=== PATIENT | male | born 1945 | race Caucasian/White ===

== ENCOUNTER → 2020-07-02 09:00 | Outpatient (BNVA) | payer MEDICARE, SELFPAY | PROVIDERS: PCP Internal Medicine; Referring Provider Internal Medicine; Visit Provider Internal Medicine Gastroenterology | DX: Z13.89 Encounter for screening for other disorder (principal) | CPT/HCPCS: Q3014 ==

== ENCOUNTER 2020-07-19 08:45 | Outpatient (REF) | payer MEDICARE, SELFPAY ==
--- NOTE | 2020-07-19 08:53 | US_ITS ---
EXAMINATION: US ABDOMEN COMPLETE CLINICAL INFORMATION: Unspecified cirrhosis of liver. COMPARISON: Ultrasound abdomen complete 12/12/2019 and 04/12/2019. CT abdomen 04/05/2008. TECHNIQUE: Real-time imaging of the abdominal viscera. FINDINGS: PANCREAS: Pancreas is obscured by gas. ABDOMINAL AORTA: The proximal and the distal abdominal aorta are of normal caliber. INFERIOR VENA CAVA: Visualized portions are normal. LIVER: The liver is normal in size. The liver contour is normal. There is diffuse increased liver echogenicity. No focal hepatic lesion. There is no intrahepatic biliary duct dilatation seen. GALLBLADDER: Normal. The gallbladder is physiologically distended without evidence of stones, sludge, polyps, wall thickening or pericholecystic fluid. COMMON BILE DUCT: Normal in caliber measuring 0.6 cm in diameter. RIGHT KIDNEY: Normal. No hydronephrosis. No renal calculi or focal parenchymal lesions. The kidney measures 10.5 cm in maximum dimension. LEFT KIDNEY: Normal. No hydronephrosis. No renal calculi or focal parenchymal lesions. The kidney measures 10.6 cm in maximum dimension. SPLEEN: Normal. The spleen measures 8.4 cm in maximum dimension. FREE FLUID: None. US/US abdomen complete IMPRESSION: Limited views mid abdominal aorta. Mild hepatic steatosis without any focal lesion seen.
[2020-07-19 10:11] LABS: MANUAL DIFF FLAG NO
[2020-07-19 10:21] LABS: Basophils Percent Auto 0.5 % (0-2); Eosinophils Absolute Auto 0.6 X10*3/uL (0.0-0.4); Eosinophils Percent Auto 7.6 % (0-4); Hematocrit 38.5 % (42-52); Hemoglobin 12.9 g/dl (14.0-18.0); Imm Gran Abs Auto 0.03 X10*3/uL (0.00-0.03); Imm Gran Pct Auto 0.4 % (0.0-0.4); Lymphocytes Absolute Auto 1.6 X10*3/uL (1.2-4.9); Lymphocytes Percent Auto 18.8 % (20-40); Mean Corpuscular HGB Conc 33.5 g/dl (31.0-36.0); Mean Corpuscular Hemoglobin 30.8 pg (27.0-33.0); Mean Corpuscular Volume 91.9 fL (80-98); Mean Platelet Volume 12.6 fL (9.4-12.4); Monocytes Absolute Auto 0.6 X10*3/uL (0.1-1.2); Monocytes Percent Auto 7.2 % (2-11); Neutrophils Absolute Auto 5.6 X10*3/uL (2.0-8.3); Neutrophils Percent Auto 65.5 % (45-73); Platelet Count 162 X10*3/uL (160-400); Red Blood Count 4.19 X10*6/uL (4.60-5.80); White Blood Count 8.5 X10*3/uL (4.8-10.8)
[2020-07-19 10:24] LABS: Prothrombin Time 12.2 SEC (10.8-13.0)
[2020-07-19 10:57] LABS: Alanine Aminotransferase 12 U/L (0-40); Albumin Level 3.6 g/dL (3.5-5.0); Alkaline Phosphatase 91 U/L (39-117); Anion Gap 15 (12-20); Aspartate Amino Transferase 18 U/L (5-37); Bilirubin Total 0.6 mg/dL (0.0-1.0); Blood Urea Nitrogen 7 mg/dL (9-16); Calcium 8.9 mg/dL (8.4-10.2); Carbon Dioxide 20 mmol/L (22-29); Chloride 104 mmol/L (96-108); Estimated Glomerular Filt Rate > 60; Glucose Random 94 mg/dL (60-115); Sodium 134 mmol/L (135-145); Total Protein 6.2 g/dL (6.5-8.0)
== END 2020-07-19 08:46 | disposition home or self-care (01) ==
LOC: HO.US 08:45
PROVIDERS: PCP Internal Medicine; Visit Provider Internal Medicine Gastroenterology
DX: K74.60 Unspecified cirrhosis of liver (principal)
CPT/HCPCS: 36415; 76700; 80053; 85025; 85610

== ENCOUNTER 2020-08-24 | Outpatient (REF) | payer MEDICARE, SELFPAY ==
[2020-08-24 11:24] LABS: MANUAL DIFF FLAG NO
[2020-08-24 11:33] LABS: Basophils Percent Auto 0.5 % (0-2); Eosinophils Absolute Auto 0.3 X10*3/uL (0.0-0.4); Eosinophils Percent Auto 3.8 % (0-4); Hematocrit 39.3 % (42-52); Hemoglobin 13.2 g/dl (14.0-18.0); Imm Gran Abs Auto 0.03 X10*3/uL (0.00-0.03); Imm Gran Pct Auto 0.4 % (0.0-0.4); Lymphocytes Absolute Auto 1.6 X10*3/uL (1.2-4.9); Lymphocytes Percent Auto 19.2 % (20-40); Mean Corpuscular HGB Conc 33.6 g/dl (31.0-36.0); Mean Corpuscular Hemoglobin 30.8 pg (27.0-33.0); Mean Corpuscular Volume 91.6 fL (80-98); Mean Platelet Volume 12.8 fL (9.4-12.4); Monocytes Absolute Auto 0.6 X10*3/uL (0.1-1.2); Monocytes Percent Auto 7.3 % (2-11); Neutrophils Absolute Auto 5.6 X10*3/uL (2.0-8.3); Neutrophils Percent Auto 68.8 % (45-73); Platelet Count 222 X10*3/uL (160-400); Red Blood Count 4.29 X10*6/uL (4.60-5.80); Red Cell Distribution Width 14.4 % (11.0-16.0); White Blood Count 8.1 X10*3/uL (4.8-10.8)
[2020-08-24 11:48] LABS: Estimated Average Glucose 114 mg/dL; Hemoglobin A1c % 5.6 %
[2020-08-24 12:03] LABS: Alanine Aminotransferase 13 U/L (0-40); Albumin Level 3.6 g/dL (3.5-5.0); Alkaline Phosphatase 83 U/L (39-117); Anion Gap 12 (12-20); Aspartate Amino Transferase 15 U/L (5-37); Bilirubin Total 0.4 mg/dL (0.0-1.0); Blood Urea Nitrogen 8 mg/dL (9-16); Calcium 8.7 mg/dL (8.4-10.2); Carbon Dioxide 26 mmol/L (22-29); Chloride 102 mmol/L (96-108); Cholesterol 116 mg/dL; Estimated Glomerular Filt Rate > 60; Glucose Random 119 mg/dL (60-115); HDL Cholesterol 50 mg/dL; LDL Cholesterol Calculated 49 mg/dl; Magnesium 1.8 mg/dL (1.6-2.6); Potassium 4.5 mmol/L (3.3-5.1); Sodium 135 mmol/L (135-145); Total Protein 6.1 g/dL (6.5-8.0); Triglycerides 86 mg/dL
[2020-08-24 12:06] LABS: B Type Natriuretic Peptide 121 pg/mL (<100)
[2020-08-24 12:26] LABS: Thyroid Stimulating Hormone 0.84 uIU/mL (0.32-4.0); Vitamin D 25-OH Total 35.6 ng/mL (>30)
[2020-08-24 12:43] LABS: Vitamin B12 > 2000 pg/mL (200-900)
== END 2020-08-24 00:01 | disposition home or self-care (01) ==
LOC: HO.LHD
PROVIDERS: Visit Provider Internal Medicine
DX: I11.0 Hypertensive heart disease with heart failure (principal); I50.22 Chronic systolic (congestive) heart failure; E78.2 Mixed hyperlipidemia; D64.9 Anemia, unspecified; R73.01 Impaired fasting glucose; I25.9 Chronic ischemic heart disease, unspecified; E55.9 Vitamin D deficiency, unspecified
CPT/HCPCS: 36415; 80053; 80061; 82306; 82607; 83036; 83735; 83880; 84443; 85025

== ENCOUNTER 2020-09-21 14:53 | Outpatient (REF) | payer MEDICARE, SELFPAY ==
[2020-09-21 17:11] LABS: MANUAL DIFF FLAG NO
[2020-09-21 17:19] LABS: Basophils Absolute Auto 0.1 X10*3/uL (0.0-0.2); Basophils Percent Auto 0.6 % (0-2); Eosinophils Absolute Auto 0.3 X10*3/uL (0.0-0.4); Eosinophils Percent Auto 3.2 % (0-4); Hemoglobin 13.1 g/dl (14.0-18.0); Imm Gran Abs Auto 0.04 X10*3/uL (0.00-0.03); Imm Gran Pct Auto 0.4 % (0.0-0.4); Lymphocytes Absolute Auto 1.5 X10*3/uL (1.2-4.9); Lymphocytes Percent Auto 14.4 % (20-40); Mean Corpuscular HGB Conc 32.8 g/dl (31.0-36.0); Mean Corpuscular Hemoglobin 30.2 pg (27.0-33.0); Mean Corpuscular Volume 92.2 fL (80-98); Mean Platelet Volume 12.4 fL (9.4-12.4); Monocytes Percent Auto 9.4 % (2-11); Neutrophils Absolute Auto 7.7 X10*3/uL (2.0-8.3); Platelet Count 242 X10*3/uL (160-400); Red Blood Count 4.34 X10*6/uL (4.60-5.80); Red Cell Distribution Width 13.9 % (11.0-16.0); White Blood Count 10.7 X10*3/uL (4.8-10.8)
[2020-09-21 17:40] LABS: Alanine Aminotransferase 8 U/L (0-40); Albumin Level 3.7 g/dL (3.5-5.0); Alkaline Phosphatase 100 U/L (39-117); Anion Gap 13 (12-20); Aspartate Amino Transferase 16 U/L (5-37); Bilirubin Total 0.6 mg/dL (0.0-1.0); Blood Urea Nitrogen 12 mg/dL (9-16); Calcium 8.7 mg/dL (8.4-10.2); Carbon Dioxide 26 mmol/L (22-29); Chloride 102 mmol/L (96-108); Estimated Glomerular Filt Rate > 60; Glucose Random 92 mg/dL (60-115); Lipase 12 U/L (8-78); Sodium 136 mmol/L (135-145); Total Protein 6.4 g/dL (6.5-8.0)
[2020-09-21 18:04] LABS: Ferritin 149 ng/mL (20-250)
== END 2020-09-21 14:54 | disposition home or self-care (01) ==
LOC: HO.LAB 14:53
PROVIDERS: PCP Internal Medicine; Visit Provider Internal Medicine Gastroenterology
DX: R13.10 Dysphagia, unspecified (principal); K74.60 Unspecified cirrhosis of liver; K44.9 Diaphragmatic hernia without obstruction or gangrene; K21.9 Gastro-esophageal reflux disease without esophagitis; R11.2 Nausea with vomiting, unspecified; R19.7 Diarrhea, unspecified; I10 Essential (primary) hypertension; E78.00 Pure hypercholesterolemia, unspecified; E55.9 Vitamin D deficiency, unspecified; Z98.890 Other specified postprocedural states; Z90.3 Acquired absence of stomach [part of]; Z86.010 Personal history of colon polyps; Z87.891 Personal history of nicotine dependence; Z79.82 Long term (current) use of aspirin; Z79.899 Other long term (current) drug therapy
CPT/HCPCS: 36415; 80053; 82728; 83690; 85025; 99212

== ENCOUNTER 2020-09-28 11:01 | Day surgery (SDC) | payer MEDICARE, SELFPAY ==
--- NOTE | 2020-09-26 10:50 | P.CONAN_ITS ---
Documented by User: Cleopatra Deluca 09/26/20 12:06 HPI - Anesthesia Eval Consult details Narrative: 74yo M for Upper Endoscopy PMF Active Problems Active Problems: All Active Problems (Updated 09/21/20 @ 15:50 by Francisco Jasmine MD) Nausea and vomiting (Acute) Dysphagia (Acute) Cirrhosis of liver without ascites (Acute) History of colon polyps (Acute) Hiatal hernia (Acute) History of cardiac catheterization (Acute ~02/2018) Elevated cholesterol (Acute) Hypertension (Acute) GERD (gastroesophageal reflux disease) (Acute) Past Medical History Medical History (Updated 09/26/20 @ 10:51 by Cleopatra Deluca) Cirrhosis of liver without ascites Dysphagia Elevated cholesterol GERD (gastroesophageal reflux disease) History of non anemic vitamin B12 deficiency History of vitamin D deficiency Hypertension Family History Family History (Updated 07/02/20 @ 09:02 by Chery Covington CMA) Father No problems noted. Mother No problems noted. Surgical History Surgical History (Updated 09/21/20 @ 15:17 by LISBETH Perez) H/O colonoscopy History of cardiac catheterization (~02/2018) History of esophagogastroduodenoscopy (EGD) (~01/2013) Status post partial gastrectomy Social History Social History (Updated 09/21/20 @ 15:17 by LISBETH Perez) Household Members: None Alcohol intake: never Smoking Status: Never smoker Substance Use Type: Marijuana Advance Directives: No Advance Directives Information Provided: Yes Meds Allergies Allergy/AdvReac Type Severity Reaction Status Date / Time No Known Allergies Allergy Verified 09/21/20 15:15 [No Known Allergies*] Home Medications Medication Instructions Recorded Confirmed Last Taken Type aspirin 81 mg tablet,delayed 81 mg PO DAILY 07/02/20 09/21/20 Unknown History release atorvastatin 10 mg tablet 10 mg PO QPM 07/02/20 09/21/20 Unknown History carvedilol 12.5 mg tablet 12.5 mg PO BID 07/02/20 09/21/20 Unknown History cyanocobalamin (vitamin B-12) 3,000 mcg PO DAILY 07/02/20 09/21/20 Unknown History 3,000 mcg capsule folic acid 1 mg tablet 1 mg PO DAILY 07/02/20 09/21/20 Unknown History gabapentin 600 mg tablet 600 mg PO DAILY 07/02/20 09/21/20 Unknown History iron heme polypeptide 12 mg tablet 12 mg PO DAILY 07/02/20 09/21/20 Unknown History lisinopril 2.5 mg tablet 2.5 mg PO DAILY 07/02/20 09/21/20 Unknown History tramadol 50 mg tablet 50 mg PO BID PRN 07/02/20 09/21/20 Unknown History Exam Exam Date and Time: September 26, 2020 1050 Pertinent Lab Results Pertinent Lab Results: Laboratory Tests 09/21/20 09/21/20 16:08 16:08 WBC 10.7 Hgb 13.1 L Hct 40.0 L Plt Count 242 Sodium 136 Potassium 5.0 Chloride 102 Carbon Dioxide 26 BUN 12 Creatinine 0.96 Laboratory Tests 07/19/20 09:38 PT 12.2 INR 1.0 Laboratory Tests 09/21/20 16:08 Total Bilirubin 0.6 AST 16 ALT 8 Alkaline Phosphatase 100 D Total Protein 6.4 L Albumin 3.7 Lipase 12 Assessment and Plan Assessment Anesthesia Assessment: Chart Reviewed Documented by User: Beny Blake MD 09/28/20 11:37 [facility] Past Medical History Medical History (Updated 09/26/20 @ 10:51 by Cleopatra Deluca) Cirrhosis of liver without ascites Dysphagia Elevated cholesterol GERD (gastroesophageal reflux disease) History of non anemic vitamin B12 deficiency History of vitamin D deficiency Hypertension Family History Family History (Updated 07/02/20 @ 09:02 by Chery Covington CMA) Father No problems noted. Mother No problems noted. Surgical History Surgical History (Updated 09/21/20 @ 15:17 by LISBETH Perez) H/O colonoscopy History of cardiac catheterization (~02/2018) History of esophagogastroduodenoscopy (EGD) (~01/2013) Status post partial gastrectomy Social History Social History (Updated 09/21/20 @ 15:17 by LISBETH Perez) Household Members: None Alcohol intake: never Smoking Status: Never smoker Substance Use Type: Marijuana Advance Directives: No Advance Directives Information Provided: Yes Meds Allergies Allergy/AdvReac Type Severity Reaction Status Date / Time No Known Allergies Allergy Verified 09/21/20 15:15 [No Known Allergies*] Home Medications Medication Instructions Recorded Confirmed Last Taken Type aspirin 81 mg tablet,delayed 81 mg PO DAILY 07/02/20 09/21/20 Unknown History release atorvastatin 10 mg tablet 10 mg PO QPM 07/02/20 09/21/20 Unknown History carvedilol 12.5 mg tablet 12.5 mg PO BID 07/02/20 09/21/20 Unknown History cyanocobalamin (vitamin B-12) 3,000 mcg PO DAILY 07/02/20 09/21/20 Unknown History 3,000 mcg capsule folic acid 1 mg tablet 1 mg PO DAILY 07/02/20 09/21/20 Unknown History gabapentin 600 mg tablet 600 mg PO DAILY 07/02/20 09/21/20 Unknown History iron heme polypeptide 12 mg tablet 12 mg PO DAILY 07/02/20 09/21/20 Unknown History lisinopril 2.5 mg tablet 2.5 mg PO DAILY 07/02/20 09/21/20 Unknown History tramadol 50 mg tablet 50 mg PO BID PRN 07/02/20 09/21/20 Unknown History Exam Airway Mallampati Class: II TM Dist: >3cm Neck ROM: Full Loose/Missing/Broken Teeth: Yes Heart: PVCs Lungs: NL Assessment and Plan Assessment Anesthesia Assessment: Anesthesia Plan Discussed and Chart Reviewed Final Anesthetic Review NPO: Yes ASA Class: III Final Preanesthetic Review: No Changes in Pt Med Stat, Meds/Allgs Chart Reviewed, Consent Obtained/Reviewed and Anes Risks/Benef Reviewed Patient Risk: Intermediate Procedure Risk: Low Anesthetic Plan Anesthetic Plan: MAC: Disposition: Standard PACU
[2020-09-26 12:57] VITALS: BMI 23.1
[2020-09-28 11:39] VITALS: BP 138/70; PULSE 61; RESP 18; TEMP 36.3; O2SAT 98
--- NOTE | 2020-09-28 11:43 | W.PM.OPN ---
Operative Note Operative Note Date of Service: 09/28/20 Narrative: Pre-op diagnosis: GERD, dysphagia Post-op diagnosis: other (Schatzki's ring/esophageal stricture, Billroth-I gastric anatomy, gastritis) Procedure: FLEXIBLE TRANSORAL UPPER GASTROINTESTINAL ENDOSCOPY WITH BIOPSIES AND ESOPHAGEAL BALLOON DILATION Consent: Indications for the procedure and potential complications of bleeding, perforation, reaction to medications and missed diagnosis were discussed with the patient and informed consent was obtained. Instrument: Olympus GIF H 190 mid size upper endoscope Monitoring: Vital signs and clinical assessment, continuous EKG monitoring, Pulse oximetry, Carbon Dioxide monitoring and blood pressure monitoring were done throughout the procedure. Procedure: The patient was placed in the left lateral decubitis position and pre-procedure medications were administered and a bite block was placed. The endoscope was inserted into the mouth and advanced under direct vision to the third part of duodenum. A careful inspection was made as the upper endoscope was withdrawn including a retroflexed examination of the proximal stomach; Findings and interventions are described below. Findings: Larynx: Normal Esophagus: Hiatal hernia from 30 to 35 cms. Tortuous esophagus with increased tertiary contractions. Partially obstructing Schatzki's ring/focal stricture at GE junction - dilated with 15, 16.5 mm CRE balloon x 60 seconds at each level. Biopsies were obtained. Stomach: Status post Bilroth 1 gastrectomy. Scar of past ulcer at anastomotic site with mild antral erythema - antral biopsies were obtained Duodenum: Normal bulb and descending duodenum Intervention: Biopsies and balloon dilation as noted above Impression and Post Procedure Diagnosis: Endoscopy Findings: ESOPHAGUS: Tortuous esophagus with increased tertiary contractions. Hiatal hernia from 30 to 35 cms. Partially obstructing Schatzki's ring/focal stricture at GE junction - dilated to 16.5 mm CRE balloon. Biopsies were obtained from the stricture Dysphagia is likely a combination of Schatzki's ring and esophageal motility disorder. STOMACH: Status post Bilroth 1 gastrectomy. Scar of past ulcer at anastomotic site with mild antral erythema - antral biopsies were obtained Plan: Await pathology results Patient has an appointment on 10/15/20 in the GI Clinic with Francisco Jasmine M.D.-. Above findings were reviewed with the patient and GERD handout was given in the discharge area Surgeon: Francisco Jasmine MD Anesthesia: MAC (Dr Blake) Correctional Corporal: David Alexis Estimated blood loss (mL): 0 Pathology: other (A: ESOPHAGEAL STRICTURE BX B: GASTRIC BX R/O H PYLORI) Condition: stable Disposition: PACU
--- NOTE | 2020-09-28 11:44 | MHC.SHP ---
Pre-Procedural Eval Section A The patient is an INPATIENT: No Changes since office visit: Yes Patient answered all questions; No Cold of Flu in the past 2 weeks, No New Medical Problems and No Changes in Medication The History & Physical has been completed within 30 days and I have reviewed it.: Yes Section B Chief Complaint: dysphagia Allergies: Allergies Allergy/AdvReac Type Severity Reaction Status Date / Time No Known Allergies Allergy Verified 09/21/20 15:15 [No Known Allergies*] Plan I have reviewed the history and physical and performed a pertinent physical examination on my patient. No changes have occurred unless specified.
--- NOTE | 2020-09-28 11:53 | PC.NURSE ---
PATIENT HAD A BABY ASA 81 MG PO THIS AM AT 0700. DR. COVARRUBIAS AWARE AND IS OKAY WITH IT.
[2020-09-28] MEDS: Lactated Ringers 1,000 ML 50 ML IV (11:55)
[2020-09-28 12:20] VITALS: BP 120/70; PULSE 82; RESP 16; TEMP 36.3; O2SAT 98
[2020-09-28 12:43] VITALS: BP 116/69; PULSE 70; RESP 18; TEMP 36.2; O2SAT 97
== END 2020-09-28 13:40 | disposition home or self-care (01) ==
PROVIDERS: PCP Internal Medicine; Visit Provider Internal Medicine Gastroenterology
PROC: 0DJ08ZZ Inspection of Upper Intestinal Tract, Via Natural or Artificial Opening Endoscopic (ICD-10-PCS; CPT 43235; principal; 2020-09-28 11:20)
DX: K22.2 Esophageal obstruction (principal); K21.00 Gastro-esophageal reflux disease with esophagitis, without bleeding; K29.50 Unspecified chronic gastritis without bleeding; K44.9 Diaphragmatic hernia without obstruction or gangrene; I10 Essential (primary) hypertension; Z90.3 Acquired absence of stomach [part of]; Z79.82 Long term (current) use of aspirin; Z79.899 Other long term (current) drug therapy
CPT/HCPCS: 43249; 43239; 88305; 88342; C1726

== ENCOUNTER → 2020-10-15 12:13 | Outpatient (BNVA) | payer MEDICARE, SELFPAY | PROVIDERS: PCP Internal Medicine; Visit Provider Internal Medicine Gastroenterology | CPT/HCPCS: Q3014 ==

== ENCOUNTER 2020-11-18 08:06 | Outpatient (REF) | payer MEDICARE, SELFPAY ==
[2020-11-18 10:01] LABS: OBS Int Ctl Valid YES; OBS1 NEGATIVE (NEGATIVE); OBS2 NEGATIVE (NEGATIVE); OBS3 NEGATIVE (NEGATIVE)
== END 2020-11-18 08:07 | disposition home or self-care (01) ==
LOC: HO.LNP 08:06
PROVIDERS: Visit Provider Internal Medicine Gastroenterology
DX: R19.7 Diarrhea, unspecified (principal); R11.2 Nausea with vomiting, unspecified
CPT/HCPCS: 82270

== ENCOUNTER → 2021-01-03 09:30 | Outpatient (BNVA) | payer MEDICARE, SELFPAY | PROVIDERS: PCP Internal Medicine; Visit Provider Urology | DX: N41.1 Chronic prostatitis (principal) | CPT/HCPCS: 99202; 99212 ==

== ENCOUNTER → 2021-01-31 11:09 | Outpatient (BNVA) | payer MEDICARE, SELFPAY | PROVIDERS: PCP Internal Medicine; Referring Provider Internal Medicine; Visit Provider Internal Medicine Gastroenterology | DX: K44.9 Diaphragmatic hernia without obstruction or gangrene (principal); K74.60 Unspecified cirrhosis of liver; K21.9 Gastro-esophageal reflux disease without esophagitis; R13.10 Dysphagia, unspecified; I10 Essential (primary) hypertension; E78.00 Pure hypercholesterolemia, unspecified; E53.8 Deficiency of other specified B group vitamins; R30.0 Dysuria; R11.2 Nausea with vomiting, unspecified; R19.7 Diarrhea, unspecified; Z86.010 Personal history of colon polyps; Z79.52 Long term (current) use of systemic steroids; Z79.899 Other long term (current) drug therapy | CPT/HCPCS: 99212 ==

== ENCOUNTER → 2021-02-15 13:10 | Outpatient (BNVA) | payer MEDICARE, SELFPAY | PROVIDERS: PCP Internal Medicine; Visit Provider Urology | DX: N41.1 Chronic prostatitis (principal) | CPT/HCPCS: 99212 ==

== ENCOUNTER 2021-04-02 08:03 | Day surgery (SDC) | payer MEDICARE, SELFPAY ==
--- NOTE | 2021-04-02 08:21 | MHC.SHP ---
Pre-Procedural Eval Section A Date of Service: 04/02/21 The patient is an INPATIENT: No The History & Physical has been completed within 30 days and I have reviewed it.: No Section B Chief Complaint: Colon cancer screening Details of Present Illness: Colon cancer screening Relevant Family History (Specify if Yes): No Relevant Social History: Tobacco Use (Former smoker) Present Medications: see Short Stay Collaborative assessment Medical History: Significant History (Cardiac defibrillator in place Cirrhosis of liver without ascites COVID-19 vaccine series completed Dysphagia Elevated cholesterol GERD (gastroesophageal reflux disease) History of non anemic vitamin B12 deficiency History of vitamin D deficiency Hx of myocardial infarction Hypertension) History of Previous Operations: Relevant previous surgery/procedure and date(s) (H/O colonoscopy History of cardiac catheterization (~02/2018) History of esophagogastroduodenoscopy (EGD) (~01/2013) History of esophagogastroduodenoscopy (EGD) Status post partial gastrectomy) Allergies: Allergies Allergy/AdvReac Type Severity Reaction Status Date / Time No Known Allergies Allergy Verified 04/02/21 08:13 [No Known Allergies*] Review of Systems Sugical H&P ROS: Negative: Constitution, Cardiovascular, Respiratory and Gastrointestinal Exam Surgical H&P Exam: Normal: Heart, Normal: Lungs, Normal: Extremities and Normal: Abdomen Plan Diagnosis/Plan: Unchanged I have reviewed the history and physical and performed a pertinent physical examination on my patient. No changes have occurred unless specified.
--- NOTE | 2021-04-02 08:23 | W.PM.OPN ---
Operative Note Operative Note Date of Service: 04/02/21 Narrative: Pre-op diagnosis:?Colon cancer screening, history of colon polyps Post-op diagnosis:?other (Diverticulosis) Procedure:? COLONOSCOPY TILL CECUM Consent: Indications for the procedure and potential complications of bleeding, perforation, reaction to medications and missed diagnosis were discussed with the patient and informed consent was obtained. Instrument: Olympus PCF H 190 L variable stiffness pediatric colonoscope Monitoring: Vital signs and clinical assessment, intermittent blood pressure monitoring, continuous EKG monitoring, Pulse oximetry and Carbon Dioxide monitoring were done throughout the procedure. Colon withdrawl time was 26 minutes. Procedure: The patient was placed in the left lateral decubitis position and pre-procedure medications were administered. After a digital rectal examination of the ano-rectum, the video colonoscope was inserted into the rectum and advanced through the colon to the cecum. The colonoscope was slowly withdrawn in a retrograde panoramic fashion and the colon mucosa was carefully examined including a retroflexed view of the rectum. Findings and interventions are described below. Procedure Difficulty: There was luminal narrowing at 30 cms which was navigated with some difficulty - no manuvers were required Findings: Terminal Ileum: Not evaluated Cecum:? Normal Ascending Colon:? Normal Transverse Colon:? Normal Descending Colon:? Moderate diverticulosis Sigmoid Colon:? Severe diverticulosis with luminal narrowing Rectum:? Normal Ano-rectum:? Normal Colon preparation:? Good after some irrigation Impression and Post Procedure Diagnosis: Colonoscopy Findings: No polyps were detected Moderate to severe diverticulosis seen in the left colon Moderate hemorrhoids on retroflexed exam. Plan: Await pathology results Patient has an appointment on 04/18/21 in the GI Clinic with Francisco Jasmine M.D.. Repeat Colonoscopy in 5 years if pt remains in stable health or pt may elect to stop colon cancer screening. Above findings were reviewed with the patient and? diverticulosis handout was given in the discharge area Surgeon:?Francisco Jasmine MD Anesthesia:?MAC (Melany Saunders CRNA) Was an Team Cdl Driver used for this Procedure?:?Yes Team Cdl Driver:?Olya Davies Estimated blood loss (mL):?0 Pathology:?none sent Condition:?stable Disposition:?PACU
[2021-04-02 08:30] VITALS: BP 152/85; PULSE 61; RESP 18; TEMP 36.4; O2SAT 99; BMI 22.7
--- NOTE | 2021-04-02 09:09 | HO.ANESPROP2 ---
HPI - Anesthesia Eval Consult details Narrative: 75yo male patient for colonoscopy PMF Active Problems Active Problems: All Active Problems (Updated 02/15/21 @ 13:42 by Zachary Murray MD) Hiatal hernia (Acute) History of colon polyps (Acute) Nausea and vomiting (Acute) Diarrhea (Acute) Chronic prostatitis (Acute) Elevated cholesterol (Acute) Cirrhosis of liver without ascites (Acute) Dysphagia (Acute) History of cardiac catheterization (Acute ~02/2018) GERD (gastroesophageal reflux disease) (Acute) CAD. [place] 2012. Denies recent chest pain AICD Med[employer] 2013. Interrogated 12/2020. Denies dizziness, faintness, SOB Past Medical History Medical History Cardiac defibrillator in place Cirrhosis of liver without ascites COVID-19 vaccine series completed Dysphagia Elevated cholesterol GERD (gastroesophageal reflux disease) History of non anemic vitamin B12 deficiency History of vitamin D deficiency Hx of myocardial infarction Hypertension Family History Family History Father No problems noted. Mother No problems noted. Family history of problems with anesthesia: No Surgical History Surgical History H/O colonoscopy History of cardiac catheterization (~02/2018) History of esophagogastroduodenoscopy (EGD) (~01/2013) History of esophagogastroduodenoscopy (EGD) Status post partial gastrectomy History of Problems with Anesthesia: No Social History Social History Household Members: None Alcohol intake: never Patient Tobacco Use Status: Former Tobacco user Quit Date: 2012 Tobacco use type: Cigarette Use of substances other than those prescribed or required for medical reasons: No Substance Use Type: Marijuana Are you DNR?: No Advance Directives: No Advance Directives Information Provided: Yes Meds Allergies Allergy/AdvReac Type Severity Reaction Status Date / Time No Known Allergies Allergy Verified 04/02/21 08:13 [No Known Allergies*] Home Medications Medication Instructions Recorded Confirmed Last Taken Type aspirin 81 mg tablet,delayed 81 mg PO DAILY 07/02/20 03/27/21 04/02/21 07:00 History release carvedilol 12.5 mg tablet 12.5 mg PO BID 07/02/20 03/27/21 Unknown History folic acid 1 mg tablet 1 mg PO DAILY 07/02/20 03/27/21 Unknown History gabapentin 600 mg tablet 600 mg PO BEDTIME 07/02/20 03/27/21 Unknown History lisinopril 2.5 mg tablet 2.5 mg PO DAILY 07/02/20 03/27/21 Unknown History tramadol 50 mg tablet 50 mg PO BID PRN 07/02/20 03/27/21 04/02/21 07:00 History atorvastatin 20 mg tablet 20 mg PO DAILY 10/15/20 03/27/21 Unknown History nitroglycerin 0.4 mg sublingual 0.4 mg SUBLINGUAL .Q5MINS PRN 10/15/20 03/27/21 Unknown History tablet isosorbide mononitrate 60 mg 60 mg PO QAM 01/03/21 03/27/21 Unknown History tablet,extended release 24 hr mecobalamin (vitamin B12) 1,000 1,000 mcg SUBLINGUAL DAILY 01/03/21 03/27/21 Unknown History mcg disintegrating tablet,sublingual Exam Exam Date and Time: April 02, 2021 0909 Height,Weight and Vital Signs: Height 5 ft 7 in Weight 65.771 kg Last Vital Signs Temp 97.5 F 04/02/21 08:30 Pulse 61 04/02/21 08:30 Resp 18 04/02/21 08:30 BP 152/85 H 04/02/21 08:30 Pulse Ox 99 04/02/21 08:30 Pertinent Lab Results Pertinent Lab Results: Narrative: ECHO 2020 Normal LV size and wall thickness. Discrete upper septal thickening. Moderate global hypokinesis. Hypokinesis in the basal and mid inferior wall, mid and distal anteroseptal wall and mid to distal inferolateral wall. The apex is hypokinetic to akinetic. LVEF 35-40%. Abnormal LV diastolic function. Moderately dilated LA Mild to mod MR Mild to moderate TR. PASP is not elevated Ascending (3.9cm) and transverse (3.1cm) aorta dilation. Normal aortic root for BSA Compared with 2019 Echo, degree of MR and TR has increased slightly. AICD Inter 12/2020 VVI 40; ORDERLIES TEACHER<0.1% No new alerts or episodes noted Normal device function Est. battery life: 3.2years Airway Mallampati Class: II TM Dist: >3cm Neck ROM: Full Loose/Missing/Broken Teeth: Yes (Many missing) Heart: RRR Lungs: CTAB Assessment and Plan Assessment Anesthesia Assessment: Anesthesia Plan Discussed and Chart Reviewed Final Anesthetic Review Family History of Problems with Anesthesia: No History of Problems with Anesthesia: No NPO: Yes ASA Class: III Final Preanesthetic Review: No Changes in Pt Med Stat, Meds/Allgs Chart Reviewed, Consent Obtained/Reviewed and Anes Risks/Benef Reviewed Patient Risk: Intermediate Procedure Risk: Low Assessment/Block/Sedation in SS: Assess/Block/Sedation-SS Anesthetic Plan Anesthetic Plan: MAC: Disposition: Standard PACU
[2021-04-02] MEDS: Lactated Ringers 1,000 ML 100 ML IVCONT (09:22)
[2021-04-02 10:09] VITALS: BP 130/68; PULSE 70; RESP 18; TEMP 36.6; O2SAT 99
[2021-04-02 10:24] VITALS: BP 143/78; PULSE 72; RESP 18; TEMP 36.6; O2SAT 98
== END 2021-04-02 11:30 | disposition home or self-care (01) ==
PROVIDERS: PCP Internal Medicine; Visit Provider Internal Medicine Gastroenterology
PROC: 0DJD8ZZ Inspection of Lower Intestinal Tract, Via Natural or Artificial Opening Endoscopic (ICD-10-PCS; CPT 45378; principal; 2021-04-02 09:10)
DX: Z12.11 Encounter for screening for malignant neoplasm of colon (principal); K57.30 Diverticulosis of large intestine without perforation or abscess without bleeding; K64.9 Unspecified hemorrhoids; Z86.010 Personal history of colon polyps; I10 Essential (primary) hypertension; K21.9 Gastro-esophageal reflux disease without esophagitis; K74.60 Unspecified cirrhosis of liver; Z79.82 Long term (current) use of aspirin; Z79.899 Other long term (current) drug therapy; Z95.810 Presence of automatic (implantable) cardiac defibrillator
CPT/HCPCS: G0105

== ENCOUNTER 2021-04-04 07:49 | Outpatient (REF) | payer MEDICARE, SELFPAY ==
[2021-04-04 08:42] LABS: MANUAL DIFF FLAG NO
[2021-04-04 08:46] LABS: Basophils Percent Auto 0.5 % (0-2); Eosinophils Absolute Auto 0.3 X10*3/uL (0.0-0.4); Eosinophils Percent Auto 3.4 % (0-4); Hematocrit 37.7 % (42-52); Hemoglobin 12.6 g/dl (14.0-18.0); Imm Gran Abs Auto 0.03 X10*3/uL (0.00-0.03); Imm Gran Pct Auto 0.4 % (0.0-0.4); Lymphocytes Absolute Auto 1.8 X10*3/uL (1.2-4.9); Lymphocytes Percent Auto 21.1 % (20-40); Mean Corpuscular HGB Conc 33.4 g/dl (31.0-36.0); Mean Corpuscular Hemoglobin 30.6 pg (27.0-33.0); Mean Corpuscular Volume 91.5 fL (80-98); Mean Platelet Volume 12.4 fL (9.4-12.4); Monocytes Absolute Auto 0.7 X10*3/uL (0.1-1.2); Monocytes Percent Auto 8.4 % (2-11); Neutrophils Absolute Auto 5.7 X10*3/uL (2.0-8.3); Neutrophils Percent Auto 66.2 % (45-73); Platelet Count 188 X10*3/uL (160-400); Red Blood Count 4.12 X10*6/uL (4.60-5.80); Red Cell Distribution Width 13.8 % (11.0-16.0); White Blood Count 8.5 X10*3/uL (4.8-10.8)
[2021-04-04 09:19] LABS: Alanine Aminotransferase 12 U/L (0-40); Albumin Level 3.7 g/dL (3.5-5.0); Alkaline Phosphatase 81 U/L (39-117); Anion Gap 13 (12-20); Aspartate Amino Transferase 19 U/L (5-37); Bilirubin Total 0.4 mg/dL (0.0-1.0); Blood Urea Nitrogen 8 mg/dL (9-16); Calcium 9.1 mg/dL (8.4-10.2); Carbon Dioxide 21 mmol/L (22-29); Chloride 103 mmol/L (96-108); Cholesterol 109 mg/dL; Estimated Glomerular Filt Rate > 60; Glucose Random 94 mg/dL (60-115); HDL Cholesterol 50 mg/dL; LDL Cholesterol Calculated 47 mg/dl; Potassium 4.5 mmol/L (3.3-5.1); Sodium 132 mmol/L (135-145); Total Protein 6.1 g/dL (6.5-8.0); Triglycerides 63 mg/dL
[2021-04-04 09:29] LABS: Thyroid Stimulating Hormone 0.73 uIU/mL (0.32-4.0)
[2021-04-04 14:03] LABS: Appearance Urine CLEAR; Color Urine YELLOW; Glucose Urine UA NEG (NEG); Leukocyte Esterase Urine NEG (NEG); Nitrite Urine NEG (NEG); PH 6.5 (5.0-8.0); Urine Blood NEG (NEG); Urine Ketones NEG (NEG); Urine Protein NEG (NEG-TRACE)
== END 2021-04-04 07:50 | disposition home or self-care (01) ==
LOC: HO.LAB 07:49
PROVIDERS: PCP Internal Medicine; Visit Provider Internal Medicine
DX: I11.0 Hypertensive heart disease with heart failure (principal); I50.22 Chronic systolic (congestive) heart failure; K21.9 Gastro-esophageal reflux disease without esophagitis
CPT/HCPCS: 36415; 80053; 80061; 81003; 84443; 85025

== ENCOUNTER → 2021-04-18 10:26 | Outpatient (BNVA) | payer MEDICARE, SELFPAY | PROVIDERS: PCP Internal Medicine; Referring Provider Internal Medicine; Visit Provider Internal Medicine Gastroenterology | DX: K44.9 Diaphragmatic hernia without obstruction or gangrene (principal); K74.60 Unspecified cirrhosis of liver; K21.9 Gastro-esophageal reflux disease without esophagitis; R13.10 Dysphagia, unspecified; Z86.010 Personal history of colon polyps | CPT/HCPCS: 99212 ==

== ENCOUNTER 2021-04-26 09:44 | Emergency (ER) | payer MEDICARE, SELFPAY ==
--- NOTE | ~2021-04-26 | XR_ITS ---
EXAMINATION: XR WRIST, RIGHT CLINICAL INFORMATION: Right wrist pain COMPARISON: None TECHNIQUE: PA, lateral, and oblique views of the right wrist. FINDINGS: There is loss of first carpal-metacarpal joint space and radial scaphoid joint space with periarticular spurring. No visible acute fracture, dislocation. There is mild dorsal wrist soft tissue swelling. No visible acute fracture or dislocation seen. XR/XR wrist RT min 3V IMPRESSION: No acute fracture or dislocation. Mild degenerative changes of wrist.
[2021-04-26 10:46] VITALS: BP 145/77; PULSE 61; RESP 16; TEMP 36.7; O2SAT 95; BMI 23.5
--- NOTE | 2021-04-26 11:32 | ED.EXTPRO ---
HPI - Extremity Problem General Chief complaint: Extremity Injury, Upper Stated complaint: rt arm pain & swelling Time Seen by Provider: 04/26/21 11:31 History of Present Illness HPI Narrative: Patient is 75-year-old male presents today with having pain to the right hand. Patient claims there is swelling to the dorsum of the hand that started last night. He has no difficulty moving the hand. There is no redness is no fever. Pain shoots to the shoulder. There is no chest pain or shortness of breath no diaphoresis. He does have a history of hypertension. History of coronary artery disease. History of reflux. No history of blood clots. No leg swelling. No instrumentation to the arm. No trauma. Patient from home. No dizziness no nausea no vomiting no cough no congestion or upper respiratory symptoms Related Data Home Medications Medication Instructions Recorded Confirmed aspirin 81 mg tablet,delayed 81 mg PO DAILY 07/02/20 04/18/21 release carvedilol 12.5 mg tablet 12.5 mg PO BID 07/02/20 04/18/21 folic acid 1 mg tablet 1 mg PO DAILY 07/02/20 04/18/21 gabapentin 600 mg tablet 600 mg PO BEDTIME 07/02/20 04/18/21 lisinopril 2.5 mg tablet 2.5 mg PO DAILY 07/02/20 04/18/21 tramadol 50 mg tablet 50 mg PO BID PRN 07/02/20 04/18/21 atorvastatin 20 mg tablet 20 mg PO DAILY 10/15/20 04/18/21 nitroglycerin 0.4 mg sublingual 0.4 mg SUBLINGUAL .Q5MINS PRN 10/15/20 04/18/21 tablet isosorbide mononitrate 60 mg 60 mg PO QAM 01/03/21 04/18/21 tablet,extended release 24 hr mecobalamin (vitamin B12) 1,000 1,000 mcg SUBLINGUAL DAILY 01/03/21 04/18/21 mcg disintegrating tablet,sublingual Previous Rx's Medication Instructions Recorded meloxicam 15 mg tablet (Mobic) 15 mg PO DAILY 30 Days #30 tab 01/03/21 omeprazole 20 mg capsule,delayed 20 mg PO BID 60 Days #120 cap 01/07/21 release cholecalciferol (vitamin D3) 50 50 mcg PO DAILY 90 Days #90 cap 04/18/21 mcg (2,000 unit) capsule ferrous sulfate 325 mg (65 mg 325 mg PO Q OTHER DAY 90 Days #45 04/18/21 iron) tablet tab Allergies Allergy/AdvReac Type Severity Reaction Status Date / Time No Known Allergies Allergy Verified 04/26/21 10:46 [No Known Allergies*] Review of Systems Review of Systems: No fever no chills no chest pain no shortness of breath no diaphoresis No redness to the hand No decreased range of motion to the hand All systems reviewed otherwise negative Yes all other systems are reviewed and are negative [facility] Past Medical History Attestation statement: The following information was validated with the patient. Medical History Cardiac defibrillator in place Cirrhosis of liver without ascites COVID-19 vaccine series completed Dysphagia Elevated cholesterol GERD (gastroesophageal reflux disease) History of non anemic vitamin B12 deficiency History of vitamin D deficiency Hx of myocardial infarction Hypertension Surgical History H/O colonoscopy History of cardiac catheterization (~02/2018) History of esophagogastroduodenoscopy (EGD) (~01/2013) History of esophagogastroduodenoscopy (EGD) Status post partial gastrectomy Family History Family History Father No problems noted. Mother No problems noted. Social History Social History Household Members: None Alcohol intake: never Patient Tobacco Use Status: Former Tobacco user Quit Date: 2012 Tobacco use type: Cigarette Substance Use Type: Marijuana Advance Directives: No Physical Exam Vital Signs: Vital Signs: Last Vital Signs Temp 98.1 F 04/26/21 10:46 Pulse 61 04/26/21 10:46 Resp 16 04/26/21 10:46 BP 145/77 H 04/26/21 10:46 Pulse Ox 95 04/26/21 10:46 Body Mass Index 23.5 Appearance: Alert. Oriented X3. No acute distress. Eyes: Pupils equal, round and reactive to light. ENT: Pharynx normal. Neck: Normal inspection. Neck supple. No lymph nodes noted. No crepitus CVS: Normal heart rate and rhythm. Pulses normal. Normal S1 and S2 Respiratory: No respiratory distress. Breath sounds normal. No Wheezing. No rales. There is no chest wall tenderness elicited on palpation. No rash noted. Abdomen: Soft and nontender. No rigidity. No distention. good BS x4 Skin: Skin warm and dry. Normal skin color. Normal skin turgor. Extremities: No lower extremity edema. Neurovascular intact to all extremities. No Lacerations. No Rash. Mi swelling to the dorsum of the right hand. More prominent over the thenar aspect. There is no redness noted. Distally sensation intact. Capillary refill less than 2 seconds. Opposition of the thumb intact. Movement of the fingers 2 through 5 intact at MCP, PIP, DIP. Capillary refill less than 2 seconds. Range of motion at the elbow and shoulder grossly intact. Neuro: Oriented X 3. No motor deficit. No sensory deficit. Moving all extermities. No slurred speech MDM - Extremity (Nontraumatic) MDM Narrative Medical decision making narrative: Well-appearing neurologically intact. Positive swelling to the dorsum of the hand. X-ray showed no acute fracture there is no anatomical snuffbox tenderness there is good opposition of thumb there is no signs of infection no redness no fever. White count was normal. Question arthritis. Will discharge patient home with NSAIDs. Patient's creatinine was normal. In stable condition. Lab Data Result diagrams: 04/26/21 12:05 04/26/21 12:06 Labs: Lab Results 04/26/21 04/26/21 Range/Units 12:05 12:06 WBC 9.2 (4.8-10.8) X10*3/uL RBC 4.10 L (4.60-5.80) X10*6/uL Hgb 12.7 L (14.0-18.0) g/dl Hct 36.9 L (42-52) % MCV 90.0 (80-98) fL MCH 31.0 (27.0-33.0) pg MCHC 34.4 (31.0-36.0) g/dl RDW 13.6 (11.0-16.0) % Plt Count 216 (160-400) X10*3/uL MPV 12.0 (9.4-12.4) fL Immature Gran % (Auto) 0.3 (0.0-0.4) % Neut % (Auto) 68.9 (45-73) % Lymph % (Auto) 19.3 L (20-40) % [place] % (Auto) 8.4 (2-11) % Eos % (Auto) 2.7 (0-4) % Baso % (Auto) 0.4 (0-2) % Lymph # (Auto) 1.8 (1.2-4.9) X10*3/uL [place] # (Auto) 0.8 (0.1-1.2) X10*3/uL Eos # (Auto) 0.3 (0.0-0.4) X10*3/uL Baso # (Auto) 0.0 (0.0-0.2) X10*3/uL Abs Immat Gran (auto) 0.03 (0.00-0.03) X10*3/uL Absolute Neuts (auto) 6.3 (2.0-8.3) X10*3/uL Absolute Nucleated RBC 0.000 (0.0-0.012) X10*3/uL Nucleated RBC % (auto) 0.0 (0.0-0.2) /100WBC Sodium 134 L (135-145) mmol/L Potassium 4.7 (3.3-5.1) mmol/L Chloride 102 (96-108) mmol/L Carbon Dioxide 24 (22-29) mmol/L Anion Gap 13 (12-20) BUN 9 (9-16) mg/dL Creatinine 0.75 (0.5-1.4) mg/dL Estim Creat Clear Calc 78.3 Estimated GFR > 60 Random Glucose 105 (60-115) mg/dL Calcium 9.3 (8.4-10.2) mg/dL Discharge Plan Discharge Clinical Impression: Arthritis Patient Disposition: Home, Self-Care Instructions: Osteoarthritis (ED) Prescriptions: No Action omeprazole 20 mg capsule,delayed release(DR/EC) 20 mg PO BID 60 Days Qty: 120 RF: 3 lisinopril 2.5 mg tablet 2.5 mg PO DAILY RF: 0 folic acid 1 mg tablet 1 mg PO DAILY RF: 0 gabapentin 600 mg tablet 600 mg PO BEDTIME RF: 0 carvedilol 12.5 mg tablet 12.5 mg PO BID RF: 0 tramadol 50 mg tablet 50 mg PO BID PRN (Reason: Pain) RF: 0 aspirin 81 mg tablet,delayed release (DR/EC) 81 mg PO DAILY RF: 0 cholecalciferol (vitamin D3) 50 mcg (2,000 unit) capsule 50 mcg PO DAILY 90 Days Qty: 90 RF: 1 ferrous sulfate 325 mg (65 mg iron) tablet 325 mg PO Q OTHER DAY 90 Days Qty: 45 RF: 1 nitroglycerin 0.4 mg tablet, sublingual 0.4 mg sublingual .Q5MINS PRN (Reason: Chest Pain) RF: 0 atorvastatin 20 mg tablet 20 mg PO DAILY RF: 0 isosorbide mononitrate 60 mg tablet extended release 24 hr 60 mg PO QAM RF: 0 mecobalamin (vitamin B12) 1,000 mcg tablet,disintegrating 1,000 mcg sublingual DAILY RF: 0 meloxicam [Mobic] 15 mg tablet 15 mg PO DAILY 30 Days Qty: 30 RF: 0 Referrals: Pablo Strauss MD [Primary Care Provider] - 2 days
[2021-04-26 12:09] LABS: MANUAL DIFF FLAG NO
[2021-04-26 12:11] LABS: Basophils Percent Auto 0.4 % (0-2); Eosinophils Absolute Auto 0.3 X10*3/uL (0.0-0.4); Eosinophils Percent Auto 2.7 % (0-4); Hematocrit 36.9 % (42-52); Hemoglobin 12.7 g/dl (14.0-18.0); Imm Gran Abs Auto 0.03 X10*3/uL (0.00-0.03); Imm Gran Pct Auto 0.3 % (0.0-0.4); Lymphocytes Absolute Auto 1.8 X10*3/uL (1.2-4.9); Lymphocytes Percent Auto 19.3 % (20-40); Mean Corpuscular HGB Conc 34.4 g/dl (31.0-36.0); Monocytes Absolute Auto 0.8 X10*3/uL (0.1-1.2); Monocytes Percent Auto 8.4 % (2-11); Neutrophils Absolute Auto 6.3 X10*3/uL (2.0-8.3); Neutrophils Percent Auto 68.9 % (45-73); Platelet Count 216 X10*3/uL (160-400); Red Cell Distribution Width 13.6 % (11.0-16.0); White Blood Count 9.2 X10*3/uL (4.8-10.8)
[2021-04-26 12:29] LABS: Anion Gap 13 (12-20); Blood Urea Nitrogen 9 mg/dL (9-16); Calcium 9.3 mg/dL (8.4-10.2); Carbon Dioxide 24 mmol/L (22-29); Chloride 102 mmol/L (96-108); Creatinine Clr Calc Pharmacy 78.3; Estimated Glomerular Filt Rate > 60; Glucose Random 105 mg/dL (60-115); Potassium 4.7 mmol/L (3.3-5.1); Sodium 134 mmol/L (135-145)
== END 2021-04-26 13:05 | disposition home or self-care (01) ==
PROVIDERS: Emergency Provider Emergency Medicine Emergency Medical Services; PCP Internal Medicine
DX: M19.041 Primary osteoarthritis, right hand (principal); Z79.899 Other long term (current) drug therapy; Z87.891 Personal history of nicotine dependence
CPT/HCPCS: 36415; 73110; 80048; 85025; 99283

== ENCOUNTER 2021-05-15 08:42 | Outpatient (REF) | payer MEDICARE, SELFPAY ==
--- NOTE | ~2021-05-15 | US_ITS ---
EXAMINATION: US ABDOMEN LIMITED CLINICAL INFORMATION: Unspecified cirrhosis of liver. COMPARISON: Ultrasound abdomen complete 07/19/2020 and 12/12/2019. TECHNIQUE: Real-time imaging of the right upper quadrant abdominal viscera. FINDINGS: PANCREAS: Not well seen due to bowel gas. LIVER: The liver is normal in size, although visualization of the left lobe is limited. The liver contour is normal. There is diffuse increased liver parenchymal echogenicity, consistent with hepatic steatosis. No focal hepatic lesion. There is no intrahepatic biliary duct dilatation seen. GALLBLADDER: Normal. The gallbladder is physiologically distended without evidence of stones, sludge, polyps, wall thickening or pericholecystic fluid. COMMON BILE DUCT: Normal in caliber measuring 0.5 cm in diameter. RIGHT KIDNEY: Normal. No hydronephrosis. No renal calculi or focal parenchymal lesions. The kidney measures 9.6 cm in maximum dimension. FREE FLUID: None. US/US abdomen limited IMPRESSION: Hepatic steatosis. Normal contour of the liver. No focal liver lesion, although there is limited visualization of the left lobe.
== END 2021-05-15 08:43 | disposition home or self-care (01) ==
LOC: HO.US 08:42
PROVIDERS: PCP Internal Medicine; Visit Provider Internal Medicine Gastroenterology
DX: K74.60 Unspecified cirrhosis of liver (principal)
CPT/HCPCS: 76705

== ENCOUNTER 2021-08-21 08:44 | Outpatient (REF) | payer MEDICARE, SELFPAY ==
[2021-08-21 09:06] LABS: MANUAL DIFF FLAG NO
[2021-08-21 10:16] LABS: Basophils Absolute Auto 0.1 X10*3/uL (0.0-0.2); Basophils Percent Auto 0.7 % (0-2); Eosinophils Absolute Auto 0.3 X10*3/uL (0.0-0.4); Eosinophils Percent Auto 4.4 % (0-4); Hematocrit 41.3 % (42.0-52.0); Hemoglobin 13.6 g/dl (14.0-18.0); Imm Gran Abs Auto 0.02 X10*3/uL (0.00-0.03); Imm Gran Pct Auto 0.3 % (0.0-0.4); Lymphocytes Absolute Auto 1.5 X10*3/uL (1.2-4.9); Lymphocytes Percent Auto 19.1 % (20-40); Mean Corpuscular HGB Conc 32.9 g/dl (31.0-36.0); Mean Corpuscular Hemoglobin 30.3 pg (27.0-33.0); Mean Platelet Volume 12.9 fL (9.4-12.4); Monocytes Absolute Auto 0.6 X10*3/uL (0.1-1.2); Monocytes Percent Auto 7.9 % (2-11); Neutrophils Absolute Auto 5.2 x10*3/uL (2.0-8.3); Neutrophils Percent Auto 67.6 % (45-73); Platelet Count 234 X10*3/uL (160-400); Red Blood Count 4.49 X10*6/uL (4.60-5.80); Red Cell Distribution Width 14.1 % (11.0-16.0); White Blood Count 7.7 X10*3/uL (4.8-10.8)
[2021-08-21 12:52] LABS: Ferritin 76 ng/mL (20-250)
[2021-08-21 13:01] LABS: Alanine Aminotransferase 17 U/L (0-40); Albumin Level 4.1 g/dL (3.5-5.0); Alkaline Phosphatase 94 U/L (39-117); Anion Gap 12 (12-20); Aspartate Amino Transferase 19 U/L (5-37); Bilirubin Total 0.6 mg/dL (0.0-1.0); Carbon Dioxide 27 mmol/L (22-29); Chloride 102 mmol/L (96-108); Estimated Glomerular Filt Rate > 60; Glucose Random 87 mg/dL (60-115); Iron 99 mcg/dL (45-160); Percent Iron Saturation 36 % (15-50); Potassium 4.8 mmol/L (3.3-5.1); Sodium 136 mmol/L (135-145); Total Iron Binding Capacity 278 mcg/dL (228-428); Total Protein 6.6 g/dL (6.5-8.0); Unsaturated Iron Binding 179 ug/dL
[2021-08-21 15:35] LABS: Blood Urea Nitrogen 8 mg/dL (9-16); Calcium 10.1 mg/dL (8.4-10.2)
[2021-08-21 18:57] LABS: Folate 16.3 ng/mL (> or = 4.0); Vitamin B12 823 pg/mL (200-900)
== END 2021-08-21 08:45 | disposition home or self-care (01) ==
LOC: HO.LAB 08:44
PROVIDERS: PCP Internal Medicine; Visit Provider Internal Medicine
DX: D64.9 Anemia, unspecified (principal); I10 Essential (primary) hypertension; M79.10 Myalgia, unspecified site
CPT/HCPCS: 36415; 80053; 82550; 82607; 82728; 82746; 83540; 85025

== ENCOUNTER → 2021-08-22 13:41 | Outpatient (BNVA) | payer MEDICARE, SELFPAY | PROVIDERS: PCP Internal Medicine; Visit Provider Urology | DX: N41.1 Chronic prostatitis (principal) | CPT/HCPCS: Q3014 ==

== ENCOUNTER → 2021-10-10 11:00 | Outpatient (BNVA) | payer MEDICARE, SELFPAY | PROVIDERS: PCP Internal Medicine; Referring Provider Internal Medicine; Visit Provider Internal Medicine Gastroenterology | DX: K44.9 Diaphragmatic hernia without obstruction or gangrene (principal); R11.2 Nausea with vomiting, unspecified; R19.7 Diarrhea, unspecified; K74.60 Unspecified cirrhosis of liver; K21.9 Gastro-esophageal reflux disease without esophagitis; Z86.010 Personal history of colon polyps | CPT/HCPCS: 99212 ==

== ENCOUNTER 2021-11-05 09:17 | Outpatient (REF) | payer MEDICARE, SELFPAY ==
--- NOTE | ~2021-11-05 | US_ITS ---
EXAMINATION: US ABDOMEN COMPLETE CLINICAL INFORMATION: Unspecified cirrhosis of liver. COMPARISON: Ultrasound abdomen limited 05/15/2021. Ultrasound abdomen complete 07/19/2020. TECHNIQUE: Real-time imaging of the abdominal viscera. Technically somewhat limited study secondary to bowel gas; patient is nonfasting. FINDINGS: PANCREAS: Normal. ABDOMINAL AORTA: Poorly visualized INFERIOR VENA CAVA: Visualized portions are normal. LIVER: Limited visualization of the left lobe secondary to bowel gas. The liver is normal in size. Arguably there may be mildly increased echogenicity of the liver parenchyma which could be suggestive of steatosis or hepatocellular disease. Liver contour is unremarkable. No focal hepatic lesion. There is no intrahepatic biliary duct dilatation seen. GALLBLADDER: Normal. The gallbladder is physiologically distended without evidence of stones, sludge, polyps, wall thickening or pericholecystic fluid. COMMON BILE DUCT: Normal in caliber measuring 0.2 cm in diameter. RIGHT KIDNEY: Normal. No hydronephrosis. No renal calculi or focal parenchymal lesions. The kidney measures 9.6 cm in maximum dimension. LEFT KIDNEY: Normal. No hydronephrosis. No renal calculi or focal parenchymal lesions. The kidney measures 10.5 cm in maximum dimension. SPLEEN: Normal. The spleen measures 9.2 cm in maximum dimension. FREE FLUID: None. US/US abdomen complete IMPRESSION: Mildly echogenic liver parenchyma suggesting steatosis or other hepatocellular disease. Otherwise unremarkable abdominal ultrasound.
== END 2021-11-05 09:18 | disposition home or self-care (01) ==
LOC: HO.US 09:17
PROVIDERS: Visit Provider Internal Medicine Gastroenterology
DX: K74.60 Unspecified cirrhosis of liver (principal)
CPT/HCPCS: 76700

== ENCOUNTER 2021-11-11 10:22 | Outpatient (REF) | payer MEDICARE, SELFPAY ==
[2021-11-11 10:37] VITALS: BMI 23.5
[2021-11-11 10:40] VITALS: BP 140/74; PULSE 66; RESP 16; TEMP 36.5; O2SAT 98
== END 2021-11-11 10:23 | disposition home or self-care (01) ==
LOC: HO.MS 10:22
PROVIDERS: PCP Internal Medicine; Visit Provider Ophthalmology
PROC: (CPT 66821; principal; 2021-11-11 12:10)
DX: H26.491 Other secondary cataract, right eye (principal); Z96.1 Presence of intraocular lens; I10 Essential (primary) hypertension; Z79.899 Other long term (current) drug therapy; Z87.891 Personal history of nicotine dependence
CPT/HCPCS: 66821

== ENCOUNTER 2022-05-01 12:40 | Outpatient (REF) | payer MEDICARE, SELFPAY ==
[2022-05-01 12:52] LABS: MANUAL DIFF FLAG NO
[2022-05-01 13:07] LABS: Basophils Absolute Auto 0.1 X10*3/uL (0.0-0.2); Basophils Percent Auto 0.9 % (0-2); Eosinophils Absolute Auto 0.3 X10*3/uL (0.0-0.4); Eosinophils Percent Auto 3.1 % (0-4); Hematocrit 43.7 % (42.0-52.0); Hemoglobin 14.5 g/dl (14.0-18.0); Imm Gran Abs Auto 0.03 X10*3/uL (0.00-0.03); Imm Gran Pct Auto 0.4 % (0.0-0.4); Lymphocytes Absolute Auto 2.1 X10*3/uL (1.2-4.9); Lymphocytes Percent Auto 25.6 % (20-40); Mean Corpuscular HGB Conc 33.2 g/dl (31.0-36.0); Mean Corpuscular Volume 90.3 fL (80.0-98.0); Mean Platelet Volume 12.3 fL (9.4-12.4); Monocytes Absolute Auto 0.7 X10*3/uL (0.1-1.2); Monocytes Percent Auto 8.7 % (2-11); Neutrophils Percent Auto 61.3 % (45-73); Platelet Count 196 X10*3/uL (160-400); Red Blood Count 4.84 X10*6/uL (4.60-5.80); Red Cell Distribution Width 14.3 % (11.0-16.0); White Blood Count 8.2 X10*3/uL (4.8-10.8)
[2022-05-01 13:17] LABS: Prothrombin Time 11.8 SEC (10.0-13.1)
[2022-05-01 13:43] LABS: Ferritin 80 ng/mL (20-250); Vitamin D 25-OH Total 60.8 ng/mL (>30)
== END 2022-05-01 12:41 | disposition home or self-care (01) ==
LOC: HO.LAB 12:40
PROVIDERS: PCP Internal Medicine; Visit Provider Internal Medicine Gastroenterology
DX: D64.9 Anemia, unspecified (principal); K74.60 Unspecified cirrhosis of liver; K44.9 Diaphragmatic hernia without obstruction or gangrene; R11.2 Nausea with vomiting, unspecified; R19.7 Diarrhea, unspecified; R13.10 Dysphagia, unspecified; K21.9 Gastro-esophageal reflux disease without esophagitis; Z86.39 Personal history of other endocrine, nutritional and metabolic disease; Z86.010 Personal history of colon polyps
CPT/HCPCS: 36415; 82306; 82728; 85025; 85610; 99212

== ENCOUNTER → 2022-08-26 13:26 | Outpatient (BNVA) | payer MEDICARE, SELFPAY | PROVIDERS: PCP Internal Medicine; Visit Provider Urology | DX: N41.1 Chronic prostatitis (principal) | CPT/HCPCS: 99212 ==

== ENCOUNTER 2022-12-04 06:03 | Outpatient (REF) | payer MEDICARE, SELFPAY ==
--- NOTE | ~2022-12-04 | XR_ITS ---
EXAMINATION: XR CERVICAL SPINE CLINICAL INFORMATION: Pain. History of fracture. COMPARISON: Reports from MRI CT and x-ray of the cervical spine. Images not available. TECHNIQUE: 5 views of the cervical spine were obtained. FINDINGS: There is posterior fusion hardware from the skull base/occiput to C4. There is a screw seen in the C2 vertebral body. Ununited dens fracture is seen. There is mild 2 mm anterior subluxation of C3 with respect to C4. No acute fracture or dislocation seen. There is multilevel degenerative spondylosis and degenerative disc disease seen at all levels. There are foramen are not well visualized due to projection and overlying orthopedic hardware. There is mild bilateral neuroforaminal narrowing at C6-C7 from bony osteophyte. Prevertebral soft tissues are normal. Posterior soft tissue calcification or ossification in the nuchal ligament suggestive of old soft tissue trauma. Visualized lung apices are clear. Left subclavian pacemaker lead noted. XR/XR cervical spine 4V IMPRESSION: No old exams available for comparison. Ununited dens fracture fixed by single screw. Posterior fusion hardware from the skull base/occiput to C4. Multilevel degenerative changes.
[2022-12-04 06:16] LABS: MANUAL DIFF FLAG NO
[2022-12-04 07:56] LABS: Basophils Absolute Auto 0.1 X10*3/uL (0.0-0.2); Basophils Percent Auto 0.8 % (0-2); Eosinophils Absolute Auto 0.4 X10*3/uL (0.0-0.4); Eosinophils Percent Auto 4.7 % (0-4); Hematocrit 40.2 % (42.0-52.0); Hemoglobin 12.9 g/dl (14.0-18.0); Imm Gran Abs Auto 0.03 X10*3/uL (0.00-0.03); Imm Gran Pct Auto 0.3 % (0.0-0.4); Lymphocytes Absolute Auto 2.1 X10*3/uL (1.2-4.9); Lymphocytes Percent Auto 23.9 % (20-40); Mean Corpuscular HGB Conc 32.1 g/dl (31.0-36.0); Mean Corpuscular Hemoglobin 29.7 pg (27.0-33.0); Mean Corpuscular Volume 92.4 fL (80.0-98.0); Mean Platelet Volume 12.8 fL (9.4-12.4); Monocytes Absolute Auto 0.7 X10*3/uL (0.1-1.2); Monocytes Percent Auto 8.1 % (2-11); Neutrophils Absolute Auto 5.4 x10*3/uL (2.0-8.3); Neutrophils Percent Auto 62.2 % (45-73); Platelet Count 227 X10*3/uL (160-400); Red Blood Count 4.35 X10*6/uL (4.60-5.80); White Blood Count 8.7 X10*3/uL (4.8-10.8)
[2022-12-04 08:10] LABS: Estimated Average Glucose 111 mg/dL; Hemoglobin A1c % 5.5 %
[2022-12-04 08:29] LABS: Alanine Aminotransferase 12 U/L (0-40); Albumin Level 3.8 g/dL (3.5-5.0); Alkaline Phosphatase 87 U/L (39-117); Anion Gap 14 (12-20); Aspartate Amino Transferase 16 U/L (5-37); Bilirubin Total 0.6 mg/dL (0.0-1.0); Blood Urea Nitrogen 11 mg/dL (9-16); Calcium 9.2 mg/dL (8.4-10.2); Carbon Dioxide 26 mmol/L (22-29); Chloride 105 mmol/L (96-108); Cholesterol 119 mg/dL; Estimated Glomerular Filt Rate > 60; Glucose Random 91 mg/dL (60-115); HDL Cholesterol 48 mg/dL; LDL Cholesterol Calculated 57 mg/dl; Potassium 4.7 mmol/L (3.3-5.1); Sodium 140 mmol/L (135-145); Total Protein 6.2 g/dL (6.5-8.0); Triglycerides 70 mg/dL
[2022-12-04 08:48] LABS: Free T4 (Free Thyroxine) 1.02 ng/dL (0.71-1.85); Thyroid Stimulating Hormone 2.19 uIU/mL (0.32-4.0)
== END 2022-12-04 06:04 | disposition home or self-care (01) ==
LOC: HO.XRAY 06:03
PROVIDERS: PCP Internal Medicine; Visit Provider Internal Medicine
DX: I11.0 Hypertensive heart disease with heart failure (principal); I50.22 Chronic systolic (congestive) heart failure; R73.01 Impaired fasting glucose; E78.00 Pure hypercholesterolemia, unspecified; M54.2 Cervicalgia; Z87.81 Personal history of (healed) traumatic fracture
CPT/HCPCS: 36415; 72050; 80053; 80061; 83036; 84439; 84443; 85025

== ENCOUNTER → 2022-12-25 09:55 | Outpatient (BNVA) | payer MEDICARE, SELFPAY | PROVIDERS: PCP Internal Medicine; Visit Provider Internal Medicine Gastroenterology | DX: K21.9 Gastro-esophageal reflux disease without esophagitis (principal); K74.60 Unspecified cirrhosis of liver; K44.9 Diaphragmatic hernia without obstruction or gangrene; R19.7 Diarrhea, unspecified; R13.10 Dysphagia, unspecified; D64.9 Anemia, unspecified; Z86.010 Personal history of colon polyps | CPT/HCPCS: 99212 ==

== ENCOUNTER 2023-06-25 09:55 | Outpatient (AMB) | payer MEDICARE, SELFPAY ==
--- NOTE | 2023-06-25 10:24 | A.OFFVIS_ITS ---
Intake Vital Signs 06/25/23 10:30 Height 5 ft 7 in Weight 142 lb BMI 22.2 BP 149/68 H Blood Pressure Location Lt brachial Position Sitting Pulse 60 Intake Visit Reasons: 6 month follow up Intake Note: Patient follow up for Anemia. Patient cc: abdominal sore, swallowing problems with big pills, and also no show to his US appt. Denies any other GI issues. Peanut Butter Maker Required: No Accompanied by: Self / Same As Patient Allergies No Known Allergies [No Known Allergies*] Allergy (Verified 06/25/23 10:24) Medication List - Last Reconciled 06/25/23 by Francisco Jasmine MD aspirin 81 mg PO DAILY atorvastatin 20 mg PO DAILY carvedilol 12.5 mg PO BID cholecalciferol (vitamin D3) 50 mcg PO DAILY 90 days ferrous sulfate 325 mg PO Q OTHER DAY 90 days folic acid 1 mg PO DAILY gabapentin 600 mg PO BEDTIME gabapentin mg PO isosorbide mononitrate ER 60 mg PO QAM lisinopril 2.5 mg PO DAILY mecobalamin (vitamin B12) 3,000 mcg (3 x 1,000 mcg) sublingual DAILY 90 days meloxicam (Mobic) 15 mg PO DAILY 30 days nitroglycerin 0.4 mg sublingual .Q5MINS PRN omeprazole 20 mg PO BID 90 days sucralfate 1 g PO BID 90 days tramadol 50 mg PO BID PRN HPI 6 month follow up HPI Details GI Clinic visit for this 77-year-old male for FU GERD, HECTOR, Fatty Liver, Vitamin B 12 deficiency and colon cancer screening. ?CHRONIC ILLNESSES:?dysuria, high bp, hx acid reflux, high cholesterol, Vitamin B 12 deficiency ? [facility] H&H of 13.9 and 39.9, platelet 244, INR 1.0, ? Sodium 135, ferritin 101 normal LFTs with alkaline phosphatase of 108 ? 07/2016 liver fibrosis score of 0.28, liver fibrosis stage F1, necroinflammatory score 0.05 ? 05/31 BAR screen was negative, antimitochondrial antibody body, ANCA and ASMA were negative ? IgG 4 level was normal ?IMAGING STUDIES: 10/2021 ABD US SHOWED: Mildly echogenic liver parenchyma suggesting steatosis or other hepatocellular disease. Otherwise unremarkable abdominal ultrasound. 12/2012 BARIUM SWALLOW SHOWED: 1.? Barium tablet demonstrated mildly de layed passage across the day gastroesophageal junction. 2. Mild to moderate esophageal dysmotili ty ENDOSCOPIC STUDIES:? 04/02/21 COLONOSCOPY SHOWED: No polyps were detected Moderate to severe diverticulosis seen in the left colon Moderate hemorrhoids on retroflexed exam. Plan:? Patient has an appointment on 04/18/21 in the GI Clinic with Francisco Jasmine M.D.. Repeat Colonoscopy in 5 years (hx of colon polyps) if pt remains in stable health or pt may elect to stop colon cancer screening. 09/28/20 EGD SHOWED: ESOPHAGUS:? Tortuous esophagus with increased tertiary contractions.? Hiatal hernia from 30 to 35 cms. Partially obstructing Schatzki's ring/focal stricture at GE junction - dilated to 16.5 mm CRE balloon. Biopsies were obtained from the stricture Dysphagia is likely a combination of Schatzki's ring and esophageal motility disorder. STOMACH: Status post Bilroth 1 gastrectomy.? Scar of past ulcer at anastomotic site with mild antral erythema - antral biopsies were obtained Plan:? Patient has an appointment on 10/15/20 in the GI Clinic with Francisco Jasmine M.D.-. Above findings were reviewed with the patient and GERD handout was given in the discharge area BIOPSIES SHOWED: A.? Esophagus, stricture, biopsy:? Reactive gastropathy with background mild chronic, focally active, inflammation; no Helicobacter organisms seen. B.? Stomach, biopsy:? Active esophagitis (mostly neutrophils); no atypia or fungi seen. TODAY'S VISIT Patient cc: abdominal sore, swallowing problems with big pills, and also no show to his US appt. Tries to cut big pills. Can swallow solid food without problems most of the time. Does not think he needs as EGD at present - pt was advised to call Had some diarrhea last week. Can go days without a BM. Has a BM daily for a few days and then no BM for a few days - advised to take Senna prn Plans to go to his daughter's house for xmas (has a son and a daughter) PAST VISITS: Swallowing is good Taking one pill at a time Had an episode of fecal incontinence of loose stools during sleep after he ate a lot of walnuts a few months ago Has not happened again Occasional dysphagia - has'nt been as it was before Can have problems with large pills - usually cuts the larger pills Can have a brief wave of nausea with exertion. Intermittent mild dysphagia - he is managing with being careful with diet No problems when he excercises. Had his 2nd shot of COVID vaccine on 09/20/20. Nausea has subsided - started diet including banana, apple sauce and rice which has helped with the nausea. Complains of upset stomach followed by nausea, vomiting and diarrhea. Able to tolerate crackers and mallory bao. Just started Probiotics again recently and advised to hold off Notes a wave of nausea when he moves from one room to the other and when he tries to lie down. He is due for colonoscopy in December 2020 for follow-up of colon polyps. Weight has been stable. Advised to take Benafibre once a day if diarrhea continues. Takes 1-2 drops of Edible Marijuna prn a few times a week not daily) for aches and pains Nausea and vomiting for the past week. Stool became softer and stopped taking the Colace Almost a fight to keep food down. Had breakfast at 11 am and did not have anything to eat since. Laid down and when he woke up at 2 pm and vomited partially digested food and liquid. Gets a wave of nausea followed by flushing. Has 2-3 BMs a day - soft in consistency without blood or mucous. Nocturnal anal discharge early this morning - has started wearing?Depends [facility] Medical History (Reviewed 08/22/21 @ 13:42 by [place] Kebede [facility]) Cardiac defibrillator in place Cirrhosis of liver without ascites COVID-19 vaccine series completed Dysphagia Elevated cholesterol GERD (gastroesophageal reflux disease) History of non anemic vitamin B12 deficiency History of vitamin D deficiency Hx of myocardial infarction Hypertension Surgical History History of esophagogastroduodenoscopy (EGD) H/O colonoscopy Status post partial gastrectomy History of esophagogastroduodenoscopy (EGD) (~01/2013) History of cardiac catheterization (~02/2018) Family History Father No problems noted. Mother No problems noted. Social History Household Members: None Alcohol intake: never Patient Tobacco Use Status: Former Tobacco user Quit Date: 2012 Tobacco use type: Cigarette Substance Use Type: Marijuana Review of Systems Const All systems reviewed & are unremarkable except as noted in HPI and below Physical Exam Vital Signs: Last Vital Signs Pulse 60 06/25/23 10:30 BP 149/68 H 06/25/23 10:30 BMI result Body Mass Index 22.2 Const General: no acute distress Nutritional Appearance: average body habitus Orientation/consciousness: patient oriented x3 Limitations: physical limitations HEENT Head: Yes normal to inspection Ears: hearing grossly normal bilaterally Eyes Sclerae: sclerae normal Pupils: Equal, round and reactive pupils present Neck Neck: Yes normal visual inspection Chest Chest palpation & inspection: normal inspection of the chest Resp Effort & Inspection: normal respiratory effort Auscultation: clear to auscultation bilaterally Cardio Palpation: normal PMI Rate: regular rate Rhythm: regular rhythm Heart sounds: S1 normal heart sound present, S2 normal heart sound present and no murmurs GI Palpation (GI): Soft to palpation, nontender and No hepatosplenomegaly present Auscultation: normal bowel sounds Rectal Exam - Male: Yes deferred Skin General skin exam: no rashes or lesions noted Neuro General: patient oriented x3, gait normal and moves all extremities Cranial nerves: Yes Equal, round and reactive pupils present Psych Appearance: grossly normal Mental Status: mental status grossly normal Assessment & Plan Assessment & Plan (1) History of vitamin D deficiency: Code(s): Z86.39 - Personal history of other endocrine, nutritional and metabolic disease (2) Hiatal hernia: Code(s): K44.9 - Diaphragmatic hernia without obstruction or gangrene (3) History of colon polyps: Comment: 12/2017 A 12-15 mm TA was removed during colonoscopy. 03/2021 colonoscopy showed: No polyps were detected Moderate to severe diverticulosis seen in the left colon Moderate hemorrhoids on retroflexed exam. Plan: Repeat Colonoscopy in 5 years if pt remains in stable health or patient may elect to stop colon cancer screening. Code(s): Z86.010 - Personal history of colonic polyps (4) Nausea and vomiting: Comment: Resolved Code(s): R11.2 - Nausea with vomiting, unspecified (5) Cirrhosis of liver without ascites: Comment: Lab tests showed liver fibrosis score of 0.28 with liver fibrosis stage of F1 and fatty infiltration of the liver on abdominal ultrasound. Abd US with elastography showed echogenic liver and METAVIR score F2 to F3 suggestive of [id number] increased risk of developing liver fibrosis. Past evaluation with antibody testing for celiac sprue, hepatitis-B and C serologies were negative. Likely cause of cirrhosis is fatty infiltration. Lab tests to rule out autoimmune hepatitis and PBC were negative. MELD score is 6 Code(s): K74.60 - Unspecified cirrhosis of liver (6) Dysphagia: Comment: 09/28/20 EGD showed: ESOPHAGUS: Tortuous esophagus with increased tertiary contractions. Hiatal hernia from 30 to 35 cms. Partially obstructing Schatzki's ring/focal stricture at GE junction - dilated to 16.5 mm CRE balloon. Biopsies were obtained from the stricture Dysphagia is likely a combination of Schatzki's ring and esophageal motility disorder. STOMACH: Status post Bilroth 1 gastrectomy. Scar of past ulcer at anastomotic site with mild antral erythema - antral biopsies were obtained Code(s): R13.10 - Dysphagia, unspecified (7) GERD (gastroesophageal reflux disease): Comment: Continue omeprazole 20 mg twice daily Code(s): K21.9 - Gastro-esophageal reflux disease without esophagitis (8) Chronic constipation: Code(s): K59.09 - Other constipation Plan 77 YM with hx dysuria, high bp, hx acid reflux, high cholesterol, Vitamin B 12 deficiency followed in GI for GERD. GERD symptoms are managed with omeprazole 20 mg twice daily - does not need refills at present. Iron deficiency anemia has improved with oral iron replacement -advised to continue every other day. 12/2017 evaluation with EGD showed a 5 cms Hiatal hernia with a non obstructing Schatzki's ring and Bilroth 1 gastric anatomy with scar of past ulcer at anastomotic site. A 12-15 mm TA was removed during same-day colonoscopy. Past lab tests showed liver fibrosis score of 0.28 with liver fibrosis stage of F1 and fatty infiltration of the liver on abdominal ultrasound. Abd US with elastography showed echogenic liver and METAVIR score F2 to F3 suggestive of [id number] increased risk of developing liver fibrosis. Past evaluation with the antibody testing for celiac sprue, hepatitis-B and C serologies were negative. Likely cause of cirrhosis is fatty infiltration. Lab tests to rule out autoimmune hepatitis and PBC were negative. Labs and abdominal ultrasound for HCC surveillance will be scheduled on FU after colonoscopy.? MELD score is 6. 3/ EGD showed: ESOPHAGUS:? Tortuous esophagus with increased tertiary contractions.? Hiatal hernia from 30 to 35 cms. ? Partially obstructing Schatzki's ring/focal stricture at GE junction - dilated to 16.5 mm CRE balloon.? Biopsies were obtained from the stricture Dysphagia is likely a combination of Schatzki's ring and esophageal motility disorder. STOMACH: Status post Bilroth 1 gastrectomy.? Scar of past ulcer at anastomotic site with mild antral erythema - antral biopsies were obtained. Pt had stopped taking Vitamin D and iron due to concern for nausea - advised to resume slowly. 06/25/23 - scheduled for an Abd US for HCC surveillance and missed his apt - will be rescheduled FU appt in 6 months. Pt was advised to contact the GI clinic if he noted recurrent episodes of fecal incontinence or worsening dysphagia Orders: Orders Complete Blood Count Auto Diff Today K74.60 - Unspecified cirrhosis of liver Comprehensive Met. Panel Today K74.60 - Unspecified cirrhosis of liver Ferritin Today K74.60 - Unspecified cirrhosis of liver Prothrombin Time INR Today K74.60 - Unspecified cirrhosis of liver Medications: New sennosides-docusate sodium 8.6-50 mg (Senna Plus) 1 tab-cap PO BID 90 days PRN 60 caps 3RF constipation K59.09 - Other constipation Coding Level of Care Code Est Pt Level 4 (35951) Diagnoses History of vitamin D deficiency Z86.39 Hiatal hernia K44.9 History of colon polyps Z86.010 Nausea and vomiting R11.2 Cirrhosis of liver without ascites K74.60 Dysphagia R13.10 GERD (gastroesophageal reflux disease) K21.9 Chronic constipation K59.09 Time Spent (min) 25
[2023-06-25 10:30] VITALS: BP 149/68; PULSE 60; BMI 22.2
== END 2023-06-25 12:04 | disposition home or self-care (01) ==
PROVIDERS: PCP Internal Medicine; Visit Provider Internal Medicine Gastroenterology
DX: Z86.39 Personal history of other endocrine, nutritional and metabolic disease (principal); K44.9 Diaphragmatic hernia without obstruction or gangrene; Z86.010 Personal history of colon polyps; R11.2 Nausea with vomiting, unspecified; K74.60 Unspecified cirrhosis of liver; R13.10 Dysphagia, unspecified; K21.9 Gastro-esophageal reflux disease without esophagitis; K59.09 Other constipation
CPT/HCPCS: 99214

== ENCOUNTER → 2023-06-25 09:55 | Outpatient (BNVA) | payer MEDICARE, SELFPAY | PROVIDERS: PCP Internal Medicine; Visit Provider Internal Medicine Gastroenterology | DX: K44.9 Diaphragmatic hernia without obstruction or gangrene (principal); K74.60 Unspecified cirrhosis of liver; K21.9 Gastro-esophageal reflux disease without esophagitis; K59.09 Other constipation; R11.2 Nausea with vomiting, unspecified; R13.10 Dysphagia, unspecified; Z86.39 Personal history of other endocrine, nutritional and metabolic disease; Z86.010 Personal history of colon polyps | CPT/HCPCS: 99212 ==

== ENCOUNTER 2023-08-05 10:30 | Outpatient (REF) | payer MEDICARE, SELFPAY ==
--- NOTE | ~2023-08-05 | US_ITS ---
EXAMINATION: US ABDOMEN LIMITED CLINICAL INFORMATION: Unspecified cirrhosis of liver. Screen for HCC. COMPARISON: Ultrasound abdomen complete 11/05/2021. Ultrasound abdomen limited 05/15/2021. TECHNIQUE: Real-time imaging of the right upper quadrant abdominal viscera. FINDINGS: PANCREAS: Not well seen due to shadowing from overlying bowel gas. LIVER: Normal. The liver is normal in size. The liver contour is normal. Slightly increased liver parenchyma echogenicity. No focal hepatic lesion. There is no intrahepatic biliary duct dilatation seen. GALLBLADDER: Normal. The gallbladder is physiologically distended without evidence of stones, sludge, polyps, wall thickening or pericholecystic fluid. COMMON BILE DUCT: Normal in caliber measuring 0.3 cm in diameter. RIGHT KIDNEY: Normal. No hydronephrosis. No renal calculi or focal parenchymal lesions. The kidney measures 8.8 cm in maximum dimension. FREE FLUID: None. US/US abdomen limited IMPRESSION: Slightly increased linear parenchymal echogenicity that could be seen with hepatic steatosis or hepatocellular disease.
== END 2023-08-05 10:31 | disposition home or self-care (01) ==
LOC: HO.US 10:30
PROVIDERS: PCP Internal Medicine; Visit Provider Internal Medicine Gastroenterology
DX: K74.60 Unspecified cirrhosis of liver (principal)
CPT/HCPCS: 76705

== ENCOUNTER 2023-09-08 12:23 | Outpatient (REF) | payer MEDICARE, SELFPAY ==
[2023-09-08 14:06] LABS: Appearance Urine Clear; Color Urine Yellow; Glucose Urine UA Negative (Negative); Leukocyte Esterase Urine Negative (Negative); Nitrite Urine Negative (Negative); PH 8.5 (5.0-9.0); Specific Gravity - Urine 1.015 (1.005-1.025); Urine Blood Negative (Negative); Urine Ketones Negative (Negative); Urine Protein Negative (Neg-Trace)
== END 2023-09-08 12:24 | disposition home or self-care (01) ==
LOC: HO.LAB 12:23
PROVIDERS: PCP Internal Medicine; Visit Provider Internal Medicine
DX: R30.0 Dysuria (principal)
CPT/HCPCS: 81003; 87086

== ENCOUNTER 2023-09-15 10:30 | Outpatient (AMB) | payer MEDICARE, SELFPAY ==
--- NOTE | 2023-09-15 10:41 | A.OFFVIS_ITS ---
Intake Intake Visit Reasons: Penile Issues Intake Note: Patient is Present for Follow Up Penile Pain Urology Medication: None Antibiotic Allergies: None Blood Thinners: Aspirin Confirmed Pharmacy: [facility] Patient is stating that he has been having penile pain for more than a week, Patient is using AZO for discomfort Patient states there is no pain in testicles just in his Penis. Reports no blood or discharge Patient states no new activity Patient previously had a At Home UA Test last week and results was negative Allergies No Known Allergies [No Known Allergies*] Allergy (Verified 09/15/23 10:48) HPI HPI Comments History of Present Illness Details Jose is a pleasant male. He is a patient of Dr. Strauss. He is seen for the following urologic conditions - chronic prostatitis Twelve month follow-up prostatitis Recurrent episode Has been present for a number of weeks Primarily pain was tip of his penis which has been exacerbated by urination Will prescribe antibiotics and review in 4 weeks Chronic prostatitis Describes pain towards to penis particularly during episodes of rectal incontinence On exam had softness of his prostate which replicate this pain Consistent with chronic prostatitis Good response to combination therapy with anti-inflammatory, prednisone and antibiotic [facility] Medical History Cardiac defibrillator in place Hx of myocardial infarction COVID-19 vaccine series completed Dysphagia Cirrhosis of liver without ascites History of non anemic vitamin B12 deficiency History of vitamin D deficiency Elevated cholesterol Hypertension GERD (gastroesophageal reflux disease) Surgical History History of esophagogastroduodenoscopy (EGD) H/O colonoscopy Status post partial gastrectomy History of esophagogastroduodenoscopy (EGD) (~01/2013) History of cardiac catheterization (~02/2018) Family History Father No problems noted. Mother No problems noted. Social History Household Members: None Alcohol intake: never Patient Tobacco Use Status: Former Tobacco user Quit Date: 2012 Tobacco use type: Cigarette Substance Use Type: Marijuana Review of Systems Const Denies chills and Denies fever(s) Card Reports no additional complaints and Denies syncope Resp Denies cough GI Denies abdominal pain and Denies heartburn Reports as per HPI and Denies change in libido Neuro Denies syncope Psych Denies change in libido Endo Denies change in libido Physical Exam Const General: cooperative, healthy appearing, comfortable and no acute distress Orientation/consciousness: patient oriented x3 HEENT Face and sinus: Yes normal facial exam Mouth: moist mucous membranes Neck Neck: Yes normal visual inspection, Yes full ROM and Yes trachea midline Chest Chest palpation & inspection: normal inspection of the chest Resp Effort & Inspection: normal respiratory effort, able to speak in complete sentences and no respiratory distress GI Inspection: Yes normal to inspection Rectal Exam - Male: Yes normal sphincter tone and Yes prostate normal Male General Exam: Yes normal external exam Penis: normal penis and circumcised Meatus: meatus normal Scrotum: scrotum normal Testes: Testes normal Back/Spine/Pelvis Cervical Spine: normal cervical lordosis Thoracic/Lumbar Spine: thoracic and lumbar spine normal to inspection Skin General skin exam: no rashes or lesions noted Neuro General: patient oriented x3, gait normal, tone normal and moves all extremities Extrem General: Yes normal to inspection and Yes capillary refill normal Results AMB Urinalysis, Automated UA Leukoctes 0 Natanael/uL Last Edit by LISBETH Ferro on 09/15/23 11:06 UA Nitrite Negative Last Edit by LISBETH Ferro on 09/15/23 11:06 UA Urobilinogen 0.2 mg/dL Last Edit by LISBETH Ferro on 09/15/23 11:0 6 UA Protein 0 mg/dL Last Edit by LISBETH Ferro on 09/15/23 11:06 UA pH 8.0 Last Edit by LISBETH Ferro on 09/15/23 11:06 UA Blood 10 Bishop/uL Last Edit by LISBETH Ferro on 09/15/23 11:06 UA Specific Carlton 1.005 Last Edit by LISBETH Ferro on 09/15/23 11: 06 UA Ketone Negative Last Edit by LISBETH Ferro on 09/15/23 11:06 UA Bilirubin 0 mg/dL Last Edit by LISBETH Ferro on 09/15/23 11:06 UA Glucose 0 mg/dL Last Edit by LISBETH Ferro on 09/15/23 11:06 Results Reviewed Results Reviewed: Laboratory Last Values Urine pH (Auto) 8.0 09/15/23 11:05 Specific Carlton (Auto) 1.005 09/15/23 11:05 Urine Protein (Auto) 0 mg/dL 09/15/23 11:05 Glucose (UA)(Auto) 0 mg/dL 09/15/23 11:05 Urine Ketones (Auto) Negative 09/15/23 11:05 Urine Blood (Auto) 10 Bishop/uL 09/15/23 11:05 Urine Nitrite (Auto) Negative 09/15/23 11:05 Urine Bilirubin (Auto) 0 mg/dL 09/15/23 11:05 Urine Urobilinogen (Auto) 0.2 mg/dL 09/15/23 11:05 Leukocyte Esterase (Auto) 0 Natanael/uL 09/15/23 11:05 Assessment & Plan Assessment & Plan (1) Chronic prostatitis: Comment: Good response to combination therapy Code(s): N41.1 - Chronic prostatitis Plan Prostatitis therapy One month follow-up Orders: Orders AMB Urinalysis Automated Today Z13.9 - Encounter for screening, unspecified Medications: New sulfamethoxazole-trimethoprim 800-160 mg (Bactrim DS) 1 tab PO BID 28 tabs 0RF 14 days N41.1 - Chronic prostatitis prednisone 20 mg PO DAILY 5 tabs 0RF 5 days N20.0 - Calculus of kidney, N41.1 - Chronic prostatitis Changed From meloxicam (Mobic) 15 mg PO DAILY 30 days 30 tabs 0RF R10.31 - Right lower quadrant pain, R10.32 - Left lower quadrant pain To meloxicam 15 mg PO DAILY 30 tabs 0RF 30 days R10.31 - Right lower quadrant pain, R10.32 - Left lower quadrant pain Patient Instructions: Imaging studies, laboratory and physical exam results were discussed and reviewed in detail. No major barriers to patient understanding were identified. An opportunity to ask questions regarding the treatment plan was provided. All questions were answered. The patient expressed understanding and agreement with the above treatment plan. The patient is aware they should contact our office by phone for worsening of their current condition or the appearance of new urologic symptoms. Compliance is encouraged with any medications and followup testing that is ordered. It is a privilege to participate in the urologic care of your patient. If you have any questions or concerns regarding treatment for the above conditions, or other urologic issues, please do not hesitate to contact me. The office telephone contact is [phone]. This note is constructed using voice recognition software. While every effort has been made to ensure accuracy rn quality errors may have been included. Yours sincerely, Dr Zachary Murray MD, [facility] - Urology Providers of Expert, Compassionate Care for the Genitourinary System Coding Level of Care Code Est Pt Level 4 (53028) Diagnoses Chronic prostatitis N41.1
== END 2023-09-15 11:22 | disposition home or self-care (01) ==
PROVIDERS: PCP Internal Medicine; Visit Provider Urology
DX: N41.1 Chronic prostatitis (principal); Z13.9 Encounter for screening, unspecified
CPT/HCPCS: 99214

== ENCOUNTER → 2023-09-15 10:30 | Outpatient (BNVA) | payer MEDICARE, SELFPAY | PROVIDERS: Visit Provider Urology | DX: N41.1 Chronic prostatitis (principal) | CPT/HCPCS: 81003; 99212 ==

== ENCOUNTER 2023-09-17 06:07 | Outpatient (REF) | payer MEDICARE, SELFPAY ==
[2023-09-17 06:24] LABS: MANUAL DIFF FLAG NO
[2023-09-17 07:58] LABS: Basophils Absolute Auto 0.1 X10*3/uL (0.0-0.2); Basophils Percent Auto 0.5 % (0-2); Eosinophils Absolute Auto 0.1 X10*3/uL (0.0-0.4); Eosinophils Percent Auto 1.1 % (0-4); Hematocrit 38.5 % (42.0-52.0); Hemoglobin 12.7 g/dl (14.0-18.0); Imm Gran Abs Auto 0.03 X10*3/uL (0.00-0.03); Imm Gran Pct Auto 0.3 % (0.0-0.4); Lymphocytes Absolute Auto 2.4 X10*3/uL (1.2-4.9); Lymphocytes Percent Auto 24.6 % (20-40); Mean Corpuscular Hemoglobin 29.7 pg (27.0-33.0); Mean Platelet Volume 12.9 fL (9.4-12.4); Monocytes Absolute Auto 0.8 X10*3/uL (0.1-1.2); Monocytes Percent Auto 8.3 % (2-11); Neutrophils Absolute Auto 6.3 x10*3/uL (2.0-8.3); Neutrophils Percent Auto 65.2 % (45-73); Platelet Count 256 X10*3/uL (160-400); Red Blood Count 4.28 X10*6/uL (4.60-5.80); Red Cell Distribution Width 14.6 % (11.0-16.0); White Blood Count 9.7 X10*3/uL (4.8-10.8)
[2023-09-17 08:14] LABS: Estimated Average Glucose 111 mg/dL; Hemoglobin A1c % 5.5 % (<6.0)
[2023-09-17 08:24] LABS: Alanine Aminotransferase 13 U/L (0-40); Albumin Level 3.8 g/dL (3.5-5.0); Alkaline Phosphatase 89 U/L (39-117); Anion Gap 12 (12-20); Aspartate Amino Transferase 20 U/L (5-37); Bilirubin Total 0.4 mg/dL (0.0-1.0); Blood Urea Nitrogen 11 mg/dL (9-16); Calcium 9.5 mg/dL (8.4-10.2); Carbon Dioxide 26 mmol/L (22-29); Chloride 100 mmol/L (96-108); Estimated Glomerular Filt Rate > 60; Glucose Random 80 mg/dL (60-115); Potassium 4.3 mmol/L (3.3-5.1); Sodium 134 mmol/L (135-145); Total Protein 6.8 g/dL (6.5-8.0)
[2023-09-17 10:32] LABS: Appearance Urine Turbid; Color Urine Dark Yellow; Glucose Urine UA Negative (Negative); Leukocyte Esterase Urine Large (3+) (Negative); Nitrite Urine Positive (Negative); Specific Gravity - Urine 1.025 (1.005-1.025); UMIC TRIGGER UA YES; Urine Blood Trace (Negative); Urine Ketones Trace mg/dL (Negative); Urine Protein Trace mg/dL (Neg-Trace)
[2023-09-17 10:37] LABS: Bacteria Urine 2+ (None Seen); Hyaline Casts Urine 0-2 /LPF (0-2); Squamous Epithelial Cell Urine 0-2 /HPF (0-2); WBC Urine >50 /HPF (0-5)
== END 2023-09-17 06:08 | disposition home or self-care (01) ==
LOC: HO.LAB 06:07
PROVIDERS: PCP Internal Medicine; Visit Provider Internal Medicine
DX: R30.0 Dysuria (principal); I10 Essential (primary) hypertension; R73.01 Impaired fasting glucose
CPT/HCPCS: 36415; 80053; 81001; 81003; 83036; 85025; 87086

== ENCOUNTER 2023-10-06 18:48 | Inpatient (IN) | payer MEDICARE, SELFPAY ==
[2023-10-06] VITALS (8 sets, daily range): BP systolic 76–146; BP diastolic 48–80; PULSE 72–116; RESP 12–18; TEMP 36.4–37.1; O2SAT 97–98; BMI 23.5
--- NOTE | ~2023-10-06 | XR_ITS ---
EXAMINATION: XR ABDOMEN KUB CLINICAL INDICATION: Rule out pneumoperitoneum. COMPARISON: Same day chest radiograph, 10/06/2023 CT TECHNIQUE: AP view of the abdomen. FINDINGS: Examination is performed with patient in the supine position limiting evaluation for small amounts of free air. No secondary signs to suggest pneumoperitoneum. Nonspecific bowel pattern. Solid visceral outlines are obscured. Pelvic soft tissue density likely bladder. Phleboliths. Endoscopic clips and embolization coils. Right upper medial calcifications. Dense vascular calcifications. Demineralization and degenerative changes. Pacer/AICD bilateral hip replacements surgical stabilizing hardware. XR/XR KUB IMPRESSION: No of definite radiographic evidence of pneumoperitoneum. Nonspecific bowel pattern.
--- NOTE | ~2023-10-06 | CT_ITS ---
EXAMINATION: CT ABDOMEN AND PELVIS WITH CONTRAST CLINICAL INFORMATION: Abdominal pain. Evaluate for pneumoperitoneum. COMPARISON: CT abdomen and pelvis 10/06/2023. TECHNIQUE: Multidetector volumetric images were obtained from the superior aspect of the liver through the pubic symphysis following administration 85 mL of Omnipaque 350 intravenous contrast. Sagittal and coronal reformatted images were obtained on the technologist's workstation. Oral contrast: No This CT examination was performed using dose optimization techniques as appropriate, variously including the following: *Automated exposure control *Adjustment of mA and/or kV according to patient size (this includes techniques or standardized protocols for targeted exams where dose is matched to indication/reason for exam; i.e. extremities or head) *Use of iterative reconstruction technique DLP: 350 mGy-cm FINDINGS: LUNG BASES: There is bibasilar dependent atelectasis with a moderate-sized hiatal hernia. There is moderate coronary artery calcification and posterior left ventricular wall calcification from old mural infarct LIVER, GALLBLADDER, AND BILIARY TREE: The liver is normal in size, shape, and attenuation. No focal hepatic lesion or biliary ductal dilatation is present. The gallbladder is opacified with contrast likely from vicarious excretion. PANCREAS: Unremarkable. SPLEEN: Unremarkable. ADRENAL GLANDS: Unremarkable. KIDNEYS AND URETERS: The kidneys are normal in size, shape, and attenuation. No hydronephrosis, hydroureter, or calculi seen. No perinephric stranding. BLADDER: The bladder is distended and appears slightly heterogeneous there is gas seen within the bladder likely from previous catheterization.. GASTROINTESTINAL TRACT: There is large amount of stool, scattered diverticuli and gas seen in the colon without significant distention. The small bowel loops are normal caliber. There is mild thickening of the duodenal C-loop with suspicion for a duodenal diverticulum. There are surgical silvia medial to the C-loop producing artifact and limiting evaluation of the C-loop. Appendix is not visualized with certainty. No free air or free fluid seen. ABDOMINAL WALL: Small epigastric hernia containing fat is noted on axial slice 31/3 there are smaller ventral hernias on axial image 41/3, umbilical hernia 51/3 containing fat intraperitoneal fat. LYMPH NODES: Normal. VASCULAR: Unremarkable. PELVIC VISCERA: There is suboptimal visualization of pancreas due to beam hardening artifacts from bilateral hip prosthesis. OSSEOUS STRUCTURES: There are degenerative disc changes throughout lumbar spine with grade 1 anterolisthesis L4 over L5. No aggressive lytic or sclerotic process seen. CT/CT abdomen pelvis w IV con IMPRESSION: 1. Moderate-sized hiatal hernia. 2. Moderate constipation without obstruction. 3. Scattered colonic diverticulosis without diverticulitis. The pelvis is limited secondary to beam hardening artifact from bilateral hip prosthesis. There is no free air or free fluid. 4. There is surgical silvia medial to the C-loop producing artifact and limiting evaluation of the C-loop. There is mild thickening of the duodenal C-loop with suspicion for a duodenal diverticulum. 5. Multiple ventral abdominal wall hernias containing fat. 6. 6 very slightly heterogeneous appearing urinary bladder. Bladder is suboptimally visualized due to beam hardening artifact from hip prosthesis. Recommend urinary bladder evaluation with ultrasound Fleischner guidelines were followed.
--- NOTE | ~2023-10-06 | CT_ITS ---
EXAMINATION: CT ABDOMEN AND PELVIS WITH CONTRAST CLINICAL INFORMATION: Hematemesis COMPARISON: None TECHNIQUE: Multiple axial images were obtained from the superior aspect of the liver through the pubic symphysis after the administration of 85 mL of intravenous Omnipaque 350. Images were evaluated on independent dedicated 3-D workstation and 3-D images were reconstructed with concurrent radiologist supervision and subsequently interpreted. Oral contrast was not administered. This CT examination was performed using dose optimization techniques as appropriate, variously including the following: *Automated exposure control *Adjustment of mA and/or kV according to patient size (this includes techniques or standardized protocols for targeted exams where dose is matched to indication/reason for exam; i.e. extremities or head) *Use of iterative reconstruction technique Note, a true arterial phase was not obtained. Only a noncontrast and portal venous phase was acquired. As such, determination of active arterial extravasation cannot be made on this exam. DLP: 1147 mGy-cm FINDINGS: LUNG BASES: The visualized lung bases are clear. CARDIOMEDIASTINUM: Mild cardiomegaly. Severe coronary calcifications. Left ventricular, posterior wall, mural calcifications from prior infarct. No coronary artery calcification. LIVER: Homogeneous in attenuation. Normal in size. GALLBLADDER: Noninflamed. BILIARY SYSTEM: No intrahepatic or extrahepatic biliary dilation. PANCREAS: Homogeneous in attenuation. SPLEEN: Normal in size. GENITOURINARY: Bilateral kidneys demonstrate symmetric enhancement. No perinephric fluid collection. No renal calculi. No hydroureteronephrosis. ADRENAL GLANDS: Unremarkable. REPRODUCTIVE: Prostate present. GASTROINTESTINAL: Large hiatal hernia with majority of stomach within the posterior mediastinum. Circumferential thickening of the second and third portion of the duodenum. Eccentric intraluminal hyperdensity within the proximal aspect of the descending colon, other scattered areas throughout the colon, and intraluminal filling of the sigmoid colon may be artifactual. Stercoral colitis. Moderate to severe sigmoid diverticular disease. APPENDIX: The appendix is not visualized; however, no pericecal inflammatory changes are seen in the right lower quadrant. PERITONEUM: No pneumoperitoneum. No intra-abdominal fluid collection. VASCULATURE: No aneurysm of the abdominal aorta. Embolization coils along the gastroduodenal artery. LYMPH NODES: No pathologically enlarged abdominal or pelvic lymph nodes. SOFT TISSUES/MUSCULOSKELETAL: Bilateral hip arthroplasty. Severe multilevel degenerative changes of the lumbar spine, worst at L4-L5 where there is grade 1 anterolisthesis resulting in moderate bilateral neural foraminal stenosis. CT/CT gi bleed abd pel wo/w IVcon IMPRESSION: 1. Suboptimal study for evaluation of arterial bleeding due to lack of image acquisition during the true arterial phase. Within this limitation, there is eccentric intraluminal hyperdensity within the proximal aspect of the descending colon and the entirety of the sigmoid. Additional scattered areas of intraluminal hyperdensities are also seen throughout the colon. Due to its nonspecific pattern and history of upper GI bleeding, this is likely artifactual. 2. Large hiatal hernia. 3. Circumferential wall thickening of the second and third portion of the duodenum may represent duodenitis. Adjacent embolization coils are seen along the gastroduodenal artery suggest likelihood of underlying duodenal ulcer that had previously bled and was embolized. Recommend GI consultation. 4. Stercoral colitis. 5. Moderate to severe sigmoid diverticular disease. Fleischner guidelines were followed. These results were discussed with Dr. Box at 10:00 PM on 10/06/[address] Franki Weber at the time of discovery. It was ascertained that the content and the importance of the findings was understood at the time of the direct communication.
--- NOTE | ~2023-10-06 | XR_ITS ---
EXAMINATION: XR CHEST CLINICAL INFORMATION: Rule out air under the diaphragm. COMPARISON: 10/14/2016 chest radiograph. 10/06/2023 CT TECHNIQUE: Frontal view of the chest was obtained. FINDINGS: Unipolar pacer/AICD identified. Heart and mediastinum within normal limits. No vascular congestion. Low lung volumes and mild bibasilar atelectasis. Cannot exclude developing opacity in the right upper lobe. Moderately large hiatal hernia. No definite pneumoperitoneum. Rounded hyperdensities right upper quadrant. Demineralization and degenerative changes. XR/XR chest 1V IMPRESSION: No definite radiographic evidence of pneumoperitoneum. Bibasilar atelectasis. Small developing right upper lobe opacity not excluded.
[2023-10-06] MEDS: Pantoprazole Sodium 40 MG/10 ML VIAL 80 MG IVPUSH (19:37)
[2023-10-06 19:39] LABS: MANUAL DIFF FLAG NO
[2023-10-06 19:40] LABS: Basophils Absolute Auto 0.1 X10*3/uL (0.0-0.2); Basophils Percent Auto 0.5 % (0-2); Eosinophils Absolute Auto 0.2 X10*3/uL (0.0-0.4); Eosinophils Percent Auto 1.4 % (0-4); Hematocrit 33.9 % (42.0-52.0); Hemoglobin 11.5 g/dl (14.0-18.0); Imm Gran Abs Auto 0.03 X10*3/uL (0.00-0.03); Imm Gran Pct Auto 0.3 % (0.0-0.4); Lymphocytes Absolute Auto 2.8 X10*3/uL (1.2-4.9); Lymphocytes Percent Auto 25.8 % (20-40); Mean Corpuscular HGB Conc 33.9 g/dl (31.0-36.0); Mean Corpuscular Hemoglobin 30.9 pg (27.0-33.0); Mean Corpuscular Volume 91.1 fL (80.0-98.0); Mean Platelet Volume 11.6 fL (9.4-12.4); Monocytes Absolute Auto 0.9 X10*3/uL (0.1-1.2); Monocytes Percent Auto 8.6 % (2-11); Neutrophils Absolute Auto 6.9 x10*3/uL (2.0-8.3); Neutrophils Percent Auto 63.4 % (45-73); Platelet Count 236 X10*3/uL (160-400); Red Blood Count 3.72 X10*6/uL (4.60-5.80); Red Cell Distribution Width 14.1 % (11.0-16.0); White Blood Count 10.9 X10*3/uL (4.8-10.8)
[2023-10-06 19:46] LABS: INTERNATIONAL NORM RATIO 1.1 (0.9-1.1); Prothrombin Time 13.5 SEC (11.1-13.3)
--- NOTE | 2023-10-06 20:04 | MHC.EDTECH ---
This tech took over care of patient at 1900,patient was changed into hospital attire,placed on the alarm security or surveillance monitor ,labs and Type N Screen drawn and band applied to lt wrist. Patient was incont. of a large amount of urine,patient was cleaned and [place] Cath placed to keep patient clean and dry. patient tolerated well,call borrego in reach
[2023-10-06 20:09] LABS: Alanine Aminotransferase 15 U/L (0-40); Albumin Level 3.7 g/dL (3.5-5.0); Alkaline Phosphatase 79 U/L (39-117); Anion Gap 14 (12-20); Aspartate Amino Transferase 20 U/L (5-37); Bilirubin Direct 0.2 mg/dL (0.0-0.5); Bilirubin Total 0.5 mg/dL (0.0-1.0); Blood Urea Nitrogen 31 mg/dL (9-16); Calcium 10.1 mg/dL (8.4-10.2); Carbon Dioxide 26 mmol/L (22-29); Chloride 103 mmol/L (96-108); Creatinine Clr Calc Pharmacy 64.6; Estimated Glomerular Filt Rate > 60; Ethanol < 10 mg/dL; Glucose Random 138 mg/dL (60-115); Lipase 19 U/L (8-78); Magnesium 1.9 mg/dL (1.6-2.6); Potassium 5.1 mmol/L (3.3-5.1); Sodium 138 mmol/L (135-145); Total Protein 6.5 g/dL (6.5-8.0)
--- NOTE | 2023-10-06 20:31 | PM.IMHP ---
History of Present Illness Date of Service: 10/06/23 Chief Complaint: Vomiting blood This is a 77-year-old male with pertinent history of liver cirrhosis, gastroesophageal reflux disease, chronic prostatitis, coronary artery disease who presents to the emergency department for evaluation of blood in vomitus. Patient states he had 2 episodes of blood in vomitus on the day of presentation. This has never happened before. Patient states he has been feeling unwell for the last 2 days. His 1st vomitus was coffee-ground but then had 2 episodes of bright red blood in vomitus. Complains of abdominal soreness but no pain. No fevers or chills. Does not know if he has melena or hematochezia. Patient states he has a history of GI bleed due to ulcer. No chest discomfort, palpitations, shortness of breath, changes in urinary habits. Unclear history of varices. Patient is on NSAIDs/steroids for chronic prostatitis. In the ER, patient was given IV Protonix Review of Systems Constitutional: Constitutional: Reports fatigue and Reports malaise Cardiovascular: Cardiovascular: Reports no additional cardiovascular complaints Respiratory: Respiratory: Reports no additional respiratory complaints Gastrointestinal: Gastrointestinal: Reports coffee ground emesis and Reports hematemesis Genitourinary: Genitourinary: Reports no additional male genitourinary complaints Endocrine: Endocrine: Reports fatigue [facility] Medical History Cardiac defibrillator in place Hx of myocardial infarction COVID-19 vaccine series completed Dysphagia Cirrhosis of liver without ascites History of non anemic vitamin B12 deficiency History of vitamin D deficiency Elevated cholesterol Hypertension GERD (gastroesophageal reflux disease) Family History Father No problems noted. Mother No problems noted. Surgical History History of esophagogastroduodenoscopy (EGD) H/O colonoscopy Status post partial gastrectomy History of esophagogastroduodenoscopy (EGD) (~01/2013) History of cardiac catheterization (~02/2018) Social History Household Members: None Alcohol intake: never Patient Tobacco Use Status: Former Tobacco user Quit Date: 2012 Tobacco use type: Cigarette Smoked in Last 30 Days: No Use of substances other than those prescribed or required for medical reasons: No Substance Use Type: Marijuana Advance Directives: Yes Advance Directives Information Provided: No Advance Directives on File: No Meds Allergies Allergy/AdvReac Type Severity Reaction Status Date / Time No Known Allergies Allergy Verified 09/15/23 10:48 [No Known Allergies*] Active Medications: Current Medications Acetaminophen (Acetaminophen 325 Mg Tablet) 650 mg PO Q6H PRN PRN Reason: Pain, Mild (Pain Scale 1-3) Acetaminophen (Acetaminophen Supp 650 Mg Supp.Rect) 650 mg TN Q6H PRN PRN Reason: Pain, Mild (Pain Scale 1-3) Sodium Chloride (Ns) 100 mls @ 100 mls/hr IV ONCE ONE Stop: 10/06/23 20:49 Sodium Chloride (Ns) 1,000 mls @ 999 mls/hr IV .Q1H1M ONE Stop: 10/06/23 21:25 Ceftriaxone Sodium 1 gm/ (Sodium Chloride) 50 mls @ 100 mls/hr IV Q24H TERRIE Octreotide Acetate 500 mcg/ (Sodium Chloride) 501 mls @ 50.1 mls/hr IVCONT .Q10H COUNTS INCLUDE 234 BEDS AT THE [facility] Melatonin (Melatonin 3 Mg Tablet) 6 mg PO BEDTIME PRN PRN Reason: Insomnia Octreotide Acetate (Octreotide Acetate 100 Mcg/Ml Ampul) 50 mcg IVPUSH ONCE ONE Stop: 10/06/23 20:31 Ondansetron HCl (Ondansetron Hcl 4 Mg/2 Ml Vial) 4 mg IVPUSH Q8H PRN PRN Reason: Nausea and Vomiting Pantoprazole Sodium (Pantoprazole Sodium 40 Mg/10 Ml Vial) 40 mg IVPUSH BID@0630,1630 COUNTS INCLUDE 234 BEDS AT THE [facility] Sodium Chloride (0.9 % Sodium Chloride Flush 3 Ml Syringe) 3 ml IVFLUSH QSHIFT COUNTS INCLUDE 234 BEDS AT THE [facility] Home Medications Medication Instructions Recorded Confirmed Last Taken Type aspirin 81 mg tablet,delayed 81 mg PO DAILY 07/02/20 10/06/23 04/02/21 07:00 History release carvedilol 12.5 mg tablet 12.5 mg PO BID 07/02/20 10/06/23 Unknown History folic acid 1 mg tablet 1 mg PO DAILY 07/02/20 10/06/23 Unknown History lisinopril 2.5 mg tablet 2.5 mg PO DAILY 07/02/20 10/06/23 10/06/23 History tramadol 50 mg tablet 100 mg PO DAILY Pain 07/02/20 10/06/23 10/06/23 History atorvastatin 20 mg tablet 20 mg PO BEDTIME 10/15/20 10/06/23 Unknown History nitroglycerin 0.4 mg sublingual 0.4 mg sublingual Q5M PRN Chest 10/15/20 10/06/23 Unknown History tablet Pain isosorbide mononitrate 60 mg 60 mg PO QAM 01/03/21 10/06/23 Unknown History tablet,extended release 24 hr gabapentin 300 mg capsule 600 mg PO BEDTIME 08/22/21 10/06/23 Unknown History mecobalamin (vitamin B12) 1,000 1,000 mcg sublingual DAILY 10/06/23 10/06/23 Unknown History mcg disintegrating tablet,sublingual multivitamin-iron 9 mg-folic acid 1 tab PO DAILY 10/06/23 10/06/23 Unknown History 400 mcg-calcium and minerals tablet (Therapeutic-M) sennosides 8.6 mg-docusate sodium 1 tab PO BID for constipation 10/06/23 10/06/23 Unknown History 50 mg tablet (Senexon-S) Physical Exam Vital Signs and Narrative: Vital Signs: Last Vital Signs Temp 97.6 F 10/06/23 19:47 Pulse 84 10/06/23 20:03 Resp 18 10/06/23 20:03 BP 121/76 10/06/23 20:03 Pulse Ox 97 10/06/23 20:03 O2 Del Method Room Air 10/06/23 20:03 BMI result Body Mass Index 23.5 Elderly aged male lying in bed in no distress Neck supple, no JVD Regular rate and rhythm, S1-S2 heard Regular breath sounds bilaterally, no wheezing or crackles appreciated Abdomen soft nontender, no guarding, no rigidity Patient is awake, alert and oriented to self, place, time and person ; no focal motor deficit Psych: Normal mood No pedal edema Results Labs 10/06/23 19:32 10/06/23 19:32 Labs: Laboratory Results - last 24 hr 10/06/23 19:32 MCV 91.1 MCH 30.9 MCHC 33.9 RDW 14.1 Plt Count 236 MPV 11.6 Immature Gran % (Auto) 0.3 Neut % (Auto) 63.4 Lymph % (Auto) 25.8 [place] % (Auto) 8.6 Eos % (Auto) 1.4 Baso % (Auto) 0.5 Lymph # (Auto) 2.8 [place] # (Auto) 0.9 Eos # (Auto) 0.2 Baso # (Auto) 0.1 Abs Immat Gran (auto) 0.03 Absolute Neuts (auto) 6.9 Absolute Nucleated RBC 0.000 Nucleated RBC % (auto) 0.0 PT 13.5 H INR 1.1 Anion Gap 14 Estim Creat Clear Calc 64.6 Estimated GFR > 60 Random Glucose 138 H Calcium 10.1 D Magnesium 1.9 Total Bilirubin 0.5 Direct Bilirubin 0.2 AST 20 ALT 15 Alkaline Phosphatase 79 Total Protein 6.5 Albumin 3.7 Lipase 19 Ethyl Alcohol < 10 Blood Type AB Positive Antibody Screen NEGATIVE Crossmatch See Detail Assessment and Plan (1) Acute upper GI bleeding: Status: Acute Plan This is a 77-year-old male with pertinent history of liver cirrhosis, gastroesophageal reflux disease, chronic prostatitis, coronary artery disease who presents to the emergency department for evaluation of blood in vomitus. #. Acute upper GI bleed: Will admit patient with cardiac monitoring. IV Protonix. Resuscitating with IV crystalloids. Closely monitor H&H. Also has a history of liver cirrhosis, unclear varices, initiating empiric Rocephin and octreotide. Will keep patient NPO and consult Gastroenterology #. Coronary artery disease: Hold beta-jarad, JUJU inhibitor and nitrate in the setting of above. Hold aspirin #. Chronic prostatitis: Followed by outpatient Urology. #. Gastroesophageal reflux disease: IV Protonix as above DVT prophylaxis: Mechanical Full code Admit as inpatient and will require two night minimum hospital stay for close monitoring of hemodynamics in a patient with upper GI bleed (as above), which is not possible in a lesser acute setting. Specialist consult pending Quality Stroke Does the patient have a stroke diagnosis?: No VTE Prior VTE?: No VTE Risk Level:: Medical - moderate - high VTE Device Contraindication: N/A - Device Ordered VTE Drug Contraindication: Treatment Not Indicated
--- NOTE | 2023-10-06 20:33 | MHC.EDTECH ---
Second Type obtained and sent to lab.
--- NOTE | 2023-10-06 20:35 | ED.GENADULT ---
HPI - General Adult General Chief complaint: General Medical Stated complaint: actively coughing blood, diaphoretic, vomiting Time Seen by Provider: 10/06/23 19:20 History of Present Illness HPI narrative: The patient is a 77-year-old male who says that he has not felt very well for a day or two. Today he became nauseated and vomited 1st what he thought was coffee. Then he vomited what looked like blood. Ultimately he called an ambulance and he was brought to the hospital. He does not know if he has at any black or bloody stools. He says that he had an upper GI bleed about 10 years ago that was secondary to an ulcer. He apparently has a history of cirrhosis but the patient is unaware of this. There does not seem to be any history of varices. Related Data Home Medications Medication Instructions Recorded Confirmed aspirin 81 mg tablet,delayed 81 mg PO DAILY 07/02/20 10/06/23 release carvedilol 12.5 mg tablet 12.5 mg PO BID 07/02/20 10/06/23 folic acid 1 mg tablet 1 mg PO DAILY 07/02/20 10/06/23 lisinopril 2.5 mg tablet 2.5 mg PO DAILY 07/02/20 10/06/23 tramadol 50 mg tablet 100 mg PO DAILY Pain 07/02/20 10/06/23 atorvastatin 20 mg tablet 20 mg PO BEDTIME 10/15/20 10/06/23 nitroglycerin 0.4 mg sublingual 0.4 mg sublingual Q5M PRN Chest 10/15/20 10/06/23 tablet Pain isosorbide mononitrate 60 mg 60 mg PO QAM 01/03/21 10/06/23 tablet,extended release 24 hr gabapentin 300 mg capsule 600 mg PO BEDTIME 08/22/21 10/06/23 mecobalamin (vitamin B12) 1,000 1,000 mcg sublingual DAILY 10/06/23 10/06/23 mcg disintegrating tablet,sublingual multivitamin-iron 9 mg-folic acid 1 tab PO DAILY 10/06/23 10/06/23 400 mcg-calcium and minerals tablet (Therapeutic-M) sennosides 8.6 mg-docusate sodium 1 tab PO BID for constipation 10/06/23 10/06/23 50 mg tablet (Senexon-S) Previous Rx's Medication Instructions Recorded cholecalciferol (vitamin D3) 50 50 mcg PO DAILY 90 days #90 caps 09/12/23 mcg (2,000 unit) capsule omeprazole 20 mg capsule,delayed 20 mg PO BID 90 days #180 caps 09/12/23 release meloxicam 15 mg tablet 15 mg PO DAILY 30 days #30 tabs 09/15/23 Allergies Allergy/AdvReac Type Severity Reaction Status Date / Time No Known Allergies Allergy Verified 09/15/23 10:48 [No Known Allergies*] Review of Systems Review of Systems: Yes all other systems are reviewed and are negative [facility] Past Medical History Medical History Cardiac defibrillator in place Hx of myocardial infarction COVID-19 vaccine series completed Dysphagia Cirrhosis of liver without ascites History of non anemic vitamin B12 deficiency History of vitamin D deficiency Elevated cholesterol Hypertension GERD (gastroesophageal reflux disease) Surgical History History of esophagogastroduodenoscopy (EGD) H/O colonoscopy Status post partial gastrectomy History of esophagogastroduodenoscopy (EGD) (~01/2013) History of cardiac catheterization (~02/2018) Family History Family History Father No problems noted. Mother No problems noted. Social History Social History Household Members: None Alcohol intake: never Patient Tobacco Use Status: Former Tobacco user Quit Date: 2012 Tobacco use type: Cigarette Smoked in Last 30 Days: No Use of substances other than those prescribed or required for medical reasons: No Substance Use Type: Marijuana Advance Directives: Yes Advance Directives Information Provided: No Advance Directives on File: No Nutrition Risks: No Nutritional Risk Physical Exam ED Vital Signs: Vital Signs - 24 hr 10/06/23 19:41 10/06/23 19:47 10/06/23 19:52 Temperature 98.8 F 97.6 F Pulse Rate 78 72 72 Respiratory Rate 18 18 16 Blood Pressure 110/68 76/48 L 130/73 Pulse Oximetry 98 98 Oxygen Delivery Method Room Air Room Air 10/06/23 20:03 Temperature Pulse Rate 84 Respiratory Rate 18 Blood Pressure 121/76 Pulse Oximetry 97 Oxygen Delivery Method Room Air BMI result Body Mass Index 23.5 Const Other: Patient is a frail, chronically ill-appearing man who was diaphoretic and looked extremely pale and weak. He looked acutely ill. His blood pressure was 76/48 HENMT Other: Patient had red blood on the hair of his zelaya. His face was diaphoretic. Eyes Other: Pupils were round and equal, conjunctivae clear, extraocular movements intact Neck Other: No JVD Resp Effort & Inspection: normal respiratory effort Auscultation: clear to auscultation bilaterally Cardio Rate: regular rate Rhythm: regular rhythm Heart sounds: S1 normal heart sound present and S2 normal heart sound present GI Other: The abdomen was soft and not apparently tender. Rectal exam revealed a mix of dark brown stool with red blood. Skin Other: Skin was pale and diaphoretic Neuro Other: The patient was awake and alert. Face was symmetrical. Speech was clear. He moves his extremities symmetrically. No focal neurological deficit. Extrem Other: No peripheral edema Medications Administered Generic Name Dose Route Start Last Admin Trade Name Freq PRN Reason Stop Dose Admin Ceftriaxone Sodium 1 gm/ 50 mls @ 100 mls/hr 10/06/23 21:00 10/07/23 01:09 Sodium Chloride IV Infused Q24H TERRIE Infusion Octreotide Acetate 500 mcg/ 501 mls @ 50.1 mls/hr 10/06/23 20:30 10/07/23 01:08 Sodium Chloride IVCONT 50 mcg/hr .Q10H TERRIE 50.1 mls/hr Infusion 50 MCG/HR Sodium Chloride 3 ml 10/07/23 00:00 10/07/23 01:08 0.9 % Sodium Chloride Flush 3 Ml Syringe IVFLUSH Not Given QSHIFT TERRIE Discontinued Medications Generic Name Dose Route Start Last Admin Trade Name Freq PRN Reason Stop Dose Admin Sodium Chloride 100 mls @ 100 mls/hr 10/06/23 19:50 10/07/23 01:09 Ns IV 10/06/23 20:49 Infused ONCE ONE Infusion Sodium Chloride 1,000 mls @ 999 mls/hr 10/06/23 20:25 10/06/23 22:01 Ns IV 10/06/23 21:25 999 mls/hr .Q1H1M ONE Administration Iohexol 100 ml 10/06/23 20:57 10/06/23 20:58 Iohexol 350 Mg/Ml 100 Ml Infus..Btl IV 10/06/23 20:58 85 ml ONCE ONE Administration Octreotide Acetate 50 mcg 10/06/23 20:30 10/06/23 22:01 Octreotide Acetate 100 Mcg/Ml Ampul IVPUSH 10/06/23 20:31 50 mcg ONCE ONE Administration Pantoprazole Sodium 80 mg 10/06/23 19:24 10/06/23 19:37 Pantoprazole Sodium 40 Mg/10 Ml Vial IVPUSH 10/06/23 19:25 80 mg ONCE ONE Administration Medical Decision Making Medical Decision Making MDM Narrative: The patient arrived by ambulance and was seen promptly. He was noted to have vomited bright red blood immediately after arrival and he describes having vomited red blood at home. He was therefore placed in a room and placed on a monitor immediately. He had had an IV in the right arm from the ambulance. A 2nd IV was placed. IV Protonix was ordered. Patient initially looked critically ill with diaphoresis, weakness, and his 2nd blood pressure was quite low at 76/48. I was quite concerned about him initially and ordered a unit of packed red cells as well as the pantoprazole. I reviewed his chart. Although he carries the diagnosis of cirrhosis he does not seem to have any documented significant complications such as varices. The patient's blood pressure and diaphoresis resolved such that a subsequently thought that perhaps he had just had a vagal episode. The patient is lab work showed a hemoglobin of 11.5, a drop from 12.7 3 weeks ago. Additionally the patient's BUN was 31, a rise from a baseline of 10. This certainly seems to be an upper GI bleed possibly complicated by underlying cirrhosis. 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 It seems the patient does not have severe cirrhosis nor does he have a history of significant portal hypertension. The patient seemed to improve spontaneously and will be admitted to the hospitalist service. The hospitalist ordered a CT of the abdomen and pelvis with a GI bleed protocol. Timing of the dye was suboptimal and so there was no true arterial phase. There is circumferential wall thickening of the 2nd and 3rd portion of the duodenal which may represent duodenitis. Lab Data 10/06/23 19:32 10/06/23 19:32 Labs: Lab Results 03/26/24 Range/Units 19:32 WBC 10.9 H (4.8-10.8) X10*3/uL RBC 3.72 L (4.60-5.80) X10*6/uL Hgb 11.5 L (14.0-18.0) g/dl Hct 33.9 L (42.0-52.0) % MCV 91.1 (80.0-98.0) fL MCH 30.9 (27.0-33.0) pg MCHC 33.9 (31.0-36.0) g/dl RDW 14.1 (11.0-16.0) % Plt Count 236 (160-400) X10*3/uL MPV 11.6 (9.4-12.4) fL Immature Gran % (Auto) 0.3 (0.0-0.4) % Neut % (Auto) 63.4 (45-73) % Lymph % (Auto) 25.8 (20-40) % [place] % (Auto) 8.6 (2-11) % Eos % (Auto) 1.4 (0-4) % Baso % (Auto) 0.5 (0-2) % Lymph # (Auto) 2.8 (1.2-4.9) X10*3/uL [place] # (Auto) 0.9 (0.1-1.2) X10*3/uL Eos # (Auto) 0.2 (0.0-0.4) X10*3/uL Baso # (Auto) 0.1 (0.0-0.2) X10*3/uL Abs Immat Gran (auto) 0.03 (0.00-0.03) X10*3/uL Absolute Neuts (auto) 6.9 (2.0-8.3) x10*3/uL Absolute Nucleated RBC 0.000 (0.0-0.012) X10*3/uL Nucleated RBC % (auto) 0.0 (0.0-0.2) /100WBC PT 13.5 H (11.1-13.3) SEC INR 1.1 (0.9-1.1) Sodium 138 (135-145) mmol/L Potassium 5.1 (3.3-5.1) mmol/L Chloride 103 (96-108) mmol/L Carbon Dioxide 26 (22-29) mmol/L Anion Gap 14 (12-20) BUN 31 H (9-16) mg/dL Creatinine 0.88 (0.5-1.4) mg/dL Estim Creat Clear Calc 64.6 Estimated GFR > 60 Random Glucose 138 H (60-115) mg/dL Calcium 10.1 D (8.4-10.2) mg/dL Magnesium 1.9 (1.6-2.6) mg/dL Total Bilirubin 0.5 (0.0-1.0) mg/dL Direct Bilirubin 0.2 (0.0-0.5) mg/dL AST 20 (5-37) U/L ALT 15 (0-40) U/L Alkaline Phosphatase 79 (39-117) U/L Total Protein 6.5 (6.5-8.0) g/dL Albumin 3.7 (3.5-5.0) g/dL Lipase 19 (8-78) U/L Ethyl Alcohol < 10 mg/dL Blood Type AB Positive Antibody Screen NEGATIVE Crossmatch See Detail Critical Care Time Critical Care Time Critical Care Time: Yes Total Critical Care Time: 45 Attestation: The patient was critically ill with a high probability of imminent or life-threatening deterioration. ?I spent greater than 30 minutes of discontinuous time evaluating the patient, delivering critical care at the bedside, discussing evaluating data with consultants. ?Critical care time does not include time spent performing separately billable procedures or teaching. ?Time spent performing critical care with 45 minutes. Discharge Plan Discharge Clinical Impression: Acute upper GI bleeding Patient Disposition: Admitted As Inpatient
[2023-10-06] MEDS: iohexoL 350 MG/ML 100 ML INFUS..BTL IV (20:58)
--- NOTE | 2023-10-06 21:23 | PHA.MEDREC ---
Pharmacy Consult ? Medication Reconciliation Pharmacy has completed the medication reconciliation. Confirmed medications with patient and through claim history. Patient reports he finished his ciprofoxacin 250mg prescription today and that he temporarily stopped taking omeprazole while on Cipro.
[2023-10-06] MEDS: 0.9 % Sodium Chloride 1,000 ML 999 ML IV (22:01)
[2023-10-06] MEDS: Octreotide Acetate 100 MCG/ML AMPUL 50 MCG IVPUSH (22:01)
[2023-10-06] MEDS: Octreotide Acetate 500 MCG in 0.9 % Sodium Chloride 500 ML 50.1 MCG IVCONT (22:01)
--- NOTE | 2023-10-06 22:11 | MHC.EDTECH ---
Hourly rounds and vitals completed,patient has 200MLS of urine output in bag, [place] Cath in place,and draining good. Belongings list completed and copy placed in chart. call borrego in reach
--- NOTE | 2023-10-06 23:48 | MHC.EDTECH ---
Hourly rounds and vitals completed,patient is resting comfortably at this time,call borrego in reach
[2023-10-07] VITALS (21 sets, daily range): BP systolic 126–164; BP diastolic 60–110; PULSE 63–81; RESP 14–20; TEMP 36.3–37; O2SAT 95–100
[2023-10-07] MEDS: cefTRIAXone sodium 1 GM in 0.9 % Sodium Chloride 50 ML IV ×2 (00:24→20:24)
--- NOTE | 2023-10-07 00:57 | ECG_ITS ---
Test Reason : WEAKNESS Blood Pressure : / mmHG Vent. Rate : 080 BPM Atrial Rate : 080 BPM P-R Int : 154 ms QRS Dur : 124 ms QT Int : 394 ms P-R-T Axes : 040 008 -03 degrees QTc Int : 454 ms Normal sinus rhythm Right bundle branch block Inferior infarct (cited on or before 21-NOV-2013) Abnormal ECG When compared with ECG of 08-OCT-2016 15:05, Right bundle branch block is now Present Referred By: Khalif Box Electronically Signed By:Patel Kim
--- NOTE | 2023-10-07 01:09 | MHC.EDTECH ---
EKG taken per order and signed by provider.
--- NOTE | 2023-10-07 01:18 | MHC.EDTECH ---
[place] Cath fell off,patient was incont. of a very large amount of urine,cleaned and bed linen changed. Applied a new [place] Cath,draining without issues,patient repositioned to comfort,warm blankets given. call borrego in reach
--- NOTE | 2023-10-07 04:02 | MHC.EDTECH ---
Hourly rounds and vitals completed,patient placed on the bedpan,had only smears of brown stool,patient was cleaned and repositioned. [place] Cath in place,patient is clean and dry,call borrego in reach
--- NOTE | 2023-10-07 05:56 | MHC.EDTECH ---
Hourly rounds and vitals completed,patient went on bedpan and had a large soft black,bloody stool,patient was cleaned and repositioned. Emptied Lira bag 250MLS, [place] Cath in place and mechelle-care given. call borrego in reach
[2023-10-07] MEDS: Pantoprazole Sodium 40 MG/10 ML VIAL IVPUSH ×2 (06:18→17:04)
[2023-10-07 07:02] LABS: Hematocrit 28.7 % (42.0-52.0); Hemoglobin 9.8 g/dl (14.0-18.0); Mean Corpuscular HGB Conc 34.1 g/dl (31.0-36.0); Mean Corpuscular Hemoglobin 31.4 pg (27.0-33.0); Mean Platelet Volume 11.6 fL (9.4-12.4); Platelet Count 163 X10*3/uL (160-400); Red Blood Count 3.12 X10*6/uL (4.60-5.80); Red Cell Distribution Width 14.1 % (11.0-16.0); White Blood Count 10.2 X10*3/uL (4.8-10.8)
[2023-10-07 07:42] LABS: Anion Gap 13 (12-20); Blood Urea Nitrogen 32 mg/dL (9-16); Calcium 8.4 mg/dL (8.4-10.2); Carbon Dioxide 22 mmol/L (22-29); Chloride 107 mmol/L (96-108); Creatinine Clr Calc Pharmacy 74.8; Estimated Glomerular Filt Rate > 60; Glucose Random 151 mg/dL (60-115); Potassium 4.7 mmol/L (3.3-5.1); Sodium 137 mmol/L (135-145)
[2023-10-07] MEDS: Cholecalciferol (Vitamin D3) 25 MCG TABLET 50 MCG PO (08:01)
[2023-10-07] MEDS: Octreotide Acetate 500 MCG in 0.9 % Sodium Chloride 500 ML 50.1 MCG IVCONT (08:01)
[2023-10-07] MEDS: Multivitamin TABLET 1 TAB PO (08:01)
[2023-10-07] MEDS: Cyanocobalamin (Vitamin B-12) 1,000 MCG TABLET 1000 MCG PO (08:02)
[2023-10-07] MEDS: Folic Acid 1 MG TABLET PO (08:02)
[2023-10-07] MEDS: traMADoL HCL 50 MG TABLET 100 MG PO (08:02)
--- NOTE | 2023-10-07 09:08 | P.CNGI_ITS ---
History of Present Illness Data of Consult Service Date: 10/07/23 Requesting physician: Jacki Rodriguez Primary Care Provider: Pablo Strauss MD HPI Reason for consult: GIB This is a 77 y.o M with PMH of GERD, fatty liver, hx of gastric ulcer s/p Bilroth I 2013 procedure who presented to the hospital for hemetemesis. History was obtained from the pt who states that he has been having a clenched fist like pressure in his epigastrium for the past couple of days. Yesterday, around lunchtime, he became nauseous and when he threw up, it was fresh blood. He proceeded to have at least 3 episodes that he can recall. He also had a bowel movement with fresh blood in it. Currently, reports some weakness, but otherwise no palpitations, lightheadedness or shortness of breath. He does have previous history of gastric ulcer that required Billroth procedure at [facility] almost 10 years ago. On arrival to the ER he was noted to be orthostatic, but improved with fluid resuscitation. He also underwent 1 unit of blood transfusion overnight. Hemoglobin this morning was 9.8. Patient does have history of fatty liver, however does not have cirrhosis or portal hypertension based on imaging and labs. Review of Systems 2 Review of Systems: Yes all other systems are reviewed and are negative PMFSH Past Medical History Medical History (Updated 10/07/23 @ 11:07 by Melissa Thakkar MD) Cardiac defibrillator in place Hx of myocardial infarction COVID-19 vaccine series completed Dysphagia Cirrhosis of liver without ascites History of non anemic vitamin B12 deficiency History of vitamin D deficiency Elevated cholesterol Hypertension GERD (gastroesophageal reflux disease) Family History Family History Father No problems noted. Mother No problems noted. Surgical History Surgical History (Updated 10/07/23 @ 11:07 by Melissa Thakkar MD) History of esophagogastroduodenoscopy (EGD) H/O colonoscopy Status post partial gastrectomy History of esophagogastroduodenoscopy (EGD) (~01/2013) History of cardiac catheterization (~02/2018) Social History Social History Household Members: None Alcohol intake: never Patient Tobacco Use Status: Former Tobacco user Quit Date: 2012 Tobacco use type: Cigarette Substance Use Type: Marijuana Advance Directives Date on File: 10/07/23 service: No Meds Allergies Allergy/AdvReac Type Severity Reaction Status Date / Time No Known Allergies Allergy Verified 09/15/23 10:48 [No Known Allergies*] Active Medications: Current Medications Acetaminophen (Acetaminophen 325 Mg Tablet) 650 mg PO Q6H PRN PRN Reason: Pain, Mild (Pain Scale 1-3) Acetaminophen (Acetaminophen Supp 650 Mg Supp.Rect) 650 mg SD Q6H PRN PRN Reason: Pain, Mild (Pain Scale 1-3) Atorvastatin Calcium (Atorvastatin Calcium 20 Mg Tablet) 20 mg PO BEDTIME [facility] Cyanocobalamin (Cyanocobalamin (Vitamin B-12) 1,000 Mcg Tablet) 1,000 mcg PO DAILY [facility] Last Admin: 10/07/23 08:02 Dose: 1,000 mcg Folic Acid (Folic Acid 1 Mg Tablet) 1 mg PO DAILY [facility] Last Admin: 10/07/23 08:02 Dose: 1 mg Gabapentin (Gabapentin 300 Mg Capsule) 600 mg PO BEDTIME [facility] Ceftriaxone Sodium 1 gm/ (Sodium Chloride) 50 mls @ 100 mls/hr IV Q24H [facility] Last Infusion: 10/07/23 01:09 Dose: Infused Octreotide Acetate 500 mcg/ (Sodium Chloride) 501 mls @ 50.1 mls/hr IVCONT .Q10H [facility] Last Admin: 10/07/23 08:01 Dose: 50 mcg/hr, 50.1 mls/hr Melatonin (Melatonin 3 Mg Tablet) 6 mg PO BEDTIME PRN PRN Reason: Insomnia Multivitamins/Vitamin C (Multivitamin Tablet) 1 tab PO DAILY [facility] Last Admin: 10/07/23 08:01 Dose: 1 tab Ondansetron HCl (Ondansetron Hcl 4 Mg/2 Ml Vial) 4 mg IVPUSH Q8H PRN PRN Reason: Nausea and Vomiting Pantoprazole Sodium (Pantoprazole Sodium 40 Mg/10 Ml Vial) 40 mg IVPUSH BID@0630,1630 [facility] Last Admin: 10/07/23 06:18 Dose: 40 mg Sodium Chloride (0.9 % Sodium Chloride Flush 3 Ml Syringe) 3 ml IVFLUSH QSHIFT [facility] Last Admin: 10/07/23 08:07 Dose: Not Given Tramadol HCl (Tramadol Hcl 50 Mg Tablet) 100 mg PO DAILY [facility] Last Admin: 10/07/23 08:02 Dose: 100 mg Vitamin D (Cholecalciferol (Vitamin D3) 25 Mcg Tablet) 50 mcg PO DAILY [facility] Last Admin: 10/07/23 08:01 Dose: 50 mcg Home Medications Medication Instructions Recorded Confirmed Last Taken Type aspirin 81 mg tablet,delayed 81 mg PO DAILY 07/02/20 10/06/23 04/02/21 07:00 History release carvedilol 12.5 mg tablet 12.5 mg PO BID 07/02/20 10/06/23 Unknown History folic acid 1 mg tablet 1 mg PO DAILY 07/02/20 10/06/23 Unknown History lisinopril 2.5 mg tablet 2.5 mg PO DAILY 07/02/20 10/06/23 10/06/23 History tramadol 50 mg tablet 100 mg PO DAILY Pain 07/02/20 10/06/23 10/06/23 History atorvastatin 20 mg tablet 20 mg PO BEDTIME 10/15/20 10/06/23 Unknown History nitroglycerin 0.4 mg sublingual 0.4 mg sublingual Q5M PRN Chest 10/15/20 10/06/23 Unknown History tablet Pain isosorbide mononitrate 60 mg 60 mg PO QAM 01/03/21 10/06/23 Unknown History tablet,extended release 24 hr gabapentin 300 mg capsule 600 mg PO BEDTIME 08/22/21 10/06/23 Unknown History mecobalamin (vitamin B12) 1,000 1,000 mcg sublingual DAILY 10/06/23 10/06/23 Unknown History mcg disintegrating tablet,sublingual multivitamin-iron 9 mg-folic acid 1 tab PO DAILY 10/06/23 10/06/23 Unknown History 400 mcg-calcium and minerals tablet (Therapeutic-M) sennosides 8.6 mg-docusate sodium 1 tab PO BID for constipation 10/06/23 10/06/23 Unknown History 50 mg tablet (Senexon-S) Physical Exam 2 Vital Signs: Vital Signs: Last Vital Signs Temp 98.3 F 10/07/23 07:20 Pulse 78 10/07/23 07:20 Resp 15 10/07/23 07:20 BP 149/80 H 10/07/23 07:20 Pulse Ox 95 10/07/23 07:20 O2 Del Method Room Air 10/07/23 07:20 BMI result Body Mass Index 23.5 Elderly male Clammy and pale appearing Abd soft, mildly tender, nondistended no overt resp distress Mild pedal edema Results Labs 10/07/23 06:44 10/07/23 06:44 Labs: Short CBC 10/06/23 10/07/23 Range/Units 19:32 06:44 WBC 10.9 H 10.2 (4.8-10.8) X10*3/uL Hgb 11.5 L 9.8 L (14.0-18.0) g/dl Hct 33.9 L 28.7 L (42.0-52.0) % Plt Count 236 163 D (160-400) X10*3/uL BMP 10/06/23 10/07/23 19:32 06:44 Sodium 138 137 Potassium 5.1 4.7 Chloride 103 107 Carbon Dioxide 26 22 BUN 31 H 32 H Creatinine 0.88 0.76 Calcium 10.1 D 8.4 D Liver Function 10/06/23 Range/Units 19:32 Total Bilirubin 0.5 (0.0-1.0) mg/dL Direct Bilirubin 0.2 (0.0-0.5) mg/dL AST 20 (5-37) U/L ALT 15 (0-40) U/L Alkaline Phosphatase 79 (39-117) U/L Albumin 3.7 (3.5-5.0) g/dL Assessment and Plan (1) Acute upper GI bleeding: Status: Acute (2) Anemia: Status: Acute (3) History of gastric ulcer: Status: Acute (4) Status post partial gastrectomy: Status: Acute Plan Assessment consistent with upper GI bleeding likely from peptic ulcer disease versus Dieulafoy's versus AVM versus malignancy leading to acute anemia blood loss. Low suspicion for portal hypertensive bleeding at this time as patient without cirrhosis or signs of portal hypertension based on clinical assessment. Plan: -please maintain at least 2 IV access at all times -type and screen. Transfuse PRBC to maintain goal hemoglobin at least 7 -please keep the patient NPO -agree with IV Protonix b.i.d. -EGD to be scheduled for today Thank you for allowing me to participate in his care. Please do not hesitate to reach out for any questions or concerns Procedures Date of Service Date of Service: 10/07/23
--- NOTE | 2023-10-07 10:25 | MHC.CM.PN ---
Met with patient in regards to discharge planning. Patient upset he is still waiting for a bed [place] [facility] [place] 12 [place]. Emotional support provided. 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 PCP verified. Copy of HCP obtained from [facility]. Patient received 4 Moderna & 1 Pfizer vaccine. IMM explained and signed. Patient feels he is weak and will need STR. Anticipate physical therapy eval for home safety will be needed. Patient choices: 1)[facility] 2)[facility]. Referrals made in [facility] so facilities can follow. Continue to monitor for d/c needs.
--- NOTE | 2023-10-07 11:11 | P.OP_ITS ---
Operative Note Operative Note Date of Service: 10/07/23 Narrative: Procedure: Esophagogastroduodenoscopy Endoscopist: Melissa Thakkar MD Indication: UGIB Anesthesia Provider: Dr Ijeoma Ritchie Anesthesia Type: MAC ?? EGD Procedure:?? The procedure, indications, preparation and potential complications were reviewed with the patient, who indicated understanding and gave written informed consent to proceed. A physical exam was performed. The endoscope was introduced through the mouth, and advanced to the second part of duodenum. The mucosa was carefully examined on slow withdrawal of the endoscope. The patient tolerated the procedure well. There were no immediate complications.? ? EGD Findings:? * Esophagus:? Normal mucosa noted in the entire esophagus. The Z line was at 30 cm with a schatzki's ring right above it. This was gently dilated with the scope. There was a large hiatal hernia with the diaphragmatic pinch at 37cm. * Stomach:? There was evidence of prior Bilroth I with a large 1.5 cm ulcer with visible vessel just at the anastomosis along the greater curvature. 1 cc of epinephrine were injected per each quadrant of ulcer base. This prompted mild oozing from the ulcer. The visible vessel was then treated with bipolar cautery with complete hemostasis. x2 Resolution 360 ultra clips were placed for further mechanical hemostasis and for radio-opaque marking. (pt also has 2 additional misfired clips that should pass spontaneously) * Duodenum:? Normal mucosa was noted in the whole of the examined duodenum. ? EGD Impressions:? 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 Recommendations:?? * Pt will need IV PPI BID x 72h for high risk ulcer * This is to be followed by Protonix 40mg PO BID x 8 weeks and then once daily * If pt rebleeds in the next 48-72h pls contact IR david * Octreotide drip can be stopped * He will need a repeat EGD in 2-3 months to i) confirm healing ii) gastric bx to r/o H Pylori and iii) dilation of Schatzki's ring if needed * Avoid NSAIDs and smoking Above has been reviewed with the patient.
--- NOTE | 2023-10-07 11:13 | P.CONAN_ITS ---
[facility] Active Problems Active Problems: All Active Problems (Updated 10/07/23 @ 11:07 by Melissa Thakkar MD) History of gastric ulcer (Acute) Status post partial gastrectomy (Acute) Acute upper GI bleeding (Acute) Chronic constipation (Acute) Anemia (Acute) History of vitamin D deficiency (Acute) Hiatal hernia (Acute) History of colon polyps (Acute) Nausea and vomiting (Acute) Diarrhea (Acute) Chronic prostatitis (Acute) Elevated cholesterol (Acute) Cirrhosis of liver without ascites (Acute) Dysphagia (Acute) History of cardiac catheterization (Acute ~02/2018) GERD (gastroesophageal reflux disease) (Acute) Past Medical History Medical History Cardiac defibrillator in place Hx of myocardial infarction COVID-19 vaccine series completed Dysphagia Cirrhosis of liver without ascites History of non anemic vitamin B12 deficiency History of vitamin D deficiency Elevated cholesterol Hypertension GERD (gastroesophageal reflux disease) Functional capacity: independent ambulation Family History Family History Father No problems noted. Mother No problems noted. Family history of problems with anesthesia: No Surgical History Surgical History History of esophagogastroduodenoscopy (EGD) H/O colonoscopy Status post partial gastrectomy History of esophagogastroduodenoscopy (EGD) (~01/2013) History of cardiac catheterization (~02/2018) History of Problems with Anesthesia: No Social History Social History Household Members: None Alcohol intake: never Comment: short stay Patient Tobacco Use Status: Former Tobacco user Quit Date: 2012 Tobacco use type: Cigarette Substance Use Type: Marijuana Advance Directives Date on File: 10/07/23 service: No Meds Allergies Allergy/AdvReac Type Severity Reaction Status Date / Time No Known Allergies Allergy Verified 09/15/23 10:48 [No Known Allergies*] Active Medications: Current Medications Acetaminophen (Acetaminophen 325 Mg Tablet) 650 mg PO Q6H PRN PRN Reason: Pain, Mild (Pain Scale 1-3) Acetaminophen (Acetaminophen Supp 650 Mg Supp.Rect) 650 mg [place] Q6H PRN PRN Reason: Pain, Mild (Pain Scale 1-3) Atorvastatin Calcium (Atorvastatin Calcium 20 Mg Tablet) 20 mg PO BEDTIME [facility] Cyanocobalamin (Cyanocobalamin (Vitamin B-12) 1,000 Mcg Tablet) 1,000 mcg PO DAILY [facility] Last Admin: 10/07/23 08:02 Dose: 1,000 mcg Folic Acid (Folic Acid 1 Mg Tablet) 1 mg PO DAILY [facility] Last Admin: 10/07/23 08:02 Dose: 1 mg Gabapentin (Gabapentin 300 Mg Capsule) 600 mg PO BEDTIME [facility] Ceftriaxone Sodium 1 gm/ (Sodium Chloride) 50 mls @ 100 mls/hr IV Q24H [facility] Last Infusion: 10/07/23 01:09 Dose: Infused Octreotide Acetate 500 mcg/ (Sodium Chloride) 501 mls @ 50.1 mls/hr IVCONT .Q10H [facility] Last Admin: 10/07/23 08:01 Dose: 50 mcg/hr, 50.1 mls/hr Melatonin (Melatonin 3 Mg Tablet) 6 mg PO BEDTIME PRN PRN Reason: Insomnia Multivitamins/Vitamin C (Multivitamin Tablet) 1 tab PO DAILY [facility] Last Admin: 10/07/23 08:01 Dose: 1 tab Ondansetron HCl (Ondansetron Hcl 4 Mg/2 Ml Vial) 4 mg IVPUSH Q8H PRN PRN Reason: Nausea and Vomiting Pantoprazole Sodium (Pantoprazole Sodium 40 Mg/10 Ml Vial) 40 mg IVPUSH BID@0630,1630 [facility] Last Admin: 10/07/23 06:18 Dose: 40 mg Sodium Chloride (0.9 % Sodium Chloride Flush 3 Ml Syringe) 3 ml IVFLUSH QSHIFT [facility] Last Admin: 10/07/23 08:07 Dose: Not Given Tramadol HCl (Tramadol Hcl 50 Mg Tablet) 100 mg PO DAILY [facility] Last Admin: 10/07/23 08:02 Dose: 100 mg Vitamin D (Cholecalciferol (Vitamin D3) 25 Mcg Tablet) 50 mcg PO DAILY [facility] Last Admin: 10/07/23 08:01 Dose: 50 mcg Home Medications Medication Instructions Recorded Confirmed Last Taken Type aspirin 81 mg tablet,delayed 81 mg PO DAILY 07/02/20 10/06/23 04/02/21 07:00 History release carvedilol 12.5 mg tablet 12.5 mg PO BID 07/02/20 10/06/23 Unknown History folic acid 1 mg tablet 1 mg PO DAILY 07/02/20 10/06/23 Unknown History lisinopril 2.5 mg tablet 2.5 mg PO DAILY 07/02/20 10/06/23 10/06/23 History tramadol 50 mg tablet 100 mg PO DAILY Pain 07/02/20 10/06/23 10/06/23 History atorvastatin 20 mg tablet 20 mg PO BEDTIME 10/15/20 10/06/23 Unknown History nitroglycerin 0.4 mg sublingual 0.4 mg sublingual Q5M PRN Chest 10/15/20 10/06/23 Unknown History tablet Pain isosorbide mononitrate 60 mg 60 mg PO QAM 01/03/21 10/06/23 Unknown History tablet,extended release 24 hr gabapentin 300 mg capsule 600 mg PO BEDTIME 08/22/21 10/06/23 Unknown History mecobalamin (vitamin B12) 1,000 1,000 mcg sublingual DAILY 10/06/23 10/06/23 Unknown History mcg disintegrating tablet,sublingual multivitamin-iron 9 mg-folic acid 1 tab PO DAILY 10/06/23 10/06/23 Unknown History 400 mcg-calcium and minerals tablet (Therapeutic-M) sennosides 8.6 mg-docusate sodium 1 tab PO BID for constipation 10/06/23 10/06/23 Unknown History 50 mg tablet (Senexon-S) Exam Height,Weight and Vital Signs: Height 5 ft 7 in Weight 68.039 kg Last Vital Signs Temp 97.8 F 10/07/23 10:29 Pulse 81 10/07/23 10:29 Resp 18 10/07/23 10:29 BP 153/76 H 10/07/23 10:29 Pulse Ox 99 10/07/23 10:29 O2 Del Method Room Air 10/07/23 10:29 Pertinent Lab Results Pertinent Lab Results: Laboratory Tests 10/06/23 10/07/23 19:32 06:44 WBC 10.9 H 10.2 RBC 3.72 L 3.12 L Hgb 11.5 L 9.8 L Hct 33.9 L 28.7 L MCV 91.1 92.0 MCH 30.9 31.4 MCHC 33.9 34.1 RDW 14.1 14.1 Plt Count 236 163 D MPV 11.6 11.6 Immature Gran % (Auto) 0.3 Neut % (Auto) 63.4 Lymph % (Auto) 25.8 [place] % (Auto) 8.6 Eos % (Auto) 1.4 Baso % (Auto) 0.5 Lymph # (Auto) 2.8 [place] # (Auto) 0.9 Eos # (Auto) 0.2 Baso # (Auto) 0.1 Abs Immat Gran (auto) 0.03 Absolute Neuts (auto) 6.9 Absolute Nucleated RBC 0.000 0.000 Nucleated RBC % (auto) 0.0 0.0 PT 13.5 H INR 1.1 Sodium 138 137 Potassium 5.1 4.7 Chloride 103 107 Carbon Dioxide 26 22 Anion Gap 14 13 BUN 31 H 32 H Creatinine 0.88 0.76 Estim Creat Clear Calc 64.6 74.8 Estimated GFR > 60 > 60 Random Glucose 138 H 151 H Calcium 10.1 D 8.4 D Magnesium 1.9 Total Bilirubin 0.5 Direct Bilirubin 0.2 AST 20 ALT 15 Alkaline Phosphatase 79 Total Protein 6.5 Albumin 3.7 Lipase 19 Ethyl Alcohol < 10 Blood Type AB Positive Antibody Screen NEGATIVE Crossmatch See Detail Airway Mallampati Class: II TM Dist: >3cm Neck ROM: Full Heart: RRR Lungs: CTA Assessment and Plan Assessment Anesthesia Assessment: Anesthesia Plan Discussed Final Anesthetic Review Family History of Problems with Anesthesia: No History of Problems with Anesthesia: No NPO: Yes ASA Class: III and Emergency Final Preanesthetic Review: Meds/Allgs Chart Reviewed, Consent Obtained/Reviewed and Anes Risks/Benef Reviewed Patient Risk: Intermediate Procedure Risk: Low Anesthetic Plan Anesthetic Plan: MAC: Disposition: Standard PACU
--- NOTE | 2023-10-07 11:53 | P.PNIM_ITS ---
Subjective Subjective Date of Service: 10/07/23 Interval History: reporting blood in stools Physical Exam 2 Vital Signs: Vital Signs: Last Vital Signs Temp 97.8 F 10/07/23 10:29 Pulse 81 10/07/23 10:29 Resp 18 10/07/23 10:29 BP 153/76 H 10/07/23 10:29 Pulse Ox 99 10/07/23 10:29 O2 Del Method Room Air 10/07/23 10:29 BMI result Body Mass Index 23.5 Elderly male Clammy and pale appearing Abd soft, mildly tender, nondistended no overt resp distress Mild pedal edema Objective Data Active Medications Acetaminophen (Acetaminophen 325 Mg Tablet) 650 mg PO Q6H PRN PRN Reason: Pain, Mild (Pain Scale 1-3) Acetaminophen (Acetaminophen Supp 650 Mg Supp.Rect) 650 mg [place] Q6H PRN PRN Reason: Pain, Mild (Pain Scale 1-3) Atorvastatin Calcium (Atorvastatin Calcium 20 Mg Tablet) 20 mg PO BEDTIME [facility] Cyanocobalamin (Cyanocobalamin (Vitamin B-12) 1,000 Mcg Tablet) 1,000 mcg PO DAILY [facility] Last Admin: 10/07/23 08:02 Dose: 1,000 mcg Documented By: DYANA Folic Acid (Folic Acid 1 Mg Tablet) 1 mg PO DAILY [facility] Last Admin: 10/07/23 08:02 Dose: 1 mg Documented By: DYANA Gabapentin (Gabapentin 300 Mg Capsule) 600 mg PO BEDTIME [facility] Ceftriaxone Sodium 1 gm/ (Sodium Chloride) 50 mls @ 100 mls/hr IV Q24H [facility] Last Infusion: 10/07/23 01:09 Dose: Infused Documented By: BING Octreotide Acetate 500 mcg/ (Sodium Chloride) 501 mls @ 50.1 mls/hr IVCONT .Q10H [facility] Last Admin: 10/07/23 08:01 Dose: 50 mcg/hr, 50.1 mls/hr Documented By: DYANA Melatonin (Melatonin 3 Mg Tablet) 6 mg PO BEDTIME PRN PRN Reason: Insomnia Multivitamins/Vitamin C (Multivitamin Tablet) 1 tab PO DAILY [facility] Last Admin: 10/07/23 08:01 Dose: 1 tab Documented By: DYANA Ondansetron HCl (Ondansetron Hcl 4 Mg/2 Ml Vial) 4 mg IVPUSH Q8H PRN PRN Reason: Nausea and Vomiting Pantoprazole Sodium (Pantoprazole Sodium 40 Mg/10 Ml Vial) 40 mg IVPUSH BID@0630,1630 [facility] Last Admin: 10/07/23 06:18 Dose: 40 mg Documented By: BING Sodium Chloride (0.9 % Sodium Chloride Flush 3 Ml Syringe) 3 ml IVFLUSH QSHIFT [facility] Last Admin: 10/07/23 08:07 Dose: Not Given Documented By: DYANA Non-Admin Reason: infusing Tramadol HCl (Tramadol Hcl 50 Mg Tablet) 100 mg PO DAILY [facility] Last Admin: 10/07/23 08:02 Dose: 100 mg Documented By: DYANA Vitamin D (Cholecalciferol (Vitamin D3) 25 Mcg Tablet) 50 mcg PO DAILY [facility] Last Admin: 10/07/23 08:01 Dose: 50 mcg Documented By: DYANA Labs 10/07/23 06:44 10/07/23 06:44 Labs: Laboratory Results - last 24 hr 10/06/23 10/07/23 19:32 06:44 MCV 91.1 92.0 MCH 30.9 31.4 MCHC 33.9 34.1 RDW 14.1 14.1 Plt Count 236 163 D MPV 11.6 11.6 Immature Gran % (Auto) 0.3 Neut % (Auto) 63.4 Lymph % (Auto) 25.8 [place] % (Auto) 8.6 Eos % (Auto) 1.4 Baso % (Auto) 0.5 Lymph # (Auto) 2.8 [place] # (Auto) 0.9 Eos # (Auto) 0.2 Baso # (Auto) 0.1 Abs Immat Gran (auto) 0.03 Absolute Neuts (auto) 6.9 Absolute Nucleated RBC 0.000 0.000 Nucleated RBC % (auto) 0.0 0.0 PT 13.5 H INR 1.1 Anion Gap 14 13 Estim Creat Clear Calc 64.6 74.8 Estimated GFR > 60 > 60 Random Glucose 138 H 151 H Calcium 10.1 D 8.4 D Magnesium 1.9 Total Bilirubin 0.5 Direct Bilirubin 0.2 AST 20 ALT 15 Alkaline Phosphatase 79 Total Protein 6.5 Albumin 3.7 Lipase 19 Ethyl Alcohol < 10 Blood Type AB Positive Antibody Screen NEGATIVE Crossmatch See Detail Assessment and Plan (1) History of gastric ulcer: Status: Acute Plan 77M PMH gerd, chronic prostatits, cad, presented with hematemesis Acute blood loss anemia due to gastric ulcer Status post 1 unit PRBC, status post EGD and clipping Continue IV PPI for 72 hours, monitor cbc Coronary artery disease Holding aspirin DVT prophylaxis-mechanical due to GI bleed Full code reason for continued hospitalization:active bleed Quality Stroke Does the patient have a stroke diagnosis?: No VTE Prior VTE?: No VTE Risk Level:: Medical - moderate - high VTE Device Contraindication: N/A - Device Ordered VTE Drug Contraindication: Treatment Not Indicated
[2023-10-07] MEDS: fentaNYL citrate/PF 100 MCG/2 ML VIAL 25 MCG IVPUSH ×4 (13:48→14:13)
[2023-10-07] MEDS: iohexoL 350 MG/ML 75 ML INFUS..BTL 85 ML IV (15:16)
[2023-10-07] MEDS: 0.9 % Sodium Chloride Flush 3 ML SYRINGE IVFLUSH ×2 (17:04→20:25)
[2023-10-07] MEDS: Melatonin 3 MG TABLET 6 MG PO (20:24)
[2023-10-07] MEDS: Acetaminophen 325 MG TABLET 650 MG PO (20:24)
[2023-10-07] MEDS: Gabapentin 300 MG CAPSULE 600 MG PO (20:24)
[2023-10-07] MEDS: Atorvastatin Calcium 20 MG TABLET PO (20:24)
[2023-10-08] VITALS (7 sets, daily range): BP systolic 114–142; BP diastolic 52–79; PULSE 67–106; RESP 18–20; TEMP 35.8–37.3; O2SAT 94–99
[2023-10-08] MEDS: Pantoprazole Sodium 40 MG/10 ML VIAL IVPUSH ×2 (06:31→16:41)
[2023-10-08 07:03] LABS: Hematocrit 27.7 % (42.0-52.0); Hemoglobin 9.4 g/dl (14.0-18.0); Mean Corpuscular HGB Conc 33.9 g/dl (31.0-36.0); Mean Corpuscular Hemoglobin 30.8 pg (27.0-33.0); Mean Corpuscular Volume 90.8 fL (80.0-98.0); Mean Platelet Volume 11.9 fL (9.4-12.4); Platelet Count 157 X10*3/uL (160-400); Red Blood Count 3.05 X10*6/uL (4.60-5.80); Red Cell Distribution Width 14.6 % (11.0-16.0); White Blood Count 7.4 X10*3/uL (4.8-10.8)
[2023-10-08 07:14] LABS: Alanine Aminotransferase 11 U/L (0-40); Albumin Level 3.1 g/dL (3.5-5.0); Alkaline Phosphatase 61 U/L (39-117); Anion Gap 12 (12-20); Aspartate Amino Transferase 19 U/L (5-37); Bilirubin Direct 0.2 mg/dL (0.0-0.5); Bilirubin Total 0.5 mg/dL (0.0-1.0); Blood Urea Nitrogen 22 mg/dL (9-16); Calcium 8.7 mg/dL (8.4-10.2); Carbon Dioxide 25 mmol/L (22-29); Chloride 104 mmol/L (96-108); Creatinine Clr Calc Pharmacy 77.9; Estimated Glomerular Filt Rate > 60; Glucose Fasting 108 mg/dL (60-99); Potassium 4.1 mmol/L (3.3-5.1); Sodium 137 mmol/L (135-145); Total Protein 5.3 g/dL (6.5-8.0)
[2023-10-08] MEDS: Cyanocobalamin (Vitamin B-12) 1,000 MCG TABLET 1000 MCG PO (09:40)
[2023-10-08] MEDS: Folic Acid 1 MG TABLET PO (09:40)
[2023-10-08] MEDS: traMADoL HCL 50 MG TABLET 100 MG PO (09:40)
[2023-10-08] MEDS: Cholecalciferol (Vitamin D3) 25 MCG TABLET 50 MCG PO (09:40)
[2023-10-08] MEDS: Multivitamin TABLET 1 TAB PO (09:40)
[2023-10-08] MEDS: 0.9 % Sodium Chloride Flush 3 ML SYRINGE IVFLUSH ×3 (09:40→22:06)
--- NOTE | 2023-10-08 09:57 | HO.PM.IMPN ---
Subjective Subjective Date of Service: 10/08/23 Interval History: no further bleeding Physical Exam Vital Signs: Vital Signs: Last Vital Signs Temp 96.7 F L 10/08/23 07:32 Pulse 74 10/08/23 07:32 Resp 18 10/08/23 07:32 BP 137/73 10/08/23 07:32 Pulse Ox 97 10/08/23 09:54 O2 Del Method Room Air 10/08/23 09:54 O2 Flow Rate 2 10/07/23 14:18 BMI result Body Mass Index 23.5 General: AO X 3, no acute distress Resp: CTA bilateral, no accessory muscles used CVS: S1,S2,RRR GI: soft, non tender, non distended Neuro: motor grossly intact, alert Psych: appropriate affect, appropriate insight Objective Data Active Medications Acetaminophen (Acetaminophen 325 Mg Tablet) 650 mg PO Q6H PRN PRN Reason: Pain, Mild (Pain Scale 1-3) Last Admin: 10/07/23 20:24 Dose: 650 mg Documented By: EDI Acetaminophen (Acetaminophen Supp 650 Mg Supp.Rect) 650 mg UT Q6H PRN PRN Reason: Pain, Mild (Pain Scale 1-3) Atorvastatin Calcium (Atorvastatin Calcium 20 Mg Tablet) 20 mg PO BEDTIME [facility] Last Admin: 10/07/23 20:24 Dose: 20 mg Documented By: EDI Cyanocobalamin (Cyanocobalamin (Vitamin B-12) 1,000 Mcg Tablet) 1,000 mcg PO DAILY [facility] Last Admin: 10/08/23 09:40 Dose: 1,000 mcg Documented By: SAMM Fentanyl (Fentanyl Citrate/Pf 100 Mcg/2 Ml Vial) 25 mcg IVPUSH Q10M PRN; Protocol PRN Reason: Pain, Moderate(Pain Scale 4-6) Last Admin: 10/07/23 14:13 Dose: 25 mcg Documented By: ROXY Folic Acid (Folic Acid 1 Mg Tablet) 1 mg PO DAILY [facility] Last Admin: 10/08/23 09:40 Dose: 1 mg Documented By: SAMM Gabapentin (Gabapentin 300 Mg Capsule) 600 mg PO BEDTIME [facility] Last Admin: 10/07/23 20:24 Dose: 600 mg Documented By: EDI Ceftriaxone Sodium 1 gm/ (Sodium Chloride) 50 mls @ 100 mls/hr IV Q24H [facility] Last Infusion: 10/07/23 21:36 Dose: Infused Documented By: EDI Melatonin (Melatonin 3 Mg Tablet) 6 mg PO BEDTIME PRN PRN Reason: Insomnia Last Admin: 10/07/23 20:24 Dose: 6 mg Documented By: EDI Multivitamins/Vitamin C (Multivitamin Tablet) 1 tab PO DAILY [facility] Last Admin: 10/08/23 09:40 Dose: 1 tab Documented By: SAMM Ondansetron HCl (Ondansetron Hcl 4 Mg/2 Ml Vial) 4 mg IVPUSH Q8H PRN PRN Reason: Nausea and Vomiting Pantoprazole Sodium (Pantoprazole Sodium 40 Mg/10 Ml Vial) 40 mg IVPUSH BID@0630,1630 [facility] Last Admin: 10/08/23 06:31 Dose: 40 mg Documented By: EDI Sodium Chloride (0.9 % Sodium Chloride Flush 3 Ml Syringe) 3 ml IVFLUSH QSHIFT [facility] Last Admin: 10/08/23 09:40 Dose: 3 ml Documented By: ASMM Tramadol HCl (Tramadol Hcl 50 Mg Tablet) 100 mg PO DAILY [facility] Last Admin: 10/08/23 09:40 Dose: 100 mg Documented By: SAMM Vitamin D (Cholecalciferol (Vitamin D3) 25 Mcg Tablet) 50 mcg PO DAILY [facility] Last Admin: 10/08/23 09:40 Dose: 50 mcg Documented By: SAMM Labs 10/08/23 06:29 10/08/23 06:29 Labs: Laboratory Results - last 24 hr 10/08/23 06:29 MCV 90.8 MCH 30.8 MCHC 33.9 RDW 14.6 Plt Count 157 L MPV 11.9 Absolute Nucleated RBC 0.000 Nucleated RBC % (auto) 0.0 Anion Gap 12 Estim Creat Clear Calc 77.9 Estimated GFR > 60 Fasting Glucose 108 H Calcium 8.7 Total Bilirubin 0.5 Direct Bilirubin 0.2 AST 19 ALT 11 Alkaline Phosphatase 61 Total Protein 5.3 L Albumin 3.1 L Assessment and Plan (1) History of gastric ulcer: Status: Acute Plan 77M PMH gerd, chronic prostatits, cad, presented with hematemesis Acute blood loss anemia due to gastric ulcer Status post 1 unit PRBC, status post EGD and clipping Continue IV PPI for 72 hours, monitor cbc - stable today 9 - 10 start clears Coronary artery disease Holding aspirin DVT prophylaxis-mechanical due to GI bleed Full code reason for continued hospitalization:high risk bleed Quality Stroke Does the patient have a stroke diagnosis?: No VTE Prior VTE?: No VTE Risk Level:: Medical - moderate - high VTE Device Contraindication: N/A - Device Ordered VTE Drug Contraindication: Treatment Not Indicated
--- NOTE | 2023-10-08 13:24 | P.CDIM_ITS ---
PROVIDER RESPONSE TEXT: To clarify, the appropriate diagnosis supported by the clinical indicators: Acute gastric ulcer QUERY TEXT: PHYSICIAN'S DOCUMENTATION REQUEST Date of Query: 10/08/2023 01:10 PM EDT Patient Name: Jose Dwyer Admit Date: 10/07/2023 Dear Dejuan Awan, A review of the medical record indicates additional documentation may be needed. Please review below and update the documentation accordingly. Clinical Indicators: Progress notes under Plan: Acute blood loss anemia due to gastric ulcer 1 unit PRBC, status post EGD and clipping IV PPI for 72 hours. 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 Please use your independent medical judgment in providing your response. THIS QUERY IS PART OF THE PERMANENT MEDICAL RECORD
--- NOTE | 2023-10-08 15:12 | HO.POSTANES ---
Post Anesthesia Evaluation Post Anesthesia Evaluation Date of Service: 10/08/23 Vital Signs: Vital Signs Temp Pulse Resp BP Pulse Ox O2 Del Method 10/08/23 11:25 96.5 F L 85 18 142/79 H 99 Room Air 10/08/23 09:54 97 Room Air 10/08/23 07:32 96.7 F L 74 18 137/73 97 Room Air 10/08/23 04:00 97.2 F 71 19 117/52 L 94 Room Air Anesthesia: Monitored Mental Status: Awake Pain Control: Satisfactory Nausea/Vomiting: None Hydration: Adequate Anesthesia-Related Issues: No Anes. Related Issues
[2023-10-08] MEDS: Acetaminophen 325 MG TABLET 650 MG PO (22:05)
[2023-10-08] MEDS: Atorvastatin Calcium 20 MG TABLET PO (22:05)
[2023-10-08] MEDS: Gabapentin 300 MG CAPSULE 600 MG PO (22:05)
[2023-10-08] MEDS: cefTRIAXone sodium 1 GM in 0.9 % Sodium Chloride 50 ML IV (22:06)
[2023-10-09 04:00] VITALS: BP 131/69; PULSE 67; RESP 20; TEMP 36.2; O2SAT 94
[2023-10-09] MEDS: Pantoprazole Sodium 40 MG/10 ML VIAL IVPUSH ×2 (06:35→18:07)
[2023-10-09 07:05] LABS: Anion Gap 11 (12-20); Blood Urea Nitrogen 16 mg/dL (9-16); Calcium 8.5 mg/dL (8.4-10.2); Carbon Dioxide 25 mmol/L (22-29); Chloride 103 mmol/L (96-108); Creatinine Clr Calc Pharmacy 72.9; Estimated Glomerular Filt Rate > 60; Glucose Fasting 103 mg/dL (60-99); Potassium 3.5 mmol/L (3.3-5.1); Sodium 135 mmol/L (135-145)
[2023-10-09 07:06] LABS: Hematocrit 28.5 % (42.0-52.0); Hemoglobin 9.7 g/dl (14.0-18.0); Mean Corpuscular Hemoglobin 31.3 pg (27.0-33.0); Mean Corpuscular Volume 91.9 fL (80.0-98.0); Mean Platelet Volume 11.4 fL (9.4-12.4); Platelet Count 157 X10*3/uL (160-400); Red Cell Distribution Width 14.1 % (11.0-16.0); White Blood Count 6.9 X10*3/uL (4.8-10.8)
[2023-10-09 07:30] VITALS: BP 139/70; PULSE 62; RESP 18; TEMP 36.4; O2SAT 97
[2023-10-09] MEDS: Folic Acid 1 MG TABLET PO (08:46)
[2023-10-09] MEDS: Cholecalciferol (Vitamin D3) 25 MCG TABLET 50 MCG PO (08:46)
[2023-10-09] MEDS: traMADoL HCL 50 MG TABLET 100 MG PO (08:46)
[2023-10-09] MEDS: Multivitamin TABLET 1 TAB PO (08:46)
[2023-10-09] MEDS: Cyanocobalamin (Vitamin B-12) 1,000 MCG TABLET 1000 MCG PO (08:46)
[2023-10-09] MEDS: 0.9 % Sodium Chloride Flush 3 ML SYRINGE IVFLUSH ×3 (08:47→23:33)
--- NOTE | 2023-10-09 10:47 | P.PNIM_ITS ---
Subjective Subjective Date of Service: 10/09/23 Interval History: no further hematemesis Physical Exam 2 Vital Signs: Vital Signs: Last Vital Signs Temp 97.6 F 10/09/23 07:30 Pulse 62 10/09/23 07:30 Resp 18 10/09/23 07:30 BP 139/70 10/09/23 07:30 Pulse Ox 97 10/09/23 07:30 O2 Del Method Room Air 10/09/23 07:30 O2 Flow Rate 2 10/07/23 14:18 BMI result Body Mass Index 23.5 General: AO X 3, no acute distress Resp: CTA bilateral, no accessory muscles used CVS: S1,S2,RRR GI: soft, non tender, non distended Neuro: motor grossly intact, alert Psych: appropriate affect, appropriate insight Objective Data Active Medications Acetaminophen (Acetaminophen 325 Mg Tablet) 650 mg PO Q6H PRN PRN Reason: Pain, Mild (Pain Scale 1-3) Last Admin: 10/08/23 22:05 Dose: 650 mg Documented By: KOJO Acetaminophen (Acetaminophen Supp 650 Mg Supp.Rect) 650 mg UT Q6H PRN PRN Reason: Pain, Mild (Pain Scale 1-3) Aspirin (Aspirin Enteric Coated 81 Mg Tablet.Dr) 81 mg PO DAILY [facility] Atorvastatin Calcium (Atorvastatin Calcium 20 Mg Tablet) 20 mg PO BEDTIME [facility] Last Admin: 10/08/23 22:05 Dose: 20 mg Documented By: KOJO Cyanocobalamin (Cyanocobalamin (Vitamin B-12) 1,000 Mcg Tablet) 1,000 mcg PO DAILY [facility] Last Admin: 10/09/23 08:46 Dose: 1,000 mcg Documented By: PRUDENCIO Fentanyl (Fentanyl Citrate/Pf 100 Mcg/2 Ml Vial) 25 mcg IVPUSH Q10M PRN; Protocol PRN Reason: Pain, Moderate(Pain Scale 4-6) Last Admin: 10/07/23 14:13 Dose: 25 mcg Documented By: ROXY Folic Acid (Folic Acid 1 Mg Tablet) 1 mg PO DAILY [facility] Last Admin: 10/09/23 08:46 Dose: 1 mg Documented By: PRUDENCIO Gabapentin (Gabapentin 300 Mg Capsule) 600 mg PO BEDTIME [facility] Last Admin: 10/08/23 22:05 Dose: 600 mg Documented By: KOJO Ceftriaxone Sodium 1 gm/ (Sodium Chloride) 50 mls @ 100 mls/hr IV Q24H [facility] Last Infusion: 10/08/23 23:22 Dose: Infused Documented By: KOJO Melatonin (Melatonin 3 Mg Tablet) 6 mg PO BEDTIME PRN PRN Reason: Insomnia Last Admin: 10/07/23 20:24 Dose: 6 mg Documented By: HÉCTOR-RIVEDGARDO Multivitamins/Vitamin C (Multivitamin Tablet) 1 tab PO DAILY [facility] Last Admin: 10/09/23 08:46 Dose: 1 tab Documented By: PRUDENCIO Ondansetron HCl (Ondansetron Hcl 4 Mg/2 Ml Vial) 4 mg IVPUSH Q8H PRN PRN Reason: Nausea and Vomiting Pantoprazole Sodium (Pantoprazole Sodium 40 Mg/10 Ml Vial) 40 mg IVPUSH BID@0630,1630 [facility] Last Admin: 10/09/23 06:35 Dose: 40 mg Documented By: KOJO Sodium Chloride (0.9 % Sodium Chloride Flush 3 Ml Syringe) 3 ml IVFLUSH QSHIFT [facility] Last Admin: 10/09/23 08:47 Dose: 3 ml Documented By: PRUDENCIO Tramadol HCl (Tramadol Hcl 50 Mg Tablet) 100 mg PO DAILY [facility] Last Admin: 10/09/23 08:46 Dose: 100 mg Documented By: PRUDENCIO Vitamin D (Cholecalciferol (Vitamin D3) 25 Mcg Tablet) 50 mcg PO DAILY [facility] Last Admin: 10/09/23 08:46 Dose: 50 mcg Documented By: PRUDENCIO Labs 10/09/23 06:25 10/09/23 06:25 Labs: Laboratory Results - last 24 hr 10/09/23 06:25 MCV 91.9 MCH 31.3 MCHC 34.0 RDW 14.1 Plt Count 157 L MPV 11.4 Absolute Nucleated RBC 0.000 Nucleated RBC % (auto) 0.0 Anion Gap 11 L Estim Creat Clear Calc 72.9 Estimated GFR > 60 Fasting Glucose 103 H Calcium 8.5 Assessment and Plan (1) History of gastric ulcer: Status: Acute Plan 77M PMH gerd, chronic prostatits, cad, presented with hematemesis Acute blood loss anemia due to gastric ulcer Status post 1 unit PRBC, status post EGD and clipping Continue IV PPI for 72 hours - change to po 40mg bid 10/10/23, monitor cbc - stable today 9 - 10 start solids Coronary artery disease Holding aspirin - will restart 10/10/23 lipitor DVT prophylaxis-mechanical due to GI bleed Full code reason for continued hospitalization:high risk bleed Quality Stroke Does the patient have a stroke diagnosis?: No VTE Prior VTE?: No VTE Risk Level:: Medical - moderate - high VTE Device Contraindication: N/A - Device Ordered VTE Drug Contraindication: Treatment Not Indicated
[2023-10-09 11:11] VITALS: BP 149/92; PULSE 86; RESP 18; TEMP 36.4; O2SAT 99
--- NOTE | 2023-10-09 12:40 | P.PNGI_ITS ---
Subjective Subjective Date of Service: 10/09/23 Interval History: s/p EGD 10/06 with large gastric Hood IIb ulcer treated with epi, gold probe and endoclips x2. Post procedure had worsening abd pain likely from cautery effect. CT Abd/pel without any free air. Seen at bedside today in presence of his daughter. DOing well. Feels a bit unsteady on his feet but thinks it because of deconditioning, not from lightheadedness. No acute complaints. advanced on solids. Critical Care Time (minutes): 0 Physical Exam 2 Vital Signs: Vital Signs: Last Vital Signs Temp 97.6 F 10/09/23 11:11 Pulse 86 10/09/23 11:11 Resp 18 10/09/23 11:11 BP 149/92 H 10/09/23 11:11 Pulse Ox 99 10/09/23 11:11 O2 Del Method Room Air 10/09/23 11:11 O2 Flow Rate 2 10/07/23 14:18 BMI result Body Mass Index 23.5 NAD Nonicteric abd soft, nontender Objective Data Labs 10/09/23 06:25 10/09/23 06:25 Labs: Laboratory Results - last 24 hr 10/09/23 06:25 WBC 6.9 RBC 3.10 L Hgb 9.7 L Hct 28.5 L MCV 91.9 MCH 31.3 MCHC 34.0 RDW 14.1 Plt Count 157 L MPV 11.4 Absolute Nucleated RBC 0.000 Nucleated RBC % (auto) 0.0 Sodium 135 Potassium 3.5 Chloride 103 Carbon Dioxide 25 Anion Gap 11 L BUN 16 Creatinine 0.78 Estim Creat Clear Calc 72.9 Estimated GFR > 60 Fasting Glucose 103 H Calcium 8.5 Procedures Date of Service Date of Service: 10/09/23 Progress Note: A&P Assessment and plan (1) History of gastric ulcer: Status: Acute (2) Status post partial gastrectomy: Status: Acute (3) Acute upper GI bleeding: Status: Acute Plan 2/2 gastric ulcer. Now with adequate hemostasis. Plan: - OK with regular diet - Complete IV PPI x 72h - Then PO protonix 40 BID x 8 weeks and then once daily until repeat EGD done (msg sent to schedulers to book this) - Avoid NSAIDs, smoking - OK to resume baby ASA - Consider PT eval Will sign off. Please call back with questions. Time Spent With Patient Time: Total time managing care of this patient today ____ minutes. Quality Stroke Does the patient have a stroke diagnosis?: No VTE Prior VTE?: No VTE Risk Level:: Medical - moderate - high VTE Device Contraindication: N/A - Device Ordered VTE Drug Contraindication: Treatment Not Indicated
--- NOTE | 2023-10-09 14:23 | MHC.CM.PN ---
Pt has not been medically cleared for DC, he is awaiting PT eval to determine DC plan, he has been accepted at [facility]. CM will follow and assist with DC plan.
[2023-10-09 14:48] VITALS: PULSE 86; O2SAT 99
[2023-10-09 15:14] VITALS: BP 137/73; PULSE 93; RESP 18; TEMP 36.1; O2SAT 98
[2023-10-09 19:57] VITALS: BP 149/72; PULSE 74; RESP 16; TEMP 36.8; O2SAT 97
[2023-10-09] MEDS: Gabapentin 300 MG CAPSULE 600 MG PO (23:21)
[2023-10-09] MEDS: Atorvastatin Calcium 20 MG TABLET PO (23:21)
[2023-10-09] MEDS: cefTRIAXone sodium 1 GM in 0.9 % Sodium Chloride 50 ML IV (23:23)
[2023-10-09] MEDS: Melatonin 3 MG TABLET 6 MG PO (23:23)
[2023-10-10] VITALS: BP 135/76; PULSE 72; RESP 16; TEMP 36.6; O2SAT 98
[2023-10-10 03:51] VITALS: BP 139/73; PULSE 70; RESP 16; TEMP 36.7; O2SAT 99
[2023-10-10 07:39] LABS: Hemoglobin 9.8 g/dl (14.0-18.0); Mean Corpuscular HGB Conc 33.8 g/dl (31.0-36.0); Mean Corpuscular Hemoglobin 30.6 pg (27.0-33.0); Mean Corpuscular Volume 90.6 fL (80.0-98.0); Mean Platelet Volume 11.4 fL (9.4-12.4); Platelet Count 188 X10*3/uL (160-400); White Blood Count 7.8 X10*3/uL (4.8-10.8)
[2023-10-10 07:48] VITALS: BP 123/62; PULSE 68; RESP 18; TEMP 36.3; O2SAT 93
[2023-10-10] MEDS: Folic Acid 1 MG TABLET PO (08:03)
[2023-10-10] MEDS: traMADoL HCL 50 MG TABLET 100 MG PO (08:03)
[2023-10-10] MEDS: Omeprazole 40 MG CAPSULE.DR PO (08:03)
[2023-10-10] MEDS: Cholecalciferol (Vitamin D3) 25 MCG TABLET 50 MCG PO (08:03)
[2023-10-10] MEDS: Cyanocobalamin (Vitamin B-12) 1,000 MCG TABLET 1000 MCG PO (08:03)
[2023-10-10] MEDS: Aspirin Enteric Coated 81 MG TABLET.DR PO (08:03)
[2023-10-10] MEDS: Multivitamin TABLET 1 TAB PO (08:03)
[2023-10-10] MEDS: 0.9 % Sodium Chloride Flush 3 ML SYRINGE IVFLUSH (08:04)
[2023-10-10 08:19] LABS: Anion Gap 12 (12-20); Blood Urea Nitrogen 23 mg/dL (9-16); Calcium 8.6 mg/dL (8.4-10.2); Carbon Dioxide 25 mmol/L (22-29); Chloride 103 mmol/L (96-108); Creatinine Clr Calc Pharmacy 76.9; Estimated Glomerular Filt Rate > 60; Glucose Fasting 92 mg/dL (60-99); Potassium 3.5 mmol/L (3.3-5.1); Sodium 136 mmol/L (135-145)
--- NOTE | 2023-10-10 09:50 | P.DS_ITS ---
DS: Providers Provider Date of Service: 10/10/23 Date of admission: 10/06/23 20:51 Primary care physician: Pablo Strauss MD Consults: 10/06/23 20:30 Consult to Gastroenterology Routine Consulting Provider: Melissa Thakkar Reason for consultation: GI bleed DS: Diagnosis Discharge Diagnosis (1) History of gastric ulcer: Status: Acute (2) Status post partial gastrectomy: Status: Acute (3) Acute upper GI bleeding: Status: Acute DS: Summary Hospital Course Hospital Course: from initial hpi: 77-year-old male with pertinent history of liver fibrosis on scan, gastroesophageal reflux disease, chronic prostatitis, coronary artery disease who presents to the emergency department for evaluation of blood in vomitus. Enzo walsh states he had 2 episodes of blood in vomitus on the day of presentation. This has never happened before. Patient states he has been feeling unwell for the last 2 days. His 1st vomitus was coffee-ground but then had 2 episodes of bright red blood in vomitus. Complains of abdominal soreness but no pain. No fevers or chills. Does not know if he has melena or hematochezia. Patient states he has a history of GI bleed due to ulcer. No chest discomfort, palpitations, shortness of breath, changes in urinary habits. Unclear history of varices. Patient is on NSAIDs/steroids for chronic prostatitis. In the ER, patient was given IV Protonix hospital course: Patient was admitted for acute blood loss anemia due to gastric ulcer. He received 1 unit of PRBC and hemoglobin improved appropriately and remained stable. He underwent EGD which revealed gastric ulcer which was clipped. Had no further bleeding. He was treated with 72 hours of IV Protonix and transitioned to 40 mg b.i.d. of omeprazole which he will continue for 8 weeks and then deescalate. He will follow up with Gastroenterology for repeat EGD as outpatient. Patient is tolerating solids and has no further hematemesis, he will be discharged home. For his coronary disease his aspirin has been restarted, he should monitor closely for bleeding. He was also continued on Lipitor. His meloxicam should be discontinued. Time Attestation Discharge Coordination Time (in mins): 35 Quality: Safe Use of Opioids Does Pt have an Active Cancer Diagnosis on the Problem List?: No Quality: Stroke Does the patient have a stroke diagnosis?: No Physical Exam Vital Signs: Vital Signs: Last Vital Signs Temp 97.3 F 10/10/23 07:48 Pulse 68 10/10/23 07:48 Resp 18 10/10/23 07:48 BP 123/62 10/10/23 07:48 Pulse Ox 93 10/10/23 07:48 O2 Del Method Room Air 10/10/23 07:48 O2 Flow Rate 2 10/07/23 14:18 BMI result Body Mass Index 23.5 NAD Nonicteric abd soft, nontender DS: Data Data Completed and Pending Labs on day of discharge: Laboratory Results - last 24 hr 10/10/23 07:09 WBC 7.8 RBC 3.20 L Hgb 9.8 L Hct 29.0 L MCV 90.6 MCH 30.6 MCHC 33.8 RDW 14.0 Plt Count 188 MPV 11.4 Absolute Nucleated RBC 0.000 Nucleated RBC % (auto) 0.0 Sodium 136 Potassium 3.5 Chloride 103 Carbon Dioxide 25 Anion Gap 12 BUN 23 H Creatinine 0.74 Estim Creat Clear Calc 76.9 Estimated GFR > 60 Fasting Glucose 92 Calcium 8.6 Discharge Plan Discharge Anticipated Discharge Date/Time: 10/10/23 09:46 Patient Disposition: Home Health Service Discharge Diagnosis: gastric ulcer Referrals: Pablo Strauss MD [Primary Care Provider] - 1 Week Francisco Jasmine MD [Physician] - 1 Week Discharge Medications: New omeprazole 40 mg Capsule,Delayed Release(Dr/Ec) 40 mg PO BID@0630,1630 Qty: 180 0RF Continued cholecalciferol (vitamin D3) 50 mcg (2,000 unit) capsule 50 mcg PO DAILY 90 Days Qty: 90 1RF mecobalamin (vitamin B12) 1,000 mcg tablet,disintegrating 1,000 mcg sublingual DAILY Therapeutic-M 9 mg iron-400 mcg tablet 1 tab PO DAILY sennosides-docusate sodium [Senexon-S] 8.6-50 mg tablet 1 tab PO BID lisinopril 2.5 mg tablet 2.5 mg PO DAILY folic acid 1 mg tablet 1 mg PO DAILY carvedilol 12.5 mg tablet 12.5 mg PO BID Rx Instructions: must administer with a meal/food tramadol 50 mg tablet 100 mg PO DAILY aspirin 81 mg tablet,delayed release (DR/EC) 81 mg PO DAILY nitroglycerin 0.4 mg tablet, sublingual 0.4 mg sublingual Q5M PRN (Reason: Chest Pain) atorvastatin 20 mg tablet 20 mg PO BEDTIME isosorbide mononitrate 60 mg tablet extended release 24 hr 60 mg PO QAM gabapentin 300 mg capsule 600 mg PO BEDTIME Discontinued omeprazole 20 mg capsule,delayed release(DR/EC) 20 mg PO BID 90 Days Qty: 180 1RF meloxicam 15 mg tablet 15 mg PO DAILY 30 Days Qty: 30 0RF Discharge Orders: Discharge Order (Routine); Ordered 10/10/23 Ordered By: Dejuan Awan Diet: Advance to usual diet Activity on Discharge: As tolerated Stand Alone Forms: Patient Portal Discharge page Care Plan Goals: prevent rebleeding Health Concerns: gastric ulcer Plan of Treatment: increased omeprazole to 40mg twice daily, okay to rechallenge with baby aspirin, monitor closely for rebleed, stop meloxicam follow up with gastroenterology Assessment: see above
--- NOTE | 2023-10-10 09:50 | P.F2F_ITS ---
Service Date Service Date: 10/10/23 Encounter Date of encounter: 10/10/23 Reasons for Services Signs and symptoms assessed: weakness Reason for [facility]: medication management, medication treatment and teach disease management Reason for physical therapy: home safety and mobility, therapeutic exercises and restore joint function Homebound: Leaving the home is medically contraindicated at this time without the asist of a device and/or another person due th the listed conditions above and below. Reason homebound: unsteady gait / fall risk Certification: Based on the above findings, I certify that this patient is confined to the home and needs intermittent [facility] care, physical therapy and/or speech therapy, or continues to need occupational therapy. The patient is under my care, and I have initiated the establishment of the plan of care. The patient will be followed by a physician who will periodically review the plan of care. Time Spent With Patient Time: Total time managing care of this patient today ____ minutes.
[2023-10-10 11:00] VITALS: O2SAT 97
--- NOTE | 2023-10-10 11:22 | MHC.CM.PN ---
Patient luz been medically cleared for dc to home today, with services, A referral was made to [facility], who is aware of today's dc. IMM addressed at bedside with Patient. Son will transport.
[2023-10-10 11:27] VITALS: BP 145/70; PULSE 76; RESP 18; TEMP 36.4; O2SAT 97
== END 2023-10-10 12:36 | disposition home health service (06) | DRG 378 ==
LOC: HO.ED 20:36 → HO.EDOVER 20:51 → HO.IMC 10-07 16:17
PROVIDERS: Internal Medicine; Admitting Provider Student in an Organized Health Care Education/Training Program; Emergency Provider Emergency Medicine; PCP Internal Medicine; Visit Provider Internal Medicine
PROC: 0DJ08ZZ Inspection of Upper Intestinal Tract, Via Natural or Artificial Opening Endoscopic (ICD-10-PCS; CPT 43235; principal; 2023-10-07 11:00)
DX: K25.0 Acute gastric ulcer with hemorrhage (principal); D62 Acute posthemorrhagic anemia; I25.10 Atherosclerotic heart disease of native coronary artery without angina pectoris; K22.2 Esophageal obstruction; K44.9 Diaphragmatic hernia without obstruction or gangrene; N41.1 Chronic prostatitis; Z95.810 Presence of automatic (implantable) cardiac defibrillator; Z79.82 Long term (current) use of aspirin; Z79.899 Other long term (current) drug therapy
CPT/HCPCS: 36415; 71045; 74018; 74177; 74178; 80048; 80076; 80307; 83690; 83735; 85025; 85027; 85610; 86850; 86900; 86901; 86923; 93005; 97162; 99285; C9113; J0171; J0696; J2354; J2704; J3010; P9016; Q9967

== ENCOUNTER 2023-10-06 20:51 | Outpatient (BNV) | payer MEDICARE, SELFPAY | END 2023-10-07 00:57 | PROVIDERS: Admitting Provider Student in an Organized Health Care Education/Training Program; Emergency Provider Emergency Medicine; PCP Internal Medicine; Visit Provider Internal Medicine Cardiovascular Disease | DX: I45.10 Unspecified right bundle-branch block (principal) | CPT/HCPCS: 93010 ==

== ENCOUNTER → 2023-10-06 20:51 | Outpatient (BNV) | payer MEDICARE, SELFPAY | PROVIDERS: Admitting Provider Student in an Organized Health Care Education/Training Program; Emergency Provider Emergency Medicine; PCP Internal Medicine; Visit Provider Internal Medicine | DX: K92.2 Gastrointestinal hemorrhage, unspecified (principal); D64.9 Anemia, unspecified; Z87.11 Personal history of peptic ulcer disease; K22.2 Esophageal obstruction; K25.9 Gastric ulcer, unspecified as acute or chronic, without hemorrhage or perforation; Z90.3 Acquired absence of stomach [part of] | CPT/HCPCS: 43236; 43255; 99223; 99232 ==

== ENCOUNTER → 2023-10-06 20:51 | Outpatient (BNV) | payer MEDICARE, SELFPAY | PROVIDERS: Admitting Provider Student in an Organized Health Care Education/Training Program; Emergency Provider Emergency Medicine; PCP Internal Medicine; Visit Provider Student in an Organized Health Care Education/Training Program | DX: K92.2 Gastrointestinal hemorrhage, unspecified (principal); Z87.11 Personal history of peptic ulcer disease; Z90.3 Acquired absence of stomach [part of] | CPT/HCPCS: 99222; 99232; 99233; 99239; G0180 ==

== ENCOUNTER 2023-10-22 08:40 | Outpatient (AMB) | payer MEDICARE, SELFPAY ==
--- NOTE | 2023-10-22 08:41 | A.OFFVIS_ITS ---
Intake Intake Visit Reasons: 1m follow up(Prostatitis Therapy)Confirmed Intake Note: Patient presents today for a telehealth follow up on: Prostastitis Therapy Meds- None Allergies to Antibiotic- No Known Allergies Blood Thinner- Aspirin Environmental Education Specialist Required: No Allergies No Known Allergies [No Known Allergies*] Allergy (Verified 10/22/23 08:43) HPI HPI Comments History of Present Illness Details Jose is a pleasant male. He is a patient of Dr. Strauss. He is seen for the following urologic conditions - chronic prostatitis Telemedicine Evaluation 15 min Consultation Quintiq Nicole Video Discussed prostate symptoms Start finasteride and Flomax Three-month follow-up office cystoscopy Does report question of pneumaturia Chronic prostatitis Describes pain towards to penis particularly during episodes of rectal incontinence On exam had softness of his prostate which replicate this pain Consistent with chronic prostatitis Good response to combination therapy with anti-inflammatory, prednisone and antibiotic [facility] Medical History Cardiac defibrillator in place Hx of myocardial infarction COVID-19 vaccine series completed Dysphagia Cirrhosis of liver without ascites History of non anemic vitamin B12 deficiency History of vitamin D deficiency Elevated cholesterol Hypertension GERD (gastroesophageal reflux disease) Surgical History History of esophagogastroduodenoscopy (EGD) H/O colonoscopy Status post partial gastrectomy History of esophagogastroduodenoscopy (EGD) (~01/2013) History of cardiac catheterization (~02/2018) Family History Father No problems noted. Mother No problems noted. Social History Household Members: None Alcohol intake: never Comment: short stay Patient Tobacco Use Status: Former Tobacco user Quit Date: 2012 Tobacco use type: Cigarette Second Hand Smoke Exposure: No Substance Use Type: Marijuana Advance Directives Date on File: 10/07/23 service: No Review of Systems Const All systems reviewed & are unremarkable except as noted in HPI and below Reports no additional complaints Resp Reports no additional complaints GI Reports no additional complaints Reports as per HPI Musc Reports no additional complaints Physical Exam Telemedicine evaluation Appropriate responses Regular breathing rate and rhythm HEENT Head: Yes normal to inspection Ears: hearing grossly normal bilaterally Eyes General: appearance normal, both eyes and all related structures Neck Neck: Yes normal visual inspection Chest Chest palpation & inspection: normal inspection of the chest Resp Effort & Inspection: normal respiratory effort and able to speak in complete sentences Assessment & Plan Assessment & Plan (1) Weak urinary stream: Code(s): R39.12 - Poor urinary stream (2) Chronic prostatitis: Comment: Good response to combination therapy Code(s): N41.1 - Chronic prostatitis Plan Start medication Three-month follow-up cystoscopy Medications: New tamsulosin 0.4 mg PO BEDTIME 30 days 30 caps 2RF N40.1 - Benign prostatic hyperplasia with lower urinary tract symptoms, N41.1 - Chronic prostatitis finasteride 5 mg PO DAILY 90 days 90 tabs 1RF N13.8 - Other obstructive and reflux uropathy, N40.1 - Benign prostatic hyperplasia with lower urinary tract symptoms, N41.1 - Chronic prostatitis, R33.9 - Retention of urine, unspecified Patient Instructions: Imaging studies, laboratory and physical exam results were discussed and reviewed in detail. No major barriers to patient understanding were identified. An opportunity to ask questions regarding the treatment plan was provided. All questions were answered. The patient expressed understanding and agreement with the above treatment plan. The patient is aware they should contact our office by phone for worsening of their current condition or the appearance of new urologic symptoms. Compliance is encouraged with any medications and followup testing that is ordered. It is a privilege to participate in the urologic care of your patient. If you have any questions or concerns regarding treatment for the above conditions, or other urologic issues, please do not hesitate to contact me. The office telephone contact is [phone]. This note is constructed using voice recognition software. While every effort has been made to ensure accuracy assignment manager errors may have been included. Yours sincerely, Dr Zachary Murray MD, [facility] - Urology Providers of Expert, Compassionate Care for the Genitourinary System Telehealth Telehealth Location of provider rendering services: practice address Location of patient: address on file Patient Identification confirmed using: Name, : Yes Telehealth method: voice only Patient verbally consented to treatment: Yes Patient verbally consented to billing insurance company: Yes Patient informed of any privacy concerns related to visit: Yes Coding Level of Care Code Tele Est Pt Level 4 (36982) Diagnoses Weak urinary stream R39.12 Chronic prostatitis N41.1
== END 2023-10-22 10:16 | disposition home or self-care (01) ==
LOC: HO.HUSH 08:40
PROVIDERS: PCP Internal Medicine; Visit Provider Urology
DX: R39.12 Poor urinary stream (principal); N41.1 Chronic prostatitis
CPT/HCPCS: 99442

== ENCOUNTER → 2023-10-22 08:40 | Outpatient (BNVA) | payer MEDICARE, SELFPAY | PROVIDERS: PCP Internal Medicine; Visit Provider Urology ==

== ENCOUNTER 2023-11-05 12:38 | Outpatient (AMB) | payer MEDICARE, SELFPAY ==
--- NOTE | 2023-11-05 12:54 | MHC.OFFVIS ---
Intake Visit Reasons: Cystoscopy/Blood Clots Per Dr Mcmillan Intake Note: Patient is Present for Cystoscopy Urology Med: Tamsulosin, Finasteride Antibiotic Allergy: None Blood Thinner: Aspirin URO- G Disposable Cystoscope lot: [id number] exp:05/21/2026 Allergies No Known Allergies [No Known Allergies*] Allergy (Verified 11/05/23 12:58) Medication List - Last Reconciled 11/05/23 by Zachary Murray MD aspirin 81 mg PO DAILY atorvastatin 20 mg PO BEDTIME carvedilol 12.5 mg PO BID cholecalciferol (vitamin D3) 50 mcg PO DAILY 90 days ciprofloxacin HCl 500 mg PO BID doxycycline hyclate 100 mg PO DAILY 90 days finasteride 5 mg PO DAILY 90 days folic acid 1 mg PO DAILY gabapentin 600 mg PO BEDTIME isosorbide mononitrate ER 60 mg PO QAM lisinopril 2.5 mg PO DAILY mecobalamin (vitamin B12) 1,000 mcg sublingual DAILY knhacbmp-tqab-XU-calcium-mins 9 mg iron-400 mcg (Therapeutic-M) 1 tab PO DAILY nitroglycerin 0.4 mg sublingual Q5M PRN omeprazole 40 mg PO BID@0630,1630 sennosides-docusate sodium 8.6-50 mg (Senexon-S) 1 tab PO BID tamsulosin 0.4 mg PO BEDTIME 30 days tramadol 100 mg PO DAILY HPI Comments Details: Jose is a pleasant male. He is a patient of Dr. Strauss. He is seen for the following urologic conditions - chronic prostatitis Here for cystoscopy Some thickening on the right side of the bladder with some irritation but otherwise normal CT scan reviewed - normal bladder Three-month suppression low-dose antibiotic Chronic prostatitis Describes pain towards to penis particularly during episodes of rectal incontinence On exam had softness of his prostate which replicate this pain Consistent with chronic prostatitis Good response to combination therapy with anti-inflammatory, prednisone and antibiotic [facility] Medical History Cardiac defibrillator in place Hx of myocardial infarction COVID-19 vaccine series completed Dysphagia Cirrhosis of liver without ascites History of non anemic vitamin B12 deficiency History of vitamin D deficiency Elevated cholesterol Hypertension GERD (gastroesophageal reflux disease) Surgical History History of esophagogastroduodenoscopy (EGD) H/O colonoscopy Status post partial gastrectomy History of esophagogastroduodenoscopy (EGD) (~01/2013) History of cardiac catheterization (~02/2018) Family History Father No problems noted. Mother No problems noted. Social History Household Members: None Alcohol intake: never Comment: short stay Patient Tobacco Use Status: Former Tobacco user Quit Date: 2012 Tobacco use type: Cigarette Second Hand Smoke Exposure: No Substance Use Type: Marijuana Advance Directives Date on File: 10/07/23 service: No Review of Systems Const Denies chills and Denies fever(s) Card Reports no additional complaints and Denies syncope Resp Denies cough GI Denies abdominal pain and Denies heartburn Reports as per HPI and Denies change in libido Neuro Denies syncope Psych Denies change in libido Endo Denies change in libido Physical Exam Const General: cooperative, healthy appearing, comfortable and no acute distress Orientation/consciousness: patient oriented x3 HEENT Face and sinus: Yes normal facial exam Mouth: moist mucous membranes Neck Neck: Yes normal visual inspection, Yes full ROM and Yes trachea midline Chest Chest palpation & inspection: normal inspection of the chest Resp Effort & Inspection: normal respiratory effort, able to speak in complete sentences and no respiratory distress GI Inspection: Yes normal to inspection Back/Spine/Pelvis Cervical Spine: normal cervical lordosis Thoracic/Lumbar Spine: thoracic and lumbar spine normal to inspection Skin General skin exam: no rashes or lesions noted Neuro General: patient oriented x3, gait normal, tone normal and moves all extremities Extrem General: Yes normal to inspection and Yes capillary refill normal Office Procedures Cystoscopy Consent Discussed risk and benefit or proposed procedure with the patient. Information consent for procedure given to the patient. Discussed technical aspects, risks, benefits and alternatives in full. Addressed all of the patient's questions and concerns regarding the procedure. The patient demonstrated knowledge and understanding. They wish to proceed with this procedure. Preparation The patient was prepped in the usual manner. A internal communications manager was present and in the room. Genitalia was prepped with betadine solution in a sterile manner. Lidocaine Jelly 2% was placed into the urethra and 16Fr flexible Olympus cystoscope was inserted into the meatus after adequate lubrication. Procedure Cystoscopy performed using a disposable Urovue digital 16 Serbian cystoscope. Meatus circumcised Urethra anterior and posterior urethra normal Prostatic Urethra unremarkable Bladder examination with retroflexion of cystoscope Bladder Orifices normal shape and position - slight thickening of right ureteric orifice Bladder Capacity normal Trabeculations grade 1 Cellule Formation - Diverticulum Formation - Mucosal Erythema - Bladder Tumor - 99040-[id number] DISPOSABLE SCOPE URO-G FLEXIBLE SCOPE Procedure code (CPT) selection complete Office Meds lidocaine HCl 2 % mucosal jelly in applicator Performing Provider: Zachary Murray MD Performing Location: [facility] [place] [facility] Administered by: Luna England RN on 11/05/23 13:20 Dose Route Admin Location Dispensed Lot Number Expiration Date NDC Cartography Professor 10 mL intra-urethral 10 mL nitrofurantoin monohydrate/macrocrystals 100 mg capsule Performing Provider: Zachary Murray MD Performing Location: [facility] [place] [facility] Administered by: Luna England RN on 11/05/23 13:20 Dose Route Admin Location Dispensed Lot Number Expiration Date NDC Cartography Professor 100 mg PO 1 cap naproxen 500 mg tablet Performing Provider: Zachary Murray MD Performing Location: [facility] [place] [facility] Administered by: Luna England RN on 11/05/23 13:20 Dose Route Admin Location Dispensed Lot Number Expiration Date NDC Cartography Professor 500 mg PO 1 tab Assessment & Plan Assessment & Plan (1) Weak urinary stream: Code(s): R39.12 - Poor urinary stream Category: Medical (2) Chronic prostatitis: Comment: Good response to combination therapy Code(s): N41.1 - Chronic prostatitis Category: Medical Plan Three-month follow-up Orders: Orders AMB Cystoscopy Today R39.12 - Poor urinary stream AMB Urinalysis Automated Today R39.12 - Poor urinary stream, Z13.9 - Encounter for screening, unspecified Medications: New doxycycline hyclate 100 mg PO DAILY 90 days 90 tabs 0RF N41.1 - Chronic prostatitis Patient Instructions: Imaging studies, laboratory and physical exam results were discussed and reviewed in detail. No major barriers to patient understanding were identified. An opportunity to ask questions regarding the treatment plan was provided. All questions were answered. The patient expressed understanding and agreement with the above treatment plan. The patient is aware they should contact our office by phone for worsening of their current condition or the appearance of new urologic symptoms. Compliance is encouraged with any medications and followup testing that is ordered. It is a privilege to participate in the urologic care of your patient. If you have any questions or concerns regarding treatment for the above conditions, or other urologic issues, please do not hesitate to contact me. The office telephone contact is [phone]. This note is constructed using voice recognition software. While every effort has been made to ensure accuracy office administration errors may have been included. Yours sincerely, Dr Zachary Murray MD, [facility] - Urology Providers of Expert, Compassionate Care for the Genitourinary System Coding Level of Care Code Est Pt Level 4 (44914) Diagnoses Weak urinary stream R39.12 Chronic prostatitis N41.1 CPT Codes Cystoscopy - CPT: 77964-[id number] ([id number])
== END 2023-11-05 13:49 | disposition home or self-care (01) ==
PROVIDERS: PCP Internal Medicine; Visit Provider Urology
DX: R39.12 Poor urinary stream (principal); N41.1 Chronic prostatitis
CPT/HCPCS: 52000; 99214

== ENCOUNTER → 2023-11-05 12:38 | Outpatient (BNVA) | payer MEDICARE, SELFPAY | PROVIDERS: PCP Internal Medicine; Visit Provider Urology | DX: N41.1 Chronic prostatitis (principal); R39.12 Poor urinary stream | CPT/HCPCS: 52000; 99212 ==

== ENCOUNTER 2023-12-14 10:46 | Outpatient (REF) | payer MEDICARE, SELFPAY ==
[2023-12-14 12:54] LABS: Anion Gap 12 (12-20); Blood Urea Nitrogen 20 mg/dL (9-16); Carbon Dioxide 23 mmol/L (22-29); Chloride 104 mmol/L (96-108); Potassium 4.8 mmol/L (3.3-5.1); Sodium 134 mmol/L (135-145)
[2023-12-14 12:55] LABS: Calcium 9.4 mg/dL (8.4-10.2); Estimated Glomerular Filt Rate > 60; Glucose Random 84 mg/dL (60-115)
== END 2023-12-14 10:47 | disposition home or self-care (01) ==
LOC: HO.LAB 10:46
PROVIDERS: Nurse Practitioner; PCP Internal Medicine; Visit Provider Internal Medicine Cardiovascular Disease
DX: I25.10 Atherosclerotic heart disease of native coronary artery without angina pectoris (principal); I25.5 Ischemic cardiomyopathy
CPT/HCPCS: 36415; 80048

== ENCOUNTER 2023-12-25 06:35 | Outpatient (REF) | payer MEDICARE, SELFPAY ==
[2023-12-25 06:47] LABS: MANUAL DIFF FLAG NO
[2023-12-25 07:59] LABS: Basophils Absolute Auto 0.1 X10*3/uL (0.0-0.2); Basophils Percent Auto 0.8 % (0-2); Eosinophils Absolute Auto 0.3 X10*3/uL (0.0-0.4); Eosinophils Percent Auto 4.3 % (0-4); Hematocrit 37.1 % (42.0-52.0); Hemoglobin 12.5 g/dl (14.0-18.0); Imm Gran Abs Auto 0.03 X10*3/uL (0.00-0.03); Imm Gran Pct Auto 0.4 % (0.0-0.4); Lymphocytes Absolute Auto 2.2 X10*3/uL (1.2-4.9); Lymphocytes Percent Auto 31.1 % (20-40); Mean Corpuscular HGB Conc 33.7 g/dl (31.0-36.0); Mean Corpuscular Hemoglobin 31.3 pg (27.0-33.0); Mean Platelet Volume 12.8 fL (9.4-12.4); Monocytes Absolute Auto 0.7 X10*3/uL (0.1-1.2); Monocytes Percent Auto 9.3 % (2-11); Neutrophils Absolute Auto 3.9 x10*3/uL (2.0-8.3); Neutrophils Percent Auto 54.1 % (45-73); Platelet Count 196 X10*3/uL (160-400); Red Blood Count 3.99 X10*6/uL (4.60-5.80); Red Cell Distribution Width 13.5 % (11.0-16.0); White Blood Count 7.1 X10*3/uL (4.8-10.8)
[2023-12-25 08:05] LABS: Prothrombin Time 11.7 SEC (11.1-13.3)
[2023-12-25 08:52] LABS: Alanine Aminotransferase 13 U/L (0-40); Albumin Level 3.8 g/dL (3.5-5.0); Alkaline Phosphatase 70 U/L (39-117); Anion Gap 13 (12-20); Aspartate Amino Transferase 19 U/L (5-37); Bilirubin Total 0.4 mg/dL (0.0-1.0); Blood Urea Nitrogen 13 mg/dL (9-16); Calcium 9.3 mg/dL (8.4-10.2); Carbon Dioxide 28 mmol/L (22-29); Chloride 101 mmol/L (96-108); Estimated Glomerular Filt Rate > 60; Glucose Random 101 mg/dL (60-115); Potassium 4.5 mmol/L (3.3-5.1); Sodium 137 mmol/L (135-145); Total Protein 6.3 g/dL (6.5-8.0)
[2023-12-25 08:56] LABS: Ferritin 58 ng/mL (20-250)
== END 2023-12-25 06:36 | disposition home or self-care (01) ==
LOC: HO.LAB 06:35
PROVIDERS: Absent Provider Urology; PCP Internal Medicine; Visit Provider Internal Medicine Gastroenterology
DX: K74.60 Unspecified cirrhosis of liver (principal)
CPT/HCPCS: 36415; 80053; 82728; 85025; 85610

== ENCOUNTER 2023-12-31 10:24 | Outpatient (AMB) | payer MEDICARE, SELFPAY ==
--- NOTE | 2023-12-31 10:30 | A.OFFVIS_ITS ---
Vital Signs 12/31/23 10:36 Height 5 ft 7 in Weight 146 lb 6.191 oz BMI 22.9 BP 116/64 Blood Pressure Location Rt brachial Position Sitting Pulse 68 Pulse Source Pulse Oximeter Pulse Oximetry (%) 96 Oxygen Delivery Method Room Air Intake Visit Reasons: 6 month follow up Intake Note: Jose presents to the office today for a scheduled 6 mos FUV. CC; Pt was not rx'd any new medications at their last visit. Pt did complete the ordered labs as instructed at his last visit. Pt reports that he is still having some urinary difficulties. Pt states that he is otherwise doing well since he was seen in September for the ulcerations. [employer] Required: No Allergies No Known Allergies [No Known Allergies*] Allergy (Verified 12/31/23 10:35) Medication List - Last Reconciled 12/31/23 by Francisco Jasmine MD aspirin 81 mg PO DAILY atorvastatin 20 mg PO BEDTIME carvedilol 12.5 mg PO BID cholecalciferol (vitamin D3) 50 mcg PO DAILY 90 days doxycycline hyclate 100 mg PO DAILY 90 days finasteride 5 mg PO DAILY 90 days folic acid 1 mg PO DAILY gabapentin 600 mg PO BEDTIME isosorbide mononitrate ER 60 mg PO QAM lisinopril 2.5 mg PO DAILY mecobalamin (vitamin B12) 1,000 mcg sublingual DAILY meloxicam 15 mg PO DAILY 30 days efquugyj-ghjf-OW-calcium-mins 9 mg iron-400 mcg (Therapeutic-M) 1 tab PO DAILY nitroglycerin 0.4 mg sublingual Q5M PRN omeprazole 40 mg PO BID@0630,1630 prednisone 20 mg PO DAILY 5 days sennosides-docusate sodium 8.6-50 mg (Senexon-S) 1 tab PO .two times a day PRN 90 days sulfamethoxazole-trimethoprim 800-160 mg (Bactrim DS) 1 tab PO BID 14 days tamsulosin 0.4 mg PO BEDTIME 30 days tramadol 100 mg PO DAILY HPI HPI 6 month follow up: Details: GI Clinic visit for this 78-year-old male for FU GERD, HECTOR, Fatty Liver, Vitamin B 12 deficiency and colon cancer screening. Pt was hospitalized in 09/2023 with UGIB. EGD showed a gastric ulcer ?CHRONIC ILLNESSES:?dysuria, high bp, hx acid reflux, high cholesterol, Vitamin B 12 deficiency ? LABS IN [facility]: 10/31/19 H&H of 13.9 and 39.9, platelet 244, INR 1.0, ? Sodium 135, ferritin 101 normal LFTs with alkaline phosphatase of 108 ? 07/2016 liver fibrosis score of 0.28, liver fibrosis stage F1, necroinflammatory score 0.05 ? 05/31 BAR screen was negative, antimitochondrial antibody body, ANCA and ASMA were negative ? IgG 4 level was normal ?IMAGING STUDIES: 10/2021 ABD US SHOWED: Mildly echogenic liver parenchyma suggesting steatosis or other hepatocellular disease. Otherwise unremarkable abdominal ultrasound. 12/2012 BARIUM SWALLOW SHOWED: 1.? Barium tablet demonstrated mildly delayed passage across the day gastroesophageal junction. 2. Mild to moderate esophageal dysmotility ENDOSCOPIC STUDIES:? 04/02/21 COLONOSCOPY SHOWED: No polyps were detected Moderate to severe diverticulosis seen in the left colon Moderate hemorrhoids on retroflexed exam. Plan:? Patient has an appointment on 04/18/21 in the GI Clinic with Francisco Jasmine M.D.. Repeat Colonoscopy in 5 years (hx of colon polyps) if pt remains in stable health or pt may elect to stop colon cancer screening. 09/28/20 EGD SHOWED:ESOPHAGUS:? Tortuous esophagus with increased tertiary contractions.? Hiatal hernia from 30 to 35 cms. Partially obstructing Schatzki's ring/focal stricture at GE junction - dilated to 16.5 mm CRE balloon. Biopsies were obtained from the stricture Dysphagia is likely a combination of Schatzki's ring and esophageal motility disorder. STOMACH: Status post Bilroth 1 gastrectomy.? Scar of past ulcer at anastomotic site with mild antral erythema - antral biopsies were obtained Plan:? Patient has an appointment on 10/15/20 in the GI Clinic with Francisco Jasmine M.D.-. Above findings were reviewed with the patient and GERD handout was given in the discharge area BIOPSIES SHOWED: A.? Esophagus, stricture, biopsy:? Reactive gastropathy with background mild chronic, focally active, inflammation; no Helicobacter organisms seen. B.? Stomach, biopsy:? Active esophagitis (mostly neutrophils); no atypia or fungi seen. TODAY'S VISIT CC; Pt was not rx'd any new medications at their last visit. Pt did complete the ordered labs as instructed at his last visit. Pt reports that he is still having some urinary difficulties. Pt states that he is otherwise doing well since he was seen in September for the ulcerations. Pt denies abd pain, dysphagia or fecal incontinence Tries to cut big pills. Can swallow solid food without problems most of the time. Does not think he needs as EGD at present - pt was advised to call Had some diarrhea last week. Can go days without a BM. Has a BM daily for a few days and then no BM for a few days - advised to take Senna prn Plans to go to his daughter's house for xmas (has a son and a daughter) PAST VISITS: Swallowing is good Taking one pill at a time Had an episode of fecal incontinence of loose stools during sleep after he ate a lot of walnuts a few months ago Has not happened again Occasional dysphagia - has'nt been as it was before Can have problems with large pills - usually cuts the larger pills Can have a brief wave of nausea with exertion. Intermittent mild dysphagia - he is managing with being careful with diet No problems when he excercises. Had his 2nd shot of COVID vaccine on 09/20/20. Nausea has subsided - started diet including banana, apple sauce and rice which has helped with the nausea. Complains of upset stomach followed by nausea, vomiting and diarrhea. Able to tolerate crackers and mallory bao. Just started Probiotics again recently and advised to hold off Notes a wave of nausea when he moves from one room to the other and when he tries to lie down. He is due for colonoscopy in December 2020 for follow-up of colon polyps. Weight has been stable. Advised to take Benafibre once a day if diarrhea continues. Takes 1-2 drops of Edible Marijuna prn a few times a week not daily) for aches and pains Nausea and vomiting for the past week. Stool became softer and stopped taking the Colace Almost a fight to keep food down. Had breakfast at 11 am and did not have anything to eat since. Laid down and when he woke up at 2 pm and vomited partially digested food and liquid. Gets a wave of nausea followed by flushing. Has 2-3 BMs a day - soft in consistency without blood or mucous. Nocturnal anal discharge early this morning - has started wearing?Depends [facility] Medical History Cardiac defibrillator in place Hx of myocardial infarction COVID-19 vaccine series completed Dysphagia Cirrhosis of liver without ascites History of non anemic vitamin B12 deficiency History of vitamin D deficiency Elevated cholesterol Hypertension GERD (gastroesophageal reflux disease) Surgical History History of esophagogastroduodenoscopy (EGD) H/O colonoscopy Status post partial gastrectomy History of esophagogastroduodenoscopy (EGD) (~01/2013) History of cardiac catheterization (~02/2018) Family History Father No problems noted. Mother No problems noted. Social History Household Members: None Alcohol intake: never Comment: short stay Patient Tobacco Use Status: Former Tobacco user Tobacco use type: Cigarette Second Hand Smoke Exposure: No Substance Use Type: Marijuana Advance Directives Date on File: 10/07/23 service: No Physical Exam Vital Signs: Last Vital Signs Pulse 68 12/31/23 10:36 BP 116/64 12/31/23 10:36 Pulse Ox 96 12/31/23 10:36 Oxygen Delivery Method Room Air 12/31/23 10:36 BMI result Body Mass Index 22.9 Const General: no acute distress and other (frail appearing) Nutritional Appearance: average body habitus Orientation/consciousness: patient oriented x3 Limitations: physical limitations HEENT Head: Yes normal to inspection Ears: hearing grossly normal bilaterally Eyes Sclerae: sclerae normal Pupils: Equal, round and reactive pupils present Neck Neck: Yes normal visual inspection Chest Chest palpation & inspection: normal inspection of the chest Resp Effort & Inspection: normal respiratory effort Auscultation: clear to auscultation bilaterally Cardio Palpation: normal PMI Rate: regular rate Rhythm: regular rhythm Heart sounds: S1 normal heart sound present, S2 normal heart sound present and n o murmurs GI Palpation (GI): Soft to palpation, nontender and No hepatosplenomegaly present Auscultation: normal bowel sounds Rectal Exam - Male: Yes deferred Skin General skin exam: no rashes or lesions noted Neuro General: patient oriented x3, gait normal and moves all extremities Cranial nerves: Yes Equal, round and reactive pupils present Psych Appearance: grossly normal Mental Status: mental status grossly normal Assessment & Plan Assessment & Plan (1) GERD (gastroesophageal reflux disease): Comment: Continue omeprazole 20 mg twice daily Code(s): K21.9 - Gastro-esophageal reflux disease without esophagitis Category: Medical (2) History of vitamin D deficiency: Code(s): Z86.39 - Personal history of other endocrine, nutritional and metabolic disease Category: Medical (3) History of colon polyps: Comment: 12/2017 A 12-15 mm TA was removed during colonoscopy. 03/2021 colonoscopy showed: No polyps were detected Moderate to severe diverticulosis seen in the left colon Moderate hemorrhoids on retroflexed exam. Plan: Repeat Colonoscopy in 5 years if pt remains in stable health or patient may elect to stop colon cancer screening. Code(s): Z86.010 - Personal history of colonic polyps Category: Medical (4) Status post partial gastrectomy: Code(s): Z90.3 - Acquired absence of stomach [part of] Category: Surgical (5) Cirrhosis of liver without ascites: Comment: Lab tests showed liver fibrosis score of 0.28 with liver fibrosis stage of F1 and fatty infiltration of the liver on abdominal ultrasound. Abd US with elastography showed echogenic liver and METAVIR score F2 to F3 suggestive of [id number] increased risk of developing liver fibrosis. Past evaluation with antibody testing for celiac sprue, hepatitis-B and C serologies were negative. Likely cause of cirrhosis is fatty infiltration. Lab tests to rule out autoimmune hepatitis and PBC were negative. MELD score is 6 Code(s): K74.60 - Unspecified cirrhosis of liver Category: Medical (6) Chronic constipation: Code(s): K59.09 - Other constipation Category: Medical (7) History of gastric ulcer: Code(s): Z87.11 - Personal history of peptic ulcer disease Category: Medical Plan 78 YM with hx dysuria, high bp, hx acid reflux, high cholesterol, Vitamin B 12 deficiency followed in GI for GERD. GERD symptoms are managed with omeprazole 20 mg twice daily - does not need refills at present. Iron deficiency anemia has improved with oral iron replacement -advised to continue every other day. 12/2017 evaluation with EGD showed a 5 cms Hiatal hernia with a non obstructing Schatzki's ring and Bilroth 1 gastric anatomy with scar of past ulcer at anastomotic site. A 12-15 mm TA was removed during same-day colonoscopy. Past lab tests showed liver fibrosis score of 0.28 with liver fibrosis stage of F1 and fatty infiltration of the liver on abdominal ultrasound. Abd US with elastography showed echogenic liver and METAVIR score F2 to F3 suggestive of [id number] increased risk of developing liver fibrosis. Past evaluation with the antibody testing for celiac sprue, hepatitis-B and C serologies were negative. Likely cause of cirrhosis is fatty infiltration. Lab tests to rule out autoimmune hepatitis and PBC were negative. Labs and abdominal ultrasound for HCC surveillance will be scheduled on FU after colonoscopy.? MELD score is 6. 09/28/20 EGD showed: ESOPHAGUS:? Tortuous esophagus with increased tertiary contractions.? Hiatal hernia from 30 to 35 cms. ? Partially obstructing Schatzki's ring/focal stricture at GE junction - dilated to 16.5 mm CRE balloon.? Biopsies were obtained from the stricture Dysphagia is likely a combination of Schatzki's ring and esophageal motility disorder. STOMACH: Status post Bilroth 1 gastrectomy.? Scar of past ulcer at anastomotic site with mild antral erythema - antral biopsies were obtained. Pt had stopped taking Vitamin D and iron due to concern for nausea - advised to resume slowly. 06/25/23 - scheduled for an Abd US for HCC surveillance and missed his apt - will be rescheduled 12/31/23 EGD in 3-4 weeks for FU of gastric ulcer (Scheduled on 01/08/24) FU appt in 3 months. Pt was advised to contact the GI clinic if he noted recurrent episodes of fecal incontinence or worsening dysph Coding Level of Care Code Est Pt Level 3 (16310) Diagnoses GERD (gastroesophageal reflux disease) K21.9 History of vitamin D deficiency Z86.39 History of colon polyps Z86.010 Status post partial gastrectomy Z90.3 Cirrhosis of liver without ascites K74.60 Chronic constipation K59.09 History of gastric ulcer Z87.11 Time Spent (min) 17
[2023-12-31 10:36] VITALS: BP 116/64; PULSE 68; O2SAT 96; BMI 22.9
== END 2023-12-31 12:24 | disposition home or self-care (01) ==
PROVIDERS: PCP Internal Medicine; Visit Provider Internal Medicine Gastroenterology
DX: K21.9 Gastro-esophageal reflux disease without esophagitis (principal); Z86.39 Personal history of other endocrine, nutritional and metabolic disease; Z86.010 Personal history of colon polyps; Z90.3 Acquired absence of stomach [part of]; K74.60 Unspecified cirrhosis of liver; K59.09 Other constipation; Z87.11 Personal history of peptic ulcer disease
CPT/HCPCS: 99213

== ENCOUNTER → 2023-12-31 10:24 | Outpatient (BNVA) | payer MEDICARE, SELFPAY | PROVIDERS: PCP Internal Medicine; Visit Provider Internal Medicine Gastroenterology | DX: K21.9 Gastro-esophageal reflux disease without esophagitis (principal); K74.60 Unspecified cirrhosis of liver; K59.09 Other constipation; Z86.39 Personal history of other endocrine, nutritional and metabolic disease; Z86.010 Personal history of colon polyps; Z87.11 Personal history of peptic ulcer disease; Z90.3 Acquired absence of stomach [part of] | CPT/HCPCS: 99212 ==

== ENCOUNTER 2024-01-08 11:59 | Day surgery (SDC) | payer MEDICARE, SELFPAY ==
--- NOTE | 2024-01-07 12:16 | HO.ANESPROP2 ---
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 Last office visit 10/2023. Stable with 6 month f/u plan [facility] [place] admit 09/2023: hospital course: Patient was admitted for acute blood loss anemia due to gastric ulcer. He received 1 unit of PRBC and hemoglobin improved appropriately and remained stable. He underwent EGD which revealed gastric ulcer which was clipped. Had no further bleeding. He was treated with 72 hours of IV Protonix and transitioned to 40 mg b.i.d. of omeprazole which he will continue for 8 weeks and then deescalate. He will follow up with Gastroenterology for repeat EGD as outpatient. Patient is tolerating solids and has no further hematemesis, he will be discharged home. For his coronary disease his aspirin has been restarted, he should monitor closely for bleeding. He was also continued on Lipitor. His meloxicam should be discontinued. PMFSH Active Problems Active Problems: All Active Problems Weak urinary stream (Acute) History of gastric ulcer (Acute) Status post partial gastrectomy (Acute) Acute upper GI bleeding (Acute) Chronic constipation (Acute) Anemia (Acute) History of vitamin D deficiency (Acute) Hiatal hernia (Acute) History of colon polyps (Acute) Nausea and vomiting (Acute) Diarrhea (Acute) Chronic prostatitis (Acute) Elevated cholesterol (Acute) Cirrhosis of liver without ascites (Acute) Dysphagia (Acute) History of cardiac catheterization (Acute ~02/2018) GERD (gastroesophageal reflux disease) (Acute) Past Medical History Medical History Cardiac defibrillator in place Hx of myocardial infarction COVID-19 vaccine series completed Dysphagia Cirrhosis of liver without ascites History of non anemic vitamin B12 deficiency History of vitamin D deficiency Elevated cholesterol Hypertension GERD (gastroesophageal reflux disease) Family History Family History Father No problems noted. Mother No problems noted. Family history of problems with anesthesia: No Surgical History Surgical History History of esophagogastroduodenoscopy (EGD) H/O colonoscopy Status post partial gastrectomy History of esophagogastroduodenoscopy (EGD) (~01/2013) History of cardiac catheterization (~02/2018) History of Problems with Anesthesia: No Social History Social History Household Members: None Alcohol intake: never Comment: short stay Patient Tobacco Use Status: Former Tobacco user Tobacco use type: Cigarette Second Hand Smoke Exposure: No Use of substances other than those prescribed or required for medical reasons: Yes Substance Use Type: Marijuana Substance Use Type Other:: medical marijuana for pain Are you DNR?: Yes Advance Directives: No Advance Directives Information Provided: Yes Advance Directives Date on File: 10/07/23 service: No Meds Allergies Allergy/AdvReac Type Severity Reaction Status Date / Time No Known Allergies Allergy Verified 01/08/24 12:33 [No Known Allergies*] Home Medications ?Medication ?Instructions ?Recorded ?Confirmed ?Last Taken ?Type aspirin 81 mg tablet,delayed 81 mg PO DAILY 07/02/20 01/08/24 04/02/21 07:00 History release carvedilol 12.5 mg tablet 12.5 mg PO BID 07/02/20 01/08/24 01/08/24 History folic acid 1 mg tablet 1 mg PO DAILY 07/02/20 01/08/24 Unknown History tramadol 50 mg tablet 100 mg PO DAILY Pain 07/02/20 01/08/24 01/08/24 History atorvastatin 20 mg tablet 20 mg PO BEDTIME 10/15/20 01/08/24 Unknown History nitroglycerin 0.4 mg sublingual 0.4 mg sublingual Q5M PRN Chest 10/15/20 01/08/24 Unknown History tablet Pain isosorbide mononitrate 60 mg 60 mg PO QAM 01/03/21 01/08/24 Unknown History tablet,extended release 24 hr gabapentin 300 mg capsule 600 mg PO BEDTIME 08/22/21 01/08/24 Unknown History multivitamin-iron 9 mg-folic acid 1 tab PO DAILY 10/06/23 01/08/24 Unknown History 400 mcg-calcium and minerals tablet (Therapeutic-M) sacubitril 24 mg-valsartan 26 mg 1 tab PO BID 01/08/24 01/08/24 Unknown History tablet (Entresto) Exam Pertinent Lab Results Pertinent Lab Results: Laboratory Tests 12/25/23 06:45 WBC 7.1 Hgb 12.5 L D Hct 37.1 L D Plt Count 196 Sodium 137 Potassium 4.5 Chloride 101 Carbon Dioxide 28 BUN 13 Creatinine 0.85 Narrative Narrative: EKG 09/2023 Vent. Rate : 080 BPM Atrial Rate : 080 BPM P-R Int : 154 ms QRS Dur : 124 ms QT Int : 394 ms P-R-T Axes : 040 008 -03 degrees QTc Int : 454 ms Normal sinus rhythm Right bundle branch block Inferior infarct (cited on or before 21-NOV-2013) Abnormal ECG When compared with ECG of 08-OCT-2016 15:05, Right bundle branch block is now Present Assessment and Plan Assessment Anesthesia Assessment: Chart Reviewed Final Anesthetic Review Family History of Problems with Anesthesia: No History of Problems with Anesthesia: No Documented by User: Patti Woodruff MD 01/08/24 13:34 [facility] Past Medical History Medical History Cardiac defibrillator in place Hx of myocardial infarction COVID-19 vaccine series completed Dysphagia Cirrhosis of liver without ascites History of non anemic vitamin B12 deficiency History of vitamin D deficiency Elevated cholesterol Hypertension GERD (gastroesophageal reflux disease) Family History Family History Father No problems noted. Mother No problems noted. Surgical History Surgical History History of esophagogastroduodenoscopy (EGD) H/O colonoscopy Status post partial gastrectomy History of esophagogastroduodenoscopy (EGD) (~01/2013) History of cardiac catheterization (~02/2018) Social History Social History Household Members: None Alcohol intake: never Comment: short stay Patient Tobacco Use Status: Former Tobacco user Tobacco use type: Cigarette Second Hand Smoke Exposure: No Use of substances other than those prescribed or required for medical reasons: Yes Substance Use Type: Marijuana Substance Use Type Other:: medical marijuana for pain Are you DNR?: Yes Advance Directives: No Advance Directives Information Provided: Yes Advance Directives Date on File: 10/07/23 service: No Meds Allergies Allergy/AdvReac Type Severity Reaction Status Date / Time No Known Allergies Allergy Verified 01/08/24 12:33 [No Known Allergies*] Home Medications ?Medication ?Instructions ?Recorded ?Confirmed ?Last Taken ?Type aspirin 81 mg tablet,delayed 81 mg PO DAILY 07/02/20 01/08/24 04/02/21 07:00 History release carvedilol 12.5 mg tablet 12.5 mg PO BID 07/02/20 01/08/24 01/08/24 History folic acid 1 mg tablet 1 mg PO DAILY 07/02/20 01/08/24 Unknown History tramadol 50 mg tablet 100 mg PO DAILY Pain 07/02/20 01/08/24 01/08/24 History atorvastatin 20 mg tablet 20 mg PO BEDTIME 10/15/20 01/08/24 Unknown History nitroglycerin 0.4 mg sublingual 0.4 mg sublingual Q5M PRN Chest 10/15/20 01/08/24 Unknown History tablet Pain isosorbide mononitrate 60 mg 60 mg PO QAM 01/03/21 01/08/24 Unknown History tablet,extended release 24 hr gabapentin 300 mg capsule 600 mg PO BEDTIME 08/22/21 01/08/24 Unknown History multivitamin-iron 9 mg-folic acid 1 tab PO DAILY 10/06/23 01/08/24 Unknown History 400 mcg-calcium and minerals tablet (Therapeutic-M) sacubitril 24 mg-valsartan 26 mg 1 tab PO BID 01/08/24 01/08/24 Unknown History tablet (Entresto) Exam Airway Mallampati Class: II TM Dist: >3cm Neck ROM: Full Heart: rrr Lungs: cta Assessment and Plan Assessment Anesthesia Assessment: Anesthesia Plan Discussed Final Anesthetic Review NPO: Yes ASA Class: III Final Preanesthetic Review: No Changes in Pt Med Stat, Meds/Allgs Chart Reviewed and Consent Obtained/Reviewed Patient Risk: Low Procedure Risk: Intermediate Anesthetic Plan Anesthetic Plan: MAC: Disposition: Standard PACU
[2024-01-08 12:39] VITALS: BMI 25.7
[2024-01-08 12:48] VITALS: BP 135/68; PULSE 55; RESP 16; TEMP 36.4; O2SAT 97
--- NOTE | 2024-01-08 14:22 | MHC.SHP ---
Pre-Procedural Eval Section A - 24 Hr Update-Section A only Date of Service: 01/08/24 The patient is an INPATIENT: No Changes since office visit: Yes Patient answered all questions; No Cold of Flu in the past 2 weeks, No New Medical Problems and No Changes in Medication The patient has been examined within 24 hours of the surgical procedure. The History & Physical has been completed within 30 days and I have reviewed it.: Yes Section B - Complete if H&P > 30 days Chief Complaint: FU of gastric ulcer Details of Present Illness: Colon cancer screening Relevant Family History (Specify if Yes): No Relevant Social History: Tobacco Use (Former smoker) Present Medications: see Short Stay Collaborative assessment Medical History: Significant History (Cardiac defibrillator in place Cirrhosis of liver without ascites COVID-19 vaccine series completed Dysphagia Elevated cholesterol GERD (gastroesophageal reflux disease) History of non anemic vitamin B12 deficiency History of vitamin D deficiency Hx of myocardial infarction Hypertension) History of Previous Operations: Relevant previous surgery/procedure and date(s) (H/O colonoscopy History of cardiac catheterization (~02/2018) History of esophagogastroduodenoscopy (EGD) (~01/2013) History of esophagogastroduodenoscopy (EGD) Status post partial gastrectomy) Allergies: Allergies Allergy/AdvReac Type Severity Reaction Status Date / Time No Known Allergies Allergy Verified 01/08/24 12:33 [No Known Allergies*] Review of Systems Sugical H&P ROS: Negative: Constitution, Cardiovascular, Respiratory and Gastrointestinal Exam Surgical H&P Exam: Normal: Heart, Normal: Lungs, Normal: Extremities and Normal: Abdomen Plan Diagnosis/Plan: Unchanged I have reviewed the history and physical and performed a pertinent physical examination on my patient. No changes have occurred unless specified. Time Spent With Patient Time: Total time managing care of this patient today ____ minutes.
--- NOTE | 2024-01-08 14:47 | W.PM.OPN ---
Operative Note Operative Note Date of Service: 01/08/24 Narrative: FLEXIBLE TRANSORAL UPPER GASTROINTESTINAL ENDOSCOPY WITH BIOPSIES AND ESOPHAGEAL BALLOON DILATION Pre-op diagnosis: Fu of gastric ulcer, Dysphagia, history of Schatzki's ring Post-op diagnosis: Partially obstructing Schatzki's ring, Healed gastric ulcer, gastritis, Billroth-I gastrectomy status, Endoscopist:? Francisco Jasmine MD Anesthesia:?MAC UPPER ENDOSCOPY Consent: Indications for the procedure and potential complications of bleeding, perforation, reaction to medications and missed diagnosis were discussed with the patient and informed consent was obtained. Instrument: Olympus GIF H 190 mid size upper endoscope Monitoring: Vital signs and clinical assessment, continuous EKG monitoring, Pulse oximetry, Carbon Dioxide monitoring and blood pressure monitoring were done throughout the procedure. Procedure: The patient was placed in the left lateral decubitis position and pre-procedure medications were administered and a bite block was placed. The endoscope was inserted into the mouth and advanced under direct vision to the third part of duodenum. A careful inspection was made as the upper endoscope was withdrawn including a retroflexed examination of the proximal stomach; Findings and interventions are described below. Findings: Larynx: Normal Esophagus: Tortuous esophagus with increased tertiary contractions. Hiatal hernia from 30 to 35 cms. Partially obstructing Schatzki's ring/focal stricture at GE junction and a mid size upper endoscope passed with mild resistance. Balloon dilation was performed with a 13.5 mm (40.5 F) CRE balloon x 60 seconds. Superficial mucosa tears noted at the GE junction after dilation Stomach: Status post Bilroth 1 gastrectomy. Ulcer seen on past EGD appeared to have healed completely Mild gastric antral erythema - antral biopsies were obtained Duodenum: Normal descending duodenum Intervention: Biopsies and esophageal balloon dilation as noted above Impression and Post Procedure Diagnosis: Endoscopy Findings: ESOPHAGUS: Hiatal hernia, partially obstructing Schatzki's ring STOMACH: Status post Bilroth 1 gastrectomy. Ulcer seen on past EGD appeared to have healed completely Plan: Pt has a FU appointment on 01/18/[address] Jasmine. Repeat EGD prn for recurrent dysphagia. Above findings were reviewed with the patient and relevant handouts were given and the discharge area. Pt advised to decrease Omeprazole to once a day and continue indefinitely.
[2024-01-08 14:51] VITALS: BP 102/64; PULSE 76; RESP 16; TEMP 36.2; O2SAT 94
[2024-01-08 15:06] VITALS: BP 130/72; PULSE 68; RESP 16; TEMP 36.1; O2SAT 99
== END 2024-01-08 15:28 | disposition home or self-care (01) ==
PROVIDERS: PCP Internal Medicine; Visit Provider Internal Medicine Gastroenterology
PROC: 0DJ08ZZ Inspection of Upper Intestinal Tract, Via Natural or Artificial Opening Endoscopic (ICD-10-PCS; CPT 43235; principal; 2024-01-08 12:50)
DX: K21.9 Gastro-esophageal reflux disease without esophagitis (principal); K22.2 Esophageal obstruction; Z87.11 Personal history of peptic ulcer disease; K29.50 Unspecified chronic gastritis without bleeding; K44.9 Diaphragmatic hernia without obstruction or gangrene; Z90.3 Acquired absence of stomach [part of]; K74.60 Unspecified cirrhosis of liver; I10 Essential (primary) hypertension; I25.2 Old myocardial infarction; Z95.810 Presence of automatic (implantable) cardiac defibrillator; E78.00 Pure hypercholesterolemia, unspecified; Z79.82 Long term (current) use of aspirin; Z79.899 Other long term (current) drug therapy; Z87.891 Personal history of nicotine dependence
CPT/HCPCS: 43249; 43239; 88305; 88313; 88342; C1726; J2704

== ENCOUNTER → 2024-01-08 11:59 | Outpatient (BNV) | payer MEDICARE, SELFPAY | PROVIDERS: PCP Internal Medicine; Visit Provider Internal Medicine Gastroenterology | DX: K22.2 Esophageal obstruction (principal); K29.70 Gastritis, unspecified, without bleeding; K25.9 Gastric ulcer, unspecified as acute or chronic, without hemorrhage or perforation; Z98.84 Bariatric surgery status | CPT/HCPCS: 43239; 43249 ==

== ENCOUNTER 2024-01-18 07:16 | Outpatient (AMB) | payer MEDICARE, SELFPAY ==
[2024-01-18 07:26] VITALS: BP 101/56; PULSE 72; BMI 25.7
--- NOTE | 2024-01-18 07:26 | A.OFFVIS_ITS ---
Vital Signs 01/18/24 07:26 Height 5 ft 4 in Weight 150 lb BMI 25.7 BP 101/56 L Blood Pressure Location Lt brachial Position Sitting Pulse 72 Intake Visit Reasons: EGD result Intake Note: Patient follow up for EGD results. Patient denies any GI issues for today. 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 Accompanied by: Self / Same As Patient Allergies No Known Allergies [No Known Allergies*] Allergy (Verified 01/19/24 11:43) Medication List - Last Reconciled 01/18/24 by Francisco Jasmine MD aspirin 81 mg PO DAILY atorvastatin 20 mg PO BEDTIME carvedilol 12.5 mg PO BID cholecalciferol (vitamin D3) 50 mcg PO DAILY 90 days doxycycline hyclate 100 mg PO DAILY 90 days finasteride 5 mg PO DAILY 90 days folic acid 1 mg PO DAILY gabapentin 600 mg PO BEDTIME isosorbide mononitrate ER 60 mg PO QAM meloxicam 15 mg PO DAILY 30 days kpwfsnxa-luup-NM-calcium-mins 9 mg iron-400 mcg (Therapeutic-M) 1 tab PO DAILY nitroglycerin 0.4 mg sublingual Q5M PRN omeprazole 40 mg PO BID@0630,1630 prednisone 20 mg PO DAILY 5 days sacubitril-valsartan 24-26 mg (Entresto) 1 tab PO BID sennosides-docusate sodium 8.6-50 mg (Senexon-S) 1 tab PO .two times a day PRN 90 days tamsulosin 0.4 mg PO BEDTIME 30 days tramadol 100 mg PO DAILY HPI HPI EGD result: Details: GI Clinic visit for this 78-year-old male for FU GERD, HECTOR, Fatty Liver, Vitamin B 12 deficiency and colon cancer screening. Pt was hospitalized in 09/2023 with UGIB. EGD showed a gastric ulcer. FU EGD showed had healed ?CHRONIC ILLNESSES:?dysuria, high bp, hx acid reflux, high cholesterol, Vitamin B 12 deficiency ? LABS IN [facility]: 10/31/19 H&H of 13.9 and 39.9, platelet 244, INR 1.0, ? Sodium 135, ferritin 101 normal LFTs with alkaline phosphatase of 108 ? 07/2016 liver fibrosis score of 0.28, liver fibrosis stage F1, necroinflammatory score 0.05 ? 05/31 BAR screen was negative, antimitochondrial antibody body, ANCA and ASMA were negative ? IgG 4 level was normal ?IMAGING STUDIES: 10/2021 ABD US SHOWED: Mildly echogenic liver parenchyma suggesting steatosis or other hepatocellular disease. Otherwise unremarkable abdominal ultrasound. 12/2012 BARIUM SWALLOW SHOWED: 1.? Barium tablet demonstrated mildly delayed passage across the day gastroesophageal junction. 2. Mild to moderate esophageal dysmotility ENDOSCOPIC STUDIES:? 04/02/21 COLONOSCOPY SHOWED: No polyps were detected Moderate to severe diverticulosis seen in the left colon Moderate hemorrhoids on retroflexed exam. Plan:? Patient has an appointment on 04/18/21 in the GI Clinic with Francisco Jasmine M.D.. Repeat Colonoscopy in 5 years (hx of colon polyps) if pt remains in stable health or pt may elect to stop colon cancer screening. 09/28/20 EGD SHOWED:ESOPHAGUS:? Tortuous esophagus with increased tertiary contractions.? Hiatal hernia from 30 to 35 cms. Partially obstructing Schatzki's ring/focal stricture at GE junction - dilated to 16.5 mm CRE balloon. Biopsies were obtained from the stricture Dysphagia is likely a combination of Schatzki's ring and esophageal motility disorder. STOMACH: Status post Bilroth 1 gastrectomy.? Scar of past ulcer at anastomotic site with mild antral erythema - antral biopsies were obtained Plan:? Patient has an appointment on 10/15/20 in the GI Clinic with Francisco Jasmine M.D.-. Above findings were reviewed with the patient and GERD handout was given in the discharge area BIOPSIES SHOWED: A.? Esophagus, stricture, biopsy:? Reactive gastropathy with background mild chronic, focally active, inflammation; no Helicobacter organisms seen. B.? Stomach, biopsy:? Active esophagitis (mostly neutrophils); no atypia or fungi seen. TODAY'S VISIT EGD results reviewed with the patient. Notes slight improvement in swallowing after dilation CC; Pt was not rx'd any new medications at their last visit. Pt did complete the ordered labs as instructed at his last visit. Pt reports that he is still having some urinary difficulties. Pt states that he is otherwise doing well since he was seen in September for the ulcerations. Pt denies abd pain, dysphagia or fecal incontinence Tries to cut big pills. Can swallow solid food without problems most of the time. Does not think he needs as EGD at present - pt was advised to call Had some diarrhea last week. Can go days without a BM. Has a BM daily for a few days and then no BM for a few days - advised to take Senna prn Plans to go to his daughter's house for xmas (has a son and a daughter) PAST VISITS: Swallowing is good Taking one pill at a time Had an episode of fecal incontinence of loose stools during sleep after he ate a lot of walnuts a few months ago Has not happened again Occasional dysphagia - has'nt been as it was before Can have problems with large pills - usually cuts the larger pills Can have a brief wave of nausea with exertion. Intermittent mild dysphagia - he is managing with being careful with diet No problems when he excercises. Had his 2nd shot of COVID vaccine on 09/20/20. Nausea has subsided - started diet including banana, apple sauce and rice which has helped with the nausea. Complains of upset stomach followed by nausea, vomiting and diarrhea. Able to tolerate crackers and mallory bao. Just started Probiotics again recently and advised to hold off Notes a wave of nausea when he moves from one room to the other and when he tries to lie down. He is due for colonoscopy in December 2020 for follow-up of colon polyps. Weight has been stable. Advised to take Benafibre once a day if diarrhea continues. Takes 1-2 drops of Edible Marijuna prn a few times a week not daily) for aches and pains Nausea and vomiting for the past week. Stool became softer and stopped taking the Colace Almost a fight to keep food down. Had breakfast at 11 am and did not have anything to eat since. Laid down and when he woke up at 2 pm and vomited partially digested food and liquid. Gets a wave of nausea followed by flushing. Has 2-3 BMs a day - soft in consistency without blood or mucous. Nocturnal anal discharge early this morning - has started wearing?Depends [facility], [facility] Medical History Cardiac defibrillator in place Hx of myocardial infarction COVID-19 vaccine series completed Dysphagia Cirrhosis of liver without ascites History of non anemic vitamin B12 deficiency History of vitamin D deficiency Elevated cholesterol Hypertension GERD (gastroesophageal reflux disease) Surgical History History of esophagogastroduodenoscopy (EGD) H/O colonoscopy Status post partial gastrectomy History of esophagogastroduodenoscopy (EGD) (~01/2013) History of cardiac catheterization (~02/2018) Family History Father No problems noted. Mother No problems noted. Social History Household Members: None Alcohol intake: never Comment: short stay Patient Tobacco Use Status: Former Tobacco user Tobacco use type: Cigarette Second Hand Smoke Exposure: No Substance Use Type: Marijuana Advance Directives Date on File: 10/07/23 service: No Review of Systems Const All systems reviewed & are unremarkable except as noted in HPI and below Physical Exam Vital Signs: Last Vital Signs Pulse 72 01/18/24 07:26 BP 101/56 L 01/18/24 07:26 BMI result Body Mass Index 25.7 Const General: no acute distress and other (frail appearing) Nutritional Appearance: average body habitus Orientation/consciousness: patient oriented x3 Limitations: physical limitations HEENT Head: Yes normal to inspection Ears: hearing grossly normal bilaterally Eyes Sclerae: sclerae normal Pupils: Equal, round and reactive pupils present Neck Neck: Yes normal visual inspection Chest Chest palpation & inspection: normal inspection of the chest Resp Effort & Inspection: normal respiratory effort Auscultation: clear to auscultation bilaterally Cardio Palpation: normal PMI Rate: regular rate Rhythm: regular rhythm Heart sounds: S1 normal heart sound present, S2 normal heart sound present and no murmurs GI Palpation (GI): Soft to palpation, nontender and No hepatosplenomegaly present Auscultation: normal bowel sounds Rectal Exam - Male: Yes deferred Skin General skin exam: no rashes or lesions noted Neuro General: patient oriented x3, gait normal and moves all extremities Cranial nerves: Yes Equal, round and reactive pupils present Psych Appearance: grossly normal Mental Status: mental status grossly normal Assessment & Plan Assessment & Plan (1) History of gastric ulcer: Code(s): Z87.11 - Personal history of peptic ulcer disease Category: Medical (2) Status post partial gastrectomy: Code(s): Z90.3 - Acquired absence of stomach [part of] Category: Surgical (3) Chronic constipation: Code(s): K59.09 - Other constipation Category: Medical (4) History of vitamin D deficiency: Code(s): Z86.39 - Personal history of other endocrine, nutritional and metabolic disease Category: Medical (5) History of colon polyps: Comment: 12/2017 A 12-15 mm TA was removed during colonoscopy. 03/2021 colonoscopy showed: No polyps were detected Moderate to severe diverticulosis seen in the left colon Moderate hemorrhoids on retroflexed exam. Plan: Repeat Colonoscopy in 5 years if pt remains in stable health or patient may elect to stop colon cancer screening. Code(s): Z86.010 - Personal history of colonic polyps Category: Medical (6) Diarrhea: Code(s): R19.7 - Diarrhea, unspecified Category: Medical (7) Cirrhosis of liver without ascites: Comment: Lab tests showed liver fibrosis score of 0.28 with liver fibrosis stage of F1 and fatty infiltration of the liver on abdominal ultrasound. Abd US with elastography showed echogenic liver and METAVIR score F2 to F3 suggestive of [id number] increased risk of developing liver fibrosis. Past evaluation with antibody testing for celiac sprue, hepatitis-B and C serologies were negative. Likely cause of cirrhosis is fatty infiltration. Lab tests to rule out autoimmune hepatitis and PBC were negative. MELD score is 6 Code(s): K74.60 - Unspecified cirrhosis of liver Category: Medical (8) Dysphagia: Comment: 09/28/20 EGD showed: ESOPHAGUS: Tortuous esophagus with increased tertiary contractions. Hiatal hernia from 30 to 35 cms. Partially obstructing Schatzki's ring/focal stricture at GE junction - dilated to 16.5 mm CRE balloon. Biopsies were obtained from the stricture Dysphagia is likely a combination of Schatzki's ring and esophageal motility disorder. STOMACH: Status post Bilroth 1 gastrectomy. Scar of past ulcer at anastomotic site with mild antral erythema - antral biopsies were obtained Code(s): R13.10 - Dysphagia, unspecified Category: Medical (9) GERD (gastroesophageal reflux disease): Comment: Continue omeprazole 20 mg twice daily Code(s): K21.9 - Gastro-esophageal reflux disease without esophagitis Category: Medical Plan 78 YM with hx dysuria, high bp, hx acid reflux, high cholesterol, Vitamin B 12 deficiency followed in GI for GERD. GERD symptoms are managed with omeprazole 20 mg twice daily - does not need refills at present. Iron deficiency anemia has improved with oral iron replacement -advised to continue every other day. 12/2017 evaluation with EGD showed a 5 cms Hiatal hernia with a non obstructing Schatzki's ring and Bilroth 1 gastric anatomy with scar of past ulcer at anastomotic site. A 12-15 mm TA was removed during same-day colonoscopy. Past lab tests showed liver fibrosis score of 0.28 with liver fibrosis stage of F1 and fatty infiltration of the liver on abdominal ultrasound. Abd US with elastography showed echogenic liver and METAVIR score F2 to F3 suggestive of [id number] increased risk of developing liver fibrosis. Past evaluation with the antibody testing for celiac sprue, hepatitis-B and C serologies were negative. Likely cause of cirrhosis is fatty infiltration. Lab tests to rule out autoimmune hepatitis and PBC were negative. Labs and abdominal ultrasound for HCC surveillance will be scheduled on FU after colonoscopy.? MELD score is 6. / EGD showed: ESOPHAGUS:? Tortuous esophagus with increased tertiary contractions.? Hiatal hernia from 30 to 35 cms. ? Partially obstructing Schatzki's ring/focal stricture at GE junction - dilated to 16.5 mm CRE balloon.? Biopsies were obtained from the stricture Dysphagia is likely a combination of Schatzki's ring and esophageal motility disorder. STOMACH: Status post Bilroth 1 gastrectomy.? Scar of past ulcer at anastomotic site with mild antral erythema - antral biopsies were obtained. Pt had stopped taking Vitamin D and iron due to concern for nausea - advised to resume slowly. 06/25/23 - scheduled for an Abd US for HCC surveillance and missed his apt - will be rescheduled 01/08/24 EGD was performed and results as noted Advised to continue Omeprazole 40 mg once a day FU appt in 6 months. Pt was advised to contact the GI clinic if he noted recurrent episodes of fecal incontinence or worsening dysphagia Coding Level of Care Code Est Pt Level 3 (72312) Diagnoses History of gastric ulcer Z87.11 Status post partial gastrectomy Z90.3 Chronic constipation K59.09 History of vitamin D deficiency Z86.39 History of colon polyps Z86.010 Diarrhea R19.7 Cirrhosis of liver without ascites K74.60 Dysphagia R13.10 GERD (gastroesophageal reflux disease) K21.9 Time Spent (min) 18
== END 2024-01-18 07:57 | disposition home or self-care (01) ==
PROVIDERS: PCP Internal Medicine; Visit Provider Internal Medicine Gastroenterology
DX: Z87.11 Personal history of peptic ulcer disease (principal); Z90.3 Acquired absence of stomach [part of]; K59.09 Other constipation; Z86.39 Personal history of other endocrine, nutritional and metabolic disease; Z86.010 Personal history of colon polyps; R19.7 Diarrhea, unspecified; K74.60 Unspecified cirrhosis of liver; R13.10 Dysphagia, unspecified; K21.9 Gastro-esophageal reflux disease without esophagitis
CPT/HCPCS: 99213

== ENCOUNTER 2024-01-18 07:16 | Outpatient (REF) | payer MEDICARE, SELFPAY ==
[2024-01-18 09:21] LABS: Anion Gap 15 (12-20); Blood Urea Nitrogen 17 mg/dL (9-16); Calcium 9.7 mg/dL (8.4-10.2); Carbon Dioxide 26 mmol/L (22-29); Chloride 102 mmol/L (96-108); Estimated Glomerular Filt Rate > 60; Glucose Random 122 mg/dL (60-115); Potassium 4.5 mmol/L (3.3-5.1); Sodium 138 mmol/L (135-145)
== END 2024-01-18 07:17 | disposition home or self-care (01) ==
LOC: HO.LAB 07:16
PROVIDERS: Absent Provider Nurse Practitioner; PCP Internal Medicine; Visit Provider Internal Medicine Gastroenterology
DX: I25.5 Ischemic cardiomyopathy (principal); K21.9 Gastro-esophageal reflux disease without esophagitis; K76.0 Fatty (change of) liver, not elsewhere classified; K59.09 Other constipation; R19.7 Diarrhea, unspecified; K74.60 Unspecified cirrhosis of liver; R13.10 Dysphagia, unspecified; Z87.11 Personal history of peptic ulcer disease; Z90.3 Acquired absence of stomach [part of]; Z86.39 Personal history of other endocrine, nutritional and metabolic disease; Z86.010 Personal history of colon polyps
CPT/HCPCS: 36415; 80048; 99212

== ENCOUNTER 2024-01-19 11:41 | Outpatient (AMB) | payer MEDICARE, SELFPAY ==
--- NOTE | 2024-01-19 11:42 | A.OFFVIS_ITS ---
Intake Visit Reasons: Follow Up Intake Note: Patient is Present for Follow Up Urology Medication: Tamsulosin, Finasteride, Prednisone Antibiotic Allergies: None Blood Thinners: Aspirin Allergies No Known Allergies [No Known Allergies*] Allergy (Verified 02/04/24 09:06) Medication List - Last Reconciled 01/19/24 by Zachary Murray MD aspirin 81 mg PO DAILY atorvastatin 20 mg PO BEDTIME carvedilol 12.5 mg PO BID cholecalciferol (vitamin D3) 50 mcg PO DAILY 90 days doxycycline hyclate 100 mg PO DAILY 90 days finasteride 5 mg PO DAILY 90 days folic acid 1 mg PO DAILY gabapentin 600 mg PO BEDTIME isosorbide mononitrate ER 60 mg PO QAM meloxicam 15 mg PO DAILY 30 days btymwjtb-zvdc-AQ-calcium-mins 9 mg iron-400 mcg (Therapeutic-M) 1 tab PO DAILY nitroglycerin 0.4 mg sublingual Q5M PRN omeprazole 40 mg PO BID@0630,1630 prednisone 20 mg PO DAILY 5 days sacubitril-valsartan 24-26 mg (Entresto) 1 tab PO BID sennosides-docusate sodium 8.6-50 mg (Senexon-S) 1 tab PO .two times a day PRN 90 days spironolactone 25 mg PO DAILY tamsulosin 0.4 mg PO BEDTIME 30 days tramadol 100 mg PO DAILY HPI Comments Details: Jose is a pleasant male. He is a patient of Dr. Strauss. He is seen for the following urologic conditions - chronic prostatitis Three-month follow-up from antibiotic suppression Will continue for 3 more months Prior cystoscopy Some thickening on the right side of the bladder with some irritation but otherwise normal CT scan reviewed - normal bladder Chronic prostatitis Describes pain towards to penis particularly during episodes of rectal incontinence On exam had softness of his prostate which replicate this pain Consistent with chronic prostatitis Good response to combination therapy with anti-inflammatory, prednisone and antibiotic [facility]LY [facility] Medical History Cardiac defibrillator in place Hx of myocardial infarction COVID-19 vaccine series completed Dysphagia Cirrhosis of liver without ascites History of non anemic vitamin B12 deficiency History of vitamin D deficiency Elevated cholesterol Hypertension GERD (gastroesophageal reflux disease) Surgical History History of esophagogastroduodenoscopy (EGD) H/O colonoscopy Status post partial gastrectomy History of esophagogastroduodenoscopy (EGD) (~01/2013) History of cardiac catheterization (~02/2018) Family History Father No problems noted. Mother No problems noted. Social History Household Members: None Alcohol intake: never Comment: short stay Patient Tobacco Use Status: Former Tobacco user Tobacco use type: Cigarette Second Hand Smoke Exposure: No Substance Use Type: Marijuana Advance Directives Date on File: 10/07/23 service: No Review of Systems Const Denies chills and Denies fever(s) Card Reports no additional complaints and Denies syncope Resp Denies cough GI Denies abdominal pain and Denies heartburn Reports as per HPI and Denies change in libido Neuro Denies syncope Psych Denies change in libido Endo Denies change in libido Physical Exam Const General: cooperative, healthy appearing, comfortable and no acute distress Orientation/consciousness: patient oriented x3 HEENT Face and sinus: Yes normal facial exam Mouth: moist mucous membranes Neck Neck: Yes normal visual inspection, Yes full ROM and Yes trachea midline Chest Chest palpation & inspection: normal inspection of the chest Resp Effort & Inspection: normal respiratory effort, able to speak in complete sentences and no respiratory distress GI Inspection: Yes normal to inspection Back/Spine/Pelvis Cervical Spine: normal cervical lordosis Thoracic/Lumbar Spine: thoracic and lumbar spine normal to inspection Skin General skin exam: no rashes or lesions noted Neuro General: patient oriented x3, gait normal, tone normal and moves all extremities Extrem General: Yes normal to inspection and Yes capillary refill normal Assessment & Plan Assessment & Plan (1) Weak urinary stream: Code(s): R39.12 - Poor urinary stream Category: Medical (2) Chronic prostatitis: Comment: Good response to combination therapy Code(s): N41.1 - Chronic prostatitis Category: Medical Plan Three-month follow-up UA Orders: Orders AMB Urinalysis Automated 01/19/24 Z13.9 - Encounter for screening, unspecified Urine Culture 01/21/24 N39.0 - Urinary tract infection, site not specified Medications: Refilled doxycycline hyclate 100 mg PO DAILY 90 tabs 0RF 90 days N41.1 - Chronic prostatitis Patient Instructions: Imaging studies, laboratory and physical exam results were discussed and reviewed in detail. No major barriers to patient understanding were identified. An opportunity to ask questions regarding the treatment plan was provided. All questions were answered. The patient expressed understanding and agreement with the above treatment plan. The patient is aware they should contact our office by phone for worsening of their current condition or the appearance of new urologic symptoms. Compliance is encouraged with any medications and followup testing that is ordered. It is a privilege to participate in the urologic care of your patient. If you have any questions or concerns regarding treatment for the above conditions, or other urologic issues, please do not hesitate to contact me. The office telephone contact is [phone]. This note is constructed using voice recognition software. While every effort has been made to ensure accuracy cotton picker operator errors may have been included. Yours sincerely, Dr Zachary Murray MD, [facility] - Urology Providers of Expert, Compassionate Care for the Genitourinary System Coding Level of Care Code Est Pt Level 3 (70536) Diagnoses Weak urinary stream R39.12 Chronic prostatitis N41.1
== END 2024-01-19 11:59 | disposition home or self-care (01) ==
LOC: HO.HUSH 11:41
PROVIDERS: PCP Internal Medicine; Visit Provider Urology
DX: R39.12 Poor urinary stream (principal); N41.1 Chronic prostatitis
CPT/HCPCS: 99213

== ENCOUNTER 2024-01-19 11:41 | Outpatient (REF) | payer MEDICARE, SELFPAY | END 2024-01-19 11:42 | disposition home or self-care (01) | LOC: HO.LNP 11:41 | PROVIDERS: PCP Internal Medicine; Visit Provider Urology | DX: N39.0 Urinary tract infection, site not specified (principal); Z79.899 Other long term (current) drug therapy; N41.1 Chronic prostatitis; R39.12 Poor urinary stream | CPT/HCPCS: 87086; 87088; 87186; 99212 ==

== ENCOUNTER 2024-01-20 09:29 | Outpatient (REF) | payer MEDICARE, SELFPAY | END 2024-01-20 09:30 | disposition home or self-care (01) | LOC: HO.LAB 09:29 | PROVIDERS: Visit Provider Urology | DX: Z13.89 Encounter for screening for other disorder (principal) ==

== ENCOUNTER 2024-02-04 09:04 | Outpatient (AMB) | payer MEDICARE, SELFPAY ==
--- NOTE | 2024-02-04 09:04 | MHC.OFFVIS ---
Intake Visit Reasons: 3M Urinalysis Check Intake Note: Patient is Present for 3m US Follow Up Urology Medication: Tamsulosin, Finasteride, Prednisone,MELOXICAM,DOXYCYCLINE,BACTRIM Antibiotic Allergies: None Blood Thinners: Aspirin Radiology Resident Required: No Allergies No Known Allergies [No Known Allergies*] Allergy (Verified 02/04/24 09:06) Medication List - Last Reconciled 02/04/24 by Zachary Murray MD aspirin 81 mg PO DAILY atorvastatin 20 mg PO BEDTIME carvedilol 12.5 mg PO BID cholecalciferol (vitamin D3) 50 mcg PO DAILY 90 days doxycycline hyclate 100 mg PO DAILY 90 days finasteride 5 mg PO DAILY 90 days folic acid 1 mg PO DAILY gabapentin 600 mg PO BEDTIME isosorbide mononitrate ER 60 mg PO QAM hxhujfcd-niff-KZ-calcium-mins 9 mg iron-400 mcg (Therapeutic-M) 1 tab PO DAILY nitroglycerin 0.4 mg sublingual Q5M PRN omeprazole 40 mg PO .Once a day 90 days prednisone 20 mg PO DAILY 5 days sacubitril-valsartan 24-26 mg (Entresto) 1 tab PO BID sennosides-docusate sodium 8.6-50 mg (Senexon-S) 1 tab PO .two times a day PRN 90 days spironolactone 25 mg PO DAILY tamsulosin 0.4 mg PO BEDTIME 30 days tramadol 100 mg PO DAILY HPI Comments Details: Jose is a pleasant male. He is a patient of Dr. Strauss. He is seen for the following urologic conditions - chronic prostatitis Three-month follow-up from antibiotic suppression Continues with leukocytes 2+ Feels he has made progress with control is prostate Continue with finasteride and tamsulosin Prior cystoscopy Some thickening on the right side of the bladder with some irritation but otherwise normal CT scan reviewed - normal bladder Chronic prostatitis Describes pain towards to penis particularly during episodes of rectal incontinence On exam had softness of his prostate which replicate this pain Consistent with chronic prostatitis Good response to combination therapy with anti-inflammatory, prednisone and antibiotic [facility] Medical History Cardiac defibrillator in place Hx of myocardial infarction COVID-19 vaccine series completed Dysphagia Cirrhosis of liver without ascites History of non anemic vitamin B12 deficiency History of vitamin D deficiency Elevated cholesterol Hypertension GERD (gastroesophageal reflux disease) Surgical History History of esophagogastroduodenoscopy (EGD) H/O colonoscopy Status post partial gastrectomy History of esophagogastroduodenoscopy (EGD) (~01/2013) History of cardiac catheterization (~02/2018) Family History Father No problems noted. Mother No problems noted. Social History Household Members: None Alcohol intake: never Comment: short stay Patient Tobacco Use Status: Former Tobacco user Tobacco use type: Cigarette Second Hand Smoke Exposure: No Substance Use Type: Marijuana Advance Directives Date on File: 10/07/23 service: No Review of Systems Const Denies chills and Denies fever(s) Card Reports no additional complaints and Denies syncope Resp Denies cough GI Denies abdominal pain and Denies heartburn Reports as per HPI and Denies change in libido Neuro Denies syncope Psych Denies change in libido Endo Denies change in libido Physical Exam Const General: cooperative, healthy appearing, comfortable and no acute distress Orientation/consciousness: patient oriented x3 HEENT Face and sinus: Yes normal facial exam Mouth: moist mucous membranes Neck Neck: Yes normal visual inspection, Yes full ROM and Yes trachea midline Chest Chest palpation & inspection: normal inspection of the chest Resp Effort & Inspection: normal respiratory effort, able to speak in complete sentences and no respiratory distress GI Inspection: Yes normal to inspection Back/Spine/Pelvis Cervical Spine: normal cervical lordosis Thoracic/Lumbar Spine: thoracic and lumbar spine normal to inspection Skin General skin exam: no rashes or lesions noted Neuro General: patient oriented x3, gait normal, tone normal and moves all extremities Extrem General: Yes normal to inspection and Yes capillary refill normal Results AMB Urinalysis, Automated UA Leukoctes 125 Natanael/uL Last Edit by ASHISH Marquez on 02/04/24 09:17 UA Nitrite Negative Last Edit by ASHISH Marquez on 02/04/24 09:17 UA Urobilinogen 0.2 mg/dL Last Edit by ASHISH Marquez on 02/04/24 09:17 UA Protein 30 mg/dL Last Edit by ASHISH Marquez on 02/04/24 09:17 UA pH 6.0 Last Edit by ASHISH Marquez on 02/04/24 09:17 UA Blood 25 Bihsop/uL Last Edit by ASHISH Marquez on 02/04/24 09:17 UA Specific [place] 1.020 Last Edit by ASHISH Marquez on 02/04/24 09:17 UA Ketone Negative Last Edit by ASHISH Marquez on 02/04/24 09:17 UA Bilirubin 0 mg/dL Last Edit by ASHISH Marquez on 02/04/24 09:17 UA Glucose 0 mg/dL Last Edit by ASHISH Marquez on 02/04/24 09:17 Results Reviewed Results Reviewed: Laboratory Last Values Urine pH (Auto) 6.0 02/04/24 09:16 Specific [place] (Auto) 1.020 02/04/24 09:16 Urine Protein (Auto) 30 mg/dL 02/04/24 09:16 Glucose (UA)(Auto) 0 mg/dL 02/04/24 09:16 Urine Ketones (Auto) Negative 02/04/24 09:16 Urine Blood (Auto) 25 [place]/uL 02/04/24 09:16 Urine Nitrite (Auto) Negative 02/04/24 09:16 Urine Bilirubin (Auto) 0 mg/dL 02/04/24 09:16 Urine Urobilinogen (Auto) 0.2 mg/dL 02/04/24 09:16 Leukocyte Esterase (Auto) 125 Natanael/uL 02/04/24 09:16 Assessment & Plan Assessment & Plan (1) Chronic prostatitis: Comment: Good response to combination therapy Code(s): N41.1 - Chronic prostatitis Category: Medical Plan Six-month follow-up Orders: Orders AMB Urinalysis Automated Today Z13.9 - Encounter for screening, unspecified Medications: Changed From tamsulosin 0.4 mg PO BEDTIME 30 days 30 caps 2RF N40.1 - Benign prostatic hyperplasia with lower urinary tract symptoms, N41.1 - Chronic prostatitis To tamsulosin 0.4 mg PO BEDTIME 90 days 90 caps 1RF N40.1 - Benign prostatic hyperplasia with lower urinary tract symptoms, N41.1 - Chronic prostatitis Refilled finasteride 5 mg PO DAILY 90 days 90 tabs 1RF N13.8 - Other obstructive and reflux uropathy, N40.1 - Benign prostatic hyperplasia with lower urinary tract symptoms, N41.1 - Chronic prostatitis, R33.9 - Retention of urine, unspecified Discontinued meloxicam Discontinued Reason: Patient Completed Course 15 mg PO DAILY 30 days 30 tabs 0RF N41.1 - Chronic prostatitis, R10.31 - Right lower quadrant pain, R10.32 - Left lower quadrant pain sulfamethoxazole-trimethoprim 800-160 mg (Bactrim DS) Discontinued Reason: Patient Completed Course 1 tab PO BID 7 days 14 tabs 0RF Patient Instructions: Imaging studies, laboratory and physical exam results were discussed and reviewed in detail. No major barriers to patient understanding were identified. An opportunity to ask questions regarding the treatment plan was provided. All questions were answered. The patient expressed understanding and agreement with the above treatment plan. The patient is aware they should contact our office by phone for worsening of their current condition or the appearance of new urologic symptoms. Compliance is encouraged with any medications and followup testing that is ordered. It is a privilege to participate in the urologic care of your patient. If you have any questions or concerns regarding treatment for the above conditions, or other urologic issues, please do not hesitate to contact me. The office telephone contact is [phone]. This note is constructed using voice recognition software. While every effort has been made to ensure accuracy medical appointment clerk errors may have been included. Yours sincerely, Dr Zachary Murray MD, [facility] - Urology Providers of Expert, Compassionate Care for the Genitourinary System Coding Level of Care Code Est Pt Level 3 (41762) Diagnoses Chronic prostatitis N41.1
== END 2024-02-04 09:30 | disposition home or self-care (01) ==
LOC: HO.HUSH 09:04
PROVIDERS: PCP Internal Medicine; Visit Provider Urology
DX: N41.1 Chronic prostatitis (principal); Z13.9 Encounter for screening, unspecified
CPT/HCPCS: 99213

== ENCOUNTER → 2024-02-04 09:04 | Outpatient (BNVA) | payer MEDICARE, SELFPAY | PROVIDERS: PCP Internal Medicine; Visit Provider Urology | DX: N41.1 Chronic prostatitis (principal) | CPT/HCPCS: 81003; 99212 ==

== ENCOUNTER 2024-02-17 07:59 | Outpatient (REF) | payer MEDICARE, SELFPAY ==
[2024-02-17 08:33] LABS: MANUAL DIFF FLAG NO
[2024-02-17 09:45] LABS: Basophils Absolute Auto 0.1 X10*3/uL (0.0-0.2); Basophils Percent Auto 0.5 % (0-2); Eosinophils Absolute Auto 0.2 X10*3/uL (0.0-0.4); Eosinophils Percent Auto 1.6 % (0-4); Hematocrit 37.5 % (42.0-52.0); Hemoglobin 12.6 g/dl (14.0-18.0); Imm Gran Abs Auto 0.03 X10*3/uL (0.00-0.03); Imm Gran Pct Auto 0.3 % (0.0-0.4); Lymphocytes Absolute Auto 1.4 X10*3/uL (1.2-4.9); Lymphocytes Percent Auto 14.8 % (20-40); Mean Corpuscular HGB Conc 33.6 g/dl (31.0-36.0); Mean Corpuscular Hemoglobin 30.2 pg (27.0-33.0); Mean Corpuscular Volume 89.9 fL (80.0-98.0); Mean Platelet Volume 12.5 fL (9.4-12.4); Monocytes Absolute Auto 0.8 X10*3/uL (0.1-1.2); Monocytes Percent Auto 8.5 % (2-11); Neutrophils Absolute Auto 6.9 x10*3/uL (2.0-8.3); Neutrophils Percent Auto 74.3 % (45-73); Platelet Count 197 X10*3/uL (160-400); Red Blood Count 4.17 X10*6/uL (4.60-5.80); Red Cell Distribution Width 14.4 % (11.0-16.0); White Blood Count 9.2 X10*3/uL (4.8-10.8)
[2024-02-17 10:26] LABS: Iron 78 mcg/dL (45-160); Percent Iron Saturation 36 % (15-50); Total Iron Binding Capacity 216 mcg/dL (228-428); Unsaturated Iron Binding 138 ug/dL
[2024-02-17 10:43] LABS: Ferritin 75 ng/mL (20-250)
[2024-02-17 10:55] LABS: Folate 11.7 ng/mL (> or = 4.0); Vitamin B12 325 pg/mL (200-900)
== END 2024-02-17 08:00 | disposition home or self-care (01) ==
LOC: HO.LAB 07:59
PROVIDERS: PCP Internal Medicine; Visit Provider Internal Medicine
DX: D64.9 Anemia, unspecified (principal)
CPT/HCPCS: 36415; 82607; 82728; 82746; 83540; 85025

== ENCOUNTER 2024-04-20 11:07 | Outpatient (AMB) | payer MEDICARE, SELFPAY ==
--- NOTE | 2024-04-20 11:39 | A.OFFVIS_ITS ---
Intake Visit Reasons: 3m/UA Intake Note: Patient is Present for Follow Up Urinalysis Check Urology Medication: Finasteride, Tamsulosin Antibiotic Allergies: None Blood Thinners: Aspirin Allergies No Known Allergies [No Known Allergies*] Allergy (Verified 02/04/24 09:06) Medication List - Last Reconciled 04/20/24 by Zachary Murray MD aspirin 81 mg PO DAILY atorvastatin 20 mg PO BEDTIME carvedilol 12.5 mg PO BID cholecalciferol (vitamin D3) 50 mcg PO DAILY 90 days doxycycline hyclate 100 mg PO DAILY 90 days finasteride 5 mg PO DAILY 90 days folic acid 1 mg PO DAILY gabapentin 600 mg PO BEDTIME isosorbide mononitrate ER 60 mg PO QAM xlmmznnj-dies-HO-calcium-mins 9 mg iron-400 mcg (Therapeutic-M) 1 tab PO DAILY naproxen (Naprosyn) 500 mg PO Q12H PRN 30 days nitroglycerin 0.4 mg sublingual Q5M PRN omeprazole 40 mg PO .Once a day 90 days prednisone 20 mg PO DAILY 5 days sacubitril-valsartan 24-26 mg (Entresto) 1 tab PO BID sennosides-docusate sodium 8.6-50 mg (Senexon-S) 1 tab PO BID PRN spironolactone 25 mg PO DAILY tamsulosin 0.4 mg PO BEDTIME 90 days tramadol 100 mg PO DAILY HPI Comments Details: Jose is a pleasant male. He is a patient of Dr. Strauss. He is seen for the following urologic conditions - chronic prostatitis Three-month follow-up Trace leukocytes Otherwise significant improvement Continue with tamsulosin and finasteride Six-month follow-up Naprosyn given Prior cystoscopy Some thickening on the right side of the bladder with some irritation but otherwise normal CT scan reviewed - normal bladder Chronic prostatitis Describes pain towards to penis particularly during episodes of rectal incontinence On exam had softness of his prostate which replicate this pain Consistent with chronic prostatitis Good response to combination therapy with anti-inflammatory, prednisone and antibiotic [facility] Medical History Cardiac defibrillator in place Hx of myocardial infarction COVID-19 vaccine series completed Dysphagia Cirrhosis of liver without ascites History of non anemic vitamin B12 deficiency History of vitamin D deficiency Elevated cholesterol Hypertension GERD (gastroesophageal reflux disease) Surgical History History of esophagogastroduodenoscopy (EGD) H/O colonoscopy Status post partial gastrectomy History of esophagogastroduodenoscopy (EGD) (~01/2013) History of cardiac catheterization (~02/2018) Family History Father No problems noted. Mother No problems noted. Social History Household Members: None Alcohol intake: never Comment: short stay Patient Tobacco Use Status: Former Tobacco user Tobacco use type: Cigarette Second Hand Smoke Exposure: No Substance Use Type: Marijuana Advance Directives Date on File: 10/07/23 service: No Review of Systems Const Denies chills and Denies fever(s) Card Reports no additional complaints and Denies syncope Resp Denies cough GI Denies abdominal pain and Denies heartburn Reports as per HPI and Denies change in libido Neuro Denies syncope Psych Denies change in libido Endo Denies change in libido Physical Exam Const General: cooperative, healthy appearing, comfortable and no acute distress Orientation/consciousness: patient oriented x3 HEENT Face and sinus: Yes normal facial exam Mouth: moist mucous membranes Neck Neck: Yes normal visual inspection, Yes full ROM and Yes trachea midline Chest Chest palpation & inspection: normal inspection of the chest Resp Effort & Inspection: normal respiratory effort, able to speak in complete sentences and no respiratory distress GI Inspection: Yes normal to inspection Back/Spine/Pelvis Cervical Spine: normal cervical lordosis Thoracic/Lumbar Spine: thoracic and lumbar spine normal to inspection Skin General skin exam: no rashes or lesions noted Neuro General: patient oriented x3, gait normal, tone normal and moves all extremities Extrem General: Yes normal to inspection and Yes capillary refill normal Results AMB Urinalysis, Automated UA Leukoctes 70 Natanael/uL Last Edit by LISBETH Ferro on 04/20/24 11:48 UA Nitrite Negative Last Edit by LISBETH Ferro on 04/20/24 11:48 UA Urobilinogen 0.2 mg/dL Last Edit by LISBETH Ferro on 04/20/24 11:4 8 UA Protein 0 mg/dL Last Edit by Brooklyn Kebede A on 04/20/24 11:48 UA pH 6.5 Last Edit by Brooklyn Kebede A on 04/20/24 11:48 UA Blood 25 Bishop/uL Last Edit by Brooklyn Kebede A on 04/20/24 11:48 UA Specific [place] 1.010 Last Edit by Brooklyn Kebede A on 04/20/24 11: 48 UA Ketone Negative Last Edit by Brooklyn Kebede A on 04/20/24 11:48 UA Bilirubin 0 mg/dL Last Edit by Brooklyn Kebede A on 04/20/24 11:48 UA Glucose 0 mg/dL Last Edit by Brooklyn Kebede A on 04/20/24 11:48 Results Reviewed Results Reviewed: Laboratory Last Values Urine pH (Auto) 6.5 04/20/24 11:47 Specific [place] (Auto) 1.010 04/20/24 11:47 Urine Protein (Auto) 0 mg/dL 04/20/24 11:47 Glucose (UA)(Auto) 0 mg/dL 04/20/24 11:47 Urine Ketones (Auto) Negative 04/20/24 11:47 Urine Blood (Auto) 25 Bishop/uL 04/20/24 11:47 Urine Nitrite (Auto) Negative 04/20/24 11:47 Urine Bilirubin (Auto) 0 mg/dL 04/20/24 11:47 Urine Urobilinogen (Auto) 0.2 mg/dL 04/20/24 11:47 Leukocyte Esterase (Auto) 70 Natanael/uL 04/20/24 11:47 Assessment & Plan Assessment & Plan (1) Prostatitis: Code(s): N41.9 - Inflammatory disease of prostate, unspecified Category: Medical Plan Six-month follow-up Orders: Orders AMB Urinalysis Automated Today Z13.9 - Encounter for screening, unspecified Medications: New naproxen (Naprosyn) 500 mg PO Q12H 30 days PRN 60 tabs 0RF pain N41.9 - In flammatory disease of prostate, unspecified, S39.91XA - Unspecified injury of abdomen, initial encounter Patient Instructions: Imaging studies, laboratory and physical exam results were discussed and reviewed in detail. No major barriers to patient understanding were identified. An opportunity to ask questions regarding the treatment plan was provided. All questions were answered. The patient expressed understanding and agreement with the above treatment plan. The patient is aware they should contact our office by phone for worsening of their current condition or the appearance of new urologic symptoms. Compliance is encouraged with any medications and followup testing that is ordered. It is a privilege to participate in the urologic care of your patient. If you have any questions or concerns regarding treatment for the above conditions, or other urologic issues, please do not hesitate to contact me. The office telephone contact is [phone]. This note is constructed using voice recognition software. While every effort has been made to ensure accuracy shipmaster errors may have been included. Yours sincerely, Dr Zachary Murray MD, [facility] - Urology Providers of Expert, Compassionate Care for the Genitourinary System Coding Level of Care Code Est Pt Level 4 (52094) Diagnoses Prostatitis N41.9
== END 2024-04-20 12:18 | disposition home or self-care (01) ==
PROVIDERS: PCP Internal Medicine; Visit Provider Urology
DX: Z13.9 Encounter for screening, unspecified (principal); N41.9 Inflammatory disease of prostate, unspecified
CPT/HCPCS: 99214

== ENCOUNTER → 2024-04-20 11:07 | Outpatient (BNVA) | payer MEDICARE, SELFPAY | PROVIDERS: PCP Internal Medicine; Visit Provider Urology | DX: N41.9 Inflammatory disease of prostate, unspecified (principal) | CPT/HCPCS: 81003; 99212 ==

== ENCOUNTER → 2024-04-28 14:33 | Outpatient (BNVA) | payer MEDICARE, SELFPAY | PROVIDERS: PCP Internal Medicine; Visit Provider Urology | DX: N41.9 Inflammatory disease of prostate, unspecified (principal); R39.12 Poor urinary stream | CPT/HCPCS: 51798 ==

== ENCOUNTER 2024-05-12 08:19 | Outpatient (REF) | payer MEDICARE, SELFPAY ==
[2024-05-12 08:46] LABS: MANUAL DIFF FLAG NO
[2024-05-12 09:17] LABS: Basophils Absolute Auto 0.1 X10*3/uL (0.0-0.2); Basophils Percent Auto 0.7 % (0-2); Eosinophils Absolute Auto 0.2 X10*3/uL (0.0-0.4); Eosinophils Percent Auto 2.6 % (0-4); Hematocrit 38.2 % (42.0-52.0); Hemoglobin 12.6 g/dl (14.0-18.0); Imm Gran Abs Auto 0.02 X10*3/uL (0.00-0.03); Imm Gran Pct Auto 0.3 % (0.0-0.4); Lymphocytes Absolute Auto 1.5 X10*3/uL (1.2-4.9); Lymphocytes Percent Auto 20.1 % (20-40); Mean Corpuscular Hemoglobin 31.3 pg (27.0-33.0); Mean Corpuscular Volume 94.8 fL (80.0-98.0); Monocytes Absolute Auto 0.5 X10*3/uL (0.1-1.2); Monocytes Percent Auto 7.2 % (2-11); Neutrophils Percent Auto 69.1 % (45-73); Platelet Count 181 X10*3/uL (160-400); Red Blood Count 4.03 X10*6/uL (4.60-5.80); Red Cell Distribution Width 14.4 % (11.0-16.0); White Blood Count 7.3 X10*3/uL (4.8-10.8)
[2024-05-12 09:25] LABS: Estimated Average Glucose 120 mg/dL; Hemoglobin A1C 126.0091 umol/L; Hemoglobin A1c % 5.8 % (<6.0); Total Hemoglobin (HGBA1C) 3199.4553 umol/L
[2024-05-12 09:48] LABS: Alanine Aminotransferase 14 U/L (0-40); Albumin Level 3.8 g/dL (3.5-5.0); Alkaline Phosphatase 78 U/L (39-117); Anion Gap 14 (12-20); Aspartate Amino Transferase 25 U/L (5-37); Bilirubin Total 0.4 mg/dL (0.0-1.0); Blood Urea Nitrogen 15 mg/dL (9-16); Calcium 9.7 mg/dL (8.4-10.2); Carbon Dioxide 23 mmol/L (22-29); Chloride 102 mmol/L (96-108); Estimated Glomerular Filt Rate > 60; Glucose Random 102 mg/dL (60-115); Potassium 4.6 mmol/L (3.3-5.1); Sodium 134 mmol/L (135-145); Total Protein 6.4 g/dL (6.5-8.0)
[2024-05-12 09:57] LABS: Ferritin 105 ng/mL (20-250)
[2024-05-12 10:07] LABS: Vitamin B12 349 pg/mL (200-900)
== END 2024-05-12 08:20 | disposition home or self-care (01) ==
LOC: HO.LAB 08:19
PROVIDERS: PCP Internal Medicine; Visit Provider Internal Medicine
DX: I10 Essential (primary) hypertension (principal); I50.9 Heart failure, unspecified; D64.9 Anemia, unspecified; R73.01 Impaired fasting glucose
CPT/HCPCS: 36415; 80053; 82607; 82728; 83036; 85025

== ENCOUNTER 2024-06-28 11:49 | Outpatient (AMB) | payer MEDICARE, SELFPAY ==
--- NOTE | 2024-06-28 11:55 | MHC.OFFVIS ---
Vital Signs 06/28/24 11:56 Height 5 ft 4 in Weight 150 lb BMI 25.7 BP 83/42 L Blood Pressure Location Lt brachial Position Sitting Pulse 64 Intake Visit Reasons: chronic constipation Intake Note: Patient 6 months follow up for chronic constipation. Patient denies any GI issues for today visit. 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 Accompanied by: Self / Same As Patient Allergies No Known Allergies [No Known Allergies*] Allergy (Verified 06/28/24 11:54) Medication List - Last Reconciled 06/28/24 by Francisco Jasmine MD aspirin 81 mg PO DAILY atorvastatin 20 mg PO BEDTIME carvedilol 12.5 mg PO BID cholecalciferol (vitamin D3) 50 mcg PO DAILY 90 days doxycycline hyclate 100 mg PO DAILY 90 days finasteride 5 mg PO DAILY 90 days folic acid 1 mg PO DAILY gabapentin 600 mg PO BEDTIME isosorbide mononitrate ER 60 mg PO QAM fksruokc-bsmy-BX-calcium-mins 9 mg iron-400 mcg (Therapeutic-M) 1 tab PO DAILY naproxen (Naprosyn) 500 mg PO Q12H PRN 30 days nitroglycerin 0.4 mg sublingual Q5M PRN omeprazole 40 mg PO .Once a day 90 days prednisone 20 mg PO DAILY 5 days sacubitril-valsartan 24-26 mg (Entresto) 1 tab PO BID sennosides-docusate sodium 8.6-50 mg (Senexon-S) 1 tab PO BID PRN spironolactone 25 mg PO DAILY tamsulosin 0.4 mg PO BEDTIME 90 days tramadol 100 mg PO DAILY HPI HPI chronic constipation: Details: GI Clinic visit for this 78-year-old male for FU GERD, HECTOR, Fatty Liver, Vitamin B 12 deficiency and colon cancer screening. Pt was hospitalized in 09/2023 with UGIB. EGD showed a gastric ulcer. FU EGD showed had healed Pt scheduled for an urgent FU appt for evaluation of dysphagia On 06/17/24 @ 10:09 Echo Celeste Wrote To Francisco Jasmine (2) Patient called and stated that he still having difficulty swallowing and is asking to be seen sooner than July 28 CHRONIC ILLNESSES:?dysuria, high bp, hx acid reflux, high cholesterol, Vitamin B 12 deficiency TODAY'S VISIT Noted dysphagia last week, feeling better this week. Dysphagia to solids and liquids. Also notes a bloated feeling. Notes sensitivity in the abdomen and denies abd pain. PAST VISITS: EGD results reviewed with the patient. Notes slight improvement in swallowing after dilation CC; Pt was not rx'd any new medications at their last visit. Pt did complete the ordered labs as instructed at his last visit. Pt reports that he is still having some urinary difficulties. Pt states that he is otherwise doing well since he was seen in September for the ulcerations. Pt denies abd pain, dysphagia or fecal incontinence Tries to cut big pills. Can swallow solid food without problems most of the time. Does not think he needs as EGD at present - pt was advised to call Had some diarrhea last week. Can go days without a BM. Has a BM daily for a few days and then no BM for a few days - advised to take Senna prn Plans to go to his daughter's house for xmas (has a son and a daughter) Swallowing is good Taking one pill at a time Had an episode of fecal incontinence of loose stools during sleep after he ate a lot of walnuts a few months ago Has not happened again Occasional dysphagia - has'nt been as it was before Can have problems with large pills - usually cuts the larger pills Can have a brief wave of nausea with exertion. Intermittent mild dysphagia - he is managing with being careful with diet No problems when he excercises. Had his 2nd shot of COVID vaccine on 09/20/20. Nausea has subsided - started diet including banana, apple sauce and rice which has helped with the nausea. Complains of upset stomach followed by nausea, vomiting and diarrhea. Able to tolerate crackers and mallory bao. Just started Probiotics again recently and advised to hold off Notes a wave of nausea when he moves from one room to the other and when he tries to lie down. He is due for colonoscopy in December 2020 for follow-up of colon polyps. Weight has been stable. Advised to take Benafibre once a day if diarrhea continues. Takes 1-2 drops of Edible Marijuna prn a few times a week not daily) for aches and pains Nausea and vomiting for the past week. Stool became softer and stopped taking the Colace Almost a fight to keep food down. Had breakfast at 11 am and did not have anything to eat since. Laid down and when he woke up at 2 pm and vomited partially digested food and liquid. Gets a wave of nausea followed by flushing. Has 2-3 BMs a day - soft in consistency without blood or mucous. Nocturnal anal discharge early this morning - has started wearing?Depends LABS IN [facility]: 10/31/19 H&H of 13.9 and 39.9, platelet 244, INR 1.0, ? Sodium 135, ferritin 101 normal LFTs with alkaline phosphatase of 108 ? 07/2016 liver fibrosis score of 0.28, liver fibrosis stage F1, necroinflammatory score 0.05 ? 05/31 BAR screen was negative, antimitochondrial antibody body, ANCA and ASMA were negative ? IgG 4 level was normal IMAGING STUDIES: 10/2021 ABD US SHOWED: Mildly echogenic liver parenchyma suggesting steatosis or other hepatocellular disease. Otherwise unremarkable abdominal ultrasound. 12/2012 BARIUM SWALLOW SHOWED: 1.? Barium tablet demonstrated mildly delayed passage across the day gastroesophageal junction. 2. Mild to moderate esophageal dysmotility ENDOSCOPIC STUDIES:? 04/02/21 COLONOSCOPY SHOWED: No polyps were detected Moderate to severe diverticulosis seen in the left colon Moderate hemorrhoids on retroflexed exam. Plan:? Patient has an appointment on 04/18/21 in the GI Clinic with Francisco Jasmine M.D.. Repeat Colonoscopy in 5 years (hx of colon polyps) if pt remains in stable health or pt may elect to stop colon cancer screening. 09/28/20 EGD SHOWED:ESOPHAGUS:? Tortuous esophagus with increased tertiary contractions.? Hiatal hernia from 30 to 35 cms. Partially obstructing Schatzki's ring/focal stricture at GE junction - dilated to 16.5 mm CRE balloon. Biopsies were obtained from the stricture Dysphagia is likely a combination of Schatzki's ring and esophageal motility disorder. STOMACH: Status post Bilroth 1 gastrectomy.? Scar of past ulcer at anastomotic site with mild antral erythema - antral biopsies were obtained Plan:? Patient has an appointment on 10/15/20 in the GI Clinic with Francisco Jasmine M.D.-. Above findings were reviewed with the patient and GERD handout was given in the discharge area BIOPSIES SHOWED: A.? Esophagus, stricture, biopsy:? Reactive gastropathy with background mild chronic, focally active, inflammation; no Helicobacter organisms seen. B.? Stomach, biopsy:? Active esophagitis (mostly neutrophils); no atypia or fungi seen. [facility] Medical History Cardiac defibrillator in place Hx of myocardial infarction COVID-19 vaccine series completed Dysphagia Cirrhosis of liver without ascites History of non anemic vitamin B12 deficiency History of vitamin D deficiency Elevated cholesterol Hypertension GERD (gastroesophageal reflux disease) Surgical History History of esophagogastroduodenoscopy (EGD) H/O colonoscopy Status post partial gastrectomy History of esophagogastroduodenoscopy (EGD) (~01/2013) History of cardiac catheterization (~02/2018) Family History Father No problems noted. Mother No problems noted. Social History Household Members: None Alcohol intake: never Comment: short stay Patient Tobacco Use Status: Former Tobacco user Tobacco use type: Cigarette Second Hand Smoke Exposure: No Substance Use Type: Marijuana Advance Directives Date on File: 10/07/23 service: No Review of Systems Const All systems reviewed & are unremarkable except as noted in HPI and below Physical Exam Vital Signs: Last Vital Signs Pulse 64 06/28/24 11:56 BP 83/42 L 06/28/24 11:56 BMI result Body Mass Index 25.7 Const General: no acute distress Nutritional Appearance: average body habitus Orientation/consciousness: patient oriented x3 Limitations: physical limitations HEENT Head: Yes normal to inspection Ears: hearing grossly normal bilaterally Eyes Sclerae: sclerae normal Pupils: Equal, round and reactive pupils present Neck Neck: Yes normal visual inspection Chest Chest palpation & inspection: normal inspection of the chest Resp Effort & Inspection: normal respiratory effort Auscultation: clear to auscultation bilaterally Cardio Palpation: normal PMI Rate: regular rate Rhythm: regular rhythm Heart sounds: S1 normal heart sound present, S2 normal heart sound present and no murmurs GI Inspection: Yes scar (healed midline scar of past gastrectomy) Palpation (GI): Soft to palpation, nontender and No hepatosplenomegaly present Auscultation: normal bowel sounds Rectal Exam - Male: Yes deferred Skin General skin exam: no rashes or lesions noted Neuro General: patient oriented x3, gait normal and moves all extremities Cranial nerves: Yes Equal, round and reactive pupils present Psych Appearance: grossly normal Mental Status: mental status grossly normal Assessment & Plan Assessment & Plan (1) GERD (gastroesophageal reflux disease): Comment: Continue omeprazole 20 mg twice daily Code(s): K21.9 - Gastro-esophageal reflux disease without esophagitis Category: Medical (2) Hiatal hernia: Code(s): K44.9 - Diaphragmatic hernia without obstruction or gangrene Category: Medical (3) History of vitamin D deficiency: Code(s): Z86.39 - Personal history of other endocrine, nutritional and metabolic disease Category: Medical (4) History of colon polyps: Comment: 12/2017 A 12-15 mm TA was removed during colonoscopy. 03/2021 colonoscopy showed: No polyps were detected Moderate to severe diverticulosis seen in the left colon Moderate hemorrhoids on retroflexed exam. Plan: Repeat Colonoscopy in 5 years if pt remains in stable health or patient may elect to stop colon cancer screening. Code(s): Z86.010 - Personal history of colon polyps Category: Medical (5) Status post partial gastrectomy: Code(s): Z90.3 - Acquired absence of stomach [part of] Category: Surgical (6) Cirrhosis of liver without ascites: Comment: Lab tests showed liver fibrosis score of 0.28 with liver fibrosis stage of F1 and fatty infiltration of the liver on abdominal ultrasound. Abd US with elastography showed echogenic liver and METAVIR score F2 to F3 suggestive of [id number] increased risk of developing liver fibrosis. Past evaluation with antibody testing for celiac sprue, hepatitis-B and C serologies were negative. Likely cause of cirrhosis is fatty infiltration. Lab tests to rule out autoimmune hepatitis and PBC were negative. MELD score is 6 Code(s): K74.60 - Unspecified cirrhosis of liver Category: Medical (7) Dysphagia: Comment: 09/28/20 EGD showed: ESOPHAGUS: Tortuous esophagus with increased tertiary contractions. Hiatal hernia from 30 to 35 cms. Partially obstructing Schatzki's ring/focal stricture at GE junction - dilated to 16.5 mm CRE balloon. Biopsies were obtained from the stricture Dysphagia is likely a combination of Schatzki's ring and esophageal motility disorder. STOMACH: Status post Bilroth 1 gastrectomy. Scar of past ulcer at anastomotic site with mild antral erythema - antral biopsies were obtained Code(s): R13.10 - Dysphagia, unspecified Category: Medical (8) History of gastric ulcer: Code(s): Z87.11 - Personal history of peptic ulcer disease Category: Medical Plan 78 YM with hx dysuria, high bp, hx acid reflux, high cholesterol, Vitamin B 12 deficiency followed in GI for GERD. GERD symptoms are managed with omeprazole 20 mg twice daily - does not need refills at present. Iron deficiency anemia has improved with oral iron replacement -advised to continue every other day. 12/2017 evaluation with EGD showed a 5 cms Hiatal hernia with a non obstructing Schatzki's ring and Bilroth 1 gastric anatomy with scar of past ulcer at anastomotic site. A 12-15 mm TA was removed during same-day colonoscopy. Past lab tests showed liver fibrosis score of 0.28 with liver fibrosis stage of F1 and fatty infiltration of the liver on abdominal ultrasound. Abd US with elastography showed echogenic liver and METAVIR score F2 to F3 suggestive of [id number] increased risk of developing liver fibrosis. Past evaluation with the antibody testing for celiac sprue, hepatitis-B and C serologies were negative. Likely cause of cirrhosis is fatty infiltration. Lab tests to rule out autoimmune hepatitis and PBC were negative. Labs and abdominal ultrasound for HCC surveillance will be scheduled on FU after colonoscopy.? MELD score is 6. 3/ EGD showed: ESOPHAGUS:? Tortuous esophagus with increased tertiary contractions.? Hiatal hernia from 30 to 35 cms. ? Partially obstructing Schatzki's ring/focal stricture at GE junction - dilated to 16.5 mm CRE balloon.? Biopsies were obtained from the stricture Dysphagia is likely a combination of Schatzki's ring and esophageal motility disorder. STOMACH: Status post Bilroth 1 gastrectomy.? Scar of past ulcer at anastomotic site with mild antral erythema - antral biopsies were obtained. Pt had stopped taking Vitamin D and iron due to concern for nausea - advised to resume slowly. 06/25/23 - scheduled for an Abd US for HCC surveillance and missed his apt - will be rescheduled 01/08/24 EGD was performed and results as noted Advised to continue Omeprazole 40 mg once a day Pt was advised to contact the GI clinic if he noted recurrent episodes of fecal incontinence or worsening dysphagia 06/28/24 Noted dysphagia last week, feeling better this week. Dysphagia to solids and liquids - likely due to recurrent Schatzki's ring. Pt advised to schedule an urgent EGD - added on 07/01/24 FU appt in 3 months. Coding Level of Care Code Est Pt Level 3 (55645) Diagnoses GERD (gastroesophageal reflux disease) K21.9 Hiatal hernia K44.9 History of vitamin D deficiency Z86.39 History of colon polyps Z86.010 Status post partial gastrectomy Z90.3 Cirrhosis of liver without ascites K74.60 Dysphagia R13.10 History of gastric ulcer Z87.11 Time Spent (min) 21
[2024-06-28 11:56] VITALS: BP 83/42; PULSE 64; BMI 25.7
== END 2024-06-29 08:27 | disposition home or self-care (01) ==
PROVIDERS: PCP Internal Medicine; Visit Provider Internal Medicine Gastroenterology
DX: K21.9 Gastro-esophageal reflux disease without esophagitis (principal); K44.9 Diaphragmatic hernia without obstruction or gangrene; Z86.39 Personal history of other endocrine, nutritional and metabolic disease; Z86.0100 Personal history of colon polyps, unspecified; Z90.3 Acquired absence of stomach [part of]; K74.60 Unspecified cirrhosis of liver; R13.10 Dysphagia, unspecified; Z87.11 Personal history of peptic ulcer disease
CPT/HCPCS: 99213

== ENCOUNTER → 2024-06-28 11:49 | Outpatient (BNVA) | payer MEDICARE, SELFPAY | PROVIDERS: PCP Internal Medicine; Visit Provider Internal Medicine Gastroenterology | DX: K21.9 Gastro-esophageal reflux disease without esophagitis (principal); K44.9 Diaphragmatic hernia without obstruction or gangrene; K74.60 Unspecified cirrhosis of liver; R13.10 Dysphagia, unspecified; Z87.11 Personal history of peptic ulcer disease; Z90.3 Acquired absence of stomach [part of]; Z86.0100 Personal history of colon polyps, unspecified; Z86.39 Personal history of other endocrine, nutritional and metabolic disease | CPT/HCPCS: 99212 ==

== ENCOUNTER 2024-07-01 12:33 | Day surgery (SDC) | payer MEDICARE, SELFPAY ==
--- OUTSIDE RECORDS SUMMARY | 2024-07-01 09:54 | XMS_ITS ---
Author Organization [facility] [place] Address [address] [place] [address] Care Team Providers Care Drawing Instructor Name Role Phone Pablo Strauss MD Primary Care Provider Unavaila Magdaleno Kulkarni Unavailable [phone] Allergies No Known Allergies REASON FOR VISIT At Risk Footcare, Painful Nail(s) aggrevated by shoes and causing difficulty standing/walking. Medications Medication SIG (Take, Route, Frequency, Duration) Notes Start Date End Date Status traMADol HCl 50 MG Oral for 28 Active Vitamin B-1 Active Omeprazole 20 MG 1 capsule 30 minutes before morning meal Orally Twice a day Active Sucralfate 1 GM TAKE 1 TABLET BY TOYA TH TWICE DAILY Oral for 90 Not-Taki ng Ranitidine Not-Takin g Magnesium Active Isosorbide Mononitrate ER 60 MG 1 tablet in the morning Orally Once a day for 30 day(s) Active Lisinopril 2.5 MG 1 tablet Orally Once a day Active Gabapentin 300 MG Oral for 90 Active Folic Acid 1 MG TAKE 1 TABLET BY TOYA TH EVERY DAY Diagnosis Unavailable Oral for 90 Active Carvedilol 12.5 MG 1 tablet with food Orally Twice a day for 30 day(s) Active Atorvastatin Calcium 20 MG 1 tablet Orally Once a day Active Social History Tobacco Use: Social History Observation Description Date Details (start date - stop date) Former Smoker NA - NA Tobacco Use/Smoking Question Answer Notes Are you a: former smoker Additional Findings: Tobacco Non-User Current no n-smoker,Ex-cigarette smoker Alcohol Screen Question Answer Notes Did you have a drink containing alcohol in the p ast year? No Points 0 Interpretation Negative Tobacco use other than smoking: Question Answer Notes Are you an other tobacco user? No Vital Signs Height 5ft 7in in 02/23/2024 Weight 150 lbs 02/23/2024 BMI 23.49 kg/m2 02/23/2024 Blood pressure systolic 120 mm Hg 02/23/20 24 Blood pressure diastolic 80 mm Hg 024 Procedures Procedure Date Ordered Date Performed Result Body Sit e 77291-CFWPJOC NAIL, 1-5 02/23/2024 N/A 39699-QUAC SKIN LESIONS, 2 TO 4 02/23/2024 N/A P4176-IZAWFJQK DYSTROPHIC NAILS ANY # 02/23/2024 N/A Encounters Encounter Location Date Provider Diagnosis [facility] [place] [address] [place] [address] 02/23/2024 Magdaleno Ji Atherosclerosis of [place] artery of both lower extremities, with unspecified presence of clinical manifestation I70.203 ; Tinea unguium B35.1 ; Pain in right toe(s) M79.674 and Pain in left toe(s) M79.675 Assessments Encounter Date Diagnosis (ICD Code) Assessment Notes Treatment Notes Treatment Clinical Notes Section Notes 02/23/2024 Atherosclerosis of [place] artery of both lower extremities, with unspecified presence of clinical manifestation (ICD-10 - I70.203) 02/23/2024 Tinea unguium (ICD-10 - B35.1) 02/23/2024 Pain in right toe(s) (ICD-10 - M79.674) 02/23/2024 Pain in left toe(s) (ICD-10 - M79.675) Plan Of Treatment Pending Test Test Name Order Date 46027-XPWZVRK NAIL, 1-5 02/23/2024 20146-KWWD SKIN LESIONS, 2 TO 4 02/23/20 24 G8569-KLCHUWBL DYSTROPHIC NAILS ANY # Next Appt Details Follow Up: prn, Reason: Provider Name:Magdaleno Ji , 08/26/2024 09:15:00 AM, [address] [place], [address], Procedure Notes * Category Sub-Category Detail Notes Keratoma Treatment Parring or Cutting o f Benign Hyperkeratotic Lesion(s) 15544 (2-4 Lesions) - The Benign hyperkeratotic lesions, as described above were pared, and/or cut utilizing a sterile #15 blade, tissue nippers, and/or dremel, Q8 Debride Nails 1-5 Procedure: Nail debrideme nt performed extensively to reduce/remove overall nail length, girth, thickness, subungual debris, and necrotic tissue, by manual and electrical means through the use of a nail nipper and/or dremel, to more viable healthy nail plate or bed tissue 1-5. Silver nitrate used for any petechial bleeding as necessary. Patient chooses, no pharmaceutical tx (60696) Nail Reduction Nail Reduction Trimming of dyst rophic nails performed to reduce/remove overall nail length and girth, by manual and electrical means with use of a nail nipper and/or dremel, to more viable healthy nail plate or bed tissue, any number (G0127), Q8 Progress Notes * Jose BONILLA PDOB:1945 (78 yo M)Acc No.[id number]:02/23/2024 Progress Note Patient:?Jose Bonilla P Provider:?Magdaleno Ji DPM :1945???Age:78 Y???Sex:Male Morgan e:02/23/2024 Address:[address] [place], [place] [id number] Pcp:Pablo Strauss MD Subjective: * Chief Complaints: * ???At Risk FootcarePainful N ail(s) aggrevated by shoes and causing difficulty standing/walking. * HPI: ???At Risk footcare:?Pt States Last PCP Visit:?Date?02/15/2024 * ROS:?General/Constitutional:?Nausea?denies.?Vomiting?denies.?Hunger Thirst?denies.?Loss appetite?denies.?Chills?denies.?Fatigue?denies.?Fever?denies.?Night Sweats?denies.?Unexplained weight loss?denies.?Unexplained weight gain?denies.?HEENTM:?Dentures?denies.?Dizziness?denies.?Glasses/contacts?admits.?Retinopathy?de nies.?Blurred/double vision?denies.?TMJ?denies.?Discharge/drainage?denies.?Implants?denies.?Sore throat?denies.?Dental implants?denies.?Hard of hearing ?denies.?Difficulty chewing/swallowing/speaking?denies.?Nose bleeds?denies.?Sore mouth?denies.?Respiratory:?On Oxygen?denies.?Pneumonia/pleurisy?denies.?Bronchitis?denies.?Emphysema?denies.?C oughing?denies.?Cough blood?denies.?Shortness of breath?denies.?Wheezing?denies.?Cardiovascular:?Pacemaker?denies.?MVP?denies.?WPW?denies.?CHF?denies.?Heart attack?denies.?Septal defect?denies.?Rapid beat?denies.?Chest pain ?denies.?Atrial Fib.?admits.?Murmur/Palpitations?denies.?Gastrointestinal:?Hemorrhoids?denies.?Stomach/Abdominal pain?denies.?Dark blood stool?denies.?Irritable bowel ?denies.?Constipation?denies.?Diarrhea?denies.?Hematology:?Swelling?denies.?Clots?denies.?Varicose Veins?denies.?Bruising?denies.?Bleeding problem?denies.?Genitourinary:?Blood urine?denies.?Frequent/Painfu/urination/bladder control?denies.?Kidney stones?denies.?Infection (UTI)?denies.?Nephropathy?denies.?sex trans dis (STD)?denies.?Prostate?denies.?Musculoskeletal:?Hammertoes?admits.?Bunions?denies.?Back Pain?admits.?Muscle Cramps/ Resting?denies.?Muscle cramps / walking?admits.?Generalized aches and pains?denies.?Weakness?admits.?Integ.:?Greco?denies.?Scars?denies.?Corns/calluses?admits.?Ingrown nails?admits.?Painful nails?admits.?Open Sores?denies.?Rashes?denies.?Neurologic:?Difficulty sleeping?denies.?Brain disorder?denies.?Numbness?denies.?Balance trouble?admits.?Confusion?denies.?Fainting/blackouts?denies.?Tingling?admits.?Tr emors?denies.? * Medical History:? * Surgical History:?hip surger y, B/L - replacement spinal fusion cervical fusion * Hospitalization/Major Diagno stic Procedure:?Denies Past Hospitalization * Family History:?Mother: dece ased, diagnosed with Family history of arthritis.?Father: , poor circulation, heart attack, diagnosed with Unspecified heart disease.?Siblings: diagnosed with Family history of arthritis.? * Social History:?Tobacco Use:?Tobacco Use/Smoking?Are you a:?former smoker ?Additional Findings: Tobacco Non-User?Current non-smoker,Ex-cigarette smoker ?Tobacco use other than smoking?Are you an other tobacco user??No ???Drugs/Alcohol:?Drugs?Have you used drugs other than those for medical reasons in the past 12 months??Yes ?Marijuana??Yes ?Alcohol Screen?Did you have a drink containing alcohol in the past year??No ?Points?0 ?Interpretation?Negative ???Miscellaneous:?Caffeine: yes, 5 cups per day. ?Children: yes, 2. ?Exercise: yes, gym senior center. ?Marital status: . 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 * Medications:?TakingAtorvasta tin Calcium 20 MG Tablet 1 tablet Orally Once a dayCarvedilol 12.5 MG Tablet 1 tablet with food Orally Twice a dayFolic Acid 1 MG Tablet TAKE 1 TABLET BY MOUTH EVERY DAY Diagnosis Unavailable Oral Gabapentin 300 MG Capsule Oral Isosorbide Mononitrate ER 60 MG Tablet Extended Release 24 Hour 1 tablet in the morning Orally Once a dayLisinopril 2.5 MG Tablet 1 tablet Orally Once a dayMagnesium Omeprazole 20 MG Capsule Delayed Release 1 capsule 30 minutes before morning meal Orally Twice a daytraMADol HCl 50 MG Tablet Oral Vitamin B-1 Taking Atorvastatin Calcium 20 MG Tablet 1 tablet Orally Once a dayTaking Carvedilol 12.5 MG Tablet 1 tablet with food Orally Twice a dayTaking Folic Acid 1 MG Tablet TAKE 1 TABLET BY MOUTH EVERY DAY Diagnosis Unavailable Oral Taking Gabapentin 300 MG Capsule Oral Taking Isosorbide Mononitrate ER 60 MG Tablet Extended Release 24 Hour 1 tablet in the morning Orally Once a dayTaking Lisinopril 2.5 MG Tablet 1 tablet Orally Once a dayTaking Magnesium Taking Omeprazole 20 MG Capsule Delayed Release 1 capsule 30 minutes before morning meal Orally Twice a dayTaking traMADol HCl 50 MG Tablet Oral Taking Vitamin B-1 Not-Taking/PRNSucralfate 1 GM Tablet TAKE 1 TABLET BY MOUTH TWICE DAILY Oral Ranitidine Medication List reviewed and reconciled with the patientNot-Taking/PRN Sucralfate 1 GM Tablet TAKE 1 TABLET BY MOUTH TWICE DAILY Oral Not-Taking/PRN Ranitidine Medication List reviewed and reconciled with the patient * Allergies:?N.K.D.A.yes[Aller gies Verified] Objective: * Vitals:?Ht: 5ft 7in, Wt:150, BMI:23.49, Shoe size:8.5, BP:120/80 mm Hg. * Examination: ???Vascular: ?DP PULSES:? 0-1/4, B/L.?PT PULSES:? 0/4, B/L.?CAPILLARY FILL TIME:? delayed, all digits, B/L.?SKIN TEMPERTURE GRADIENT OF THE LOWER EXTERMITIES:? decreased, cool to cool, proximal to distal, B/L.?HAIR GROWTH/TEXTURE/ELASTICITY/TURGOR:? decreased, B/L.?PIGMENTATION:? mottled, B/L.?EDEMA:?absent, B/L.?CLAUDICATION:?denies, B/L.?REST PAIN:?denies, B/L.?Nails: ?NAILS are:?Elongated, overgrown, dystrophic, lytic, greater than 3mm thick, discolored and friable with crumbly malodorous subungual debris, with pain on palpation, TA, T1, T4, T5, remaining nails are elongated, overgrown, dystrophic.?Dermatologic: ?SKIN FINDINGS:? Skin exam reveals Keratotic lesion(s) located at, Heel(s), B/L .? Assessment: * Assessment: 1.?Tinea unguium - B35.1?2.? Atherosclerosis of [place] artery of both lower extremities, with unspecified presence of clinical manifestation - I70.203 (Primary)?3.?Pain in right toe(s) - M79.674?4.?Pain in left toe(s) - M79.675? Plan: * Treatment: 2.?Tinea unguium?Procedure: 59857-HRSCGYQ NAIL, 1-5 * Procedures:?Debride Nails 1-5:?Procedure:?Nail debridement performed extensively to reduce/remove overall nail length, girth, thickness, subungual debris, and necrotic tissue, by manual and electrical means through the use of a nail nipper and/or dremel, to more viable healthy nail plate or bed tissue 1-5. Silver nitrate used for any petechial bleeding as necessary. Patient chooses, no pharmaceutical tx (57357).?Keratoma Treatment:?Parring or Cutting of Benign Hyperkeratotic Lesion(s)?01660 (2-4 Lesions) - The Benign hyperkeratotic lesions, as described above were pared, and/or cut utilizing a sterile #15 blade, tissue nippers, and/or dremel, Q8.?Nail Reduction:?Nail Reduction?Trimming of dystrophic nails performed to reduce/remove overall nail length and girth, by manual and electrical means with use of a nail nipper and/or dremel, to more viable healthy nail plate or bed tissue, any number (G0127), Q8.? * Procedure Codes:?G0127 SHEELA ING DYSTROPHIC NAILS ANY #, Modifiers: XS , [id number] DEBRIDE NAIL, 1-5, Modifiers: XS 31740 TRIM SKIN LESIONS, 2 TO 4, Modifiers: XS , Q8 * Follow Up:?prn * Images: * Sign off status: Completed true * Provider:?Magdaleno Ji DPM Date:?2023 Generated for Spencer pardo/Alan/Bere on:?07/01/2024 09:53 AM EST History and Physical Notes * HPI (History of Present Illness) Category Sub-Category Detail Notes Category Not es At Risk footcare Pt States Last PCP Visit: Date: Examination Category Sub-Category Detail Notes Category Not es Dermatologic SKIN FINDINGS: Skin exam reveal s Keratotic lesion(s) located at, Heel(s), B/L Vascular DP PULSES (B): 0-1/4, B/L PT PULSES (B): 0/4, B/L CAPILLARY FILL TIME: delayed, all digits , B/L TEMPERTURE GRADIENT (C): decreased, cool to cool, proximal to distal, B/L TROPHIC CONDITION-TEXTURE/ELASTICITY/TURGOR/HAIR GROWTH (B): decreased, B/L EDEMA (C): absent, B/L CLAUDICATION (C): denies, B/L REST PAIN: denies, B/L PIGMENTATION: mottled, B/L Nails NAILS are: Elongated, overg rown, dystrophic, lytic, greater than 3mm thick, discolored and friable with crumbly malodorous subungual debris, with pain on palpation, TA, T1, T4, T5, remaining nails are elongated, overgrown, dystrophic
--- OUTSIDE RECORDS SUMMARY | 2024-07-01 09:54 | XMS_ITS ---
Author Organization [facility] [place] Address [address] [place] [address] Care Team Providers Care Skidder Name Role Phone Pablo Strauss MD Primary Care Provider Unavaila Magdaleno Kulkarni Unavailable [phone] Allergies No Known Allergies REASON FOR VISIT At Risk Footcare, Painful Nail(s) aggrevated by shoes and causing difficulty standing/walking. Medications Medication SIG (Take, Route, Frequency, Duration) Notes Start Date End Date Status Ranitidine Not-Takin g Sucralfate 1 GM TAKE 1 TABLET BY TOYA TH TWICE DAILY Oral for 90 Not-Taki ng Vitamin B-1 Active traMADol HCl 50 MG Oral for 28 Active Omeprazole 20 MG 1 capsule 30 minutes before morning meal Orally Twice a day Active Lisinopril 2.5 MG 1 tablet Orally Once a day Active Isosorbide Mononitrate ER 60 MG 1 tablet in the morning Orally Once a day for 30 day(s) Active Gabapentin 300 MG Oral for 90 Active Folic Acid 1 MG TAKE 1 TABLET BY TOYA TH EVERY DAY Diagnosis Unavailable Oral for 90 Active Magnesium Active Carvedilol 12.5 MG 1 tablet with food Orally Twice a day for 30 day(s) Active Atorvastatin Calcium 20 MG 1 tablet Orally Once a day Active Doxycycline Active Social History Tobacco Use: Social History [...] No Vital Signs Height 5ft 7in in 05/27/2024 Weight 150 lbs 05/27/2024 BMI 23.49 kg/m2 05/27/2024 Blood pressure systolic 120 mm Hg 05/27/20 24 Blood pressure diastolic 80 mm Hg 024 Procedures Procedure Date Ordered Date Performed Result Body Sit e 78841-RAGSPMH NAIL, 1-5 05/27/2024 N/A 98576-XNOG SKIN LESIONS, 2 TO 4 05/27/2024 N/A V0484-IDBNKXPY DYSTROPHIC NAILS ANY # 05/27/2024 N/A Encounters Encounter Location Date Provider Diagnosis [facility] [place] [address] [place] [address] 05/27/2024 Magdaleno Ji Atherosclerosis of [place] artery of both lower extremities, with unspecified presence of clinical manifestation I70.203 ; Tinea unguium B35.1 ; Pain in right toe(s) M79.674 and Pain in left toe(s) M79.675 Assessments Encounter Date Diagnosis (ICD Code) Assessment Notes Treatment Notes Treatment Clinical Notes Section Notes 05/27/2024 Atherosclerosis of [place] artery of both lower extremities, with unspecified presence of clinical manifestation (ICD-10 - I70.203) 05/27/2024 Tinea unguium (ICD-10 - B35.1) 05/27/2024 Pain in right toe(s) (ICD-10 - M79.674) 05/27/2024 Pain in left toe(s) (ICD-10 - M79.675) Plan Of Treatment Pending Test Test Name Order Date 83272-JHNYKKC NAIL, 1-5 05/27/2024 23755-HOTA SKIN LESIONS, 2 TO 4 05/27/20 24 R7786-DDNPGZYZ DYSTROPHIC NAILS ANY # Next Appt Details Follow Up: prn, Reason: Provider Name:Magdaleno Ji , 08/26/2024 09:15:00 AM, [address] [place] [address], [phone], Procedure Notes * Category Sub-Category Detail Notes Keratoma Treatment Parring or Cutting o f Benign Hyperkeratotic Lesion(s) (-56) 2-4 Lesions - The Benign hyperkeratotic lesions, as described in exam, were pared, and/or cut utilizing a sterile 15 blade, tissue nippers, and/or dremel - 54735, Q8 Debride Nails 1-5 Procedure: Performance of this nail treatment by a nonprofessional would put this patients foot and overall health at risk. Therefore, debridement to affected nail(s), as described in exam, was performed extensively to reduce/remove overall nail length, girth, thickness, subungual debris, and necrotic tissue, by manual and/or electrical means through the use of a nail nipper and/or dremel-type thread grinder tool, to a more viable healthy nail plate or bed tissue 1-5. Silver nitrate used for any petechial bleeding as necessary. Definitive antifungal treatment options have been reviewed and discussed with the patient. The patient chooses, no pharmaceutical tx - 79195 Nail Reduction Nail Reduction (-27) Trimming o f dystrophic nails, as described in exam, was performed to reduce/remove overall nail length and girth, by manual and electrical means with use of a nail nipper and/or dremel, to more viable healthy nail plate or bed tissue, any number - G0127, Q8 Progress Notes * Jose BONILLA PDOB:1945 (78 yo M)Acc No.[id number]:05/27/2024 Progress Note Patient:Jose TAN Provider:?Magdaleno Ji DPM :1945???Age:78 Y???Sex:Male [place] e:05/27/2024 Address:[address] [place] [address] Pcp:Pablo Strauss MD Subjective: * Chief Complaints: * ???At Risk FootcarePainful N ail(s) aggrevated by shoes and causing difficulty standing/walking. * HPI: ???At Risk footcare:?Pt States Last PCP Visit:?Date?05/16/2024 * ROS:?General/Constitutional:?Nausea?denies.?Vomiting?denies.?Hunger Thirst?denies.?Loss appetite?denies.?Chills?denies.?Fatigue?denies.?Fever?denies.?Night Sweats?denies.?Unexplained weight loss?denies.?Unexplained [...] gym senior [facility]. ?Marital status: . 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 * Medications:?TakingDoxycycli ne Atorvastatin Calcium 20 MG Tablet 1 tablet Orally Once a day Carvedilol 12.5 MG Tablet 1 tablet with food Orally Twice a day Folic Acid 1 MG Tablet TAKE 1 TABLET BY MOUTH EVERY DAY Diagnosis Unavailable Oral Gabapentin 300 MG Capsule Oral Isosorbide Mononitrate ER 60 MG Tablet Extended Release 24 Hour 1 tablet in the morning Orally Once a day Lisinopril 2.5 MG Tablet 1 tablet Orally Once a day Magnesium Omeprazole 20 MG Capsule Delayed Release 1 capsule 30 minutes before morning meal Orally Twice a day traMADol HCl 50 MG Tablet Oral Vitamin B-1 Taking Doxycycline Taking Atorvastatin Calcium 20 MG Tablet 1 tablet Orally Once a day Taking Carvedilol 12.5 MG Tablet 1 tablet with food Orally Twice a day Taking Folic Acid 1 MG Tablet TAKE 1 TABLET BY MOUTH EVERY DAY Diagnosis Unavailable Oral Taking Gabapentin 300 MG Capsule Oral Taking Isosorbide Mononitrate ER 60 MG Tablet Extended Release 24 Hour 1 tablet in the morning Orally Once a day Taking Lisinopril 2.5 MG Tablet 1 tablet Orally Once a day Taking Magnesium Taking Omeprazole 20 MG Capsule Delayed Release 1 capsule 30 minutes before morning meal Orally Twice a day Taking traMADol HCl 50 MG Tablet Oral Taking Vitamin B-1 Not-Taking/PRNSucralfate 1 GM Tablet TAKE 1 TABLET BY MOUTH TWICE DAILY Oral Ranitidine Not-Taking/PRN Sucralfate 1 GM Tablet TAKE 1 TABLET BY MOUTH TWICE DAILY Oral Not-Taking/PRN Ranitidine * Allergies:?N.K.D.A.yes[Aller gies Verified] Objective: * Vitals:?Ht: 5ft 7in, Wt:150, BMI: 23.49, Shoe size:8.5, BP:120/80mm Hg, Wt-k.04 kg. * Examination: ???Vascular: ?DP PULSES(B):? 0-1/4, B/L.?PT PULSES(B):? 0/4, B/L.?CAPILLARY FILL TIME:? delayed, all digits, B/L.?TROPHIC CONDITION-TEXTURE/ELASTICITY/TURGOR/HAIR GROWTH(B):? decreased,?fragile, thin, shiny skin, with sparse to absent hair growth, B/L.?TEMPERTURE GRADIENT(C):? decreased, cool to cool, proximal to distal, B/L.?PIGMENTATION:? mottled, B/L.?EDEMA(C):?absent, B/L.?CLAUDICATION(C):?denies, B/L.?REST PAIN:?denies, B/L.?Nails: ?NAILS are:?Elongated, overgrown, dystrophic, lytic, greater than 3mm thick, discolored and friable with crumbly malodorous subungual debris, with pain on palpation, TA, T1, T4, T5, remaining nails are elongated, overgrown, dystrophic.?Dermatologic: ?SKIN FINDINGS:? Skin exam reveals Keratotic lesion(s) located at,?Plantar, Heel(s), B/L .? Assessment: * Assessment: 1.?Tinea unguium - B35.1???2 .?Atherosclerosis of [place] artery of both lower extremities, with unspecified presence of clinical manifestation - I70.203 (Primary)???3.?Pain in right toe(s) - M79.674???4.?Pain in left toe(s) - M79.675??? Plan: * Treatment: 2.?Tinea unguium?Procedure: 97338-WKBVGMB NAIL, 1-5 * Procedures:?Debride Nails 1-5:?Procedure:?Performance of this nail treatment by a nonprofessional would put this patients foot and overall health at risk. Therefore, debridement to affected nail(s), as described in exam, was performed extensively to reduce/remove overall nail length, girth, thickness, subungual debris, and necrotic tissue, by manual and/or electrical means through the use of a nail nipper and/or dremel-type thread grinder tool, to a more viable healthy nail plate or bed tissue 1-5. Silver nitrate used for any petechial bleeding as necessary. Definitive antifungal treatment options have been reviewed and discussed with the patient. The patient chooses, no pharmaceutical tx - 56879.?Keratoma Treatment:?Parring or Cutting of Benign Hyperkeratotic Lesion(s)?(-56) 2-4 Lesions - The Benign hyperkeratotic lesions, as described in exam, were pared, and/or cut utilizing a sterile 15 blade, tissue nippers, and/or dremel - 08546, Q8.?Nail Reduction:?Nail Reduction?(-27) Trimming of dystrophic nails, as described in exam, was performed to reduce/remove overall nail length and girth, by manual and electrical means with use of a nail nipper and/or dremel, to more viable healthy nail plate or bed tissue, any number - G0127, Q8.? * Procedure Codes:?G0127 SHEELA ING DYSTROPHIC NAILS ANY #, Modifiers: XS , [id number] DEBRIDE NAIL, 1-5, Modifiers: XS 73934 TRIM SKIN LESIONS, 2 TO 4, Modifiers: XS , Q8 * Follow Up:?prn * Images: * Sign off status: Completed true * Provider:?Magdaleno Ji DPM Date:?2023 Generated for Spencer pardo/Alan/Bere on:?07/01/2024 09:53 AM EST History and Physical Notes * HPI (History of Present Illness) Category Sub-Category Detail Notes Category Not es At Risk footcare Pt States Last PCP Visit: Date: 11/04/202 4 Examination Category Sub-Category Detail Notes Category Not es Dermatologic SKIN FINDINGS: Skin exam reveal s Keratotic lesion(s) located at, Plantar, Heel(s), B/L Vascular DP PULSES (B): 0-1/4, B/L PT PULSES (B): 0/4, B/L CAPILLARY FILL TIME: delayed, all digits , B/L TEMPERTURE GRADIENT (C): decreased, cool to cool, proximal to distal, B/L TROPHIC CONDITION-TEXTURE/ELASTICITY/TURGOR/HAIR GROWTH (B): decreased, fragile, thin, shiny skin, wi th sparse to absent hair growth, B/L EDEMA (C): absent, B/L CLAUDICATION (C): denies, B/L REST PAIN: denies, B/L PIGMENTATION: mottled, B/L Nails NAILS are: Elongated, overg rown, dystrophic, lytic, greater than 3mm thick, discolored and friable with crumbly malodorous subungual debris, with pain on palpation, TA, T1, T4, T5, remaining nails are elongated, overgrown, dystrophic
--- OUTSIDE RECORDS SUMMARY | 2024-07-01 09:54 | XMS_ITS | Patient Health Record ---
Author Organization [facility] [place] Address [address] [facility] [place] [place] [address] Care Team Providers Care Catering Operations Manager Name Role Phone Pablo Strauss MD Primary Care Provider UnavailMagdaleno Ricardo Unavailable [phone] Allergies No Known Allergies Reason For Referral No Information Medications Medication SIG (Take, Route, Frequency, Duration) Notes Start Date End Date Status Lisinopril 2.5 MG 1 tablet Orally Once [...] 1 tablet Orally Once a day Active Ranitidine Not-Takin g Doxycycline Active Sucralfate 1 GM TAKE 1 TABLET BY TOYA TH TWICE DAILY Oral for 90 Not-Taki ng Vitamin B-1 Active traMADol HCl 50 MG Oral for 28 Active Omeprazole 20 MG 1 capsule 30 minutes before morning meal Orally Twice a day Active Magnesium Active Immunizations Vaccine Route Administration Date Status Comme nts COVID-19 Moderna Vaccine Unknown 05/28/2021 Administered 1st 08/24/20 2nd 09/20/20 Influenza Unknown 04/12/2022 Administered Social History Tobacco Use: Social History Observation [...] Are you an other tobacco user? No Problems Problem Type SNOMED Code ICD Code Onset Dates Problem Status W/U Status Risk Notes Problem Atherosclerosis of [place] arteries of the extremities ([id number]) Atherosclerosis of [place] artery of both lower extremities, with unspecified presence of clinical manifestation (I70.203) Active confirmed Vital Signs Blood pressure diastolic 80 mm Hg 05/27/2024 Height 5ft 7in in 05/27/2024 Blood pressure systolic 120 mm Hg 05/27/2024 Weight 150 lbs 05/27/2024 BMI 23.49 kg/m2 05/27/2024 Procedures Procedure Date Ordered Date Performed Result Body Sit e 80056-HCQATOZ NAIL, 1-5 08/18/2023 N/A 59115-IJBQ SKIN LESIONS, 2 TO 4 08/18/2023 N/A W5078-LZPZLDKZ DYSTROPHIC NAILS ANY # 08/18/2023 N/A 60416-YMGZIDT NAIL, 1-5 02/23/2024 N/A 62741-JXXX SKIN LESIONS, 2 TO 4 02/23/2024 N/A F2439-BPYUYKZD DYSTROPHIC NAILS ANY # 02/23/2024 N/A 05400-KGDWRQT NAIL, 1-5 05/27/2024 N/A 71379-UEYM SKIN LESIONS, 2 TO 4 05/27/2024 N/A S4942-SDNEPFCH DYSTROPHIC NAILS ANY # 05/27/2024 N/A Encounters Encounter Location Date Provider Diagnosis [facility] [address] 08/18/2023 Magdaleno Ji Atherosclerosis of [place] artery of both lower extremities, with unspecified presence of clinical manifestation I70.203 ; Tinea unguium B35.1 ; Pain in right toe(s) M79.674 and Pain in left toe(s) M79.675 [facility] [address] 02/23/2024 Magdaleno Ji Atherosclerosis of [place] artery of both lower extremities, with unspecified presence of clinical manifestation I70.203 ; Tinea unguium B35.1 ; Pain in right toe(s) M79.674 and Pain in left toe(s) M79.675 [facility] [place] [address] [place] [address] 05/27/2024 Magdaleno Jacksonunier Atherosclerosis of [place] artery of both lower extremities, with unspecified presence of clinical manifestation I70.203 ; Tinea unguium B35.1 ; Pain in right toe(s) M79.674 and Pain in left toe(s) M79.675 Assessments Encounter Date Diagnosis (ICD Code) Assessment Notes Treatment Notes Treatment Clinical Notes Section Notes 08/18/2023 Tinea unguium (ICD-10 - B35.1) 08/18/2023 Atherosclerosis of [place] artery of both lower extremities, with unspecified presence of clinical manifestation (ICD-10 - I70.203) 02/23/2024 Tinea unguium (ICD-10 - B35.1) 02/23/2024 Atherosclerosis of [place] artery of both lower extremities, with unspecified presence of clinical manifestation (ICD-10 - I70.203) 05/27/2024 Tinea unguium (ICD-10 - B35.1) 05/27/2024 Atherosclerosis of [place] artery of both lower extremities, with unspecified presence of clinical manifestation (ICD-10 - I70.203) 05/27/2024 Pain in right toe(s) (ICD-10 - M79.674) 02/23/2024 Pain in right toe(s) (ICD-10 - M79.674) 08/18/2023 Pain in right toe(s) (ICD-10 - M79.674) 08/18/2023 Pain in left toe(s) (ICD-10 - M79.675) 02/23/2024 Pain in left toe(s) (ICD-10 - M79.675) 05/27/2024 Pain in left toe(s) (ICD-10 - M79.675) Plan Of Treatment Pending Test Test Name Order Date 69473-ULZTHJE NAIL, 1-05/07/2021 64707-CYCTSSL NAIL, -08/06/2021 57411-BSUOBZP NAIL, -11/15/2021 04104-HCNAHJI NAIL, -02/21/2022 66195-CJEWTTY NAIL, 1-5 06/20/2022 68934-HDQKWUZ NAIL, 1-5 11/07/2022 32504-TGCYXTO NAIL, 1-5 02/06/2023 71499-AESFDNI NAIL, 1-5 05/12/2023 01203-JEBKKZH NAIL, 1-5 08/18/2023 04217-JKAPEBT NAIL, 1-5 02/23/2024 68587-SPIVZVI NAIL, 1-5 05/27/2024 91036-FHHF SKIN LESIONS, 2 TO 4 05/27/20 24 28271-CSLQ SKIN LESIONS, 2 TO 4 02/23/20 24 16379-EIOR SKIN LESIONS, 2 TO 4 08/18/19 24 65156-VVYU SKIN LESIONS, 2 TO 4 05/12/20 23 35773-NRPG SKIN LESIONS, 2 TO 4 02/07/20 23 97406-CEXI SKIN LESIONS, 2 TO 4 11/08/19 23 45171-WIDP SKIN LESIONS, 2 TO 4 06/20/20 22 32128-PCMC SKIN LESIONS, 2 TO 4 02/22/20 22 58168-WFQY SKIN LESIONS, 2 TO 4 11/16/19 22 11763-URLI SKIN LESIONS, 2 TO 4 05/07/20 21 34155-LSQH SKIN LESIONS, 2 TO 4 08/06/19 22 J6918-VHZIMMLX DYSTROPHIC NAILS ANY # Q3278-NDGMOCLZ DYSTROPHIC NAILS ANY # V3350-JMZOZMDO DYSTROPHIC NAILS ANY # V5884-YSFJGVGC DYSTROPHIC NAILS ANY # W2042-FQERCGAP DYSTROPHIC NAILS ANY # C7106-FGFCJKXJ DYSTROPHIC NAILS ANY # G5204-AIZHAOEP DYSTROPHIC NAILS ANY # J9738-ZAPYZSCM DYSTROPHIC NAILS ANY # Y0279-UKWOCPWP DYSTROPHIC NAILS ANY # Q5974-FUHZGHQU DYSTROPHIC NAILS ANY # I1490-CAAOFNSC DYSTROPHIC NAILS ANY # Next Appt Details Provider Name:Magdaleno Ji , 08/26/2024 09:15:00 AM, [address] [place], [address], Insurance Providers Payer Name Payer Address Payer Phone Subscriber Number Group Number Insured Name Patient Relationship to Insured Coverage Start Date Coverage End Date Medicare National Govt Sv[employer] [address] [place] [address] [id number] Jose Dwyer Self - patient is the insured [employer] ( [employer] ) [address] [place] [address] [id number] Jose Dwyer Self - patient is the insured Medical (General) History Medical History History ICD Code Back,Hip,and Knee pain Heart disease Measles Mumps Chicken pox Joint implants/screws Transfusions Arthritis CAD Reflux HTN Surgical History Surgery Date(Month/Year) hip surgery, B/L - replacement spinal fusion cervical fusion
--- OUTSIDE RECORDS SUMMARY | 2024-07-01 09:54 | XMS_ITS | Continuity of Care Document ---
Author Name [facility] Organization [facility] Care Team Providers Care Dry Cleaning Teacher Name Role Phone [facility] Unavailable Unavailable Problems Combined list of problems from Department of Defense and Veterans Affairs facilities. It does not include entries that were removed or entered in error. Problem Status Onset Date Problem Type Date of Resolution Comments Source Diverticulosis Active 03/26/20 12 Condition Apr 07, 2012 Entered By: ABIGAIL TAYLOR Comment: Mild amount of sigmoid colonoscopySe2011 Entered By: ABIGAIL TAYLOR Comment: Colonoscopy done 03/26/2012.Apr 07, 2012 Entered By: ABIGAIL TAYLOR Comment: FU colonoscopy in 10 years. [facility] Esophageal Stricture Active 03/26/20 Condition Apr 07, 2012 Entered By: ABIGAIL TAYLOR Comment: Esophageal stricture, status post balloon dilatation.Apr 07, 2012 Entered By: ABIGAIL TAYLOR Comment: Hiatal hernia.Apr 07, 2012 Entered By: ABIGAIL TAYLOR Comment: FU with Dr Salmeron, [facility] in 3 months. [facility] Screening for Malignant Neoplasms of colon Active 03/26/20 12 Condition Apr 07, 2012 Entered By: ABIGAIL TAYLOR Comment: Hyperplastic polyp at 20cm removed.Apr 07, 2012 Entered By: ABIGAIL TAYLOR Comment: Diverticulosis, internal hemorrhoids. [facility] Cardiac defibrillator in situ Active Condition Jul 19, 2019 Entered By: HERMINIA CHANEY Comment: placed 2012 [facility] Coronary artery disease Active Condition Apr 12, 2018 Entered By: JAIMEE ALVARES Comment: had GA X 2 in January Entered By: JAIMEE ALVARSE Comment: history of stent blockageApr 12, 2018 Entered By: JAIMEE ALVARES Comment: -recent PCI in last 6 months showed blocked LAD but treated medically [facility] Essential hypertension Active Condition [facility] H/O: hip fracture Active Condition Oc t 2017 Entered By: JAIMEE ALVARES Comment: Bilateral hip fractures-fractu red right hip Jun 2017 and left hip fractured 2013 [facility] Hearing Loss Active Condition [facility] Tremor Active Condition [facility] Under care of multiple providers Active Condition Jul 19, 2019 Entered By: HERMINIA CHANEY Comment: PCP- 2019 Entered By: HERMINIA CHANEY Comment: Operations Intern-Dr. Ruperto Jacob [facility] Medications Combined list of outpatient medications from Department of Defense and Veterans Affairs facilities.Medications provided include 1) outpatient medications from the last 15 months, and 2) patient-reported medications. Medication Details Route Status Patient Instructions Prescription Expires Prescription Number Last Dispense Date Ordering Provider Order Date Order Qty Source ACETAMINOPH EN 500MG TAB TAKE ONE TABLET BY MOUTH DAILY ORAL ACTIVE NELSY TAYLOR 2011 [facility] ASPIRIN 81MG TAB,EC TAKE ONE TABLET BY MOUTH DAILY ORAL ACTIVE NELSY TAYLOR 2011 [facility] ATORVASTATI N CA 40MG TAB TAKE ONE-HALF TABLET BY MOUTH ONCE DAILY ORAL ACTIVE RA ALEXANDER HILL 2020 [facility] CARVEDILOL 12.5MG TAB TAKE ONE TABLET BY MOUTH TWICE DAILY ORAL ACTIVE Scarlett PAGAN 2018 [facility] IELD CARVEDILOL TAB TAKE BY MOUTH ORAL ACTIVE NELSY TAYLOR 2016 [facility] DOCUSATE NA CAP,ORAL TAKE BY MOUTH PRN ORAL ACTIVE NELSY TAYLOR 2014 [facility] FERROUS SO4 325MG TAB TAKE ONE TABLET BY MOUTH ONCE DAILY ORAL ACTIVE Scarlett PAGAN 2018 [facility] FOLIC ACID 1MG TAB TAKE ONE TABLET BY MOUTH ONCE DAILY ORAL ACTIVE Scarlett PAGAN 2018 [facility] GABAPENTIN TAB TAKE 600 MG BY MOUTH ONCE DAILY ORAL ACTIVE Scarlett PAGANLENE 2018 [facility] ISOSORBIDE MONONITRATE 60MG TAB,SA TAKE ONE TABLET BY MOUTH ONCE DAILY ORAL ACTIVE PAGANScarlett SAGASTUME 2018 [facility] LISINOPRIL 2.5MG TAB TAKE ONE TABLET BY MOUTH ONCE DAILY ORAL ACTIVE Scarlett PAGAN 2018 [facility] OMEPRAZOLE 20MG CAP,EC TAKE 2 CAPSULES BY MOUTH EVERY MORNING 30 MINUTES BEFORE BREAKFAS T ORAL ACTIVE Scarlett PAGAN 2018 [facility] TRAMADOL HCL 50MG TAB TAKE ONE TABLET BY MOUTH ONCE DAILY ORAL ACTIVE Scarlett PAGAN 2018 [facility] VITAMIN D3 (CHOLECALCI FEROL) TAB TAKE BY MOUTH ORAL ACTIVE NELSY [facility]AYLOR 2011 [facility] Immunizations Combined list of available immunizations from the Department of Defense and Veterans Affairs facilities. Immunization Series Date Given Administered By Site Reaction Lot Number CVX Code Drug Wild Oyster Harvester Status Comments Source INFLUENZA, INJECTABLE, QUADRIVALENT, PRESERVATIVE FREE 2019 150 complet ed IELD INFLUENZA, SEASONAL, INJECTABLE 2018 141 complet ed [facility] PNEUMOCOCCAL POLYSACCHARID E PPV23 2018 33 complet ed [facility] INFLUENZA, SEASONAL, INJECTABLE 2018 141 complet ed [facility] INFLUENZA, SEASONAL, INJECTABLE 2017 141 complet ed [facility] ZOSTER RECOMBINANT 2 2017 187 complet ed yes [facility] ZOSTER RECOMBINANT 1 2017 187 complet ed yes [facility] DTAP 2015 20 complet ed Site: Left Deltoid [facility] DTAP, UNSPECIFIED FORMULATION 2015 107 complet ed [facility] FLU,3 YRS (HISTORICAL) 2015 88 complet ed [facility] PNEUMOCOCCAL CONJUGATE PCV 13 2014 133 complet ed yes [facility] PNEUMOCOCCAL, UNSPECIFIED FORMULATION 2011 109 complet ed Site: Left Deltoid [facility] TD(ADULT) UNSPECIFIED FORMULATION 2010 139 complet ed [facility] TD(ADULT) UNSPECIFIED FORMULATION 2005 139 complet ed stated [facility] Encounters Combined list of: 1) Encounters from Department of Veterans Affairs facilities going back up to thelast 18 months. 2) Encounters from the Department of Defense facilities going back up to 280 months. Location Location Details Encounter Type Encounter Number Reason For Visit Attending Provider ADM Date DC Date Status Disposition Source [facility] Outpatient Encounter [id number] 05/24 [facility] Social History Combined list of available smoking, tobacco, and other social history from Department of Defense and Veterans Affairs facilities. Social History Type Response Date Comment Sourc e Tobacco smoking status CAIS [place]-TOBACCO QUIT 5 TO < 15 YRS 06/22/2019 [place] History of tobacco use AR-TOBACCO FORMER USER 06/22/2019 [place] History of tobacco use AR-TOBACCO FORMER USER 03/04/2018 [place] History of tobacco use LIFETIME NON-TOBACCO USER 02/17/2017 [facility] History of tobacco use QUIT TOBACCO USE 1-7 YEARS AGO 04/09/2016 [facility] History of tobacco use QUIT TOBACCO USE 1-7 YEARS AGO 03/21/2015 [facility] [place] History of tobacco use QUIT TOBACCO USE IN PAST YEAR 06/22/2013 [facility] [place] History of tobacco use CURRENT SMOKER 09[facility]02/2011 [facility]
--- OUTSIDE RECORDS SUMMARY | 2024-07-01 09:54 | XMS_ITS ---
Author Organization [facility] Address [address] [place] [address] Care Team Providers Care Medical Administrative Assistant Name Role Phone Pablo Strauss MD Primary Care Provider Unavaila Magdaleno Kulkarni Unavailable [phone] Chambers Encounters Encounter Location Date Provider Diagnosis [facility] [address] [place] [address] 12/08/2023 Magdaleno Ji Plan Of Treatment Next Appt Details Provider Name:Magdaleno Ji , 08/26/2024 09:15:00 AM, [address] [place], [address], Progress Notes * Jose BONILLA PDOB:1945 (78 yo M)Acc No.[id number]:12/08/2023 Progress Note Patient:?Jose BONILLA Provider:?Magdaleno Ji DPM :1945???Age:78 Y???Sex:Male Morgan e:12/08/2023 Address:[address] [place] [address] [address], [place], [place] Pcp:Pablo Strauss MD Subjective: * Chief Complaints: * ???1. Dr Chambers. * Medical History:? Objective: * Vitals:? Assessment: Plan: * Treatment: * Images: * The named appointment provid er may or may not be the originator of this progress note, and it is not deemed complete until electronically signed by the appointment provider. Sign off status: Pending * Provider:?Magdaleno Ji DPM Date:?2023 Generated for Spencer pardo/Alan/Bere on:?07/01/2024 09:54 AM EST
--- OUTSIDE RECORDS SUMMARY | 2024-07-01 12:35 | XMS_ITS | Continuity of Care Document ---
Author Name [facility] Organization [facility] Care Team Providers Care Rodent Control Worker Name Role Phone [facility] Unavailable Unavailable Problems Combined list of problems [...] TAYLOR Comment: FU colonoscopy in 10 years. [facility] Esophageal Stricture Active 03/26/20 Condition Apr 07, 2012 Entered By: ABIGAIL TAYLOR Comment: Esophageal stricture, status post balloon dilatation.Apr 07, 2012 Entered By: ABIGAIL TAYLOR Comment: Hiatal hernia.Apr 07, 2012 Entered By: ABIGAIL TAYLOR Comment: FU with Dr Salmeron, [facility] in 3 months. [facility] Screening for Malignant Neoplasms of colon Active 03/26/20 12 Condition Apr 07, 2012 Entered By: ABIGAIL TAYLOR Comment: Hyperplastic polyp at 20cm removed.Apr 07, 2012 Entered By: ABIGAIL TAYLOR Comment: Diverticulosis, internal hemorrhoids. FU 10 years. [facility] Cardiac defibrillator in situ Active Condition Jul 19, 2019 Entered By: HERMINIA CHANEY Comment: placed 2012 [facility] Coronary artery disease Active Condition Apr 12, 2018 Entered By: JAIMEE ALVARES Comment: had CA X 2 in January Entered By: JAIMEE ALVARES Comment: history of stent blockageApr 12, 2018 Entered By: JAIMEE ALVARES Comment: -recent PCI in last 6 months showed blocked LAD but treated medically [facility] Essential hypertension Active Condition [facility] H/O: hip fracture Active Condition Oc t 2017 Entered By: JAIMEE ALVARES Comment: Bilateral hip fractures-fractu red right hip Jun 2017 and left hip fractured 2013 [facility] Hearing Loss Active Condition [facility] Tremor Active Condition [facility] Under care of multiple providers Active Condition Jul 19, 2019 Entered By: HERMINIA CHANEY Comment: PCP- 2019 Entered By: HERMINIA CHANEY Comment: Clerk Carrier-Dr. Ruperto Jacob [facility] Medications Combined list of outpatient medications [...] MOUTH DAILY ORAL ACTIVE NELSY TAYLOR 2011 [facility] ASPIRIN 81MG TAB,EC TAKE ONE TABLET BY MOUTH DAILY ORAL ACTIVE NELSY TAYLOR 2011 [facility] ATORVASTATI N CA 40MG TAB TAKE ONE-HALF TABLET BY MOUTH ONCE DAILY ORAL ACTIVE RA ALEXANDER HILL 2020 [facility] CARVEDILOL 12.5MG TAB TAKE ONE TABLET BY MOUTH TWICE DAILY ORAL ACTIVE Scarlett PAGAN 2018 [facility] IELD CARVEDILOL TAB TAKE BY MOUTH ORAL ACTIVE NELSY TAYLOR 2016 [facility] DOCUSATE NA CAP,ORAL TAKE BY MOUTH PRN ORAL ACTIVE NELSY TAYLOR 2014 [facility] FERROUS SO4 [...] BY MOUTH ORAL ACTIVE NELSY TAYLOR 2011 [facility] [place] [place] Immunizations Combined list of available immunizations from the Department of Defense and Veterans Affairs facilities. Immunization Series Date Given Administered By Site Reaction Lot Number CVX Code Drug Regulator Operator Status Comments Source INFLUENZA, INJECTABLE, QUADRIVALENT, PRESERVATIVE [...] Disposition Source [facility] Outpatient Encounter [id number] 05/24 [facility] Social History Combined list of available smoking, tobacco, and other social history from Department of Defense and Veterans Affairs facilities. Social History Type Response Date Comment Sourc e Tobacco smoking status TNIS [place]-TOBACCO QUIT 5 TO < 15 YRS 06/22/2019 [facility] History of tobacco use SD-TOBACCO FORMER USER 06/22/2019 [facility] History of tobacco use SD-TOBACCO FORMER USER 03/04/2018 [facility] History of tobacco use LIFETIME NON-TOBACCO USER 02/17/2017 [facility] History of tobacco use QUIT TOBACCO USE 1-7 YEARS AGO 04/09/2016 [facility] History of tobacco use QUIT TOBACCO USE 1-7 YEARS AGO 03/21/2015 [facility] [place] [facility] History of tobacco use QUIT TOBACCO USE IN PAST YEAR 06/22/2013 [facility] [place] [facility] History of tobacco use CURRENT SMOKER 09/02/2011 [facility]
--- NOTE | 2024-07-01 13:07 | P.CONAN_ITS ---
HPI - Anesthesia Eval Consult details Narrative: . CardiC defibrillator in- situ. Last checked within last 2 weeks. Reportedly ok per patient. 78 yo male patient for EGD [facility] Active Problems Active Problems: All Active Problems (Updated 07/01/24 @ 13:08 by Sherlyn Barba MD) Prostatitis (Acute) Peptic ulcer disease (Acute) Weak urinary stream (Acute) History of gastric ulcer (Acute) Status post partial gastrectomy (Acute) Acute upper GI bleeding (Acute) Chronic constipation (Acute) Anemia (Acute) History of vitamin D deficiency (Acute) Hiatal hernia (Acute) History of colon polyps (Acute) Nausea and vomiting (Acute) Diarrhea (Acute) Chronic prostatitis (Acute) Elevated cholesterol (Acute) Cirrhosis of liver without ascites (Acute) Dysphagia (Acute) History of cardiac catheterization (Acute ~02/2018) GERD (gastroesophageal reflux disease) (Acute) CAD. H/o NM. Denies recent chest pain Marijuana daily- tincture- last used yesterday 06/30/24 EF 2021 35-40% Cardiac defibrillator Past Medical History Medical History Cardiac defibrillator in place Hx of myocardial infarction COVID-19 vaccine series completed Dysphagia Cirrhosis of liver without ascites History of non anemic vitamin B12 deficiency History of vitamin D deficiency Elevated cholesterol Hypertension GERD (gastroesophageal reflux disease) Family History Family History Father No problems noted. Mother No problems noted. Family history of problems with anesthesia: No Surgical History Surgical History History of esophagogastroduodenoscopy (EGD) H/O colonoscopy Status post partial gastrectomy History of esophagogastroduodenoscopy (EGD) (~01/2013) History of cardiac catheterization (~02/2018) History of Problems with Anesthesia: No Social History Social History Household Members: None Alcohol intake: never Comment: short stay Patient Tobacco Use Status: Former Tobacco user Tobacco use type: Cigarette Second Hand Smoke Exposure: No Substance Use Type: Marijuana Advance Directives Date on File: 10/07/23 service: No Meds Allergies Allergy/AdvReac Type Severity Reaction Status Date / Time No Known Allergies Allergy Verified 06/28/24 11:54 [No Known Allergies*] Active Medications: Current Medications Lactated Ringer's (Lr) 1,000 mls @ 50 mls/hr IVCONT .Q20H TERRIE Home Medications ?Medication ?Instructions ?Recorded ?Confirmed ?Last Taken ?Type aspirin 81 mg tablet,delayed 81 mg PO DAILY 07/02/20 06/28/24 07/01/24 History release carvedilol 12.5 mg tablet 12.5 mg PO BID 07/02/20 06/28/24 07/01/24 History folic acid 1 mg tablet 1 mg PO DAILY 07/02/20 06/28/24 Unknown History tramadol 50 mg tablet 100 mg PO DAILY Pain 07/02/20 06/28/24 07/01/24 History atorvastatin 20 mg tablet 20 mg PO BEDTIME 10/15/20 06/28/24 Unknown History nitroglycerin 0.4 mg sublingual 0.4 mg sublingual Q5M PRN Chest 10/15/20 06/28/24 Unknown History tablet Pain isosorbide mononitrate 60 mg 60 mg PO QAM 01/03/21 06/28/24 07/01/24 History tablet,extended release 24 hr gabapentin 300 mg capsule 600 mg PO BEDTIME 08/22/21 06/28/24 Unknown History multivitamin-iron 9 mg-folic acid 1 tab PO DAILY 10/06/23 06/28/24 Unknown History 400 mcg-calcium and minerals tablet (Therapeutic-M) sacubitril 24 mg-valsartan 26 mg 1 tab PO BID 01/08/24 06/28/24 07/01/24 History tablet (Entresto) spironolactone 25 mg tablet 25 mg PO DAILY 01/19/24 06/28/24 07/01/24 History Exam Height,Weight and Vital Signs: Height 5 ft 4 in Weight 68.13 kg T 97 Pulse 55 BP 122/61 RR 18 Sats 99%(RA) Airway Mallampati Class: III TM Dist: >3cm Neck ROM: Limited (S/p cervical fusion ) Denture: Upper Loose/Missing/Broken Teeth: Yes (Full denture top. Missing many teeth bottom. D enies broken or loose teeth) Heart: RRR Lungs: CTAB Assessment and Plan Assessment Anesthesia Assessment: Anesthesia Plan Discussed and Chart Reviewed Final Anesthetic Review Family History of Problems with Anesthesia: No History of Problems with Anesthesia: No NPO: Yes ASA Class: IV Final Preanesthetic Review: No Changes in Pt Med Stat, Meds/Allgs Chart Reviewed, Consent Obtained/Reviewed and Anes Risks/Benef Reviewed Patient Risk: High Procedure Risk: Low Assessment/Block/Sedation in SS: Assess/Block/Sedation-SS Anesthetic Plan Anesthetic Plan: TIVA Disposition: Standard PACU
[2024-07-01 13:30] VITALS: BMI 25.8
--- NOTE | 2024-07-01 13:35 | MHC.SHP ---
Pre-Procedural Eval Section A - 24 Hr Update-Section A only Date of Service: 07/01/24 The patient is an INPATIENT: No Changes since office visit: Yes Patient answered all questions; No Cold of Flu in the past 2 weeks, No New Medical Problems and No Changes in Medication The patient has been examined within 24 hours of the surgical procedure. The History & Physical has been completed within 30 days and I have reviewed it.: Yes Section B - Complete if H&P > 30 days Chief Complaint: Dysphagia Allergies: Allergies Allergy/AdvReac Type Severity Reaction Status Date / Time No Known Allergies Allergy Verified 06/28/24 11:54 [No Known Allergies*] Plan Diagnosis/Plan: Unchanged I have reviewed the history and physical and performed a pertinent physical examination on my patient. No changes have occurred unless specified. Time Spent With Patient Time: Total time managing care of this patient today ____ minutes.
[2024-07-01 14:17] VITALS: BP 84/52; PULSE 69; RESP 12; TEMP 36.1; O2SAT 96
--- NOTE | 2024-07-01 14:17 | P.OP_ITS ---
Operative Note Operative Note Date of Service: 07/01/24 Narrative: FLEXIBLE TRANSORAL UPPER GASTROINTESTINAL ENDOSCOPY WITH BIOPSIES AND ESOPHAGEAL BALLOON DILATION Pre-op diagnosis: Dysphagia Post-op diagnosis: GERD, Hiatal hernia, Schatzki's ring, Multiple superficial ga stric ulcers Endoscopist:? Francisco Jasmine MD Anesthesia:?MAC UPPER ENDOSCOPY Consent: Indications for the procedure and potential complications of bleeding, perforation, reaction to medications and missed diagnosis were discussed with the patient and informed consent was obtained. Instrument: Olympus GIF H 190 mid size upper endoscope Monitoring: Vital signs and clinical assessment, continuous EKG monitoring, Pulse oximetry, Carbon Dioxide monitoring and blood pressure monitoring were done throughout the procedure. Procedure: The patient was placed in the left lateral decubitis position and pre-procedure medications were administered and a bite block was placed. The endoscope was inserted into the mouth and advanced under direct vision to the third part of duodenum. A careful inspection was made as the upper endoscope was withdrawn including a retroflexed examination of the proximal stomach; Findings and interventions are described below. Findings: Larynx: Normal Esophagus: Tortuous esophagus with increased tertiary contractions. Hiatal hernia from 30 to 35 cms. Partially obstructing Schatzki's ring/focal stricture at GE junction and a mid size upper endoscope passed with mild resistance. Balloon dilation was performed with a 13.5 mm (40.5 F) CRE balloon x 60 seconds. Superficial mucosa tears noted at the GE junction after dilation Stomach: Status post Bilroth 1 gastrectomy. Multiple 8 to 10 mm superficial ulcers in the antrum and pre-pyloric area with small amounts of old heme in the stomach - one of the ulcers were biopsied. Duodenum: Normal descending duodenum Intervention: Biopsies and esophageal balloon dilation as noted above Impression and Post Procedure Diagnosis: Endoscopy Findings: ESOPHAGUS: Hiatal hernia, partially obstructing Schatzki's ring STOMACH: Status post Bilroth 1 gastrectomy. Multiple 8 to 10 mm superficial ulcers in the antrum and pre-pyloric area with small amounts of old heme in the stomach - one of the ulcers were biopsied. Plan: Pt will be scheduled for a FU appointment with Dr Jasmine. Repeat EGD in prn for recurrent dysphagia. Above findings were reviewed with the patient Plan: Pt will be scheduled for a follow-up appointment with Dr. Jasmine. Repeat EGD p.r.n. for recurrent dysphagia. Above findings were reviewed with the patient and he was advised to increase omeprazole to 40 mg twice daily And decrease naproxen to once a day. Repeat labs showed worsening anemia and patient was advised to resume taking ferrous sulfate once daily. Repeat CBC in 2-3 weeks.
[2024-07-01 14:20] VITALS: BP 95/57; PULSE 61; RESP 16; O2SAT 96
[2024-07-01 14:30] VITALS: BP 101/60; PULSE 57; RESP 16; O2SAT 100
[2024-07-01 14:45] VITALS: BP 111/57; PULSE 60; RESP 16; TEMP 36.2; O2SAT 97
[2024-07-01 14:55] LABS: Hemoglobin 10.3 g/dl (14.0-18.0); Mean Corpuscular HGB Conc 33.2 g/dl (31.0-36.0); Mean Corpuscular Hemoglobin 31.4 pg (27.0-33.0); Mean Corpuscular Volume 94.5 fL (80.0-98.0); Mean Platelet Volume 12.1 fL (9.4-12.4); Platelet Count 193 X10*3/uL (160-400); Red Blood Count 3.28 X10*6/uL (4.60-5.80); Red Cell Distribution Width 13.8 % (11.0-16.0); White Blood Count 7.3 X10*3/uL (4.8-10.8)
[2024-07-01 15:02] LABS: INTERNATIONAL NORM RATIO 1.1 (0.9-1.1); Prothrombin Time 12.8 SEC (10.9-12.4)
[2024-07-01 15:05] VITALS: RESP 16
[2024-07-01 15:43] LABS: Ferritin 155 ng/mL (20-250)
== END 2024-07-01 15:40 | disposition home or self-care (01) ==
PROVIDERS: Anesthesiology; PCP Internal Medicine; Visit Provider Internal Medicine Gastroenterology
PROC: 0DJ08ZZ Inspection of Upper Intestinal Tract, Via Natural or Artificial Opening Endoscopic (ICD-10-PCS; CPT 43235; principal; 2024-07-01 15:10)
DX: K22.2 Esophageal obstruction (principal); K21.9 Gastro-esophageal reflux disease without esophagitis; K25.9 Gastric ulcer, unspecified as acute or chronic, without hemorrhage or perforation; K44.9 Diaphragmatic hernia without obstruction or gangrene; K74.60 Unspecified cirrhosis of liver; K76.0 Fatty (change of) liver, not elsewhere classified; Z87.11 Personal history of peptic ulcer disease; I10 Essential (primary) hypertension; E78.00 Pure hypercholesterolemia, unspecified; E53.8 Deficiency of other specified B group vitamins; K59.09 Other constipation; Z90.3 Acquired absence of stomach [part of]; Z95.810 Presence of automatic (implantable) cardiac defibrillator; Z79.82 Long term (current) use of aspirin; Z79.1 Long term (current) use of non-steroidal anti-inflammatories (NSAID); Z79.899 Other long term (current) drug therapy; Z87.891 Personal history of nicotine dependence
CPT/HCPCS: 43249; 43239; 36415; 82728; 85027; 85610; 88305; 88342; C1726; J2003; J2371; J2704

== ENCOUNTER → 2024-07-01 12:33 | Outpatient (BNV) | payer MEDICARE, SELFPAY | PROVIDERS: PCP Internal Medicine; Visit Provider Internal Medicine Gastroenterology | DX: K22.2 Esophageal obstruction (principal); K21.9 Gastro-esophageal reflux disease without esophagitis; K25.9 Gastric ulcer, unspecified as acute or chronic, without hemorrhage or perforation | CPT/HCPCS: 43239; 43249 ==

== ENCOUNTER 2024-08-19 05:52 | Outpatient (REF) | payer MEDICARE, SELFPAY ==
[2024-08-19 05:55] LABS: MANUAL DIFF FLAG NO
--- OUTSIDE RECORDS SUMMARY | 2024-08-19 05:55 | XMS_ITS | Encounter Summary ---
Author Organization [facility] Address [address] [place] [address] Care Team Providers Care Credit Portfolio Advisor Name Role Phone Pablo Strauss MD Primary Care Provider [phone] Reason for Visit * Reason Onset Date Comments No Call No Show 08/15/2024 Letter sent. Encounter Details Date Type Department Care Team ([facility] Contact Info) Description 08/15/2024 Telephone [facility] Cardiology [facility] [address] [place] [address] Dr Reyna [address] [place] [id number] Dc Turner MD [address] [place] [address] Dr Alexandre [address] [place] [address] No Call No Show (Letter sent.) Social History Tobacco Use Types Packs/Day Years Used Date Smoking Tobacco: Former Cigarettes Q uit: 07/13/2012 Smokeless Tobacco: Never Alcohol Use Standard Drinks/Week Comments Not Currently 0 (1 standard drink = 0.6 oz pur e alcohol) Sex and Gender Information Value Date Recorded Sex Assigned at Not on file Gender Identity Not on file Sexual Orientation Not on file documented as of this encounter Progress Notes * Baylee Weeks MA - 08/15/2024 11:28 AM EST Will mail out no-show policy to address on file. documented in this encounter Plan of Treatment Not on file documented as of this encounter Visit Diagnoses Not on filedocumented in this encounter Care Teams Credit Portfolio Advisor Relationship Specialty Start Date End Date Pablo Strauss MD [address] [place] [id number] PCP - General Internal Medicine 05/13/18 documented as of this encounter
--- OUTSIDE RECORDS SUMMARY | 2024-08-19 05:55 | XMS_ITS ---
Author Organization [facility] Address [address] [place] [address] Care Team Providers Care Lead Python Developer Name Role Phone Pablo Strauss MD Primary Care Provider Unavaila Magdaleno Kulkarni Unavailable [phone] Chambers Encounters Encounter Location Date Provider Diagnosis [facility] [address] [place] [address] 12/08/2023 Magdaleno Ji Plan Of Treatment Next Appt Details Provider Name:Magdaleno Ji , 08/26/2024 09:15:00 AM, [address] [place], [address], Progress Notes * Jose BONILLA PDOB:1945 (78 yo M)Acc No.[id number]:12/08/2023 Progress Note Patient:?Jose BONILLA Provider:?Magdaleno Ji DPM :1945???Age:78 Y???Sex:Male Morgan e:12/08/2023 Address:[address] [place] [address] [address], [place], [place] Pcp:Pablo Strauss MD Subjective: * Chief Complaints: [...] Ji DPM Date:?2023 Generated for Spencer pardo/Alan/Bere on:?08/19/2024 05:55 AM EST
--- OUTSIDE RECORDS SUMMARY | 2024-08-19 05:55 | XMS_ITS | Clinical Summary ---
Author Organization [facility] Address [address] [facility] [address] [place] [address] Care Team Providers Care Break Out Man Name Role Phone Unavailable Primary Care Provider Unavailabl e Immunizations Name Administration Dates Next Due DTaP, Unspecified 04/09/2016 Influenza Quadrivalent Adjuvanted 04/16/2023,,04/29/2021 Influenza injectable quadriv alent preservative free 04/18/2020 Influenza, High Dose Seasona l, Preservative Free 04/04/2019,05/20/2018,03/20/2017,03/28,08/02/2015 Influenza, IIV3, injectable 07/05/2019, 9,04/12/2018 Influenza, Unspecified 03/20/2016 Influenza, seasonal, injecta ble, preservative free 03/30/2024,04/12/2022 Moderna Covid-19 Vaccine 12+ 11/28/2021 Pneumococcal Conjugate PCV 13 08/26/2016, 015 Pneumococcal Polysaccharide PPSV23 07/05/2019, Pneumococcal, Unspecified 09/02/2011 RSV Adjuvant 09/14/2023 Td (adult), 5 Lf tetanus tox oid, preservative free, adsorbed 06/03/2011 Td (adult), unspecified 07/13/2005 Zoster, Recombinant 01/27/2018,10/24/2017 Zoster, live 11/19/2011 Social History Tobacco Use Types Packs/Day Years Used Date Smoking Tobacco: Never Assessed Sex and Gender Information Value Date Recorded Sex Assigned at Male 03/31/2024 1:10 PM EDT Legal Sex Male 1:07 PM EDT Gender Identity Male 03/31/2024 1:10 PM EDT Sexual Orientation Don't know 03/31/2024 1: 10 PM EDT Plan of Treatment Health Maintenance Due Date Last Done Comments Depression Screening 1945 Lipid Panel 1945 SDOH Screening 1945 Alcohol/Substance Use Screening 1956 Tobacco Screening 1956 Hepatitis C Screening 1962 COVID-19 Vaccine (2023- season) 2024 11/28/2021, 09/20/2020, 08/24/2020 DTaP/Tdap/Td Vaccines (2 - Tdap) 04/09/2026 04/09/2016, 06/03/2011, 07/13/2005 Zoster Vaccines Completed 01/27/2018, 10/11, 11/19/2011 Pneumococcal Vaccine: 50+ Years Completed 07/05/2019, 08/26/2016, 12/19/2014, Additional history exists RSV Patients and Patients Aged 60 years or older Completed 09/14/2023 Influenza Vaccine Completed 03/30/2024, , 05/29/2022, Additional history exists HIB Vaccines Aged Out No longer eligi ble based on patient's age to complete this topic HPV Vaccines Aged Out No longer eligi ble based on patient's age to complete this topic Hepatitis A Vaccines Aged Out No long er eligible based on patient's age to complete this topic Hepatitis B Vaccines Aged Out No long er eligible based on patient's age to complete this topic IPV Vaccines Aged Out No longer eligi ble based on patient's age to complete this topic Meningococcal Vaccine Aged Out No juvenal luciana eligible based on patient's age to complete this topic RSV under 20 months Aged Out No longe r eligible based on patient's age to complete this topic Rotavirus Vaccines Aged Out No longer eligible based on patient's age to complete this topic
--- OUTSIDE RECORDS SUMMARY | 2024-08-19 05:56 | XMS_ITS ---
Author Organization [facility] [place] Address [address] [place] [address] Care Team Providers Care Stone Belt Sander Name Role Phone Pablo Strauss MD Primary Care Provider Unavaila Magdaleno Kulkarni Unavailable [phone] Allergies No Known Allergies REASON FOR VISIT [...] Ordered Date Performed Result Body Sit e 93522-FLKIZOK NAIL, 1-5 02/23/2024 N/A 76668-GIDI SKIN LESIONS, 2 TO 4 02/23/2024 N/A A1414-WFHOROJJ DYSTROPHIC NAILS ANY # 02/23/2024 N/A Encounters Encounter Location Date Provider Diagnosis [facility] [address] [place] [address] 02/23/2024 Magdaleno Ji Atherosclerosis of [place] artery of both lower extremities, with unspecified presence of clinical manifestation I70.203 ; Tinea unguium B35.1 ; Pain in right toe(s) M79.674 and Pain in left toe(s) M79.675 Assessments Encounter Date Diagnosis (ICD Code) Assessment Notes Treatment Notes Treatment Clinical Notes Section Notes 02/23/2024 Atherosclerosis of [place] artery of both lower extremities, with unspecified presence of clinical manifestation (ICD-10 - I70.203) 02/23/2024 Tinea unguium (ICD-10 - B35.1) 02/23/2024 Pain in right toe(s) (ICD-10 - M79.674) 02/23/2024 Pain in left toe(s) (ICD-10 - M79.675) Plan Of Treatment Pending Test Test Name Order Date 39527-UFADFVO NAIL, 1-5 02/23/2024 33574-ZMRU SKIN LESIONS, 2 TO 4 02/23/20 24 W2900-YJLWZLEG DYSTROPHIC NAILS ANY # Next Appt Details Follow Up: prn, Reason: Provider Name:Magdaleno Ji , 08/26/2024 09:15:00 AM, [address] [place], [address], Procedure Notes * Category Sub-Category Detail Notes Keratoma Treatment Parring or Cutting o f Benign Hyperkeratotic Lesion(s) 16188 (2-4 Lesions) - The Benign hyperkeratotic lesions, [...] as necessary. Patient chooses, no pharmaceutical tx (21905) Nail Reduction Nail Reduction Trimming of dyst rophic nails performed to reduce/remove overall nail length and girth, by manual and electrical means with use of a nail nipper and/or dremel, to more viable healthy nail plate or bed tissue, any number (G0127), Q8 Progress Notes * Jose BONILLA PDOB:1945 (78 yo M)Acc No.[id number]:02/23/2024 Progress Note Patient:?Jose Bonilla P Provider:?Magdaleno Ji DPM :1945???Age:78 Y???Sex:Male Morgan e:02/23/2024 Address:[address] [place], [place] [id number] Pcp:Pablo Strauss MD Subjective: * Chief Complaints: [...] [facility]. ?Marital status: . 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 * Medications:?TakingAtorvasta tin Calcium 20 MG [...] Assessment: 1.?Tinea unguium - B35.1?2.? Atherosclerosis of [place] artery of both lower extremities, with unspecified presence of clinical manifestation - I70.203 (Primary)?3.?Pain in right toe(s) - M79.674?4.?Pain in left toe(s) - M79.675? Plan: * Treatment: 2.?Tinea unguium?Procedure: 08612-LFRPEPZ NAIL, 1-5 * Procedures:?Debride Nails 1-5:?Procedure:?Nail debridement performed extensively to reduce/remove overall nail length, girth, thickness, subungual debris, and necrotic tissue, by manual and electrical means through the use of a nail nipper and/or dremel, to more viable healthy nail plate or bed tissue 1-5. Silver nitrate used for any petechial bleeding as necessary. Patient chooses, no pharmaceutical tx (18287).?Keratoma Treatment:?Parring or Cutting of Benign Hyperkeratotic Lesion(s)?22292 (2-4 Lesions) - The Benign hyperkeratotic lesions, [...] DYSTROPHIC NAILS ANY #, Modifiers: XS , K003104 DEBRIDE NAIL, 1-5, Modifiers: XS 11698 TRIM SKIN LESIONS, 2 TO 4, Modifiers: XS , Q8 * Follow Up:?prn * Images: * Sign off status: Completed true * Provider:?Magdaleno Ji DPM Date:?2023 Generated for Spencer pardo/Alan/Bere on:?08/19/2024 05:55 AM EST History and Physical Notes * [...]
--- OUTSIDE RECORDS SUMMARY | 2024-08-19 05:56 | XMS_ITS ---
Author Organization [facility] [place] Address [address] [place] [address] Care Team Providers Care Manager Agricultural Name Role Phone Pablo Strauss MD Primary Care Provider Unavaila Magdaleno Kulkarni Unavailable [phone] Allergies No Known Allergies REASON FOR VISIT [...] Ordered Date Performed Result Body Sit e 03303-PPXAHTP NAIL, 1-5 05/27/2024 N/A 70245-GHZH SKIN LESIONS, 2 TO 4 05/27/2024 N/A X8672-VBIOSALF DYSTROPHIC NAILS ANY # 05/27/2024 N/A Encounters Encounter Location Date Provider Diagnosis [facility] [address] [place] [address] 05/27/2024 Magdaleno Ji Atherosclerosis of [place] artery of both lower extremities, with unspecified presence of clinical manifestation I70.203 ; Tinea unguium B35.1 ; Pain in right toe(s) M79.674 and Pain in left toe(s) M79.675 Assessments Encounter Date Diagnosis (ICD Code) Assessment Notes Treatment Notes Treatment Clinical Notes Section Notes 05/27/2024 Atherosclerosis of [place] artery of both lower extremities, with unspecified presence of clinical manifestation (ICD-10 - I70.203) 05/27/2024 Tinea unguium (ICD-10 - B35.1) 05/27/2024 Pain in right toe(s) (ICD-10 - M79.674) 05/27/2024 Pain in left toe(s) (ICD-10 - M79.675) Plan Of Treatment Pending Test Test Name Order Date 17312-NFIUHVS NAIL, 1-5 05/27/2024 77701-SZFX SKIN LESIONS, 2 TO 4 05/27/20 24 M9364-SYYRKJMD DYSTROPHIC NAILS ANY # Next Appt Details Follow Up: prn, Reason: Provider Name:Magdaleno Ji , 08/26/2024 09:15:00 AM, [address] [place] [address], [address], Procedure Notes * Category Sub-Category Detail Notes Keratoma Treatment Parring or Cutting o f Benign Hyperkeratotic Lesion(s) (-56) 2-4 Lesions - The Benign hyperkeratotic lesions, as described in exam, were pared, and/or cut utilizing a sterile 15 blade, tissue nippers, and/or dremel - 47171, Q8 Debride Nails 1-5 Procedure: Performance of this nail treatment by a nonprofessional would put this patients foot and overall health at risk. Therefore, debridement to affected nail(s), as described in exam, was performed extensively to reduce/remove overall nail length, girth, thickness, subungual debris, and necrotic tissue, by manual and/or electrical means through the use of a nail nipper and/or dremel-type mud grinder, to a more viable healthy nail plate or bed tissue 1-5. Silver nitrate used for any petechial bleeding as necessary. Definitive antifungal treatment options have been reviewed and discussed with the patient. The patient chooses, no pharmaceutical tx - 76493 Nail Reduction Nail Reduction (-27) Trimming o f dystrophic nails, as described in exam, was performed to reduce/remove overall nail length and girth, by manual and electrical means with use of a nail nipper and/or dremel, to more viable healthy nail plate or bed tissue, any number - G0127, Q8 Progress Notes * Jose BONILLA PDOB:1945 (78 yo M)Acc No.[id number]:05/27/2024 Progress Note Patient:Jose TAN Provider:?Magdaleno Ji DPM :1945???Age:78 Y???Sex:Male Morgan e:05/27/2024 Address:[address] [place] [address] [address] Pcp:Pablo Strauss MD Subjective: * Chief Complaints: [...] [facility]. ?Marital status: . 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 * Medications:?TakingDoxycycli ne Atorvastatin Calcium 20 [...] Assessment: 1.?Tinea unguium - B35.1???2 .?Atherosclerosis of [place] artery of both lower extremities, with unspecified presence of clinical manifestation - I70.203 (Primary)???3.?Pain in right toe(s) - M79.674???4.?Pain in left toe(s) - M79.675??? Plan: * Treatment: 2.?Tinea unguium?Procedure: 19725-RMJWAVZ NAIL, 1-5 * Procedures:?Debride Nails 1-5:?Procedure:?Performance of this nail treatment by a nonprofessional would put this patients foot and overall health at risk. Therefore, debridement to affected nail(s), as described in exam, was performed extensively to reduce/remove overall nail length, girth, thickness, subungual debris, and necrotic tissue, by manual and/or electrical means through the use of a nail nipper and/or dremel-type mud grinder, to a more viable healthy nail plate or bed tissue 1-5. Silver nitrate used for any petechial bleeding as necessary. Definitive antifungal treatment options have been reviewed and discussed with the patient. The patient chooses, no pharmaceutical tx - 08214.?Keratoma Treatment:?Parring or Cutting of Benign Hyperkeratotic Lesion(s)?(-56) 2-4 Lesions - The Benign hyperkeratotic lesions, as described in exam, were pared, and/or cut utilizing a sterile 15 blade, tissue nippers, and/or dremel - 92592, Q8.?Nail Reduction:?Nail Reduction?(-27) Trimming of dystrophic nails, as described in exam, was performed to reduce/remove overall nail length and girth, by manual and electrical means with use of a nail nipper and/or dremel, to more viable healthy nail plate or bed tissue, any number - G0127, Q8.? * Procedure Codes:?G0127 SHEELA ING DYSTROPHIC NAILS ANY #, Modifiers: XS , [id number] DEBRIDE NAIL, 1-5, Modifiers: XS 67023 TRIM SKIN LESIONS, 2 TO 4, Modifiers: [...]
--- OUTSIDE RECORDS SUMMARY | 2024-08-19 05:56 | XMS_ITS | Clinical Summary ---
Author Organization [address] [place] [address] [place] [id number] Phone Care Team Providers Care Network Engineer Administrator Name Role Phone Pablo Strauss MD Primary Care Provider [phone] Allergies No known active allergies Medications Medication Sig Dispensed Refills Start Date End Date Status aspirin 81 mg EC tablet Take 81 mg by mouth daily. Active atorvastatin (LIPITOR) 20 mg tablet TAKE 1 TABLET BY MOUTH DAILY 12/17/2023 Active cholecalciferol (VITAMIN D-3) 50 mcg (2,000 unit) tablet Take 1 Tablet by mouth daily. Active doxycycline hyclate (VIBRA-TABS) 100 mg tablet Take 1 Tablet by mouth daily. Active ferrous sulfate 325 mg (65 mg elemental iron) tablet Take 1 Tablet by mouth daily. Active finasteride (PROSCAR) 5 mg tablet Take 1 Tablet by mouth daily. Active folic acid (FOLVITE) 1 mg tablet Take 1 mg by mouth daily. Active gabapentin (NEURONTIN) 300 mg capsule Take 2 Capsules by mouth at bedtime. Active nitroglycerin (NITROSTAT) 0.[address] 1 Tablet under the tongue every 5 minutes as needed for Chest pain. 11/06/2023 Active omeprazole (PriLOSEC) [address] capsule Take 1 Capsule by mouth daily. Active sacubitriL-valsartan (Entresto) 24-26 mg per tablet TAKE 1 TABLET BY MOUTH TWICE A DAY 04/19/2024 Active spironolactone (ALDACTONE) 25 mg tablet TAKE 1 TABLET BY MOUTH EVERY DAY 04/18/2024 Active traMADoL (ULTRAM) 50 mg tablet Take 1 Tablet by mouth 2 times daily. Active carvediloL (COREG) 12.5 mg tablet TAKE 1 TABLET BY MOUTH TWICE A DAY WITH FOOD 180 tablet 1 07/19/2024 Active isosorbide mononitrate (IMDUR) 60 mg 24 hr tablet TAKE 1 TABLET BY MOUTH EVERY DAY IN THE MORNING 90 tablet 1 07/19/2024 Active Active Problems Problem Noted Date Diagnosed Date Ischemic cardiomyopathy 12/03/2022 Overview (06/02/2024): Last Assessment & Plan: Patient is history of ischemic cardiomyopathy with an LVEF of 35 to 40% on most recent echocardiogram. He has an AICD in place. He denies any clinical symptoms of heart failure and appears euvolemic on physical examination. He continues on carvedilol 12.5 mg twice daily. We transitioned him to Entresto last visit and is doing quite well on this. He is on 24/26 mg twice daily. His last creatinine was 0.88 with a potassium of 4.5. He is not on a diuretic at this time and does not require a diuretic. He is on spironolactone 25 mg once a day. We discussed the possibility of adding SGLT 2 inhibitor however he does struggle with urinary tract infections on occasion and we will avoid this medication at this time. Patient advised to seek emergency medical attention by calling 911 if they were to develop severe dyspnea, chest pain that did not resolve with rest or nitroglycerin, or if they were to faint. I've asked the patient to call if they develop worsening symptoms of heart failure such as increased shortness of breath, new or worsening cough, increased swelling in the legs or ankles, or weight gain of more than 2 pounds in one day or 4 pounds in one week. Coronary arteriosclerosis in [place] artery 05/08 Overview (06/02/2024): Last Assessment & Plan: Patient has history of coronary artery disease as outlined in detailed above. He had an inferior LA in 2013. Last coronary angiogram in 2018 showed a chronic total occlusion of the RCA and 90% lesion in the mid LAD. This was a heavily calcified small caliber vessel with evidence of right to left collateralization. Medical therapy was continued. He denies any anginal symptoms. Continue on medical therapy with aspirin, beta-jarad, statin and isosorbide as prescribed. I have reviewed with the patient the importance of a heart healthy lifestyle which includes eating a low-fat low-salt diet, getting regular exercise, maintaining a healthy weight, not smoking, and following up with routine medical care. Hypertension 05/08/2021 Overview (06/02/2024): Last Assessment & Plan: Patient is well pressure is well-controlled with a reading today of 102/60. This does not allow for any further medication titration. Continue on medical therapies as outlined detailed above. Mixed hyperlipidemia 05/08/2021 Overview (06/02/2024): Last Assessment & Plan: Goal LDL cholesterol is less than 70. He continues on atorvastatin 20 mg once a day. Last LDL cholesterol was 50. This is acceptable. Sinus tachycardia 05/08/2021 Encounters Date Type Department Care Team Description 08/15/2024 Telephone [facility] [address] [place] [address] ParminderDc Moreno MD No Call No Show (Letter sent.) from Last 3 Months Medical History Medical History Date Comments Precordial pain 05/08/2021 DX:Precordial pa in Social History Tobacco Use Types Packs/Day Years Used Date Smoking Tobacco: Former Cigarettes Q uit: 07/13/2012 Smokeless Tobacco: Never Alcohol Use Standard Drinks/Week Comments Not Currently 0 (1 standard drink = 0.6 oz pur e alcohol) Sex and Gender Information Value Date Recorded Sex Assigned at Not on file Gender Identity Not on file Sexual Orientation Not on file Obstetrics History Last Filed Vital Signs Vital Sign Reading Time Taken Comments Blood Pressure 102/60 03/11/2024 7:43 AM EDT Sitting L Arm Pulse 68 03/11/2024 7:43 AM EDT Temperature - - Respiratory Rate - - Oxygen Saturation - - Inhaled Oxygen Concentration - - Weight 67.5 kg (148 lb 14.4 oz) 03/11/2024 7:43 AM EDT Height 162.6 cm (5' 4 ) 03/11/2024 7:43 AM EDT Body Mass Index 25.56 03/11/2024 7:43 AM EDT Plan of Treatment Health Maintenance Due Date Last Done Comments Falls Risk Assessment 06/21/2022 Hepatitis C Screening 06/21/2022 Social Influencers of Health Screening 06/21/2022 Medicare Annual Wellness Visit 06/02/2023 06/02/2022 Depression Screening 12/18/2023 12/17/2022 COVID-19 Vaccine ( season) 2024 11/28/2021, 09/20/2020, 08/24/2020 Hypertension/CHF/CAD Annual BMP Blood Test 10/19/2024 10/20/2023, 09/17/2023, 06/11/2023, Additional history exists DTaP,Tdap,and Td Vaccines (5 - Td or Tdap) 04/09/2026 04/09/2016, 04/09/2016, 06/03/2011, Additional history exists Cholesterol Screening (Lipid Panel) 06/11/2028 06/11/2023 Zoster Vaccines Completed 01/27/2018, 10/11, 11/19/2011 Pneumococcal Vaccine: 65+ Years Completed 07/05/2019, 08/26/2016, 12/19/2014, Additional history exists RSV Immunization Patients 60+ Years Old Completed 09/14/2023 Influenza Vaccine Completed 03/30/2024, , [...] on patient's age to complete this topic MMR Vaccines Aged Out No longer eligi ble based on patient's age to complete this topic Meningococcal ACWY Vaccine Aged Out N o longer eligible based on patient's age to complete this topic RSV Immunization Patients Under 20 months Aged Out No longer eligible based on patient's age to complete this topic Varicella Vaccines Aged Out No longer eligible based on patient's age to complete this topic Care Teams Network Engineer Administrator Relationship Specialty Start Date End Date Pablo Strauss MD [address] [place] [address] PCP - General Internal Medicine 05/13/18
[2024-08-19 06:07] LABS: Basophils Absolute Auto 0.1 X10*3/uL (0.0-0.2); Basophils Percent Auto 0.5 % (0-2); Eosinophils Absolute Auto 0.4 X10*3/uL (0.0-0.4); Eosinophils Percent Auto 3.3 % (0-4); Hematocrit 29.1 % (42.0-52.0); Hemoglobin 9.8 g/dl (14.0-18.0); Imm Gran Abs Auto 0.09 X10*3/uL (0.00-0.03); Imm Gran Pct Auto 0.8 % (0.0-0.4); Lymphocytes Absolute Auto 1.3 X10*3/uL (1.2-4.9); Lymphocytes Percent Auto 11.7 % (20-40); Mean Corpuscular HGB Conc 33.7 g/dl (31.0-36.0); Mean Corpuscular Hemoglobin 30.8 pg (27.0-33.0); Mean Corpuscular Volume 91.5 fL (80.0-98.0); Mean Platelet Volume 11.8 fL (9.4-12.4); Monocytes Absolute Auto 0.9 X10*3/uL (0.1-1.2); Monocytes Percent Auto 8.2 % (2-11); Neutrophils Absolute Auto 8.6 x10*3/uL (2.0-8.3); Neutrophils Percent Auto 75.5 % (45-73); Platelet Count 337 X10*3/uL (160-400); Red Blood Count 3.18 X10*6/uL (4.60-5.80); Red Cell Distribution Width 15.4 % (11.0-16.0); White Blood Count 11.5 X10*3/uL (4.8-10.8)
[2024-08-19 06:22] LABS: Alanine Aminotransferase 17 U/L (0-40); Albumin Level 3.4 g/dL (3.5-5.0); Alkaline Phosphatase 87 U/L (39-117); Anion Gap 16 (12-20); Aspartate Amino Transferase 22 U/L (5-37); Bilirubin Total 0.4 mg/dL (0.0-1.0); Blood Urea Nitrogen 23 mg/dL (9-16); Calcium 9.1 mg/dL (8.4-10.2); Carbon Dioxide 14 mmol/L (22-29); Chloride 105 mmol/L (96-108); Estimated Glomerular Filt Rate > 60; Glucose Random 73 mg/dL (60-115); Potassium 4.3 mmol/L (3.3-5.1); Sodium 131 mmol/L (135-145); Total Protein 6.6 g/dL (6.5-8.0)
== END 2024-08-19 05:53 | disposition home or self-care (01) ==
LOC: HO.MMNH1L 05:52
PROVIDERS: Visit Provider Nurse Practitioner
DX: I10 Essential (primary) hypertension (principal)
CPT/HCPCS: 36415; 80053; 85025

== ENCOUNTER 2024-08-22 06:01 | Outpatient (REF) | payer MEDICARE, SELFPAY ==
[2024-08-22 05:42] LABS: MANUAL DIFF FLAG NO
--- OUTSIDE RECORDS SUMMARY | 2024-08-22 06:11 | XMS_ITS | Encounter Summary ---
Author Organization [facility] Address [address] [place] [address] Care Team Providers Care Site Leasing Agent Name Role Phone Pablo Strauss MD Primary Care Provider [phone] Reason for Visit * Reason Onset Date Comments No Call No Show 08/15/2024 Letter sent. Encounter Details Date Type Department Care Team ([facility] Contact Info) Description 08/15/2024 Telephone [facility] [address] [place] [address] [place] [id number] Dc Turner MD [address] [place] [address] [address] [place] [address] No Call No Show (Letter sent.) Social History Tobacco Use Types Packs/Day Years Used Date Smoking Tobacco: Former Cigarettes Q uit: 07/13/2012 Smokeless Tobacco: Never Alcohol Use Standard Drinks/Week Comments Not Currently 0 (1 standard drink = 0.6 oz pur e alcohol) Sex and Gender Information Value Date Recorded Sex Assigned at Not on file Legal Sex Male 10:09 PM EST Gender Identity Not on file Sexual Orientation Not on file documented as of this encounter Progress Notes * Baylee Weeks MA - 08/15/2024 11:28 AM EST Will mail out no-show policy to address on file. documented in this encounter Plan of Treatment Not on file documented as of this encounter Visit Diagnoses Not on filedocumented in this encounter Care Teams Site Leasing Agent Relationship Specialty Start Date End Date Pablo Strauss MD [address] [place] [address] PCP - General Internal Medicine 05/13/18 documented as of this encounter
--- OUTSIDE RECORDS SUMMARY | 2024-08-22 06:11 | XMS_ITS | Continuity of Care Document ---
Author Name [facility] Organization [facility] Care Team Providers Care Quantitative Associate Name Role Phone [facility] Unavailable Unavailable Problems Combined list of problems [...] TAYLOR Comment: FU colonoscopy in 10 years. [facility] Esophageal Stricture Active 03/26/20 Condition Apr 07, 2012 Entered By: ABIGAIL TAYLOR Comment: Esophageal stricture, status post balloon dilatation.Apr 07, 2012 Entered By: ABIGAIL TAYLOR Comment: Hiatal hernia.Apr 07, 2012 Entered By: ABIGAIL TAYLOR Comment: FU with Dr Salmeron, [facility] in 3 months. [facility] Screening for Malignant Neoplasms of colon Active 03/26/20 12 Condition Apr 07, 2012 Entered By: ABIGAIL TAYLOR Comment: Hyperplastic polyp at 20cm removed.Apr 07, 2012 Entered By: ABIGAIL TAYLOR Comment: Diverticulosis, internal hemorrhoids. [facility]U 10 years. [facility] AR[facility]DJD Active [facility] Cardiac defibrillator in situ Active Condition Jul 19, 2019 Entered By: HERMINIA CHANEY Comment: placed 2012 [facility] Coronary artery disease Active Condition Apr 12, 2018 Entered By: JAIMEE ALVARES Comment: had AL X 2 in January Entered By: JAIMEE ALVARES Comment: history of stent blockageApr 12, 2018 Entered By: JAIMEE ALVARES Comment: -recent PCI in last 6 months showed blocked LAD but treated medically [facility] Essential hypertension Active Condition [facility] H/O: hip fracture Active Condition Oc t 2017 Entered By: JAIMEE ALVARES Comment: Bilateral hip fractures-fractu red right hip Jun 2017 and left hip fractured 2013 [facility] Hearing Loss Active Condition [facility] Tremor Active Condition 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 Ruperto Jacob [facility] Medications Combined list of outpatient medications [...] MOUTH DAILY ORAL ACTIVE NELSY TAYLOR 2011 [facility] ASPIRIN 81MG TAB,EC TAKE ONE TABLET BY MOUTH DAILY ORAL ACTIVE NELSY TAYLOR 2011 [facility] ATORVASTATI N CA 40MG TAB TAKE ONE-HALF TABLET BY MOUTH ONCE DAILY ORAL ACTIVE RA ALEXANDER HILL 2020 [facility] CARVEDILOL 12.5MG TAB TAKE ONE TABLET BY MOUTH TWICE DAILY ORAL ACTIVE Scarlett PAGAN 2018 [facility] IELD CARVEDILOL TAB TAKE BY MOUTH ORAL ACTIVE NELSY TAYLOR 2016 [facility] DOCUSATE NA CAP,ORAL TAKE BY MOUTH PRN ORAL ACTIVE NELSY TAYLOR 2014 [facility] FERROUS SO4 [...] BY MOUTH ORAL ACTIVE N[facility]SY TAYLOR 2011 [facility] [place] Immunizations Combined list of available immunizations from the Department of Defense and Veterans Affairs facilities. Immunization Series Date Given Administered By Site Reaction Lot Number CVX Code Drug Senior Energy Consultant Status Comments Source INFLUENZA, INJECTABLE, QUADRIVALENT, PRESERVATIVE [...] from Department of Veterans Affairs facilities going backup to the last 18 months, not all VA inpatient encounters are included; 2) Encounters from the Department of Defense facilities going backup to 280 months. Location Location Details Encounter Type Encounter Number Reason For Visit Attending Provider ADM Date DC Date Status Disposition Source [facility] Outpatient Encounter [id number] 05/24 [facility] Social History Combined list of available smoking, tobacco, and other social history from Department of Defense and Veterans Affairs facilities. Social History Type Response Date Comment Sourc e Tobacco smoking status NDIS VA-TOBACCO QUIT 5 TO < 15 YRS 06/22/2019 [place] History of tobacco use [place]-TOBACCO FORMER USER 06/22/2019 [place] History of tobacco use [place]-TOBACCO FORMER USER 03/04/2018 [place] History of tobacco use LIFETIME NON-TOBACCO USER 02/17/2017 [facility] [place] History of tobacco use QUIT TOBACCO USE 1-7 YEARS AGO 04/09/2016 [facility] History of tobacco use QUIT TOBACCO USE 1-7 YEARS AGO 03/21/2015 [facility] [place] History of tobacco use QUIT TOBACCO USE IN PAST YEAR 06/22/2013 [facility] History of tobacco use CURRENT [facility]MOKER [facility]02[facility]2011 [facility]
--- OUTSIDE RECORDS SUMMARY | 2024-08-22 06:11 | XMS_ITS ---
Author Organization [facility] Address [address] [place] [address] Care Team Providers Care Research & Analytics Manager Name Role Phone Pablo Staruss MD Primary Care Provider Unavaila Magdaleno Kulkarni Unavailable [phone] Chambers Encounters Encounter Location Date Provider Diagnosis [facility] [address] [place] [address] 12/08/2023 Magdaleno Ji Plan Of Treatment Next Appt Details Provider Name:Magdaleno Ji , 08/26/2024 09:15:00 AM, [address] [place], [address], Progress Notes * Jose BONILLA PDOB:1945 (78 yo M)Acc No.[id number]:12/08/2023 Progress Note Patient:?Jose BONILLA Provider:?Magdaleno Ji DPM :1945???Age:78 Y???Sex:Male Morgan e:12/08/2023 Address:[address] [place] [address] [address], [place], [place] Pcp:Pablo Strauss MD Subjective: * Chief Complaints: [...] Ji DPM Date:?2023 Generated for Spencer pardo/Alan/Bere on:?08/22/2024 06:11 AM EST
--- OUTSIDE RECORDS SUMMARY | 2024-08-22 06:11 | XMS_ITS | Continuity of Care Document ---
Author Organization [facility] ter Address [address] [place] [id number]- Care Team Providers Care Pet Adoption Counselor Name Role Phone Pablo Strauss MD Primary Care Physician [phone] [place]counter [facility] [place](s[place] 07/24/24 - 08/18/[address] [id number]- Encounter Diagnosis Abscess of sigmoid colon(Final) - 07/24/24 Bladder fistula(Final) - 07/24/24 Urinary retention(Final) - 07/24/24 Urinary retention(Final) - 08/02/24 Abscess of sigmoid colon(Final) - 08/02/24 Other Gram-negative sepsis(Final) - Severe sepsis with septic shock(Final) - Acidosis, unspecified(Final) - Vesicointestinal fistula(Final) - Diverticulitis of large intestine with perforation and abscess without bleeding (Final) - Acute kidney failure, unspecified(Final) - Chronic systolic (congestive) heart failure(Final) - Urinary tract infection, site not specified(Final) - Thrombocytopenia, unspecified(Final) - Hypertensive heart disease with heart failure(Final) - Ischemic cardiomyopathy(Final) - Peripheral vascular disease, unspecified(Final) - Peptic ulcer, site unspecified, unspecified as acute or chronic, without hemorrhage or perforation(Final) - Gross hematuria(Final) - Atherosclerotic heart disease of [place] coronary artery without angina pectoris (Final) - Unspecified urethral stricture, male, unspecified site(Final) - Gastro-esophageal reflux disease without esophagitis(Final) - Hyperkalemia(Final) - 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 pneumoniae] as the cause of diseases classified elsewhere(Final) - Chronic total occlusion of coronary artery(Final) - Orthostatic hypotension(Final) - Constipation, unspecified(Final) - Other specified disorders of bladder(Final) - Arthrodesis status(Final) - skilled nursing (current) use of aspirin(Final) - Encounter for screening for COVID-19(Final) - Other [facility] (current) drug therapy(Final) - Presence of artificial hip joint, bilateral(Final) - Personal history of peptic ulcer disease(Final) - Personal history of nicotine dependence(Final) - Personal history of urinary (tract) infections(Final) - Presence of coronary angioplasty implant and graft(Final) - Family history of ischemic heart disease and other diseases of the circulatory system(Final) - Presence of automatic (implantable) cardiac defibrillator(Final) - Discharge Disposition: A-Transfer [facility] Attending Physician: Zuleima Ferreira MD Admitting Physician: Abad Rubio MD Referring Physician: Not on Staff, Referring MD Encounter Type: Disch IP Allergies, Adverse Reactions, Alerts No Known Allergies Immunizations Given and Recorded Vaccine Date Status Refusal Reason pneumococcal 13-valent vaccine 08/26/16 Given Medications Acetaminophen IVPB 1,000 mg, Injection, IVPB, (Infuse over 15 minutes), 08/18/24 11:00:00 AM EST Start Date: 08/18/24 Stop Date: 08/18/24 Status: Completed Repeat number: 1 atorvastatin 20 mg oral tablet 1 tablet = 20 mg, By Mouth, Daily Start Date: 07/24/24 Status: Ordered Repeat number: 1 Enoxaparin 0.4 mL = 40 mg, Subcutaneous Injection, Daily, 0 Refills, Maintenance, 08/18/24 1:49:00 PM EST, Injection, Partial fill upon patient request if the prescription is for a schedule II opioid drug. Start Date: 08/18/24 Stop Date: 09/17/24 Status: Ordered Repeat number: 1 finasteride 5 mg oral tablet 1 tablet = 5 mg, By Mouth, Daily Start Date: 07/24/24 Status: Ordered Repeat number: 1 folic acid 1 mg oral tablet 1 mg, 1, tablet, By Mouth, Daily, # 30 tablet, Refills 0, Tot. Refills 0, Maintenance, 04/08/17 1:16:26 PM EDT, Route to Pharmacy Electronically, [facility] Start Date: 04/08/17 Status: Ordered Quantity: 30.0 Unit: tablet Repeat number: 1 gabapentin 300 mg oral capsule 600 mg, 2, capsule, By Mouth, Daily at bedtime Start Date: 07/24/24 Status: Ordered Repeat number: 1 Marinol 2.5 mg oral capsule = 2.5 mg, By Mouth, 3 times a day before meals, 0 Refills, Maintenance, 08/18/24 1:50:00 PM EST, Capsule, Partial fill upon patient request if the prescription is for a schedule II opioid drug. Start Date: 08/18/24 Status: Ordered Repeat number: 1 omeprazole 40 mg oral enteric coated capsule 1 capsule = 40 mg, By Mouth, 2 times a day Start Date: 07/24/24 Status: Ordered Repeat number: 1 oxybutynin 5 mg/24 hours oral tablet, extended release = 5 mg, By Mouth, Daily, 0 Refills, Maintenance, 08/18/24 1:50:00 PM EST, XL Tablet, Partial fill upon patient request if the prescription is for a schedule II opioid drug. Start Date: 08/18/24 Status: Ordered Repeat number: 1 oxyCODONE 5 mg oral tablet 5 mg, By Mouth, Every 4 hours, PRN, Refills 0, Tot. Refills 0, Maintenance, Pain , Severe, 08/18/24 1:49:00 PM EST, Partial fill upon patient request if the prescription is for a schedule II opioid drug. Start Date: 08/18/24 Status: Ordered Repeat number: 1 spironolactone 25 mg oral tablet 25 mg, 1, tablet, By Mouth, Daily Start Date: 07/24/24 Status: Ordered Repeat number: 1 tamsulosin 0.4 mg oral capsule 0.4 mg, 1, capsule, By Mouth, Daily at bedtime Start Date: 07/24/24 Status: Ordered Repeat number: 1 thiamine 100 mg oral tablet 100 mg, By Mouth, Daily, Refills 0, Maintenance, 08/18/24 1:50:00 PM EST, Partial fill upon patient request if the prescription is for a schedule II opioid drug. Start Date: 08/18/24 Status: Ordered Repeat number: 1 traMADol 50 mg oral tablet = 50 mg, By Mouth, Every 6 hours, PRN Pain , Moderate, 0 Refills, Maintenance, 08/18/24 1:54:00 PM EST, Tablet, Partial fill upon patient request if the prescription is for a schedule II opioid drug. Start Date: 08/18/24 Status: Ordered Repeat number: 1 Vitamin D3 2000 intl units oral capsule 1 capsule = 50 mcg, By Mouth, Daily Start Date: 07/24/24 Status: Ordered Repeat number: 1 Problem List Condition Confirmation Course Effective Dates Status Health St atus Informant Acute GI bleeding Confirmed 01/31/13 Active Cervical post-laminectomy syndrome Confirmed Active Fracture of odontoid peg Confirmed Active NSTEMI (non-ST elevated myocardial infarction) Confirmed Active Results Radiology Reports (Most Recent Ten) * Exam Date Time Procedure Performing Provider Status 08/13/24 5:42 PM US RUQ Diana Werner; Auth (Ve rified) Notes: (US RUQ) Reason For Exam: Cholecystitis RESULT: US RUQ US RUQ REASON: Cholecystitis; Clinical Question(s): Abscess COMPARISON: CT 08/10/2024 FINDINGS: Liver: Normal in size and echotexture. No focal lesion. Smooth hepatic contour. Main portal vein patent with normal hepatopetal direction of flow. Gallbladder: Sludge and possible small stones in the gallbladder. Normal wall thickness. No pericholecystic fluid. Negative Rae sign. Biliary Tree: No intrahepatic or extrahepatic bile duct dilation is identified. Common duct measures: 0.2 cm. Pancreas: Obscured by overlying bowel gas. Right kidney: 9.4 cm in length. Normal parenchymal echotexture and thickness. No hydronephrosis, stone or mass. Other: Partially visualized right pleural effusion. IMPRESSION: No evidence of acute cholecystitis. WSN: [id number] Ordering Physician: Iraj Hernandez Dictated By: Jake Adam MD Dictated Date/Time: 08/13/24 5:54 pm Reviewed By: Jake Adam MD Signed By: Jake Adam MD Signed Date/Time: 08/13/24 5:54 pm Transcribed By: SHIRA Transcribed Date/Time: 08/13/24 5:52 pm * Exam Date Time Procedure Performing Provider Status 08/12/24 12:31 PM US Doppler Ext Lower Venous Bilat Lili Schroeder; Auth (Verified) Notes: (US Doppler Ext Lower Venous Bilat) Reason For Exam: Fever workup;Other: RESULT: US Doppler Ext Lower Venous Bilat US Doppler Ext Lower Venous Bilat Reason: Fever workup; Clinical Question(s): Thrombus. COMPARISON: None IMAGING TECHNIQUE: Ultrasound of the veins from the groin through the calf was performed using grayscale, color, and spectral Doppler ultrasound assessing for complete compressibility and normal flowcharacteristics. FINDINGS: RIGHT LOWER EXTREMITY: Common femoral vein: Patent. No thrombosis. Femoral vein: Patent. No thrombosis. Popliteal vein: Patent. No thrombosis. Gastrocnemius veins: The visualized portions are patent without evidence of thrombosis. Peroneal veins: The visualized portions are patent without evidence of thrombosis. Posterior tibial veins: The visualized portions are patent without evidence of thrombosis. LEFT LOWER EXTREMITY: Common femoral vein: Patent. No thrombosis. Femoral vein: Patent. No thrombosis. Popliteal vein: Patent. No thrombosis. Gastrocnemius veins: The visualized portions are patent without evidence of thrombosis. Peroneal veins: The visualized portions are patent without evidence of thrombosis. Posterior tibial veins: The visualized portions are patent without evidence of thrombosis. OTHER FINDINGS: Low velocity venous flow is noted in the left profunda femoris vein. IMPRESSION: No evidence of deep venous thrombosis. WSN: [id number] Ordering Physician: Naveen Rich Dictated By: Kemar Joyce MD Dictated Date/Time: 08/12/24 1:37 pm Reviewed By: Kemar Joyce MD Signed By: Kemar Joyce MD Signed Date/Time: 08/12/24 1:37 pm Transcribed By: SHIRA Transcribed Date/Time: 08/12/24 1:10 pm * Exam Date Time Procedure Performing Provider Status 08/10/24 1:[address] Cystogram Una Campbell; Landy (Verified) Notes: (CT Cystogram) Reason For Exam: Fistula;Fistula RESULT: CT Cystogram CT Cystogram INDICATION: History of colovesical fistula, status post repair and colectomy and ileostomy. Questionable persistent fistula formation. TECHNIQUE: Spiral CT through the pelvis without IV contrast was obtained before and after the instillation of iodinated contrast into the urinary bladder via a Lira catheter. Images were also obtained after emptying the bladder. Weight- based protocol using automatic tube modulation was used to optimize exposure parameters. CTDIvol Body: 9.68 mGy, DLP Body: 1288 mGy*cm. COMPARISON: CT abdomen pelvis performed concurrently and multiple prior studies back to 07/24/2024. FINDINGS: Fusing Machine Operator View Findings, Lines and Tubes: Bilateral hip arthroplasties. Surgical drain within the lowerpelvic mesentery. Partially visualized right lower quadrant ileostomy with a colostomy bag in place. Lira catheter in place Bladder: Limited examination secondary to streak artifact from the bilateral hip arthroplasties. Postsurgical changes are seen along the right lateral aspect of the urinary bladder, related to degenerative colovesicular fistula. Within the limited confines of the study, there is no contrast extravasation into the surrounding bowel loops to suggest a persistent colovesical fistula. The distal small bowel loops are slightly hyperdense, likely secondary to contrast retention from the prior cystogram study from 08/02/2024 and postoperative ileus. Perivesical fat stranding is likely related to postoperative status. Reproductive organs: Unremarkable. Visualized bowel: Postsurgical sutures in the sigmoid colon, compatible with known sigmoidectomy. Status post right lower quadrant ileostomy. Enteric contrast is visualized within the small bowel loops. Appendix: Not seen, but no evidence of appendicitis. Peritoneum and retroperitoneum: Small amount of postsurgical pneumoperitoneum in the lower pelvis. No omental or mesenteric lesions. Lymph nodes: No enlarged lymph nodes. Blood vessels: Severe atherosclerotic vascular calcification. Pelvic soft tissues: Surgical sutures overlying the midline pelvis. Stranding along the midline abdominal wall with a small amount of subcutaneous gas. Bones: No acute abnormality. Degenerative changes of the spine. IMPRESSION: Study is limited due to streak artifact from the bilateral hip arthroplasties. Within these limitations, there is no definitive evidence of a persistent colovesical fistula. Distal bowel loops are slightly hyperdense, likely related to the prior fluoroscopic cystogram study and contrast retention secondary to postoperative ileus. Postsurgical changes along the urinary bladder wall with perivesical fat stranding. No suspicious fluid collection. I have personally reviewed the images and I agree with this report. WSN: [id number] Ordering Physician: Naveen Rich Dictated By: Elaine Frey MD Dictated Date/Time: 08/10/24 2:46 pm Reviewed By: Nicolas Schultz MD Signed By: Nicolas Schultz MD Signed Date/Time: 08/10/24 2:51 pm Transcribed By: SHIRA Transcribed Date/Time: 08/10/24 2:21 pm * Exam Date Time Procedure Performing Provider Status 08/10/24 1:[address] Abd/Pelvis W/ IV + Oral Contrast Una Campbell; Auth (Verified) Notes: (CT Abd/Pelvis W/ IV + Oral Contrast) Reason For Exam: persistent leukocytosis s/p ex lap, takedownof colovesical fistula, sigmoid colectomy, and diverting loop ileostomy;Other: RESULT: CT Abd/Pelvis W/ IV + Oral Contrast CT Chest W/ Contrast, CT Abd/Pelvis W/ IV + Oral Contrast INDICATION: Persistent leukocytosis with consolidation of the left lung base seen on prior imaging;colovesical repair, assess for abscess TECHNIQUE: Helical CT scan of the chest, abdomen, and pelvis with IV contrast, formatted in 3 planes. 100 cc of Omnipaque 300 was administered intravenously. This study was performed with oral contrast. Weight-based protocol was performed using automatic exposure control. CTDIvol Body: 10.70 mGy, DLP Body: 724 mGy*cm. COMPARISON: Chest CTA 08/27/[address] 07/27/2024 FINDINGS: Fusing Machine Operator view findings, lines and tubes: Left-sided single lead pacemaker AICD. Right arm PICC line tip in the superior vena cava. Embolization coils in the upper abdomen. Surgical drain within the pelvis. Trachea and airways: Patent without evidence of tracheal or endobronchial lesion. Lungs and pleura: Chronic small pleural effusions with bibasilar adjacent lower lobe atelectasis. Bilateral upper lobe patchy peripheral atelectasis. No focal consolidation. No pneumothorax. Mediastinum and derik: No mass or hematoma. No mediastinal or hilar lymphadenopathy. No esophageal abnormality. Normal thyroid. Heart: Heart is normal in size. No pericardial effusion. Severe coronary artery calcification. Aorta: No aortic aneurysm. Pulmonary arteries: Normal caliber. No evidence of pulmonary embolism on this study performed without angiographic technique. Chest wall soft tissues: No acute abnormality. Diaphragm: Intact. Liver: Normal in attenuation and morphology. No suspicious lesion. Gallbladder: Layering small gallstones without acute inflammatory change. Bile ducts: No biliary ductal dilation. Spleen: Normal in size. Pancreas: No suspicious lesion or ductal dilatation. Adrenal glands: No nodule. Kidneys and ureters: No hydronephrosis, stone, or suspicious lesion. Bladder: Poorly visualized secondary to bilateral hip arthroplasty metallic artifact. Lira catheter present. Reproductive organs: Unremarkable. Stomach, small bowel, and large bowel: Chronic moderate-sized type I hiatal hernia. Normal distal stomach. Normal proximal small bowel. Right abdominal diverting ileostomy. Enteric anastomosis right lower quadrant. Fluid-filled colon. Sigmoid colon anastomosis. Appendix: Not seen, but no evidence of acute appendicitis. Peritoneum and retroperitoneum: No ascites or pneumoperitoneum. No omental or mesenteric lesions. Surgical drain in the pelvis. Mild presacral postsurgical inflammatory changes. Lymph nodes: No enlarged lymph nodes. Blood vessels: Moderate atherosclerotic vascular calcification. No aortic aneurysm. No evidence of venous thrombosis. Abdominal and pelvic wall soft tissues: No acute abnormality. Bones: No acute abnormality. Degenerative disc changes noted in the spine. Bilateral hip arthroplasties. IMPRESSION: Essentially similar small bilateral pleural effusions with bibasilar atelectasis. Postoperative sequela in the abdomen and pelvis with pelvic surgical drain present. No visualized collection to suggest abscess. WSN: [id number] Ordering Physician: Mel Elam Dictated By: Nicolas Schultz MD Dictated Date/Time: 08/10/24 1:34 pm Reviewed By: Nicolas Schultz MD Signed By: Nicolas Schultz MD Signed Date/Time: 08/10/24 1:34 pm Transcribed By: SHIRA Transcribed Date/Time: 08/10/24 1:19 pm * Exam Date Time Procedure Performing Provider Status 08/10/24 1:[address] Chest W/ Contrast Kev Campbell; Landy (Verified) Notes: (CT Chest W/ Contrast) Reason For Exam: persistent leukocytosis with consolidation of the left lungbase seen on prior imaging;Other: RESULT: CT Chest W/ Contrast CT Chest W/ Contrast, CT Abd/Pelvis W/ IV + Oral Contrast INDICATION: Persistent leukocytosis with consolidation of the left lung base seen on prior imaging;colovesical repair, assess for abscess TECHNIQUE: Helical CT scan of the chest, abdomen, and pelvis with IV contrast, formatted in 3 planes. 100 cc of Omnipaque 300 was administered intravenously. This study was performed with oral contrast. Weight-based protocol was performed using automatic exposure control. CTDIvol Body: 10.70 mGy, DLP Body: 724 mGy*cm. COMPARISON: Chest CTA 08/27/[address] 07/27/2024 FINDINGS: Fusing Machine Operator view findings, lines and tubes: Left-sided single lead pacemaker AICD. Right arm PICC line tip in the superior vena cava. Embolization coils in the upper abdomen. Surgical drain within the pelvis. Trachea and airways: Patent without evidence of tracheal or endobronchial lesion. Lungs and pleura: Chronic small pleural effusions with bibasilar adjacent lower lobe atelectasis. Bilateral upper lobe patchy peripheral atelectasis. No focal consolidation. No pneumothorax. Mediastinum and derik: No mass or hematoma. No mediastinal or hilar lymphadenopathy. No esophageal abnormality. Normal thyroid. Heart: Heart is normal in size. No pericardial effusion. Severe coronary artery calcification. Aorta: No aortic aneurysm. Pulmonary arteries: Normal caliber. No evidence of pulmonary embolism on this study performed without angiographic technique. Chest wall soft tissues: No acute abnormality. Diaphragm: Intact. Liver: Normal in attenuation and morphology. No suspicious lesion. Gallbladder: Layering small gallstones without acute inflammatory change. Bile ducts: No biliary ductal dilation. Spleen: Normal in size. Pancreas: No suspicious lesion or ductal dilatation. Adrenal glands: No nodule. Kidneys and ureters: No hydronephrosis, stone, or suspicious lesion. Bladder: Poorly visualized secondary to bilateral hip arthroplasty metallic artifact. Lira catheter present. Reproductive organs: Unremarkable. Stomach, small bowel, and large bowel: Chronic moderate-sized type I hiatal hernia. Normal distal stomach. Normal proximal small bowel. Right abdominal diverting ileostomy. Enteric anastomosis right lower quadrant. Fluid-filled colon. Sigmoid colon anastomosis. Appendix: Not seen, but no evidence of acute appendicitis. Peritoneum and retroperitoneum: No ascites or pneumoperitoneum. No omental or mesenteric lesions. Surgical drain in the pelvis. Mild presacral postsurgical inflammatory changes. Lymph nodes: No enlarged lymph nodes. Blood vessels: Moderate atherosclerotic vascular calcification. No aortic aneurysm. No evidence of venous thrombosis. Abdominal and pelvic wall soft tissues: No acute abnormality. Bones: No acute abnormality. Degenerative disc changes noted in the spine. Bilateral hip arthroplasties. IMPRESSION: Essentially similar small bilateral pleural effusions with bibasilar atelectasis. Postoperative sequela in the abdomen and pelvis with pelvic surgical drain present. No visualized collection to suggest abscess. WSN: [id number] Ordering Physician: Mel Elam Dictated By: Nicolas Schultz MD Dictated Date/Time: 08/10/24 1:34 pm Reviewed By: Nicolas Schultz MD Signed By: Nicolas Schultz MD Signed Date/Time: 08/10/24 1:34 pm Transcribed By: SHIRA Transcribed Date/Time: 08/10/24 1:19 pm * Exam Date Time Procedure Performing Provider Status 08/08/24 11:56 AM Abdomen Comp Inc Dec ub and/or Erect Tanna Díaz; Auth (Verified) Notes: (Abdomen Comp Inc Decub and/or Erect) Reason For Exam: Distention RESULT: Abdomen Comp Inc Decub and/or Erect Abdomen Comp Inc Decub and/or Erect 1 view INDICATION/CLINICAL QUESTION: Reason: Distention; Clinical Question(s): Obstruction COMPARISON: None FINDINGS: 2 supine views of the abdomen demonstrates surgical drain within the pelvis. Pacemaker AICD wire in the right ventricle. Vascular embolization coils overlying the left aspect of the L2 vertebrae. Bilateral hip arthroplasty sequela. Degenerative changes in the lumbar spine. Small left pleural effusion. Nonobstructed bowel gas pattern. No visualized nephrolithiasis. Impression: No obstruction. Small left pleural effusion. Degenerative and postoperative changes. WSN: [id number] Ordering Physician: Iraj Hernandez Dictated By: Nicolas Schultz MD Dictated Date/Time: 08/08/24 1:32 pm Reviewed By: Nicolas Schultz MD Signed By: Nicolas Schultz MD Signed Date/Time: 08/08/24 1:32 pm Transcribed By: SHIRA Transcribed Date/Time: 08/08/24 1:30 pm * Exam Date Time Procedure Performing Provider Status 08/08/24 11:56 AM Chest 2 Views Frontal and Lat Tanna Kim; Auth (Verified) Notes: (Chest 2 Views Frontal and Lat) Reason For Exam: Fever/Increased White Count RESULT: Chest 2 Views Frontal and Lat Chest 2 Views Frontal and Lat Reason: Fever Increased White Count; Clinical Question(s): Pneumonia COMPARISON: Multiple priors, most recent 07/31/2024. FINDINGS: LINES AND TUBES: Right-sided PICC line with tip in the cavoatrial junction/proximal right atrium. Left-sided single-lead AICD in place with intact wire. LUNGS AND PLEURA: Persistent consolidation of the left lung base, decreased from prior. Small left pleural effusion, slightly decreased from prior. No right pleural effusion. No pneumothorax. HEART, MEDIASTINUM AND DERIK: Unchanged mild prominence of the cardiac silhouette. BONES AND SOFT Kiko acute abnormality. IMPRESSION: 1. Persistent consolidation of the left lung base, decreased from prior. This likely represents atelectasis and pleural effusion. Pneumonia not excluded. 2. Slightly improved small left pleural effusion. I have personally reviewed the images and I agree with this report. WSN: [id number] Ordering Physician: Iraj Hernandez Dictated By: Joshua Posey MD Dictated Date/Time: 08/08/24 1:30 pm Reviewed By: Nicolas Schultz MD Signed By: Nicolas Schultz MD Signed Date/Time: 08/08/24 1:35 pm Transcribed By: SHIRA Transcribed Date/Time: 08/08/24 1:19 pm * Exam Date Time Procedure Performing Provider Status 08/02/24 3:07 PM Cystogram Min 3 Views Isaac Núñez; Landy (Verified) Notes: (Cystogram Min 3 Views) Reason For Exam: cysto, urinary retention sigmoid bladder fistula RESULT: Cystogram Min 3 Views Cystogram Min 3 Views INDICATION/CLINICAL QUESTION: Reason: cysto, urinary retention sigmoid bladder fistula. COMPARISON: None. TECHNIQUE: Fluoroscopy support was provided. There was no radiologist in attendance. Fluoroscopy time: 15.4 Technologist time: Unknown Exposure: 2.9414 mGy reference air kerma FINDINGS: Contrast within the bladder through indwelling catheter and drained demonstrates a small post void residual. No definite fistula tract identified. Please see operative note for further details. IMPRESSION: See above. WSN: [id number] Ordering Physician: Rene Rich I Dictated By: Nicloas Schultz MD Dictated Date/Time: 08/04/24 6:22 pm Reviewed By: Nicolas Schultz MD Signed By: Nicolas Schultz MD Signed Date/Time: 08/04/24 6:22 pm Transcribed By: SHIRA Transcribed Date/Time: 08/04/24 6:20 pm * Exam Date Time Procedure Performing Provider Status 08/02/24 3:07 PM C-Arm < 1 Hour Maakyla Núñez; Landy (Verified) Notes: (C-Arm < 1 Hour) Reason For Exam: cysto, urinary retention sigmoid bladder fistula RESULT: C-Arm < 1 Hour C-Arm < 1 Hour INDICATION: Reason: cysto, urinary retention sigmoid bladder fistula COMPARISONS: None TECHNIQUE: Fluoroscopy support was provided. There was no radiologist in attendance. FLUOROSCOPY TIME: 15.4 seconds EXPOSURE: 0.6049 Gycm2 (Dose Area Product) TECHNOLOGIST TIME: 25 minutes FINDINGS: Fluoroscopy support was provided. There was no radiologist in attendance. IMPRESSION: See above. WSN: [id number] Ordering Physician: Rene Rich I Dictated By: Sterling Zarate MD Dictated Date/Time: 08/03/24 9:09 am Reviewed By: Sterling Zarate MD Signed By: Sterling Zarate MD Signed Date/Time: 08/03/24 9:09 am Transcribed By: SHIRA Transcribed Date/Time: 08/02/24 6:01 pm * Exam Date Time Procedure Performing Provider Status 07/31/24 8:12 AM Chest 2 Views Frontal and Lat Helen Gonsalez; Landy (Verified) Notes: (Chest 2 Views Frontal and Lat) Reason For Exam: Follow-Up Pleural Effusion RESULT: Chest 2 Views Frontal and Lat Chest 2 Views Frontal and Lat Reason: Follow-Up Pleural Effusion; Clinical Question(s): Follow-Up Abnormal Exam COMPARISON: 07/29/2024 FINDINGS: LINES AND TUBES: Right-sided PICC line and AICD again demonstrated, stable in position. LUNGS AND PLEURA: Persistent consolidation left lung base. Small left pleural effusion. Right pleural effusion appears resolved. No pulmonary vascular congestion. HEART, MEDIASTINUM AND DERIK: Stable cardiomediastinal contour. BONES AND SOFT TISSUES: No acute abnormality. IMPRESSION: Persistent consolidation left lung base and small left effusion. Right pleural effusion appears resolved. WSN: [id number] Ordering Physician: Ramy Guillory Dictated By: Yoselyn Nuñez MD, I Dictated Date/Time: 07/31/24 10:13 a Reviewed By: Yoselyn Nuñez MD, I Signed By: Yoselyn Nuñez MD, I Signed Date/Time: 07/31/24 10:13 am Transcribed By: SHIRA Transcribed Date/Time: 07/31/24 10:11 am Vital Signs Most recent to oldest [Reference Range]: 1 2 3 Height 163 cm (08/18/24 12:09 AM) 163 cm (08/15/24 5:20 AM) 163 cm (08/15/24 1:45 AM) Weight 67.7 kg (08/11/24 7:27 AM) 69.4 kg (08/09/24 6:13 AM) 72.8 kg (08/08/24 5:52 AM) Oxygen Saturation [94-100 %] 99 % (08/18/24 3:00 PM) 100 % (08/18/24 11:00 AM) 100 % (08/18/24 8:00 AM) Pulse Rate [55-90 bpm] 94 bpm *H* (08/18/24 3:00 PM) 83 bpm (08/18/24 11:00 AM) 79 bpm (08/18/24 8:00 AM) Body Mass Index [18.5-24.99 kg/m2] 25.48 kg/m2 *H* (08/11/24 7:27 AM) 29.02 kg/m2 *H* (08/03/24 6:30 AM) 29.02 kg/m2 *H* (08/02/24 1:40 PM) Blood Pressure [90-138/55-84 mm Hg] 118/77mm Hg (08/18/24 3:00 PM) 119/75mm Hg (08/18/24 11:00 AM) 110/58mm Hg (08/18/24 8:00 AM) Respiratory Rate [16-30 br/min] 18 br/min (08/18/24 3:00 PM) 16 br/min (08/18/24 2:08 PM) 18 br/min (08/18/24 11:00 AM) Temperature [96.8-100.4 DegF] 98.8 DegF (08/18/24 3:00 PM) 97.9 DegF (08/18/24 11:00 AM) 97.8 DegF (08/18/24 8:00 AM) Liters per Minute 2 L/min (08/10/24 7:00 AM) 2 L/min (08/10/24 4:00 AM) 2 L/min (08/10/24 12:00 AM) Mode of Delivery (Oxygen) Room air (08/18/24 3:00 PM) Room air (08/18/24 11:00 AM) Room air (08/18/24 8:00 AM) Blood pressure sites Arm, left (08/18/24 3:00 PM) Arm, left (08/18/24 11:00 AM) Arm, left (08/18/24 8:00 AM) Temperature Route Oral (08/18/24 3:00 PM) Oral (08/18/24 11:00 AM) Oral (08/18/24 8:00 AM) Dry Weight 70.9 kg (08/03/24 6:30 AM) 70.9 kg (07/25/24 7:00 AM) 72 kg (07/25/24 6:17 AM) Weight Obtained Via Bed scale (08/11/24 7:27 AM) Bed scale (08/08/24 5:52 AM) Bed scale (07/27/24 6:52 AM) Dry Weight Obtained Via Bed scale (07/25/24 7:00 AM) UTO (07/24/24 9:28 AM) Social History Social History Type Response Smoking Status Former smoker; Other : former smoker, pt states I use to smoke about 4-5 cigg. a day, on and off throughout my adult life. I quit January 11, 2013.; entered on: 05/15/14 Sex Sex Representation Male (finding) Note * Event Display: SBAR Authored Date: * Aishwarya Vidales RN: PERFORM Event Display: Discharge/Transfer Note Hospital Authored Date: [id number] Nursing Discharge Note Entered On: 08/18/2024 17:20 EST Performed On: 08/18/2024 17:20 EST by Aishwarya Vidales RN Nursing Discharge Note 2 Discharge Time : 08/18/2024 17:20 EST Discharge Level of Care at Discharge : long-term facility Discharge Nursing Homes/Rehab Facilities : [facility] Patient Left Unit Via : Wheelchair Patient Accompanied Off Unit with : Responsible adult DC Instructions Provided & Signed by Pt : Yes Patient Understands D/C Instructions : Yes Patient Instructions Discharge Signed : Yes Did Pt have Specialty Bed or Wound Vac : No Flash SMITH, Aishwarya - 08/18/2024 17:20 EST * Daphne Noriega DO: PERFORM, MODIFY Event Display: Discharge/Transfer Note Hospital Authored Date: [id number] Patient: ??JOSE BONILLA ? Age:??78 Years?Sex:??Male?:??1945?? Admit Date Admission Date: 07/24/2024 Discharge Date 08/18/24 Discharge Diagnoses 4.??CAD (coronary artery disease), 07/24/2024 5.??Hypertension, 07/24/2024 Acute GI bleeding, 08/02/2024 Bacteremia, 07/29/2024 Cardiomyopathy, ischemic, 07/29/2024 Chronic HFrEF (heart failure with reduced ejection fraction), 07/29/2024 PUD (peptic ulcer disease), 07/29/2024 Septic shock, 07/29/2024 Thrombocytopenia, 07/29/2024 Colovesicular fistula Hospital Course Jose is a 78-year-old male with a past medical history of peptic ulcer disease status post exploratory laparotomy with primary repair of duodenal ulcer (2012),??NSTEMI, PVD, hypertension, hyperlipidemia, GERD, UTIs, and bilateral total hip replacements who presented to [facility] on 07/24 with hematuria and dysuria for several weeks.?? He was noted to be bacteremic (Citrobacter and Klebsiella) with a 4.7 cm abscess secondary to a colovesicular fistula as seen on CT abdomen pelvis.?? [facility] was [facility] in the setting of septic shock.?? Once he had stabilized from a hemodynamic standpoint, he underwent MRI which showed an additional fistula from the vesicourethral junction along the posterior margin of the bladder wall.?? On 08/03, he underwent exploratory laparotomy, takedown of colovesicular fistula, appendectomy, sigmoid colectomy, and diverting loop ileostomy.?? Postoperatively, patient initially recovered appropriately however with persistent leukocytosis.?? Chest x-ray was obtained on 08/08 which showed persistent consolidation of the left lung base however overall improved from prior.??Patient underwent repeat CT abdomen pelvis on 08/10 which showed small bilateral pleuraleffusions with bibasilar atelectasis and postoperative changes. On 08/13, patient had passage clots per rectum??with mildly downtrending??hemoglobin??to??8.3 (from 9.9).?? He was transfused 1 unit PRBCs on 08/14.?? Given persistent leukocytosis, patient did have a UA on 08/14 which was negative.?? Additionally, some erythema noted??at midline incision which was??partially opened??with few silvia removed and serous output expressed.?? Given??prior bacteremia??and ongoing leukocytosis, infectious disease??was consulted in the setting of his leukocytosis however no immediate intervention was felt to be indicated.?? Overall patient continued to progress slowly.?? His ostomy is functioning with bilious output and gas.?? Marinol was added for additional appetite stimulation in the setting of low p.o. intake.??His PICC line was removed prior to discharge as well as his silvia. At time of discharge, patient is tolerating an ostomy diet, having ostomy function, and overall stable for rehab facility.?? He will be discharged with 30 days of Lovenox, as well as medications for pain control. Objective/Physical Exam on Day of Discharge Vitals & Measurements T:??97.9?F?? HR:??83??(Peripheral)?? RR:??18?? BP:??119/75?? BP:??136/68(Line)?? SpO2:??100%?? HT:??163??cm?? WT:??67.7??kg?? BMI:??25.48?? Constitutional: Alert, in no distress. Mental Status: Oriented to person, place and time. Head/Neck:??Normocephalic, atraumatic.?? Respiratory: Normal respiratory rate and effort. ?? Cardiovascular: Regular rate and rhythm. ?? Gastrointestinal: Abdomen soft, non-distended, non-tender. Midline silvia removed.??Ostomy pink and well perfused.?? Skin: Skin is warm and dry.?? Musculoskeletal: No edema. No gross deformities. Neuro: A&O x 4. Moves all extremities spontaneously. Psychiatric: Normal mood and affect Assessment/Plan Assessment:??Pt is a 78 y/o male with??h/o peptic ulcer disease s/p ex-lap with primary repair of duodenal ulcer (2012, Dr. Rodriguez), NSTEMI, PVD, HTN, HLD, GERD, UTIs, and bilateral total hip replacements who presented to the ED on 07/24/24 with hematuria and dysuria for several weeks found to have bacteremia and 4.7 cm abscess secondary to colovesicular fistula, now status post exploratory laparotomy, takedown of colovesicular fistula, appendectomy, sigmoid colectomy, and diverting loop ileostomy.??He is stable for discharge at this time. Future Appointments Thursday 4:00 PM EDT ?? With: Zuleima Ferreira MD Where: [facility] [address] [place] [address] Drive [address] [place] [address]- Status: Pending Patient Discharge Condition Stable Discharge Disposition Rehab Procedures Performed This Visit Exploratory laparotomy, takedown of colovesicular fistula, appendectomy, sigmoid colectomy, and diverting loop ileostomy Inpatient Medications Medications (26) Active SCHEDULED: (14) Acetaminophen 1000 mg IVPB (Acetaminophen IVPB) ??1,000 mg 100 mL, IVPB, Every 6 hours Atorvastatin 20 mg Tablet (atorvastatin 20 mg oral tablet) ??20 mg, By Mouth, Daily Dronabinol 2.5 mg Capsule (Marinol 2.5 mg oral capsule) ??2.5 mg, By Mouth, 3 times a day before meals Enoxaparin 40 mg Inj (Enoxaparin Inj) ??40 mg 0.4 mL, Subcutaneous Injection, Daily Finasteride 5 mg Tablet (finasteride 5 mg oral tablet) ??5 mg, By Mouth, Daily Folic Acid 1 mg Tablet (folic acid 1 mg oral tablet) ??1 mg, By Mouth, Daily Gabapentin 300 mg Capsule (gabapentin 300 mg oral capsule) ??600 mg, By Mouth, Daily at bedtime NaCl 0.9% Flush 3ml (NaCL 0.9% Flush) ??3 mL, IV Push, Every 8 hours Oxybutynin 5 mg ER Tablet (Oxybutynin XL Tablet) ??5 mg, By Mouth, Daily Pantoprazole 40 mg EC Tablet (pantoprazole 40 mg oral delayed release tablet) ??40 mg, By Mouth, 2 times a day Spironolactone 25 mg Tablet (spironolactone 25 mg oral tablet) ??25 mg, By Mouth, Daily Tamsulosin 0.4 mg Capsule (tamsulosin 0.4 mg oral capsule) ??0.4 mg, By Mouth, Daily at bedtime Thiamine 100 mg Tablet (thiamine 100 mg oral tablet) ??100 mg, By Mouth, Daily Vitamin D 1000 IU Tablet (cholecalciferol 1000 intl units oral tablet) ??2,000 International_Units,By Mouth, Daily CONTINUOUS: (0) PRN: (12) Chloraseptic Lozenge ??1 lozenge, By Mouth, Every 3 hours Diazepam 2 mg Tablet (Valium 2 mg oral tablet) ??2 mg, By Mouth, Every 8 hours Glucagon 1 mg Inj (Glucagon Inj) ??1 mg, Intramuscular, Once HYDROmorphone 0.5 mg/0.5 mL Inj Syringe (Dilaudid Inj) ??0.5 mg 0.5 mL, IV Push Slowly, Once Melatonin 3 mg Tablet (Melatonin Tablet) ??3 mg, By Mouth, Daily at bedtime NaCL 0.9% Flush 10ml (Flush NaCl 0.9% (10mL)) ??10 mL, IV Push, Every 8 hours NaCL 0.9% Flush 10ml (Flush NaCl 0.9% (10mL)) ??10 mL, IV Push, Every 8 hours NaCl 0.9% Flush 3ml (NaCL 0.9% Flush) ??3 mL, IV Push, Every 8 hours nalOXONE ??400mcg/mL Inj (nalOXONE Inj) ??0.04 mg 0.1 mL, IV Push, Every 5 minutes nalOXONE ??400mcg/mL Inj (nalOXONE Inj) ??0.1 mg 0.25 mL, IV Push Slowly, Every 5 minutes OxyCODONE 5 mg IR Tablet (OxyCODONE IR Tablet) ??5 mg, By Mouth, Every 4 hours TraMADOL 50 mg Tablet (traMADol 50 mg oral tablet) ??50 mg, By Mouth, Every 6 hours Discharge Medications Atorvastatin (atorvastatin 20 mg oral tablet)??1 tab(s) 20 Milligram By Mouth Daily Cholecalciferol (Vitamin D3 2000 intl units oral capsule)??1 capsule 50 Microgram By Mouth Daily Dronabinol (Marinol 2.5 mg oral capsule)??2.5 Milligram By Mouth 3 times a day before meals Enoxaparin??0.4 Milliliter 40 Milligram Subcutaneous Injection Daily for 30 Days Finasteride (finasteride 5 mg oral tablet)??1 tab(s) 5 Milligram By Mouth Daily Folic Acid (folic acid 1 mg oral tablet)??1 Milligram 1 tablet By Mouth Daily Gabapentin (gabapentin 300 mg oral capsule)??600 Milligram 2 capsule By Mouth Daily at bedtime Omeprazole (omeprazole 40 mg oral enteric coated capsule)??1 capsule 40 Milligram By Mouth 2 times a day Oxybutynin (oxybutynin 5 mg/24 hours oral tablet, extended release)??5 Milligram By Mouth Daily Oxycodone (oxyCODONE 5 mg oral tablet)??5 Milligram By Mouth Every 4 hours as needed Pain , Severe Spironolactone (spironolactone 25 mg oral tablet)??25 Milligram 1 tablet By Mouth Daily Tamsulosin (tamsulosin 0.4 mg oral capsule)??0.4 Milligram 1 capsule By Mouth Daily at bedtime Thiamine (thiamine 100 mg oral tablet)??100 Milligram By Mouth Daily Tramadol (traMADol 50 mg oral tablet)??50 Milligram By Mouth Every 6 hours as needed Pain , Moderate Labs Last 24 Hours BLOOD COUNT & DIFF ? Event Name?? Event Result?? Date/Time?? WBC 11.5 k/mm3??High 08/18/24 06:53:00 RBC 3.02 m/mm3??Low 08/18/24 06:53:00 Hgb 9.3 Gm/dL??Low 08/18/24 06:53:00 Hct 27.9 %??Low 08/18/24 06:53:00 MCV 92.4 femtoliters 08/18/24 06:53:00 MCH 30.8 pg 08/18/24 06:53:00 MCHC 33.3 Gm/dL 08/18/24 06:53:00 Platelet Count 346 k/mm3 08/18/24 06:53:00 MPV 12 femtoliters 08/18/24 06:53:00 Nucleated RBC (Automated) 0 #/100 WBC'S 08/18/24 06:53:00 ? CHEM GENERAL ? Event Name?? Event Result?? Date/Time?? Sodium 131 mmol/L??Low 08/18/24 06:53:00 Chloride 99 mmol/L 08/18/24 06:53:00 Bicarbonate Level 19 mmol/L??Low 08/18/24 06:53:00 Anion Gap 13 mmol/L 08/18/24 06:53:00 Glucose Level 71 mg/dL 08/18/24 06:53:00 BUN 22 mg/dL 08/18/24 06:53:00 Creatinine-Blood 0.85 mg/dL 08/18/24 06:53:00 Calcium, Ionized pH Corrected 1.22 mmol/L 08/18/24 06:53:00 Phosphorus 3.1 mg/dL 08/18/24 06:53:00 Magnesium 1.8 mg/dL 08/18/24 06:53:00 ? Consultants Infectious disease Urology Medicine [facility] Patient Education Titles Web[employer] Ignite Patient Education - Ileostomy: Nutritional Management?? [employer] Patient Education - Discharge Instructions for Ileostomy?? [employer] Patient Education - Ileostomy: Caring for Your Stoma?? [employer] Patient Education - Zones Post OP Ileostomy?? Follow-Up Appointments Dr. Ferreira in colorectal surgery clinic: September 19, 4pm Patient Instructions Additional Provider Instructions:? Activity: - No heavy lifting >10 lbs, nothing heavier than a gallon of milk - Increase activity as tolerated - Encourage coughing and deep breathing, use incentive spirometer - No tub baths or submerging (swimming, etc.) until incision(s) has/have healed - Okay to shower, do not scrub the incision, pat dry - No driving until off narcotics - Continue to eat an ostomy diet. Refer to the nutritional handouts for recommendations ?? Wound care: - May leave incision open to air. [place] have been removed.? Ileostomy care/education: - Please record daily ostomy output and bring to clinic follow up appointment. - Refer to Imodium and ostomy zones handout if output becomes greater than 1200ml in 24 hours to prevent dehydration. - If output significantly changes from in-hospital output, please call the office for advice.? Medications: - You should continue all of your in hospital medications as directed. You have been prescribed a few pills of Oxycodone to take as needed for pain control.?? - Please take medications as prescribed and do not drive while on narcotic medications.?? - Please call your Primary Care Provider within 1 week for post-hospital follow- up and review of your medications.? Follow Up: - The colorectal surgery office will call you to schedule follow up. If you have questions or concerns, please feel free to call the office at [phone]. ?? When to call your healthcare provider:?? - Pain, redness, swelling, or bleeding that gets worse - Smelly fluid from the incision or change in color of the drainage from the incision - Fever of 100.4F (38C) or higher, or as advised - Shaking or chills - Vomiting or nausea that does not go away - Numbness, coldness, or tingling around the incision - Change of skin color around the incision - Opening of the wound, stitches that pull apart, or silvia that fall out - Any other concerns?? * Zuleima Ferreira MD: PERFORM Event Display: Discharge/Transfer Note Hospital Authored Date: I have seen and evlauated this patient. I have discussed the case and its management with the resident and agree with the findings and plan as documented in the resident's note with the following additions/changes: ?? Patient seen evaluated and discussed the resident team.?? No acute events overnight. ??Patient was resting this morning. ??He tells me had difficulty eating because no one would set him up in the chair??for his meals. ??He however was hungry and he has not had any nausea or vomiting. ??He tells me his pain has been quite well-controlled. ??On evaluation the patient's abdomen is soft and flat. ??His midline incision is clean and dry??with silvia. ??His ileostomy is pink and moist. ??We will remove the silvia and place Steri-Strips today. ??Will follow-up the patient's labs. ??I have asked nursing to ensure that he is sitting for his meals. ??Providing his labs are??stable or improved we will plan for discharge to rehab. ??He will need 4 weeks of Lovenox??for post discharge prophylaxis. ??He will follow-up in office??and I did discuss the potential for reversal over the next 3 to 6 months depending on his overall health. * Guru Smith RN: VERIFY, PERFORM, SIGN Event Display: Case Management Discharge Plan Authored Date: [id number] Patient: JOSE BONILLA Age: 78 years Sex: Male : 1945 Associated Diagnoses: None Author: Guru Smith RN Discharge Plan Case Management Discharge Plan : Case Management Discharge Plan Data 08/17/2024 15:43 EST Discharge Level of Care at Discharge long-term facility Discharge Nursing Homes/Rehab Facilities [facility] Discharge Transportation Arranged [facility] [address] [place] [address] Discharge Arranged Transport Date/Time 08/18/2024 16:00 Mode of Transportation Arranged Chair Van Name of Agency #1 [facility] Agency Quality Control Inspector #1 Admissions Service Categories #1 Occupational Therapy, Physical Therapy, Care Home Name of Person Notified of Transfer Jose Bonilla Phone Number of Receiving Facility [facility] * Aishwarya Vidales RN: PERFORM Event Display: Patient Education/Instruction Authored Date: [id number] Inpatient Adult Discharge Instructions. [address] [address] Name: JOSE BONILLA : 1945?? Visit: 07/24/2024 13:44?? Current Date: 08/18/2024 15:37 ?? Account: [id number]?? Inpatient Adult Discharge Instructions We would like to thank you for allowing us to assist you with your healthcare needs. The following includes patient education materials and information regarding your injury/illness. Our entire staffstrives to provide an excellent experience for our patients and their families. PLEASE ENSURE YOU FOLLOW-UP PER THE INSTRUCTIONS BELOW! ?? YOUR OPINION IS IMPORTANT TO US! Please complete the survey you may receive by mail or email. Your feedback will be used to make improvements to the healthcare experiences of our patients and their families. Surveys are administered by [employer] ?? If further treatment with your primary care physician or another doctor is recommended, it is important for you to keep the appointment. Call your primary care physician or return to the Emergency Department immediately if your condition worsens, fails to improve, or new symptoms develop. If you need to find a doctor, you can call [facility] [email or web address] for a referral at [phone] or toll free at [phone] [email or web address] ([phone]) or log in to [email or web address].. ?? [facility], in keeping with [facility] guidance, no longer requires face masks for staff, patientsor visitors in most situations. Similiar to time spent indoors at other locations, there is the chance that you were exposed to repiratory viruses during your time with us (such as flu or COVID-19). If you develop symptoms concerning for a viral respiratory infection, please seek testing (and treatment if indicated) from your medical provider or home test kit. ?? You can view and manage your care through the patient portal or by using a health care shay of your choosing. [employer] is a website that allows you to securely view your medical information including your hospital discharge summary, office visit summaries, medications and follow-up visits. You can also request appointments, renew medications, and request access to your medical information using a health care shay of your choosing, or just ask a question. You can enroll at [email or web address] or register during your next office visit. You have been discharged from [facility], Patient Care Unit: SW6??. If you have any questions regarding these instructions, including results of studies pending, afteryou leave, please call us and we will be happy to assist you 02/02. [facility] Your Care Team Attending Physician Zuleima Ferreira MD?? Consulting Providers Zuleima Ferreira MD?? Discharging Providers Daphne Noriega DO Reason for Your Visit Haematuria and dysuria?? Your Diagnosis CAD (coronary artery disease) Hypertension Acute GI bleeding Bacteremia Cardiomyopathy, ischemic Chronic HFrEF (heart failure with reduced ejection fraction) PUD (peptic ulcer disease) Septic shock Thrombocytopenia Tests Performed Below is a partial list of the tests performed during your hospitalization. You may have had other tests and procedures not included in this list. Please discuss all test results with your provider. [id number] ABG POC CARTRIDGE Albumin Level BASE EXCESS POC CARTRIDGE Basic Metabolic Panel Blood Culture Blood Culture #2 Blood Culture 2 Results Blood Culture Rapid ID, ORIN Blood Culture Result BUN CALCIUM IONIZED POC CART Calcium Level CBC CBC w/ Differential CEA COVID-19 (2019 Novel Coronavirus) PCR CREAT FLUID Creatinine Electrolytes Fibrinogen Glucose Level GLUCOSE POC GLUCOSE POC CARTRIDGE H + H HEMATOCRIT POC CARTRIDGE HEMOGLOBIN POC CARTRIDGE Heparin Induced Platelet Ab (PF4) HEPATIC FUNCTION PANEL HOLD LAVENDER TUBE Ionized Calcium Lactate Level LFT's Lytes Magnesium Level Phosphorus Level Potassium Level POTASSIUM POC CARTRIDGE Prealbumin PT (INR) PTT Serotonin Release Assay, Serum SODIUM POC CARTRIDGE TRIGLYCERIDE Type and Screen UA Urinalysis w/hold for Urine Culture Urine Culture Result Urine Culture, Routine Chest CT W/ Contrast CT Abd/Pelvis W/ IV + Oral Contrast CT Abd/Pelvis W/ IV Contrast Only CT Cystogram CXR Portable CXR W/ Frontal and Lat MRI Pelvis W+W/O Contrast US Doppler Ext Lower Venous Bilat US RUQ XR ABD COMP/DECUB/ERECT XR C-Arm < 1 Hour XR Cystogram Min 3 Views ABG (Lab) POC Cartridge (ABG POC CARTRIDGE)?? Albumin Level?? BUN?? Base Excess (Lab) POC Cartridge (BASE EXCESS POC CARTRIDGE)?? Basic Metabolic Panel?? Blood Culture?? Blood Culture #2?? Blood Culture 2 Results?? Blood Culture Rapid ID, ORIN?? Blood Culture Result?? CBC?? CBC w/ Differential (COMPLETE CBC WITH DIFF)?? CEA?? COVID-19 (2019 Novel Coronavirus) PCR?? CT Abd/Pelvis W/ IV + Oral Contrast?? CT Abd/Pelvis W/ IV Contrast Only?? CT Chest W/ Contrast (Chest CT W/ Contrast)?? CT Cystogram?? Calcium Level?? Complete Urinalysis (UA)?? Creatinine?? Creatinine Fluid (CREAT FLUID)?? Electrolytes (Lytes)?? Fibrinogen?? Glucose (Lab) POC Cartridge (GLUCOSE POC CARTRIDGE)?? Glucose Level?? Glucose POC?? Hematocrit (Lab) POC Cartridge (HEMATOCRIT POC CARTRIDGE)?? Hemoglobin (Lab) POC Cartridge (HEMOGLOBIN POC CARTRIDGE)?? Heparin Induced Platelet Ab (PF4)?? Hepatic Function Panel (LFT's)?? Hgb + Hct (H + H)?? Hold Lavender Top Tube (HOLD LAVENDER TUBE)?? INR (PT (INR))?? Ionized Calcium (PH CORRECTED IONIZED CALCIUM)?? Ionized Calcium(POC) POC Cartridge (CALCIUM IONIZED POC CART)?? Lactic Acid Level (Lactate Level)?? MRI Pelvis W+W/O Contrast?? Magnesium Level (MAGNESIUM)?? PTT?? Pathology Tissue Request ()?? Phosphorus Level (PHOSPHORUS)?? Potassium (Lab) POC Cartridge (POTASSIUM POC CARTRIDGE)?? Potassium Level?? Prealbumin?? Serotonin Release Assay, Serum?? Sodium (Lab) POC Cartridge (SODIUM POC CARTRIDGE)?? Transfuse RBCs?? Triglycerides (TRIGLYCERIDE)?? Type and Screen?? US Doppler Ext Lower Venous Bilat?? US RUQ?? Urinalysis w/hold for Urine Culture?? Urine Culture (Urine Culture, Routine)?? Urine Culture Result?? Abdomen Comp Inc Decub and/or Erect (XR ABD COMP/DECUB/ERECT)?? C-Arm < 1 Hour?? Chest 2 Views Frontal and Lat (CXR W/ Frontal and Lat)?? Chest Portable (CXR Portable)?? Cystogram Min 3 Views?? Primary Care Provider Pablo Strauss MD? Advance Directive Health Care Proxy on File Yes - Health Care Proxy Discharge Vitals Temperature: 98.8 DegF Height: 163 cm Pulse Rate:??94 bpm??High Weight: 67.7 kg Respiratory Rate: 18 br/min Body Mass Index:??25.48 kg/m2??High Systolic Blood Pressure: 118 mm Hg Body surface area: 1.75 Diastolic Blood Pressure: 77 mm Hg ?? Oxygen Saturation: 99 % ?? Studies Pending All studies ordered during this hospital stay have been completed unless listed below. Please discuss all pending results with your provider listed above in these instructions. ?? Basic Metabolic Panel?? CBC w/ Differential?? Ionized Calcium?? Magnesium Level?? Phosphorus Level?? Transfuse RBCs?? What to do next Instructions From Your Doctor Additional Provider Instructions:? Activity: - No heavy lifting >10 lbs, nothing heavier than a gallon of milk - Increase activity as tolerated - Encourage coughing and deep breathing, use incentive spirometer - No tub baths or submerging (swimming, etc.) until incision(s) has/have healed - Okay to shower, do not scrub the incision, pat dry - No driving until off narcotics - Continue to eat an ostomy diet. Refer to the nutritional handouts for recommendations ?? Wound care: - May leave incision open to air. [place] have been removed.? Ileostomy care/education: - Please record daily ostomy output and bring to clinic follow up appointment. - Refer to Imodium and ostomy zones handout if output becomes greater than 1200ml in 24 hours to prevent dehydration. - If output significantly changes from in-hospital output, please call the office for advice.? Medications: - You should continue all of your in hospital medications as directed. You have been prescribed a few pills of Oxycodone to take as needed for pain control.?? - Please take medications as prescribed and do not drive while on narcotic medications.?? - Please call your Primary Care Provider within 1 week for post-hospital follow- up and review of your medications.? Follow Up: - The colorectal surgery office will call you to schedule follow up. If you have questions or concerns, please feel free to call the office at [phone]. ?? When to call your healthcare provider:?? - Pain, redness, swelling, or bleeding that gets worse - Smelly fluid from the incision or change in color of the drainage from the incision - Fever of 100.4F (38C) or higher, or as advised - Shaking or chills - Vomiting or nausea that does not go away - Numbness, coldness, or tingling around the incision - Change of skin color around the incision - Opening of the wound, stitches that pull apart, or silvia that fall out - Any other concerns? Orders? 08/18/24 15:33:00 EST?? Prescriptions??, ??08/18/24 15:33:00 EST?? Scheduled Follow-Up Appointments Thursday 4:00 PM EDT ?? With: Zuleima Ferreira MD Where: [facility] [address] [place] [address] Drive [address] [place] [address]- Status: Pending Discharge Medications CHAD, JOSE :1945 Visit Date:07/24/2024 Medications: Please continue your medications until treatment is completed or stopped by your provider. Medications not listed below should be discontinued. Discuss any questions related to medications with your provider. What How Much When Instructions Next Dose New Dronabinol (Marinol 2.5 mg oral capsule) 2.5 Milligram Oral 3 times a day before meals New Enoxaparin 40 Milligram Subcutaneous Injection Daily Duration: 30 Days New Oxybutynin (oxybutynin 5 mg/ 24 hours oral tablet, extended release) 5 Milligram Oral Daily New Oxycodone (oxyCODONE 5 mg oral tablet) 5 Milligram Oral Every 4 hours as needed for Pain , Severe Changed Atorvastatin (atorvastatin 20 mg oral tablet) 1 tab(s) Oral Daily Changed Cholecalciferol (Vitamin D3 2000 intl units oral capsule) 1 capsule Oral Daily Changed Finasteride (finasteride 5 mg oral tablet) 1 tab(s) Oral Daily Changed Folic Acid (folic acid 1 mg oral tablet) 1 tab(s) Oral Daily Changed Gabapentin (gabapentin 300 mg oral capsule) 2 capsule Oral Daily at Bedtime Changed Omeprazole (omeprazole 40 mg oral enteric coated capsule) 1 capsule Oral Twice a day Changed Tamsulosin (tamsulosin 0.4 mg oral capsule) 1 capsule Oral Daily at Bedtime Changed Thiamine (thiamine 100 mg oral tablet) 100 Milligram Oral Daily Changed Tramadol (traMADol 50 mg oral tablet) 50 Milligram Oral Every 6 hours as needed for Pain , Moderate Unchanged Spironolactone (spironolactone 25 mg oral tablet) 1 tab(s) Oral Daily ?? What How Much When Comments Stop Taking Aspirin (aspirin 81 mg oral tablet) 1 tab(s) Oral Daily Duration: 30 Days Stop Taking Carvedilol (carvedilol 12.5 mg oral tablet) TAKE 1 TABLET BY MOUTH TWICE A DAY WITH FOOD ?? Stop Taking Carvedilol (carvedilol 12.5 mg oral tablet) 1 tab(s) Oral Twice a day Stop Taking Docusate-Senna (Senexon-S 50 mg-8.6 mg oral tablet) TAKE 1 TABLET BY MOUTH TWICE A DAY NEEDED FOR CONSTIPATION FOR 90 DAYS ?? Stop Taking Doxycycline (doxycycline hyclate 100 mg oral tablet) TAKE 1 TABLET BY MOUTH EVERY DAY ?? Stop Taking Ferrous Gluconate (ferrous gluconate 324 mg oral tablet) TAKE 1 TABLET BY MOUTH EVERY DAY ?? Stop Taking Ferrous Sulfate (ferrous sulfate 325 mg oral tablet) 1 tab(s) Oral 3 times a day Stop Taking Isosorbide Mononitrate (isosorbide mononitrate 30 mg oral tablet, extended release) 1 tab(s) Oral Daily Duration: 30 Days Stop Taking Isosorbide Mononitrate (isosorbide mononitrate 60 mg oral tablet, extended release) TAKE 1 TABLET BY MOUTH EVERY DAY IN THE MORNING ?? Stop Taking Lisinopril (lisinopril 2.5 mg oral tablet) 1 tab(s) Oral Daily Duration: 30 Days Stop Taking Naproxen (naproxen 500 mg oral tablet) TAKE 1 TABLET ORALLY EVERY 12 HOURS NEEDED FOR PAIN FOR 30 DAYS ?? Stop Taking Pt.'s Own Meds (Patient's Own Meds) medical marijuana Stop Taking sacubitril-valsartan (Entresto 24 mg-26 mg oral tablet) TAKE 1 TABLET BY MOUTH TWICE A DAY ?? Stop Taking Tizanidine Oral Prescription Given During Visit No new medications prescribed at time of discharge.?? Laboratory Results Below is a partial list of the most recent Laboratory test results done prior to this discharge. You may have had other tests and procedures not included in this list. Please discuss all test resultswith your provider. Est Creatinine Clearance - 59.40 mL/min (08/18/2024) RBC Available - PT (08/14/2024) RBC Unit ID - [id number] (08/14/2024) (08/03/2024) ? ?Surgical Pathology - Patient Name: JOSE BONILLA
Svitlana b
Patient : 1945 (Age: 78)
Collection Date: 08/03/2024
Accession Date: 08/03/2024
Sign Out Date: 08/08/2024

Tissue Source:
1:APPENDIX
2:SIGMOID COLON

Final Diagnosis:
1. Appendix, appendectomy:
- Appendiceal diverticulum with serositis.

2. Sigmoid colon, colectomy:
- Colonic diverticulosis with full thickness wall defect..

Primary Pathologist:Luiz Velez M.D.
electronically signed out by: Luiz Velez M.D. / ZULY

Clinical History:
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

Gross Description:
Part 1. Labeled appendix . Received in formalin is a 3 cm in length by 0.9 cm in diameter segment of appendix with up to 3.2 cm of attached mesoappendix.
The proximal aspect of the specimen is stapled (removed and inked black).
The serosa display moderate pink-red wispy adhesions predominantly at the distal tip; the distal tip appears partially adhesed to itself, malpositioned.
Sectioning the appendix reveals a 0.3 cm in diameter lumen surrounded by cuevas-pink, grossly unremarkable mucosa.
The wall thickness averages 0.4 cm.
Set Making Machine Operator sections are submitted as follows:
1-2 pieces, bisected distal tip
2-3 pieces, billing representative cross-sections including the proximal margin, en face. ()*

Part 2. Labeled "sigmoid colon . Received in formalin is a 16.5 cm in length by 3 cm in diameter segment of large bowel with up to 3.2 cm of attached fat. Also received separate in the same container is an anvil bearing two cuevas-pink, annular fragments of mucosa which are 2.0 x 1.7 x 0.9 cm and 2.3 x 1.8 x 1.7 cm.
The segment of bowel displays two stapled ends. One of the stapled ends displays a suture which is designated as proximal on the requisition. The proximal margin is inked blue; the distal margin is inked black.
The serosa is pink-red, focally surface by adhesed yellow-red glistening adipose. A 0.3 x 0.3 cm probe patent defect (inked orange) is identified 5.2 cm from the closest, distal margin.
On opening, the mucosal surfaces aretan-pink, glistening with regular folds. Focal diverticula are noted, some which extend into the subjacent adipose. No additional areas of perforation can be identified grossly. No areas of abscess formation can be identified grossly. The wall thickness measures up to 1.3 cm.
Set Making Machine Operator sections are submitted as follows:
1- 2 pieces, mucosal margins, perpendicular
2-1 piece, area of defect
3 and 4-1 piece each, diverticula
5-2 pieces, billing representative sections of donuts. (KM)*

As of September 19, 2023, the specimen processing and staining is performed at [facility], [address] [place] [address] (CLIA#[id number]). Its performance characteristics determined by [facility]. Kate Cruz M.D. Jelly Filter Tender of Surgical Pathology, Jose M Plata M.D. Jelly Filter Tender Cytopathology

Phone #: [phone], On-Call Pathologist: [id number] ABG POC CARTRIDGE (08/03/2024) ???pH (POC) POC Cartridge - 7.33???pCO2 (POC) POC Cartridge - 40.3 mm Hg???pO2 (POC) POC Cartridge - 67 mm Hg???Estimated Bicarbonate (POC) POC Cart - 21.1 mmol/L???% O2 Sat Arterial (POC) POC Cartridge - 92 %???Specimen Type - Blood Gas - ARTERIAL Albumin Level (08/03/2024) ???Albumin - 3.3 Gm/dL BASE EXCESS POC CARTRIDGE (08/03/2024) ???Base Excess (POC) POC Cartridge - NEGATIVE 5 Basic Metabolic Panel (08/18/2024) ???Sodium - 131 mmol/L???Potassium - 4.4 mmol/L???Chloride - 99 mmol/L???Bicarbonate Level - 19 mmol/L???Anion Gap - 13 mmol/L???Glucose Level - 71 mg/dL???BUN - 22 mg/dL???Creatinine-Blood - 0.85 mg/dL???Estimated GFR Creatinine - 88 ML/MIN/1.73 M2???Calcium - 9.3 mg/dL Blood Culture (08/15/2024) ???Blood Culture Results - Preliminary report???Blood Culture Specimen Source - BLOOD Blood Culture #2 (08/15/2024) ???Blood Cult 2 Results - Preliminary report???Blood Culture 2 Specimen Source - BLOOD Blood Culture 2 Results (08/15/2024) ???Blood Culture 2 Isolate 1 - Comment Blood Culture Rapid ID, ORIN (07/24/2024) ???A calcoaceticus-baumannii comp,Culture 1 - Not Detected???Bacteroides fragilis, Culture 1 - Not Detected???Enterobacterales, Culture 1 - DETECTED???Enterobacter cloacae complex, Culture 1 - Not Detected???Escherichia coli, Culture 1 - Not Detected???Klebsiella aerogenes, Culture 1 - Not Detected? ??Klebsiella oxytoca, Culture 1 - Not Detected???Klebsiella pneumoniae group, Culture 1 - DETECTED???Proteus spp., Culture 1 - Not Detected???Salmonella spp., Culture 1 - Not Detected???Serratia marcescens, Culture 1 - Not Detected???Haemophilus influenzae, Culture 1 - Not Detected???Neisseria menin gitidis, Culture 1 - Not Detected???Pseudomonas aeruginosa, Culture 1 - Not Detected???Stenotrophomonas maltophilia, Culture 1 - Not Detected???Enterococcus faecalis, Culture 1 - Not Detected???Enterococcus faecium, Culture 1 - Not Detected???Listeria monocytogenes, Culture 1 - Not Detected???Staphylococcus spp., Culture 1 - Not Detected???Staphylococcus aureus, Culture 1 - Not Detected???Staphylococcus epidermidis, Culture 1 - Not Detected???Staphylococcus lugdunensis, Culture 1 - Not Detected???Streptococcus spp., Culture 1 - Not Detected???Streptococcus agalactiae, Culture 1 - Not Detected???Streptococcus pneumoniae, Culture 1 - Not Detected???Streptococcus pyogenes, Culture 1 - Not Detected???Cherrie albicans, Culture 1 - Not Detected???Cherrie auris, Culture 1 - Not Detected???Cherrie glabrata, Culture 1 - Not Detected???Cherrie krusei, Culture 1 - Not Detected???Cherrie parapsilosis, Culture 1 - Not Detected???Cherrie tropicalis, Culture 1 - Not Detected???Cryptococcus neoformans/gattii,Culture 1 - Not Detected???IMP (Carbapenemases), Culture 1 - Not Detected???KPC (Carbapenemases), Culture 1 - Not Detected???OXA-48-like (Carbapenemases), Culture 1 - Not Detected???NDM (Carbapenemases), Culture 1 - Not Detected???VIM (Carbapenemases), Culture 1 - Not Detected???mcr-1 (Colistin Resistance), Culture 1 - Not Detected???CTX-M (ESBL), Culture 1 - Not Detected???mecA/C(Methicillin Resistance),Culture 1 - Not applicable???mecA/C and MREJ (MRSA), Culture 1 - Not applicable???Carl/B (Vancomycin Resistance),Culture 1 - Not applicable Blood Culture Result (08/15/2024) ???Blood Culture Isolate 1 - Comment BUN (07/25/2024) ???BUN - 21 mg/dL CALCIUM IONIZED POC CART (08/03/2024) ???Ionized Calcium (POC) POC Cartridge - 1.24 mmol/L Calcium Level (07/25/2024) ???Calcium - 7.8 mg/dL CBC (08/13/2024) ???WBC - 13.4 k/mm3???RBC - 2.88 m/mm3???Hgb - 8.9 Gm/dL???Hct - 26.7 %???MCV - 92.7 femtoliters???MCH - 30.9 pg???MCHC - 33.3 Gm/dL???Platelet Count - 574 k/mm3???RDW-SD - 51.1 femtoliters???MPV - 11.2 femtoliters???Nucleated RBC (Automated) - 0.0 #/100 WBC'S???Abs. NRBC - 0.0 k/mm3 CBC w/ Differential (08/18/2024) ???WBC - 11.5 k/mm3???RBC - 3.02 m/mm3???Hgb - 9.3 Gm/dL???Hct - 27.9 %???MCV - 92.4 femtoliters???MCH - 30.8 pg???MCHC - 33.3 Gm/dL???Platelet Count - 346 k/mm3???RDW-SD - 49.7 femtoliters???MPV - 12.0 femtoliters???Nucleated RBC (Automated) - 0.0 #/100 WBC'S???Abs. NRBC - 0.0 k/mm3???Abs. Neut - 8.5 k/mm3???Abs. Lymph - 1.6 k/mm3???Abs. [place] - 0.9 k/mm3???Abs. Eo - 0.4 k/mm3???Abs. Baso - 0.1 k/mm3???Neut % - 73.4 %???Lymph % - 14.2 %???[place] % - 7.6 %???Eos % - 3.3 %???Baso % - 0.5 %???Imm Gran - 1.0 %???Abs. Imm Gran - 0.1 k/mm3 CEA (07/25/2024) ???CEA Monoclonal - 2.0 ng/mL COVID-19 (2019 Novel Coronavirus) PCR (07/25/2024) ???COVID-19 PCR Specimen Source - NASAL???COVID-19 PCR Result - NEGATIVE CREAT FLUID (08/12/2024) ???Creatinine, Fluid - 0.7 mg/dL Creatinine (07/25/2024) ???Creatinine-Blood - 1.25 mg/dL???Estimated GFR Creatinine - 59 ML/MIN/1.73 M2 Electrolytes (07/25/2024) ???Sodium - 137 mmol/L???Potassium - 4.9 mmol/L???Chloride - 110 mmol/L???Bicarbonate Level - 14 mmol/L???Anion Gap - 13 Fibrinogen (07/26/2024) ???Fibrinogen - 409 mg/dL Glucose Level (07/25/2024) ???Glucose Level - 74 mg/dL GLUCOSE POC (07/29/2024) ???Glucose, POC - 101 mg/dL GLUCOSE POC CARTRIDGE (08/03/2024) ???Glucose (POC) POC Cartridge - 170 H + H (08/14/2024) ???Hgb - 8.4 Gm/dL???Hct - 24.9 % HEMATOCRIT POC CARTRIDGE (08/03/2024) ???Hematocrit (POC) POC Cartridge - 29 % HEMOGLOBIN POC CARTRIDGE (08/03/2024) ???Hemoglobin (POC) POC Cartridge - 9.9 Gm/dL Heparin Induced Platelet Ab (PF4) (07/27/2024) ???Hep-PF4 Ab Interpretation - NEGATIVE???Hit Tracy - 0.264 OD HEPATIC FUNCTION PANEL (08/08/2024) ???Protein, Total - 6.4 Gm/dL???Albumin - 3.1 Gm/dL???Alkaline Phosphatase - 64 units/L???AST (SGOT) - 17 units/L???ALT (SGPT) - 9 units/L???Bilirubin, Total - 0.2 mg/dL???Bilirubin, Direct - 0.1 mg/dL???Bilirubin, Indirect - 0.1 mg/dL HOLD LAVENDER TUBE (07/25/2024) ???Hold Lavender Top - SPECIMEN DISCARDED AFTER 24 HOURS. Ionized Calcium (08/18/2024) ???Calcium, Ionized pH Corrected - 1.22 mmol/L Lactate Level (07/29/2024) ???Lactate - 0.9 mmol/L LFT's (08/13/2024) ???Protein, Total - 5.9 Gm/dL???Albumin - 2.9 Gm/dL???Alkaline Phosphatase - 74 units/L???AST (SGOT) - 14 units/L???ALT (SGPT) - 11 units/L???Bilirubin, Total - 0.2 mg/dL???Bilirubin, Direct - 0.1 mg/dL???Bilirubin, Indirect - 0.1 mg/dL Lytes (08/02/2024) ???Sodium - 133 mmol/L???Potassium - 4.1 mmol/L???Chloride - 101 mmol/L???Bicarbonate Level - 20 mmol/L???Anion Gap - 12 Magnesium Level (08/18/2024) ???Magnesium - 1.8 mg/dL Phosphorus Level (08/18/2024) ???Phosphorus - 3.1 mg/dL Potassium Level (07/26/2024) ???Potassium - 4.0 mmol/L POTASSIUM POC CARTRIDGE (08/03/2024) ???Potassium (POC) POC Cartridge - 4.2 mmol/L Prealbumin (08/03/2024) ???Prealbumin - 15.8 mg/dL PT (INR) (07/26/2024) ???INR - 1.3???Protime (PT) - 13.2 seconds PTT (07/26/2024) ???APTT - 31.3 seconds Serotonin Release Assay, Serum (07/27/2024) ???BRAXTON, Low Dose Heparin - 1???BRAXTON, High Dose Heparin - 2???BRAXTON Interpretation - Comment SODIUM POC CARTRIDGE (08/03/2024) ???Sodium (POC) POC Cartridge - 133 mmol/L TRIGLYCERIDE (08/08/2024) ???Triglycerides - 189 mg/dL Type and Screen (08/13/2024) ???Blood Type - AB Positive???Antibody Screen - Negative UA (08/14/2024) ???Appear/Color, Urine - YELLOW???Specific [place], Urine - 1.022???pH, Urine - 7.5???Albumin, Urine - TRACE???Glucose, Urine - NEGATIVE???Ketones, Urine - NEGATIVE???Bilirubin, Urine - NEGATIVE???Hemoglobin, Urine - NEGATIVE???Nitrite, Urine - NEGATIVE???Leukocyte, Urine - TRACE???Urobilinogen - NORMAL???WBC's, Urine - 5 /HPF???RBC's, Urine - 1 /HPF???Bacteria - SLIGHT???Amorphous Crystals - MODERATE Urinalysis w/hold for Urine Culture (07/24/2024) ???Appear/Color, Urine - PINK???Specific [place], Urine - 1.032???pH, Urine - 8.0???Albumin, Urine - 1+???Glucose, Urine - NEGATIVE???Ketones, Urine - NEGATIVE???Bilirubin, Urine - NEGATIVE???Hemoglobin, Urine - 3+???Nitrite, Urine - NEGATIVE???Leukocyte, Urine - 3+???Urobilinogen - NORMAL???WBC's,Urine - >182 /HPF? ?RBC's, Urine - >182 /HPF? ?Bacteria - HEAVY? ?Mucus - SLIGHT? ?WBC Clumps- HEAVY???Hold Urine Culture - Testing available 48 hours from time of collection. Urine Culture Result (07/24/2024) ???Urine Culture Isolate 1 - Comment Urine Culture, Routine (07/24/2024) ???Urine Culture Results - Final report???Urine Culture Specimen Source - URINE You will be contacted within 72 hours with your results. Allergies (NKA means No Known Allergies) NKA Problems Active Problems??(10) Acute GI bleeding?? Bilat THR?? Cervical disc disease?? Cervical post-laminectomy syndrome?? Fracture of odontoid peg?? GERD?? HTN?? Hx ETOH/Tobacco?? NSTEMI (non-ST elevated myocardial infarction)?? PVD?? Education Materials Below is the list of Educational Leaflet Providered with your Discharge Instructions. WebMD Ignite Patient Education - Ileostomy: Nutritional Management?? WebMD Ignite Patient Education - Discharge Instructions for Ileostomy?? WebMD Ignite Patient Education - Ileostomy: Caring for Your Stoma?? WebMD Ignite Patient Education - Zones Post OP Ileostomy?? Valuables and Belongings I fully understand and agree that [facility] accepts no responsibility for all my personal property including clothing, toilet articles, radios, jewelry, dentures, hearing aids, rings, money, or any other property that is in my possession or is brought to me after admission. I understand certain valuables may be placed in a hospital safe for a short period of time. I understand that the hospital is not liable for loss or damage due to accident, fire, or other natural occurrence while said property is in the safe. I accept full responsibility for any personal property that I keep with me, and will not hold the hospital responsible in case of loss or disappearance. I acknowledge that i have been encouraged to send valuables and belongings home. ?? Review of Valuable and Belonging List: With patient Date for Pt to Sign Valuables/Belongings: 07/28/24 13:32:00 ?? Other Discharge Information Nutrition Discharge Status?? Nutrition Discharge Status?? Parenteral Nutrition: 42 mL ? Case Management Discharge Plan?? Discharge Plan?? Discharge Agency Information?? Discharge Level of Care at Discharge: long-term facility Name of Agency #1: [facility] Discharge Rx Program: Discharge Prescription Program Agency Quality Control Inspector #1: Admissions Discharge Transportation Arranged: [facility] [address] [place] [address] ??[phone] Service Categories #1: Occupational Therapy, Physical Therapy, Care Home Mode of Transportation Arranged: Chair Van Name of Person Notified of Transfer: Jose Bonilla Discharge Arranged Transport Date/Time: 08/18/24 16:00:00 Phone Number of Receiving Facility: [facility] Discharge Nursing Homes/Rehab Facilities: [facility] ? Pulmonary Rehab Status?? Pulmonary Rehab Discharge Status?? Respiratory Rate: 18 br/min ? Common Emergency Awareness Tips IS IT A STROKE? Act FAST and Check for these signs: FACE Does the face look uneven? ARM Does one arm drift down? SPEECH Does their speech sound strange? TIME Call at any sign of stroke ?? Heart Attack Signs Chest discomfort: Most heart attacks involve discomfort in the center of the chest and lasts more than a few minutes, or goes away and comes back. It can feel like uncomfortable pressure, squeezing, fullness or pain. Discomfort in upper body: Symptoms can include pain or discomfort in one or both arms, back, neck, jaw or stomach. Shortness of breath: With or without discomfort. Other signs: Breaking out in a cold sweat, nausea, or lightheaded. Remember, MINUTES DO MATTER. If you experience any of these heart attack warning signs, call to get immediate medical attention! ?? Smoking can increase your chances of developing chronic health problems and can cause harmful effects to other family members in your house. If you smoke, you are strongly encouraged to quit. Please call [facility] [employer] Link at [phone] or [phone] ([phone]) or log in to [email or web address] for referrals to smoking cessation programs. ?? 654 Suicide & Crisis Lifeline is available 02/02 if you or someone you know needs to find a reason to keep living. By calling 813 you'll be connected to a skilled, trained counselor at a crisis center in your area. INPATIENT DISCHARGE INSTRUCTIONS SIGNATURE ERIC JOSE BONILLA Location:[facility] Registration Date and Time:07/24/2024 13:44 EST Primary Care Physician: Pablo Strauss MD, Attending Physician: Zuleima Ferreira MD, I JOSE BONILLA, have received the above patient education materials/instructions and have verbalized understanding. If ambulance or transport services are being used I further acknowledge being given a choice of service. ?? If you need to contact me, please call me at this number: . Patient/Set Making Machine Operator Name: Patient/Set Making Machine Operator Signature: Relationship to Patient: Witness Name/Signature: Date: * Daphne Noriega DO: PERFORM Event Display: Patient Education Leaflets Authored Date: Multiple Documents ?? [id number] Ileostomy: Nutritional Management Preventing digestive problems You don???t have to eat a special diet just because you???ve had an ileostomy. Most foods, chewed well and eaten slowly, won???t give you problems???unless they did before. But you may need to be more aware of foods that make your stool more watery than normal and foods that cause gas or odor. You also need plenty of fluids and vitamins. ?? Choosing foods Learning which foods cause gas or odor or make your stool too watery takes a little time. You may want to add foods back to your diet one at a time. ??? Eat only small amounts at first to see how your body reacts. ??? If a food causes a problem, wait and try it again in a few weeks. After your system adjusts, you may find the food doesn???t give you trouble anymore. ?? Preventing fluid loss When part of the intestine is removed, your body loses fluids and can become dehydrated more quickly. To prevent this, drink at least 8 to 12 cups (2 to 3 quarts) of fluids, such as water or juice, each day. ?? Taking supplements and medicines Depending on how much small intestine is left when you have an ileostomy, some vitamins and medicines can't be absorbed: ??? Your health care provider may prescribe vitamin supplements or have you eat more of some foods, like bananas. ??? Time-release capsules and coated pills may not be absorbed in your remaining small intestine. Be sure all your health care providers know that you have an ileostomy before they prescribe any medicines. ?? Causes of diarrhea Stool that???s more watery than normal (diarrhea) can be a sign of an illness, such as the flu. Some foods and medicines can also cause more watery stool. ??? After an ileostomy, your stool will be more watery than it was before, so drink plenty of fluids. This helps replace lost fluids and preventdehydration. ??? Limit foods that can make the stool loose, such as raw fruits and vegetables, garlic, onions, milk, alcoholic beverages, and fruit drinks. ??? Lactose intolerance can add to diarrhea. If you are lactose intolerant, choose dairy products that are lactose-free.? Check with your health care provider before you take any medicines for diarrhea. ?? Causes of gas and odor Some gas is normal. But constant gas is not. Neither is constant odor from stool. What causes gas or odor can differ from person to person. ??? Gas is often caused by swallowing air. To prevent this,eat slowly. Chew each bite well. Eating smaller amounts of food more often may help.??Sip fluids, and don???t use a straw. ??? If you have excess gas, you may want to go easy on beer and other carbonated beverages, broccoli, brussels sprouts, cabbage, cauliflower, corn, cucumbers, dried beans, milk, mushrooms, nuts, onions, peas, and spicy foods. ??? If odor is a problem, you may want to eat lessasparagus, broccoli, brussels sprouts, cabbage, cheese, eggs, fish, garlic, horseradish, and spices, such as coriander, cumin, dill, and fennel. ?? Call your ostomy nurse or doctor Call your ostomy nurse or health care provider right away if: ??? You have nausea, vomiting, pain, cramping, or bloating. ??? You have a change in your normal bowel habits, such as little or no stool. ??? Your stool is more watery than normal for more than??5 to 6??hours. ??? Your stoma changes size, or the stool is black or bloody ??? There is bleeding around your stoma. ??? Your stoma applianceis not fitting well anymore, or there is leakage of stool. ?? Last Reviewed Date: 2024 ?? [employer]. All rights reserved. This information is not intended as a substitute for professional medical care. Always follow your healthcare professional's instructions. ?? * Daphne Noriega DO: PERFORM Event Display: Patient Education Leaflets Authored Date: [id number] Multiple Documents ?? [id number] Discharge Instructions for Ileostomy During an ileostomy, a surgeon takes out the colon (large intestine) and part of the last section of the ileum (small intestine) if they are diseased. In some cases, the procedure may be needed for ashort time (temporary). For instance, the surgeon may also disconnect parts of the intestine if they've been injured. This gives injured intestines time to heal. They then may be reconnected. In other cases the ileostomy may be lifelong (permanent). During the procedure, the end of the ileum is brought through the belly wall. This makes an openingcalled a stoma. The stoma lets the contents of your intestines and mucus pass out of your body. Here are some guidelines to follow after your ileostomy. Your healthcare provider and ostomy nurse will go over any information that is specific to your health. Activity After the surgery, you'll need to limit your activity:? Don???t lift anything heavier than 5 pounds until your healthcare provider says it's OK. ??? Don???t drive until after your first checkup with your healthcare provider. ??? If you ride in a car for more than short trips, stop often to stretch your legs. ??? Ask your healthcare provider about when you can go back to work. Most people areable to go back within 4 to 6 weeks after surgery. ??? Increase your activity slowly. Take short walks on a level surface. ??? Don???t overexert yourself. If you become tired, rest. ?? Other home care Take these steps at home: ??? Take care of your stoma as directed. ??? Ask your healthcare provideror ostomy nurse for a patient education sheet about ileostomy care before you leave the hospital. It will help remind you how to care for yourself. A nurse will likely see you before and after surgery to answer your questions and teach you about ostomy care. Let the nurse know if you want a family member or friend to be there.? Ask your provider to prescribe medicines to reduce the output from your ostomy if needed. ??? Don???t be alarmed by bowel movements that have mucus. It's??common after this procedure. You may also have more gas.? Shower or bathe as instructed by your provider. ??? Wash the incision site with mild soap and water or just warm water and pat dry. ??? Check yourincision each day for redness, leaking fluid, swelling, or separation of the skin. ??? Don???t takeany cbti-com-rctzsop medicine unless your provider tells you to do so. ?? When to call your healthcare provider Call your healthcare provider right away if you have: ??? A lot of bleeding from your stoma. Your provider may tell you to get care right away or call 911. ??? Blood in your stool. Depending on the amount, your provider may tell you to get care right away or call 911. ??? A change in your stoma's color or??a stoma that looks like it's getting longer? Bad odor for more than a week. This may me an an infection. ??? Bulging skin around your stoma ??? Fever above 100.4??F (38.0??C) or higher, or as directed by your healthcare provider ??? Shaking chills. You may be told to get care right awayor call 911. ??? Redness, swelling, bleeding, or fluid leaking from your incision ??? Constipation or diarrhea ??? Upset stomach (nausea) or vomiting ??? Increased pain in the belly or around the stoma ?? Last Reviewed Date: 2021 ?? 3157-3751 [employer]. All rights reserved. This information is not intended as a substitute for professional medical care. Always follow your healthcare professional's instructions. ?? * Daphne Noriega DO: PERFORM Event Display: Patient Education Leaflets Authored Date: [id number] Multiple Documents ?? [id number] Ileostomy: Caring for Your Stoma You need to take care of your stoma and the skin around it (peristomal skin). That means keeping the stoma and the skin clean. It also means protecting the skin from moisture and contact with stool. This helps prevent skin problems and odor. Check the stoma Check your stoma and the skin around it each time you change your pouch. database marketing manager front of a mirroror use a hand mirror so that you can see all the way around the stoma. It should look shiny, moist,and dark pink or red. The skin around it should be smooth, with no red or broken spots. ?? Clean around the stoma Clean around the stoma with warm water and a soft washcloth each time you change the pouch. Water does not harm the stoma. ??? There are no nerves in the stoma, so there is no feeling. But be sure toclean and dry the stoma gently. You could injure the stoma without knowing it. ??? The stoma may bleed a little when you clean it. That???s because there are tiny blood vessels in the tissue. ?? Protect the skin around the stoma For the pouch to stick well, the skin around the stoma needs to be dry and smooth. If the skin is moist or uneven, the pouch is more likely to leak. A leaky pouch will irritate the skin. That???s because digestive juices break down skin just as they break down food. A leaky pouch can also cause odor. ??? To help keep the skin healthy, pat it dry after you wash it. ??? If you like, apply an extra skin barrier, such as a wipe, before you put on a new pouch. This helps protect the skin if stool and digestive juices leak around the pouch. Applying an extra skin barrier, such as a wipe, helps protect the skin if stool and digestive juices leak around the pouch. Wipe it in a ekwok around the stoma. Then let it dry for 1 minute before putting on a new pouch. ?? Common causes of skin problems ??? A leaking pouch can make the skin red and weepy. Use a measuringguide to check that the opening on the pouch is the correct size. ??? Hair under the pouch can makethe skin inflamed. To prevent this, shave off any hair around the stoma with an electric razor. Always shave away from the stoma. ??? Allergies to skin barriers can make the skin itch, burn, or sting. You may need to try a new skin barrier or change to a new kind of pouch. ??? Yeast infections can make the skin red and itchy. Sweat under the pouch makes these infections more likely. A pouch covercan help keep the skin dry. ?? Call your health care provider Contact your WOC (wound, ostomy, and continence) nurse or other health care provider if: ??? The skin around the stoma is red, weepy, bleeding, or broken. ??? The skin around the stoma itches, chowdhury,stings, or has white spots. ??? The stoma swells, changes color, or bleeds slightly. If there is a large amount of bleeding, call 911 right away. ??? The stoma becomes even with or sinks below the skin, or it sticks up more than normal. ?? Last Reviewed Date: 2024 ?? [id number] [employer]. All rights reserved. This information is not intended as a substitute for professional medical care. Always follow your healthcare professional's instructions. ?? * Event Display: Lab Data & Pts Medical History Authored Date: [id number] * Franklin Alfredo RN: PERFORM Event Display: Procedures Invasive Line Authored Date: [id number] Vascular Access Insertion Entered On: 07/29/2024 13:16 EST Performed On: 07/29/2024 13:12 EST by Franklin Alfredo RN Vascular Access Insertion Vascular Access Device Lot Number : [id number] Vascular Access Device Code : [id number] Vascular Access Device Expiration Date : 06/11/2025 EST Vascular Access Insertion Comments : MID ARM CIRC= 31CM OK to use PICC Lidocaine 1% 5ml subdermal used prior to vascular access Franklin Alfredo RN - 07/29/2024 13:16 EST Date of Vascular Access Insertion : 07/29/2024 EST Procedure Location Vascular Access : W4 Person recording insertion : Insurance Defense Attorney Insurance Defense Attorney of Vascular Access : Franklin Alfredo RN Occupation of Vascular Access Insurance Defense Attorney : Registered nurse Person Supervising Procedure : Bruna Willis RN Was senior applications architect a member of PICC/IV Team : Yes Franklin Alfredo RN - 07/29/2024 13:12 EST Procedural Comments Risk Factors and Labs Reviewed : Yes Anticoagulation Therapy : Yes Antiplatelet Therapy : No Franklin Alfredo RN - 07/29/2024 13:12 EST Was vascular access order placed : Yes Vascular Access Type : Central line Time Out Performed : Yes Time Out Data : Patient identified, Site verified, Procedure verified, Consent signed, RN attendance Reason for Vascular Access Insertion : Medication requires use of vascular access Suspected Vascular Access Infection : No, the access was not exchanged over a guide wire Vascular Access Procedure Check : Consent obtained Hand Hygiene prior to insertion : Yes Maximal sterile barriers used : Mask, Sterile gown, Large sterile full body drape, Sterile gloves, Ultrasound sterile cover, Cap Sterile Field Maintained : Yes Skin Preparation : Chlorhexidine (CHG) Skin Prep dry at first skin puncture : Yes Antimicrobial coated catheter used : No Successful central line placement : Yes Vascular Access Catheter Type : PICC line Vascular Access Insertion Site : Upper extremity Vascular Access Insertion Side : Right Vascular Access Catheter Size : 5Fr Vascular Access Catheter Length : 39 Tip location termination site : Superior vena cava Vessel Identified By : Ultrasound Vascular Access Insertion Circumstance : Non-emergent Vascular Access Catheter Securement : Sutureless (Statlock) CXR Comment : Tip of the PICC in SVC is confirmed via sherlock with 3CG tech Vascular Access Dressing : Occlusive Follow-up CXR : Not applicable Franklin Alfredo RN - 07/29/2024 13:12 EST DCP GENERIC CODE Suture needles : 0 [place] : 2 [place] : 1 Clamps : 0 Guide Wires : 1 Franklin Alfredo RN - 07/29/2024 13:12 EST Complications during Insertion : None Tolerated CLIP procedure well : Yes Insertion Attempts : 1 Vascular Access Device QA : CT PICC TL 5FR @ 39cm Franklin Alfredo RN - 07/29/2024 13:12 EST Consult note * Maisha Allen NP: PERFORM, MODIFY, MODIFY, MODIFY Event Display: Consultation Note Authored Date: [id number] Patient: ??JOSE BONILLA ? Age:??78 Years?Sex:??Male?:??1945?? Reason for Consultation Leukocytosis Requested by Dr. Ferreira / Dr. Lesly Ortega Source of Information CIS, patient History of Present Illness Date: 08/15/2024 Infectious Diseases Attending: ??Bari ?? 78-year-old male with a past medical history of ischemic cardiomyopathy s/p AICD, NSTEMI, PVD, HTN,HLD, GERD, cervical fusion in 2012, bilateral TKAs in 2011 and 2013, PUD s/p ex lap with primary repair of duodenal ulcer in 2012, who was admitted 07/24 after presenting with leukocytosis and a 1 week history of hematuria, dysuria and difficulty voiding in the ER requiring catheterization.?? CT abdomen pelvis noted a 4.7 cm gas containing fluid collection extending from the sigmoid colon to the right lateral aspect of the bladder concerning for abscess likely secondary to diverticulitis.?? Admission blood cultures 07/24 were polymicrobial with Klebsiella pneumoniae in 1/ and Citrobacter youngae in 2/.?? Repeat blood cultures 07/28 were negative and urine culture 07/24 with mixed leigha. Due to hypotension on admission, he was escalated to the ICU and started on vasopressors and was later de-escalated to the surgical floor 07/19 team.?? On 08/02, cystoscopy did not reveal a bladder or urethral fistula and shown slight mass effect on the right bladder neck.?? On 08/03, he was taken to the OR with colorectal surgery for ex lap, takedown of colovesical fistula, appendectomy, sigmoid colectomy, diverting loop ileostomy with IntraOp findings of a fistula to the right posterior lateral bladderfrom the sigmoid colon, with appendix involved in the inflammatory process.?? Repeat imaging 08/10 without abscess.?? ID consulted for leukocytosis.?? It is overall down trended from 33.4 although hasremained in the teens.?? Creatinine of 0.77, LFTs WNL, UA 08/03 without pyuria.?? He received ceftriaxone and metronidazole 07/24-07/25, piperacillin/tazobactam 07/25-07/29, and ceftriaxone and metronidazole 08/04-08/11. Otherwise negative for bilateral lower extremity DVT.?? No evidence of acute cholecystitis on ultrasound 08/13. ?? Recent Antibiotics: Ceftriaxone 07/24-07/25, 07/29-08/02, 08/04-08/11 Metronidazole 07/24-07/25, 07/29-08/11 Piperacillin/tazobactam 07/25-07/29 Vancomycin 07/25 ?? Medications: Reviewed Antimicrobial Allergies: No known antimicrobial allergies. Family History:??No relevant history of infectious issues in first degree relatives.?? Social History and Infectious Diseases Exposure History: Former smoker. Lives in apartment alone with no pets. Review of Systems He denies fever, rigors, headache, chest pain, shortness of breath, cough, nausea, vomiting, dysuria, arthralgias, back pain, dental pain, hip pain, or rash. ?? Physical Exam Vitals & Measurements Vital Signs?? Temperature: 98.5 DegF (08/15/24 08:00:00) Temperature Route: Oral (08/15/24 08:00:00) Pulse Rate: 89 bpm (08/15/24 08:00:00) Respiratory Rate: 16 br/min (08/15/24 08:00:00) Systolic Blood Pressure: 116 mm Hg (08/15/24 08:00:00) Diastolic Blood Pressure: 65 mm Hg (08/15/24 08:00:00) Blood pressure sites: Arm, left (08/15/24 08:00:00) Mean Arterial Pressure: 73 mm Hg (08/15/24 05:20:00) Pulse Pressure: 51 mm Hg (08/15/24 08:00:00) Oxygen Saturation: 100 % (08/15/24 08:00:00) Mode of Delivery (Oxygen): Room air (08/15/24 08:00:00) Early Warning Score: 1 (08/15/24 08:14:30) ?? GENERAL:?Alert, in no acute distress.?? HEENT: Anicteric. Moist oral mucosa. Upper dentures. CARDIOVASCULAR:??Regular rate and rhythm.?? Not able to appreciate any murmurs, rubs, or gallops.??No peripheral edema. No peripheral stigmata of endocarditis.?? RESPIRATORY:??Lungs clear to auscultation.?? GASTROINTESTINAL: Non-distended, non-tender. Ostomy in place with brown output. Midline incision with scant surrounding erythema without drainage, silvia in place. GENITOURINARY:??No costovertebral angle or suprapubic tenderness.?? MUSCULOSKELETAL: Without joint effusions. No tenderness over spine with percussion. No gross deformity. SKIN: ??No diffuse rash present.?? Left heel??erythema without warmth??or open wound. NEUROLOGICAL/PSYCH:??A&Ox3, grossly intact.?? LINES:??RUE PICC without erythema or pain.? Micro: Blood cultures x2 07/28: Negative Urine culture 07/24: Mixed leigha Blood cultures x2 07/24: 2 Klebsiella pneumoniae, 08/14 Citrobacter youngae Assessment/Plan Mr. 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 ??He received??ceftriaxone and metronidazole -> piperacillin/tazobactam 07/24-08/11. ??ID consulted??due to ongoing leukocytosis. ?? Repeat imaging??08/10??without noted abscess,??intra-abdominal pathology,??or abnormal findings on chest CT.?? Workup otherwise with??bilateral lower extremity Dopplers without DVT, unremarkable LFTs,??no evidence of acute cholecystitis on ultrasound 07/14.?? He tells me that his??urinary symptoms c ompletely resolved??and recent UA??without pyuria.?? He is without shortness of breath, cough, URI symptoms, and does not have a roommate. ??He is without any concerning chronic wounds.?? He does have some erythema to his left heel??although this is without warmth or ulcer.?He is without any dental pain, back pain, joint pain.?His bilateral??hip prostheses are without??evidence of seeding on exam.?PICC in place??to his RUE??without erythema or pain.?? If he develops a fever, could consider paired blood cultures from his PICC.?? He was also noted to have some??serous drainage from hismidline incision??following removal of some silvia today.?? There is scant erythema??at the incision site??and the patient reports ongoing pain since his procedure??although not worse from prior.?? Can monitor the incision??site closely??for signs of??postop infection. ? Continue to monitor incision site closely??for signs of??post op??infection ??? If he develops a fever, please obtain paired blood cultures from??PICC and periphery ? ID will sign-off at this time. ??Thank you for the consultation. ??Please call if any questions arise. ?? [facility]- Division of Infectious Diseases ?? Discussed with Dr. Candelaria (This note was dictated using the dragon software and any typographical/grammatical errors were notdeliberate. Please contact provider for clarifications.) Total Time Spent I spent a total of??80+ minutes today reviewing the chart/medical records, speaking with the patient, formulating, and discussing the treatment plan, and documenting the findings and encounter. Problem List/Past Medical History Ongoing Acute GI bleeding Cervical post-laminectomy syndrome Fracture of odontoid peg NSTEMI (non-ST elevated myocardial infarction) Procedure/Surgical History ???Revision Arthroplasty Hip (Left) (09/24/2015)???EXPLORATORY LAPAROTOMY, OPENING OF DISTAL STMACHAND PROXIMAL DUODENUM WITH OVER SEWING OF BLEEDING DUODENAL ULCER, PYLOROPLASTY CLOSURE (01/21/2013) Antimicrobials History Stopped Antimicrobials Stop Date/Time Last Administered First Administered Metronidazole??500 mg, By Mouth, 3 times a day 08/12/2024 07:19 08/11/2024 19:53 08/06/2024 09:22 Ceftriaxone??2 Gm, 100 mL/hr, IVPB, Every 24 hours 08/12/2024 07:19 08/11/2024 12:04 07/29/2024 14:33 Allergies NKA Social History Alcohol Use: Current. Frequency: Several times per day. Type: Beer. Started at age: 44 Years. Employment/School Status: Retired. Exercise Self assessment: Good condition. Home/Environment Living situation: Home/Independent. Nutrition/Health Diet: Regular. Sexual Sexually involved in last 6 months: No. Substance Abuse Use: Never. Tobacco Former smoker, Other: former smoker, pt states I use to smoke about 4-5 cigg. a day, on and off throughout my adult life. I quit January 11, 2013.. Family History Family history is unknown Lab Results Test Name Test Result Date/Time WBC 14.7 k/mm3 08/15/2024 03:44 EST Hgb 8.9 Gm/dL 08/15/2024 03:44 EST Platelet Count 433 k/mm3 08/15/2024 03:44 EST Sodium 135 mmol/L 08/15/2024 03:44 EST Potassium 4.6 mmol/L 08/15/2024 03:44 EST Creatinine-Blood 0.77 mg/dL 08/15/2024 03:44 EST WBC's, Urine 5 /HPF 08/14/2024 13:29 EST Est Creatinine Clearance 65.58 mL/min 08/15/2024 04:48 EST Diagnostic Results ?? (08/10/2024 13:[address] Abd/Pelvis W/ IV + Oral Contrast) IMPRESSION: Essentially similar small bilateral pleural effusions with bibasilar atelectasis. Postoperative sequela in the abdomen and pelvis with pelvic surgical drain present. No visualized collection to suggest abscess. [1] [1]??CT Abd/Pelvis W/ IV + Oral Contrast; Nicolas Schultz MD 08/10/2024 13:11 EST * Roro Candelaria MD: PERFORM Event Display: Consultation Note Authored Date: [id number] ??I agree with the HPI, physical exam findings, impression and recommendations as outlined in the fellow's/resident's/PA/PROCESS DESCRIPTION WRITER note as they reflect my direct input. Please page the author of the note for any clarifications. * Waleska WIGGINS, Berta Corona: PERFORM Event Display: Consultation Note Authored Date: Patient: ??JOSE BONILLA ? Age:??78 Years?Sex:??Male?:??1945?? Subjective Patient seen and examined on rounds. ??Overnight patient started having??large clots being passed per rectum. ??He remained hemodynamically stable at that time.?? Hemoglobin was trended and did show evidence??of bowel??downtrend going from 9.9-8.4. ??Orthostatics were obtained which showed orthostat ic??hypotension.?? He also had an episode of incontinence. ??Right upper quadrant ultrasound was obtained which??was unremarkable. ??He??received??a 500 cc bolus for his orthostatics.?? Ostomy working with 225 cc output.?? JAVIER was pulled. ??Denies any fevers, chills, chest pain or shortness of breath Review of Systems Negative unless stated above Physical Exam Vitals & Measurements T:??99.1?F?? HR:??91??(Peripheral)?? RR:??16?? BP:??125/60?? BP:??136/68(Line)?? SpO2:??100%?? HT:??163??cm?? WT:??67.7??kg?? BMI:??25.48?? PHYSICAL EXAMINATION: GENERAL: No acute distress. Non-toxic. Well appearing and interactive.?? HEAD: Normocephalic. Atraumatic.?? EYES: Extra-ocular movements intact. ENT: Patent nares and oropharynx.?? CARDIAC: Regular rate and rhythm. RESPIRATORY: Equal and symmetric breathing. GASTROINTESTINAL: Soft. Non-distended. Appropriate tender to palpitation. Ostomy pink and well perfused. Midline incision with area of blanching erythema to left lateral aspect with no fluctuance or induration appreciated. MUSCULOSKELETAL: Moving all extremities equally. No calf fullness or tenderness.?? SKIN: Warm and well perfused. Intact skin turgor. No edema noted on exam.?? Assessment/Plan Pt is a 78 y/o male with??h/o peptic ulcer disease s/p ex-lap with primary repair of duodenal ulcer(2012, Dr. Rodriguez), NSTEMI, PVD, HTN, HLD, GERD, UTIs, and bilateral total hip replacements who presented to the ED on 07/24/24 with hematuria and dysuria for several weeks. 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 He was admitted the STICU due to septic shock. Once stable, he underwent an MRI which showed an additional fistula from the vesicourethral junction along the posterior margin of the bladder wall. On 08/03/24 he??underwent an??exploratory laparotomy, takedown of colovesical fistula, appendectomy, sigmoid colectomy, and diverting loop ileostomy. Continues to have increasing leukocytosis, 16.8,??over the last few days despite negative CT scan (08/10). ??Having passage of clots per rectum overnighton??2, but remained hemodynamic stable but did show slight downtrending in his??hemoglobin??from 9.9-->8.3.?? Will transfuse??1 unit of PRBCs. ?? Plan: -Low residue diet -Discontinue TPN -Transfuse 1u prbc -Obtain UA -Multimodal pain control: oral reg, adding Oxycodone -Record daily ostomy output -Continue Reglan 5mg before meals and bedtime -PT consult: Rehab -OOB/ambulate -DVT ppx: Lovenox ?? Discussed with?Jean Paul Colorectal surgery #[id number]? Intake and Output Intake and Output Results?? This visit (24 hour periods starting at 07:00 EST)? 08/14/24 *?? 08/13/24?? 08/12/24?? Total Summary?Intake mL?? 336?? 1,786.133?? 1,687.35?Output mL?? 350?? 1,315?? 1,272.5?Fluid Balance ?? -14?? 471.133?? 414.85?? Intake (4)?Acetaminophen mL?? 100?? 300?? 400?Lipid Emulsion, Intravenous 50 Gm mL?? --?? 243.333?? 251.25?Oral Fluids mL?? 236?? 330?? 614?Parenteral Nutrition 1,008 mL + Amino Acids 15% (Clinisol) 84 Gm + Dextrose 70% in Water 225 Gm+ C mL?? --?? 912.8?? 422.1?Total?? 336?? 1,786.133?? 1,687.35?? Output (3)?Colos/Ileostomy Vol mL?? --?? 225?? 220?Patrice Beckham Abdomen, right lower mL?? --?? 40?? 2.5?Urine Voided mL?? 350?? 1,050?? 1,050?Total?? 350?? 1,315?? 1,272.5?? Counts (3)?Oral Fluids mL?? 236?? 330?? 614?Urine Count ?? --?? 1?? 1?Urine Voided mL?? 350?? 1,050?? 1,050? * This column has not completed the indicated time period.?? Labs Last 24 Hours BLOOD COUNT & DIFF ? Event Name?? Event Result?? Date/Time?? WBC 16.8 k/mm3??High 08/14/24 05:49:00 RBC 2.74 m/mm3??Low 08/14/24 05:49:00 Hgb 8.3 Gm/dL??Low 08/14/24 05:49:00 Hct 25.1 %??Low 08/14/24 05:49:00 MCV 91.6 femtoliters 08/14/24 05:49:00 MCH 30.3 pg 08/14/24 05:49:00 MCHC 33.1 Gm/dL 08/14/24 05:49:00 Platelet Count 511 k/mm3??High 08/14/24 05:49:00 MPV 11.7 femtoliters 08/14/24 05:49:00 Nucleated RBC (Automated) 0 #/100 WBC'S 08/14/24 05:49:00 ? CHEM GENERAL ? Event Name?? Event Result?? Date/Time?? Sodium 134 mmol/L 08/14/24 05:49:00 Chloride 99 mmol/L 08/14/24 05:49:00 Bicarbonate Level 25 mmol/L 08/14/24 05:49:00 Anion Gap 10 mmol/L 08/14/24 05:49:00 Glucose Level 102 mg/dL??High 08/14/24 05:49:00 BUN 24 mg/dL??High 08/14/24 05:49:00 Creatinine-Blood 0.66 mg/dL??Low 08/14/24 05:49:00 Calcium, Ionized pH Corrected 1.23 mmol/L 08/14/24 05:49:00 Phosphorus 3.3 mg/dL 08/14/24 05:49:00 Magnesium 1.9 mg/dL 08/14/24 05:49:00 ? * Jean Paul WIGGINS, Cassandra Ramos: PERFORM Event Display: Consultation Note Authored Date: Attending Attestation: I have seen and evaluated this patient.?? I have discussed the case and its management with the resident and agree with the findings and plan as documented in the resident???s note. * Crow Kelly RN: PERFORM, SIGN, VERIFY, MODIFY, SIGN Event Display: Consultation Note Authored Date: Patient: JOSE BONILLA Age: 78 years Sex: Male : 1945 Associated Diagnoses: None Author: Crow Kelly RN History of Presenting Problem Date of Service 08/09/2024 operation manager consult to provide continued education following session on 08/08. Jose is lying in bed. Jose's son, Rigo is at bedside with his partner, Olya. Jose remembers myself from previous educations session and Rigo states his sister, Sonia is unavailable for education due to a stomach bug . Jose is agreeable to continuing consultation and photodocumentation if necessary. Jose states he feels comfortable with me focusing education toward Rigo and Olya as he has expressed feeling overwhelmed with the material in the past. Jose and I reviewed emptying the pouch at1/3 to 1/2 full (he was unable to recall the appropriate volumes), and he is able to recall needingto change the pouch every 3-4 days (twice a week unless found to be leaking) without prompting or re-education. Jose was able to demonstrate opening his pouch for emptying on his own, and with only one que needed for closing. Jose states he has not been practicing opening and closing since our last session. Ostomy pouch is intact and not requiring pouch change. The surgical incision was without redness swelling drainage or induration and was well approximated with surgical clips. My attention turned to Rigo who states he is a visual learner and I then provided step by step instructions of pouch changing on a stoma model. We reviewed: Ostomy pouch removal with push/pull technique, review of appropriate stoma appearance, I educated Rigo on cleansing with warm water only. We measured the circumference of the stoma model at 35mm. We superimposed this on the back of an ostomy pouch and Rigo cut to fit. He then applied a Coloplast barrier ring snuggly around the stoma model. The backing of the ostomy pouch was removed and the pouch was applied directly over the barrier ring/s tab. I discussed applying gentle pressure around the immediate edge of the stoma to ensure good seal. Rigo and I reviewed the steps of opening and closing the pouch on the stoma model. Rigo verbally expressed a greater confidence performing the skills to help Jose if needed. Olya states she is an RN and familiar with ostomy pouches and how to change if needed of her. Attention was returned to Jose. Jose states his main barrier to independence is feeling disgusting . He asked me how much visiting nurses will be doing for him at home and this lead to furtherdiscussion of short term vs. senior speech pathologist goals. Jose remained mostly quiet with flat affect and I attempted to encourage him to consider full independence a goal, however not immediate. Rigo and Asherd a brief review of [employer] Ostomy Home Skills Kit/Booklet and it's contents. We discussed discharge with VNA/rehab/role of VNA and how to obtain ostomy supplies, the use of powder and spray for irritated skin, procedure for showering/swimming, as well as, specialty supplies such as stealth belts and [email or web address]. I explained the [employer] care program and Jose was agreeable to enrollment I also provided Jose with my office number, he is aware he can call anytime with questions for pouching. Jose was again encouraged to self empty his pouch with nursing staff with the goal of becoming more independent prior to discharge. Jose and Rigo are aware that I will sign off at this time. He has our office number highlighted for questions or he can ask direct care nurse to contact us if he is still inpatient. Rigo states he is able to take home the supply kit, ostomy home skills kit, and information sheets with contact information and instructions. Update provided to direct care RN and covering MD . Pouching Plan: Coloplast #[id number] Coloplast Barrier Ring #[id number] Plan Time spent > 60 minutes * Camille WIGGINS, Crow Portillo: PERFORM Event Display: Consult Authored Date: Patient: ??JOSE BONILLA ? Age:??78 Years?Sex:??Male?:??1945?? Provider Clinical Summary Patient has signs and symptoms and imaging??consistent with??colovesical fistula,??possible abscess, having difficulty voiding,??ER staff unable to pass Lira catheter.?? Patient states he urinated abit but it is painful??and is okay with me attempting Lira catheter placement. Chief Complaint Colovesical fistula and urinary retention Reason for Consultation Colovesical fistula and urinary retention??house staff unable to pass catheter History of Present Illness As above, patient states he has a urologist Dr. Santana from [place]??he saw a month ago, he cannot tell me why he sees Dr. Santana but??sounds like maybe BPH.?? The patient states he has had??a month or2 of pneumaturia and dysuria??and his pain got worse today came in and had a CAT scan which??shows a likely colovesical fistula with??possible perivesicular and.?? Colonic abscess.?? The ER staff could not catheterize the patient and asked me to come in and place a catheter. ?? Patient states he has been voiding somewhat but it is very painful Exley voided??before I came into the ER to see him??but he states it was quite painful.?? I asked if I could catheterize him he stated yes. Review of Systems As above, Physical Exam Vitals & Measurements T:??99.1?F?? TMIN:??98.3?F?? TMAX:??99.1?F?? HR:??94??(Peripheral)?? RR:??20?? BP:??110/57?? SpO2:??94%?? Abdomen is soft nontender nondistended HEENT within normal limits vital signs within normal limits ?? Penis is normal.?? I cleansed the tip of the penis with Betadine and injected 10 cc of??lidocaine into the urethra ?? I attempted to pass a 20 Tongan coud?? catheter,??about 3 cm into the urethra I??came across the stricture I could not pass the catheter any further ?? At this point I was able to dilate the stricture by removing the??Lira catheter and using the smallest??sound available, was 18 Tongan??I dilated the stricture and then remove the sound ?? Patient Toller procedure well I then placed a 16 Tongan??coud?? catheter without difficulty, I drained about 10 to 15 cc of??concentrated looking urine??I then irrigated the Lira catheter??and irrigated well I placed 10 cc in the balloon. ?? Catheter is draining well. ??Patient??had some discomfort from the dilation but otherwise doing well??I encouraged him to avoid pulling on the catheter. ?? Assessment/Plan Discharge Planning:?? 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 I told the patient??this is most commonly??a consequence of irritable/inflammatory bowel rather than malignancy however the patient should have a full workup??with colonoscopy, he can also have a cystogram??to assess the size of the fistula, this can??wait??until??he gets appropriate antibiotics and perhaps inflammation settles down. ??Ultimately the colovesical fistula is typically treated??by the general surgical team with??consultation/IntraOp presence of the urologist??based on the size of the fistula and the need for??any resection of bladder which is not the typical??course of events. ?? I will have the inpatient urology team see the patient tomorrow. ??Please hand irrigate Lira catheter as needed and do not remove it??without consulting urology team, Lira catheter should stay in place for at least??10 days after dilation of urethral stricture??to keep it patent. Problem List/Past Medical History Ongoing Acute GI bleeding Cervical post-laminectomy syndrome Fracture of odontoid peg NSTEMI (non-ST elevated myocardial infarction) Procedure/Surgical History ???Revision Arthroplasty Hip (Left) (09/24/2015)???EXPLORATORY LAPAROTOMY, OPENING OF DISTAL STMACHAND PROXIMAL DUODENUM WITH OVER SEWING OF BLEEDING DUODENAL ULCER, PYLOROPLASTY CLOSURE (01/21/2013) Medications Inpatient Acetaminophen Tablet, 650 mg, By Mouth, Every 4 hours, PRN Dilaudid Inj, 1 mg= 1 mL, IV Push Slowly, Every 4 hours, PRN Docusate Sodium Capsule, 100 mg= 1 capsule, By Mouth, 2 times a day, PRN Melatonin Tablet, 3 mg, By Mouth, Daily at bedtime, PRN MiraLax Powder, 17 Gm= 1 pack/packet, By Mouth, Daily, PRN NaCL 0.9% Flush, 3 mL, IV Push, Every 8 hours NaCL 0.9% Flush, 3 mL, IV Push, Every 8 hours, PRN Robitussin DM Liquid, 10 mL, By Mouth, Every 4 hours, PRN Senna Tablet, 8.6 mg= 1 tablet, By Mouth, 2 times a day, PRN Simethicone Tablet, 80 mg, Chew, 3 times a day, PRN Home aspirin 81 mg oral tablet, 81 mg= 1 tablet, By Mouth, Daily carvedilol 12.5 mg oral tablet, 12.5 mg= 1 tablet, By Mouth, 2 times a day ferrous sulfate 325 mg oral tablet, 325 mg= 1 tablet, By Mouth, 3 times a day folic acid 1 mg oral tablet, 1 mg= 1 tablet, By Mouth, Daily gabapentin 600 mg oral tablet, 600 mg= 1 tablet, By Mouth, 3 times a day isosorbide mononitrate 30 mg oral tablet, extended release, 30 mg= 1 tablet, By Mouth, Daily, 2 refills lisinopril 2.5 mg oral tablet, 2.5 mg= 1 tablet, By Mouth, Daily omeprazole 20 mg oral enteric coated capsule, 20 mg= 1 capsule, By Mouth, Daily Patient's Own Meds, medical marijuana Tizanidine, By Mouth traMADol 50 mg oral tablet, 50 mg= 1 tablet, By Mouth, Every 12 hours, PRN Vitamin B1, Daily Vitamin D3 1000 intl units oral tablet, 1000 International_Units= 1 tablet, By Mouth, Daily Allergies NKA Social History Alcohol Use: Current. Frequency: Several times per day. Type: Beer. Started at age: 44 Years. Employment/School Status: Retired. Exercise Self assessment: Good condition. Home/Environment Living situation: Home/Independent. Nutrition/Health Diet: Regular. Sexual Sexually involved in last 6 months: No. Substance Abuse Use: Never. Tobacco Former smoker, Other: former smoker, pt states I use to smoke about 4-5 cigg. a day, on and off throughout my adult life. I quit January 11, 2013.. Family History Family history is unknown Immunizations Vaccine Date Status pneumococcal 13-valent vaccine 08/26/2016 Given pneumococcal 23-valent vaccine - Not Given Comments : Parent Or Guardian Refuses influenza virus vaccine, inactivated - Not Given Comments : Parent Or Guardian Refuses pneumococcal 23-valent vaccine - Not Given Comments : Patient Refuses pneumococcal 23-valent vaccine - Not Given Comments : Patient Refuses pneumococcal 23-valent vaccine - Not Given pneumococcal 23-valent vaccine - Not Given Comments : Patient Refused History and physical note * Clinton Roman MD: PERFORM, MODIFY, MODIFY, MODIFY Event Display: History and Physical Hospital Authored Date: [id number] Patient: ??JOSE BONILLA ? Age:??78 Years?Sex:??Male?:??1945?? Chief Complaint/Reason for Consultation Pt coming from home with c/o hematuria, dsyuria ??x 3 weeks s/p endoscopy. Pt denies thinners History of Present Illness Patient seen on 07/24/2024 ?? Information per M page Urinary retention sigmoid bladder fistula 78m ??h/o ??enlarged prostate, UTI'spresenting to the with burning with urination, and passing blood clots with urination.rectal ??fullness CT shows ? sigmoid abcess/fistula surg wants ??to continue Abx MRI & risk stratification, [facility]4 attempts in ED Ml got hypotensive after pains med improved after fluid bolus started ??maintence fluid bladder scan for 8ml ?? Information per patient 78-year-old male with past medical history of hypertension, GERD, coronary artery disease status post NSTEMI, peripheral vascular disease presented to the hospital for burning urination and noticing blood in his urine. Patient stated the symptoms of burning urination started around a month ago around [place] time but over the last 3 days he has noticed blood in his urine.?? He denies any fever or chills.?? Deniesany nausea or vomiting.?? Endorses a lower abdominal pain which radiates to the tip of his penis which is mild to moderate in intensity and intermittent in nature.?? Denies constipation or diarrhea.?? Denies noticing blood in his stools. ?? In the ER patient workup revealed leukocytosis.?? His bladder ultrasound showed 100 cc of urine in the bladder.?? Lira's catheter was attempted multiple times but was unsuccessful.?? Patient underwent CT of the abdomen and pelvis which was concerning for sigmoid abscess fistulizing to the bladder.?? Surgery and urology were consulted. Surgery recommendations per ER note or infection control, abdominal MRI for possible surgical planning. Patient was also seen by urology.?? Lira's was attempted and initially a stricture was noted whichwas dilated and then had a successful placement of 18 Tongan Lira's coud?? catheter.?? Urology recommended the catheter to stay in place, and irrigate the Lira catheter as needed and not to remove without consulting urology team.?? Lira's catheter is to stay in place for 10 days after dilatationof the urethral stricture to keep it patent.?? 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 Plan was to continue antibiotics, resolution of inflammation and eventual surgical repair of the colovesical fistula. ?? In the ER patient was given Tylenol, ceftriaxone, metronidazole, IV Dilaudid for pain control, 1L IV fluids and then started on maintenance IV fluids at 125 cc/h Review of Systems Pertinent positives as per HPI. ??All other systems reviewed and negative Objective Vital Signs?? Temperature: 98.1 DegF (07/24/24 18:41:00) Temperature Route: Oral (07/24/24 18:41:00) Pulse Rate: 88 bpm (07/24/24 20:00:00) Respiratory Rate: 18 br/min (07/24/24 18:41:00) Systolic Blood Pressure: 113 mm Hg (07/24/24 20:20:00) Diastolic Blood Pressure: 65 mm Hg (07/24/24 20:20:00) Blood pressure sites: Arm, right (07/24/24 18:41:00) Mean Arterial Pressure: 82 mm Hg (07/24/24 13:07:00) Pulse Pressure: 67 mm Hg (07/24/24 18:41:00) Oxygen Saturation: 97 % (07/24/24 20:00:00) Liters per Minute: 2 L/min (07/24/24 20:00:00) Mode of Delivery (Oxygen): Nasal cannula (07/24/24 20:00:00) Early Warning Score: 4 (07/24/24 20:29:50) ? Physical Exam GENERAL:??In no apparent distress HEENT:??Head normocephalic, PERRL,Moist mucous membrane. Neck supple CARDIOVASCULAR:??Normal rate and rhythm, no murmurs, no rubs, no gallops RESPIRATORY:??Lungs clear to auscultation, no wheezes , no crackles ABDOMEN/GI:??Nondistended, soft, nontender, normal bowel sounds,Lira catheter in place EXTREMITIES:??No ??pitting edema TOMBSTONE ERECTOR:??Alert and oriented x 3.Non focal neuro exam. PSYCHIATRIC: Calm and co-operative HEME:??No??lymphadenopathy. SKIN: Warm and dry. Assessment/Plan Assessment:??78-year-old male with past medical history of hypertension, GERD, coronary artery disease status post NSTEMI, peripheral vascular disease presented to the hospital for burning urination and noticing blood in his urine,??workup revealed leukocytosis,??urinary retention,CT abdomen with sigmoid abscess likely from diverticulitis fistulizing into the urinary bladder(colovesicular fistula), seen by surgery and urology, admitted for further management. ?? Abscess of sigmoid colon (K63.0):??[place] to be from diverticulitis. Patient??will be kept on a clear liquid diet Continue??ceftriaxone plus Flagyl Trend white cell count.??Will follow-up on blood cultures Patient seen by surgery??who recommended an MRI of the abdomen??for surgical planning.??Official recommendations pending.??Will order MRI once I know what kind of study they are looking for. Patient got hypotensive after he received IV Dilaudid.??Will be careful with??opiate pain medications. Tylenol as needed for fever.??Will use lowest dose of??opiate medications for pain control ?? 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 Seen by urology.??Patient had a Lira's catheter placed in the ER.??Plan is to hang irrigate as needed.??Lira catheter not to be removed without consulting urology.??Catheter to stay in place for 10 days. Per urology??continue antibiotics,??let inflammation settle down and then??surgical intervention??and coordination with surgical team. Continue finasteride and tamsulosin Patient is on chronic doxycycline prescribed by urology??which I am currently holding since he is getting??ceftriaxone and Flagyl.??May resume after completion of IV antibiotics ?? CAD (coronary artery disease) (I25.10):??Hold aspirin due to hematuria Continue statins Hold Coreg, Entresto, spironolactone??till blood pressure stabilizes.??Suspect patient has??congestive heart failure??although not listed in his prior medical history??based on the medications he is currently on ?? Hypertension (I10):??Hold Entresto,Coreg,Imdur??till??blood pressure stabilizes ?? VTE Prophylaxis:??Will order pneumatic compression boots ?VTE Prophylaxis Assessment:??VTE Prophylaxis Ordered ?? Discharge Planning:??Anticipate hospital stay??at least 2 to 3 days ?? Ongoing Medical Necessity:??Sigmoid abscess, colovesical fistula, need for IV antibiotics,??likely surgical intervention ?? Code Status:??Full.??Confirmed with the patient at bedside ?Order Code Status:??Code Status Ordered ? Histories Allergies Allergies ?(Active and Proposed Allergies Only) NKA? (Severity: Unknown severity, Onset: Unknown) ?? Past Medical History/Problem List Active Problems(4) Acute GI bleeding Cervical post-laminectomy syndrome Fracture of odontoid peg NSTEMI (non-ST elevated myocardial infarction) ?? Past Surgical History EXPLORATORY LAPAROTOMY, OPENING OF DISTAL STMACH AND PROXIMAL DUODENUM WITH OVER SEWING OF BLEEDINGDUODENAL ULCER, PYLOROPLASTY CLOSURE: 01/21/13 ?? Social History Alcohol Details:??Use: Current. ??Frequency: Several times per day. ??Type: Beer. ??Started at age: 44 Years. Employment/School Details:??Status: Retired. Exercise Details:??Self assessment: Good condition. Details:??Self assessment: Fair condition. Home/Environment Details:??Living situation: Home/Independent. Nutrition/Health Details:??Diet: Regular. Sexual Details:??Sexually involved in last 6 months: No. Substance Abuse Details:??Use: Never. Tobacco Details:??Former smoker, Other: former smoker, pt states I use to smoke about 4-5 cigg. a day, on and off throughout my adult life. I quit January 11, 2013.. ?? Family History Family History Unknown. Medications Home Medications Aspirin (aspirin 81 mg oral tablet)?1?tab(s)?81?Milligram?By Mouth?Daily?for 30?Days Atorvastatin (atorvastatin 20 mg oral tablet)?TAKE 1 TABLET BY MOUTH DAILY Carvedilol (carvedilol 12.5 mg oral tablet)?12.5?Milligram?1?tablet?By Mouth?2 times a day Cholecalciferol (Vitamin D3 2000 intl units oral capsule)?TAKE 1 CAPSULE BY MOUTH ONCE DAILY Docusate-Senna (Senexon-S 50 mg-8.6 mg oral tablet)?TAKE 1 TABLET BY MOUTH TWICE A DAY NEEDEDFOR CONSTIPATION FOR 90 DAYS Doxycycline (doxycycline hyclate 100 mg oral tablet)?TAKE 1 TABLET BY MOUTH EVERY DAY Ferrous Gluconate (ferrous gluconate 324 mg oral tablet)?TAKE 1 TABLET BY MOUTH EVERY DAY Finasteride (finasteride 5 mg oral tablet)?TAKE 1 TABLET BY MOUTH EVERY DAY Folic Acid (folic acid 1 mg oral tablet)?1?Milligram?1?tablet?By Mouth?Daily Gabapentin (gabapentin 300 mg oral capsule)?TAKE 2 CAPSULES BY MOUTH AT BEDTIME Isosorbide Mononitrate (isosorbide mononitrate 60 mg oral tablet, extended release)?TAKE 1 TABLET BY MOUTH EVERY DAY IN THE MORNING Naproxen (naproxen 500 mg oral tablet)?TAKE 1 TABLET ORALLY EVERY 12 HOURS NEEDED FOR PAIN FOR 30 DAYS Omeprazole (omeprazole 40 mg oral enteric coated capsule)?TAKE 1 CAPSULE ORALLY 2 TIMES A DAY FOR 90 DAYS TAKE 30 MIN BEFORE BREAKFAST Pt.'s Own Meds (Patient's Own Meds)?medical marijuana sacubitril-valsartan (Entresto 24 mg-26 mg oral tablet)?TAKE 1 TABLET BY MOUTH TWICE A DAY Spironolactone (spironolactone 25 mg oral tablet)?TAKE 1 TABLET BY MOUTH EVERY DAY Tamsulosin (tamsulosin 0.4 mg oral capsule)?TAKE 1 CAPSULE BY MOUTH AT BEDTIME FOR 90 DAYS Tramadol (traMADol 50 mg oral tablet)?1?tab(s)?50?Milligram?By Mouth?Every 12 hours?as needed?as needed for pain Results ?? Test Name Test Result Date/Time WBC 17.1 k/mm3 07/24/2024 09:45 EST Hgb 12.6 Gm/dL 07/24/2024 09:45 EST Platelet Count 164 k/mm3 07/24/2024 09:45 EST Sodium 135 mmol/L 07/24/2024 09:18 EST Potassium 5.5 mmol/L 07/24/2024 09:18 EST Chloride 101 mmol/L 07/24/2024 09:18 EST Bicarbonate Level 22 mmol/L 07/24/2024 09:18 EST Anion Gap 12 07/24/2024 09:18 EST Glucose Level 96 mg/dL 07/24/2024 09:18 EST BUN 16 mg/dL 07/24/2024 09:18 EST Creatinine-Blood 0.97 mg/dL 07/24/2024 09:18 EST Estimated GFR Creatinine 79 ML/MIN/1.73 M2 07/24/2024 09:18 EST Calcium 9.4 mg/dL 07/24/2024 09:18 EST Hemoglobin, Urine 3+ 07/24/2024 10:53 EST Leukocyte, Urine 3+ 07/24/2024 10:53 EST WBC's, Urine >182 /HPF 07/24/2024 10:53 EST RBC's, Urine >182 /HPF 07/24/2024 10:53 EST Image ?CT Abd/Pelvis W/ IV Contrast Only??07/24/2024 10:14 by Colon , Sara ?IMPRESSION: Thick wall 4.7 cm gas-containing fluid collection extending from the sigmoid colon to the right lateral aspect of the bladder, concerning for an abscess, likely secondary todiverticulitis. Air within the bladder suspicious for fistulization between the abscess and the bladder. Large type III paraesophageal hernia. ?? * Jessie WIGGINS, Clinton: PERFORM Event Display: History and Physical Hospital Authored Date: [id number] Lab reported??blood cultures??positive for??gram-negative rods.?? I have expanded antibiotic coverage to Zosyn.?? Patient had fluctuating blood pressure with intermittent hypotension responding to fluids. ??I repeated his labs and noted??his lactate elevated to 4.1.?? His white count also increasedto??30K??and hemoglobin dropped to 8.9.?? His creatinine is also worsened to 1.2. ??He was given another bolus of??1 L??normal saline.?? Patient so far has received 3.2 L of IV fluids and is currently getting 125 cc/h.?? Urine draining without any??difficulty.?? He is afebrile.?? I have also ordered for a type and screen with next Lactate level.?? Will continue as needed fluid boluses. ??Patient t ransferred to [facility] for closer monitoring.?? Surgical??consult note reviewed. ??MRI pelvis ordered. * Clinton Roman MD: PERFORM Event Display: History and Physical Hospital Authored Date: On arrival to daily 6B patient's blood pressure was in 70s.?? Remains afebrile. ??Lungs clear to auscultation.?? Mentating okay.?? Will order another??liter of IV fluid??and consult ICU??for pressor support??as I am concerned about septic shock. * Clinton Roman MD: PERFORM Event Display: History and Physical Hospital Authored Date: Patient evaluated by ICU team and accepted. Admission evaluation note * Justyna Nickerson MD: MODIFY, MODIFY, PERFORM, MODIFY Event Display: Admission Note Authored Date: Patient: ??JOSE BONILLA ? Age:??78 Years?Sex:??Male?:??1945?? Chief Complaint/Reason for Consultation Pt coming from home with c/o hematuria, dsyuria ??x 3 weeks s/p endoscopy. Pt denies thinners History of Present Illness Jose Bonilla is a 78 year old male with PMH significant for peptic ulcer disease s/p ex-lap/primary repair of duodenal ulcer (2012, Dr. Rodriguez), NSTEMI, PVD. HTN, HLD, GERD, ischemic cardiomyopathy with EF of 35 to 40%, AICD in place, cervical and fusion surgery 2019, UTIs, and bilateral total hip replacements who presented to the ED with hematuria and dysuria for weeks.? Patient was endorsing cloudy and malodorous urine, concerns of stool smell?? and air in his urine.?? He denied any recent abdominal pain, nausea, vomiting, diarrhea.?? Initial workup in the ED was notable for leukocytosis of 17.1 with neutrophil predominance, hyperkalemia 5.5, initial normal lactate 2.2, urinalysis hide bacteriuria, significant leukocytes and RBCs.?? Initial CT scan showing 4.7 cm abscess extending from sigmoid to the bladder, concerning for abscess, and suspicion for fistulization for which colorectal surgery was also consulted, and advised to keep patient n.p.o. and obtain MRI pelvis to assess for colovesical fistula.?? Urology was consulted, they do believe that colovesic al fistulas are more in the setting of inflammatory versus irritable bowel disease rather than malignancy however patient should have a full workup with colonoscopy, cystogram to assess for size of fistula however this can wait when inflammation settles.? During the short stay in [facility] ([place] patient course complicated by septic shock, WBC increased to 30.6 up from 17.1, platelet dropped to 82 down from 164, patient developed RYAN creatinine 1.2 up from 0.96, lactate uptrending 4.3 up from 2.2, one of the blood cultures grew Klebsiella pneumoniae.?? Patient received 4 L of IV fluid resuscitation and still presented to ICU with a MAP of 55 and without pressors as he could not start that on the floor. ?? At bedside, patient appears very comfortable, ANO x 4, abdomen soft mildly distended but very benign.?? Patient was very cooperative with?? Exam.?? He understands the course.?? He states that he has had multiple colonoscopies done in the past, last one was 9 months ago. according to patient he is also on chronic doxycycline for his urinary symptoms prescribed by his urologist. ?? Review of Systems A full review of systems was completed and is otherwise negative except as mentioned in history of present illness. Objective Measurements?? Height: 163 cm (07/25/24) Weight: 72 kg (07/25/24) Dry Weight: 70.9 kg (07/25/24) Body Mass Index:??27.1 kg/m2??High (07/25/24) ? Vital Signs?? Temperature: 97.8 DegF (07/25/24 07:55:00) Temperature Route: Oral (07/25/24 07:55:00) Pulse Rate: 78 bpm (07/25/24 06:17:00) Heart Rate Monitored:??97 bpm??High (07/25/24 07:56:28) Respiratory Rate: 20 br/min (07/25/24 08:25:00) Systolic Blood Pressure: 125 mm Hg (07/25/24 07:54:44) Diastolic Blood Pressure: 68 mm Hg (07/25/24 07:54:44) Blood pressure sites: Arm, right (07/25/24 06:17:00) Mean Arterial Pressure: 63 mm Hg (07/25/24 06:17:00) Pulse Pressure: 57 mm Hg (07/25/24 07:54:00) Oxygen Saturation: 100 % (07/25/24 06:00:00) Liters per Minute: 1 L/min (07/25/24 06:00:00) Mode of Delivery (Oxygen): Nasal cannula (07/25/24 06:00:00) Early Warning Score:??16??Critical (07/25/24 07:41:37) ? Physical Exam Constitutional: Alert, in no distress. Mental Status: Oriented to person, place and time. Respiratory: Clear to auscultation. No wheezing, Cardiovascular: S1 S2 regular. No murmurs,??no JVD Gastrointestinal: Abdomen soft, non-tender, non-distended. Normal bowel sounds. No pulsatile mass. No hepatosplenomegaly. Genitourinary: No costovertebral angle tenderness. Neurologic: no focal deficits Musculoskeletal: no LE edema Psychiatric: Normal mood and affect Assessment/Plan Diagnoses 1. ??Abscess of sigmoid colon ??(K63.0) 2. 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 ??Urinary retention ??(R33.9) 4. ??CAD (coronary artery disease) ??(I25.10) 5. ??Hypertension ??(I10) ? Jose Bonilla is a 78 year old male with PMH significant for peptic ulcer disease s/p ex-lap/primary repair of duodenal ulcer (2012, Dr. Rodriguez), NSTEMI, PVD. HTN, HLD, GERD, ischemic cardiomyopathy with EF of 35 to 40%, AICD in place, cervical and fusion surgery 2018, UTIs, and bilateral total hip replacements who presented to the ED with hematuria and dysuria for weeks. ??Patient is being admitted to medical ICU for septic shock in the setting of??sigmoid abscess leading to colovesical fistula??likely in the setting of complicated diverticulitis. ?? Neuro/HEENT History of cervical fusion surgery ANO x 4 ?? Plan: ? -Continue patient's home gabapentin, tramadol and as needed ? -As needed Tylenol for breakthrough mild pain,??IV Dilaudid 0.5 Mg every 4 hourly for severe breakthrough pain ?? Cardiovascular Septic shock in the setting of??Klebsiella bacteremia (see below) History of ischemic??cardiomyopathy??EF 35 to 40% Status post??5 L of??IV fluid, euvolemic on exam ?? Plan: ? -Epinephrine for MAP goal above 65 ? -Hold off further IV fluids??given we are holding patient's??home diuretics ?-Hold home GDMT : Entresto,Coreg, Spironolactone till??blood pressure stabilizes, hold home imdur ? -Daily volume assessment ? -c/w statin, hold aspirin for hematuria (does stay in system for 5 days) ? Pulmonary No active issues, monitor for signs of fluid overload??or increased oxygen requirement. ?? Gastroenterology History of exploratory laparotomy Presenting with??complicated diverticulitis Constipation ?? Plan: ? -N.p.o. except meds ? -Continue home PPI? -Bowel regimens, hold home Iron supplement for concern of constipation (states goes every third day) ? Renal Prerenal acute kidney injury versus??septic??ATN Baseline creatinine around 0.8 Presents with RYAN??with creatinine 1.2 Status post??5 L IV fluid ?? : Please note according to patient he was prescribed doxycycline per his urologist at [facility] taken every day??which he has been taking for the last 6 months??to prevent UTIs, not sure if this is still??practice and scope. ??We will hold for now??and discuss??with our urologist prior to discharge. ?? Plan: ? - Monitor I/O ? - Daily BMP ? - Avoid nephrotoxins ? -If??creatinine clearance continues to worsen then patient may need??dose adjustment from home gabapentin ? - see below for lira`s - for concern of spasm around lira, c/w home fenestaride and tamsulosin (may cause some bp drop) - if not controlled then will add oxybutynin ?? MSK/Integ No skin tears History of cervical infusion as mentioned above Plan: Offloading??per nursing protocol Skin care Lira's management ?? Heme/Onc Acute thrombocytopenia Not recently on any??anticoagulants Likely in the setting of sepsis Plan: ? - Monitor CBC ?? Endocrine ?? Plan: ? - POC Glucose ??Q6H??WHile NPO?- Hypoglycemia measures ?? Infectious Disease Septic shock in the setting of??Klebsiella bacteremia secondary to... Sigmoid abscess leading to colovesical fistula as a complication of... Complicated diverticulitis ?? Touch base with??surgical team this a.m, they recommended to broaden antibiotics??with Maeve francisVanco for now till we have final blood cultures,??they will send??ostomy nurse to [facility].?? Advised to treat??infection- inflammation??and they will work on??or timing. Dr. Obrien from Urology I will have the inpatient urology team see the patient tomorrow. ??Pleasehand irrigate Lira catheter as needed and do not remove it??without consulting urology team, Foleycatheter should stay in place for at least??10 days after dilation of urethral stricture??to keep it patent. Blood cultures with??Klebsiella??pneumonia ?? Plan: ? -Follow-up with final blood cultures and urine culture ? -Continue with ceftriaxone and Zosyn??to??final blood culture results ? - Monitor fever and WBC curve ? -For source control, surgery to determine time ? -Complicated diverticulitis, likely in the setting of inflammatory versus irritable bowel syndrome,??will obtain??colonoscopy records from [place], however follow-up with [facility] to rule out??malignancy,??patient should have follow-up colonoscopy ? Quality Measures: Diet:??NPO DVT prophylaxis:??Pneumoboots??for now Code Status:??FULL CODE??(confirmed at bedside by previous provider) ? Patient seen and discussed with Dr. Juarez ?? Dr. Justyna Nickerson Internal Medicine PGY2 [employer] ?? Please note:??[employer] services were used to dictate??the above note.?I apologize in advance for any??typos and miscommunications.?? Please reach out to me??for clarification.? Histories Allergies Allergies ?(Active and Proposed Allergies Only) NKA? (Severity: Unknown severity, Onset: Unknown) ? Past Medical History/Problem List Active Problems(4) Acute GI bleeding Cervical post-laminectomy syndrome Fracture of odontoid peg NSTEMI (non-ST elevated myocardial infarction) ? Past Surgical History EXPLORATORY LAPAROTOMY, OPENING OF DISTAL STMACH AND PROXIMAL DUODENUM WITH OVER SEWING OF BLEEDINGDUODENAL ULCER, PYLOROPLASTY CLOSURE: 01/21/13 ? Social History Alcohol Details:??Use: Current. ??Frequency: Several times per day. ??Type: Beer. ??Started at age: 44 Years. Employment/School Details:??Status: Retired. Exercise Details:??Self assessment: Good condition. Details:??Self assessment: Fair condition. Home/Environment Details:??Living situation: Home/Independent. Nutrition/Health Details:??Diet: Regular. Sexual Details:??Sexually involved in last 6 months: No. Substance Abuse Details:??Use: Never. Tobacco Details:??Former smoker, Other: former smoker, pt states I use to smoke about 4-5 cigg. a day, on and off throughout my adult life. I quit January 11, 2013.. ? Family History Family History Unknown. ? Medications Home Medications Aspirin (aspirin 81 mg oral tablet)?1?tab(s)?81?Milligram?By Mouth?Daily?for 30?Days Atorvastatin (atorvastatin 20 mg oral tablet)?TAKE 1 TABLET BY MOUTH DAILY Carvedilol (carvedilol 12.5 mg oral tablet)?12.5?Milligram?1?tablet?By Mouth?2 times a day Cholecalciferol (Vitamin D3 2000 intl units oral capsule)?TAKE 1 CAPSULE BY MOUTH ONCE DAILY Docusate-Senna (Senexon-S 50 mg-8.6 mg oral tablet)?TAKE 1 TABLET BY MOUTH TWICE A DAY NEEDEDFOR CONSTIPATION FOR 90 DAYS Doxycycline (doxycycline hyclate 100 mg oral tablet)?TAKE 1 TABLET BY MOUTH EVERY DAY Ferrous Gluconate (ferrous gluconate 324 mg oral tablet)?TAKE 1 TABLET BY MOUTH EVERY DAY Finasteride (finasteride 5 mg oral tablet)?TAKE 1 TABLET BY MOUTH EVERY DAY Folic Acid (folic acid 1 mg oral tablet)?1?Milligram?1?tablet?By Mouth?Daily Gabapentin (gabapentin 300 mg oral capsule)?TAKE 2 CAPSULES BY MOUTH AT BEDTIME Isosorbide Mononitrate (isosorbide mononitrate 60 mg oral tablet, extended release)?TAKE 1 TABLET BY MOUTH EVERY DAY IN THE MORNING Naproxen (naproxen 500 mg oral tablet)?TAKE 1 TABLET ORALLY EVERY 12 HOURS NEEDED FOR PAIN FOR 30 DAYS Omeprazole (omeprazole 40 mg oral enteric coated capsule)?TAKE 1 CAPSULE ORALLY 2 TIMES A DAY FOR 90 DAYS TAKE 30 MIN BEFORE BREAKFAST Pt.'s Own Meds (Patient's Own Meds)?medical marijuana sacubitril-valsartan (Entresto 24 mg-26 mg oral tablet)?TAKE 1 TABLET BY MOUTH TWICE A DAY Spironolactone (spironolactone 25 mg oral tablet)?TAKE 1 TABLET BY MOUTH EVERY DAY Tamsulosin (tamsulosin 0.4 mg oral capsule)?TAKE 1 CAPSULE BY MOUTH AT BEDTIME FOR 90 DAYS Tramadol (traMADol 50 mg oral tablet)?1?tab(s)?50?Milligram?By Mouth?Every 12 hours?as needed?as needed for pain ? Results Recent Labs BACTERIOLOGY Blood Culture Results Preliminary report (Abnormal)?? 07/24/2024 11:36 Blood Culture Isolate 1 Gram negative rods (Abnormal)?? 07/24/2024 11:36 Reflex to Rapid ID, ORIN Comment ()?? 07/24/2024 11:36 Blood Cult 2 Results Preliminary report (Abnormal)?? 07/24/2024 11:36 Blood Culture 2 Isolate 1 Gram negative rods (Abnormal)?? 07/24/2024 11:36 A calcoaceticus-baumannii comp,Culture 1 Not Detected ()?? 07/24/2024 11:36 Bacteroides fragilis, Culture 1 Not Detected ()?? 07/24/2024 11:36 Enterobacterales, Culture 1 DETECTED (Abnormal)?? 07/24/2024 11:36 Enterobacter cloacae complex, Culture 1 Not Detected ()?? 07/24/2024 11:36 Escherichia coli, Culture 1 Not Detected ()?? 07/24/2024 11:36 Klebsiella aerogenes, Culture 1 Not Detected ()?? 07/24/2024 11:36 Klebsiella oxytoca, Culture 1 Not Detected ()?? 07/24/2024 11:36 Klebsiella pneumoniae group, Culture 1 DETECTED (Abnormal)?? 07/24/2024 11:36 Proteus spp., Culture 1 Not Detected ()?? 07/24/2024 11:36 Salmonella spp., Culture 1 Not Detected ()?? 07/24/2024 11:36 Serratia marcescens, Culture 1 Not Detected ()?? 07/24/2024 11:36 Haemophilus influenzae, Culture 1 Not Detected ()?? 07/24/2024 11:36 Neisseria meningitidis, Culture 1 Not Detected ()?? 07/24/2024 11:36 Pseudomonas aeruginosa, Culture 1 Not Detected ()?? 07/24/2024 11:36 Stenotrophomonas maltophilia, Culture 1 Not Detected ()?? 07/24/2024 11:36 Enterococcus faecalis, Culture 1 Not Detected ()?? 07/24/2024 11:36 Enterococcus faecium, Culture 1 Not Detected ()?? 07/24/2024 11:36 Listeria monocytogenes, Culture 1 Not Detected ()?? 07/24/2024 11:36 Staphylococcus spp., Culture 1 Not Detected ()?? 07/24/2024 11:36 Staphylococcus aureus, Culture 1 Not Detected ()?? 07/24/2024 11:36 Staphylococcus epidermidis, Culture 1 Not Detected ()?? 07/24/2024 11:36 Staphylococcus lugdunensis, Culture 1 Not Detected ()?? 07/24/2024 11:36 Streptococcus spp., Culture 1 Not Detected ()?? 07/24/2024 11:36 Streptococcus agalactiae, Culture 1 Not Detected ()?? 07/24/2024 11:36 Streptococcus pneumoniae, Culture 1 Not Detected ()?? 07/24/2024 11:36 Streptococcus pyogenes, Culture 1 Not Detected ()?? 07/24/2024 11:36 Cherrie albicans, Culture 1 Not Detected ()?? 07/24/2024 11:36 Cherrie auris, Culture 1 Not Detected ()?? 07/24/2024 11:36 Cherrie glabrata, Culture 1 Not Detected ()?? 07/24/2024 11:36 Cherrie krusei, Culture 1 Not Detected ()?? 07/24/2024 11:36 Cherrie parapsilosis, Culture 1 Not Detected ()?? 07/24/2024 11:36 Cherrie tropicalis, Culture 1 Not Detected ()?? 07/24/2024 11:36 Cryptococcus neoformans/gattii,Culture 1 Not Detected ()?? 07/24/2024 11:36 IMP (Carbapenemases), Culture 1 Not Detected ()?? 07/24/2024 11:36 KPC (Carbapenemases), Culture 1 Not Detected ()?? 07/24/2024 11:36 OXA-48-like (Carbapenemases), Culture 1 Not Detected ()?? 07/24/2024 11:36 NDM (Carbapenemases), Culture 1 Not Detected ()?? 07/24/2024 11:36 VIM (Carbapenemases), Culture 1 Not Detected ()?? 07/24/2024 11:36 mcr-1 (Colistin Resistance), Culture 1 Not Detected ()?? 07/24/2024 11:36 CTX-M (ESBL), Culture 1 Not Detected ()?? 07/24/2024 11:36 mecA/C(Methicillin Resistance),Culture 1 Not applicable ()?? 07/24/2024 11:36 mecA/C and MREJ (MRSA), Culture 1 Not applicable ()?? 07/24/2024 11:36 Carl/B (Vancomycin Resistance),Culture 1 Not applicable ()?? 07/24/2024 11:36 ?? BLOOD COUNT & DIFF WBC 30.6 k/mm3 (High)?? 07/25/2024 03:37 RBC 2.78 m/mm3 (Low)?? 07/25/2024 03:37 Hgb 8.9 Gm/dL (Low)?? 07/25/2024 03:37 Hct 27.5 % (Low)?? 07/25/2024 03:37 MCV 98.9 femtoliters (High)?? 07/25/2024 03:37 MCH 32.0 pg ()?? 07/25/2024 03:37 MCHC 32.4 Gm/dL (Low)?? 07/25/2024 03:37 Platelet Count 82 k/mm3 (Low)?? 07/25/2024 03:37 RDW-SD 54.8 femtoliters (High)?? 07/25/2024 03:37 MPV 13.2 femtoliters (High)?? 07/25/2024 03:37 Nucleated RBC (Automated) 0.0 #/100 WBC'S ()?? 07/25/2024 03:37 Abs. NRBC 0.0 k/mm3 ()?? 07/25/2024 03:37 Abs. Neut 14.5 k/mm3 (High)?? 07/24/2024 09:45 Abs. Lymph 1.2 k/mm3 ()?? 07/24/2024 09:45 Abs. [place] 1.0 k/mm3 ()?? 07/24/2024 09:45 Abs. Eo 0.2 k/mm3 ()?? 07/24/2024 09:45 Abs. Baso 0.1 k/mm3 ()?? 07/24/2024 09:45 Neut % 84.9 % (High)?? 07/24/2024 09:45 Lymph % 7.0 % (Low)?? 07/24/2024 09:45 [place] % 6.0 % ()?? 07/24/2024 09:45 Eos % 1.2 % ()?? 07/24/2024 09:45 Baso % 0.3 % ()?? 07/24/2024 09:45 Imm Gran 0.6 % ()?? 07/24/2024 09:45 Abs. Imm Gran 0.1 k/mm3 ()?? 07/24/2024 09:45 ?? CHEM GENERAL Sodium 137 mmol/L ()?? 07/25/2024 03:37 Potassium 4.9 mmol/L ()?? 07/25/2024 03:37 Chloride 110 mmol/L (High)?? 07/25/2024 03:37 Bicarbonate Level 14 mmol/L (Low)?? 07/25/2024 03:37 Anion Gap 13 ()?? 07/25/2024 03:37 Glucose Level 74 mg/dL ()?? 07/25/2024 03:37 BUN 21 mg/dL ()?? 07/25/2024 03:37 Creatinine-Blood 1.25 mg/dL (High)?? 07/25/2024 03:37 Estimated GFR Creatinine 59 ML/MIN/1.73 M2 ()?? 07/25/2024 03:37 Calcium 7.8 mg/dL (Low)?? 07/25/2024 03:37 Albumin 2.0 Gm/dL (Low)?? 07/25/2024 03:37 Lactate 4.3 mmol/L (High)?? 07/25/2024 05:13 ?? ENDOCRINE/TUMOR MARKER [facility] Monoclonal 2.0 ng/mL ()?? 07/25/2024 03:37 ?? IMMUNOLOGY GENERAL Prealbumin 12.7 mg/dL (Low)?? 07/25/2024 03:37 ?? UA/URINALYSIS Appear/Color, Urine PINK ()?? 07/24/2024 10:53 Specific [place], Urine 1.032 (High)?? 07/24/2024 10:53 pH, Urine 8.0 ()?? 07/24/2024 10:53 Albumin, Urine 1+ (Abnormal)?? 07/24/2024 10:53 Glucose, Urine NEGATIVE (N)?? 07/24/2024 10:53 Ketones, Urine NEGATIVE (N)?? 07/24/2024 10:53 Bilirubin, Urine NEGATIVE (N)?? 07/24/2024 10:53 Hemoglobin, Urine 3+ (Abnormal)?? 07/24/2024 10:53 Nitrite, Urine NEGATIVE (N)?? 07/24/2024 10:53 Leukocyte, Urine 3+ (Abnormal)?? 07/24/2024 10:53 Urobilinogen NORMAL mg/dL (N)?? 07/24/2024 10:53 WBC's, Urine >182 /HPF (High)?? 07/24/2024 10:53 RBC's, Urine >182 /HPF (High)?? 07/24/2024 10:53 Bacteria HEAVY HPF (Abnormal)?? 07/24/2024 10:53 Mucus SLIGHT /LPF ()?? 07/24/2024 10:53 WBC Clumps HEAVY /HPF ()?? 07/24/2024 10:53 Hold Urine Culture Testing available 48 hours from time of collection. ()?? 07/24/2024 10:53 ?? URINE OTHER Est Creatinine Clearance 40.39 mL/min ()?? 07/25/2024 06:24 ? * Ann WIGGINS, Jake Olguin: PERFORM Event Display: Admission Note Authored Date: MICU Attending Attestation ?? I have seen and evaluated??JOSE BONILLA.??I have personally reviewed the interim lab, radiography, and study results. I have discussed the case with ?Win and agree with the findings, assessment, and plan as documented below with the following highlights, clarifications, and addenda. ?? Problems: # Septic shock: Meets criteria due to persistently elevated lactate despite adequate volume resuscitation. Fortunately has not required pressors. # Klebsiella pneumoniae bacteremia # Intraabdominal abscess, apparent complication of sigmoid diverticulitis, leading to... # Colovesicular fistula # UTI due to the above # RYAN # Ischemic cardiomyopathy LVEF 35-40% # Urethral stricture, difficult Lira placement ?? Plan: - home gabapentin, trazodone - hold antihypertensives - q1h vitals, trend lactate, start pressors if needed for MAP >65 - cautious additional volume resuscitation - change ceftriaxone to Zosyn - IV vancomycin pending final blood culture results - send CA - surgery following - maintain Lira - hand irrigate Lira if needed for gross hematuria - NPO pending surgery plan -> clear diet started given OR plan Thursday. Will need to be NPO past midnight tomorrow. - chemical VTE ppx held given??gross hematuria - apply SCDs ?? Given clearance of lactate??and hemodynamic stability, is okay for transfer to intermediate LOC. ?? Remainder as below ?? JOSE BONILLA??was critically ill due to the problems and diagnoses listed above, with a high probability of life-threatening deterioration or . I personally spent??40 minutes of non-overlapping critical care time evaluating and managing the patient, excluding time spent teaching??or performing separately billable procedures. ?? Jake Juarez MD Critical Care Medicine Attending [facility] * Justyna Nickerson MD: PERFORM Event Display: Admission Note Authored Date: For Klebsiella pneumonia, based on our antibiogram Zosyn is only 43% likely to work while ceftriaxone is 77% We will switch patient back to CTX and Flagyl and Continue with Vanc. Patient has not required pressor support and is being down graded to IC. ?? * Liya WIGGINS, Justyna: PERFORM Event Display: Admission Note Authored Date: Maps started dropping around 5:15 pm. We will initiate Levo Pt will stay in MICU EKG study * Event Display: ECG 12-Lead Authored Date: [id number] Please click on pdf link to open report * Event Display: ECG 12-Lead Authored Date: [id number] Ventricular Rate: 63 BPM Atrial Rate: 63 BPM P-R Interval: 156 ms QRS Duration: 96 ms Q-T Interval: 412 ms QTC Calculation(Bazett): 421 ms P [place]: 24 degrees R [place]: -15 degrees T [place]: 7 degrees Normal sinus rhythm Inferior infarct , age undetermined Abnormal ECG When compared with ECG of 26-Jul-2024 09:47, Premature ventricular complexes are no longer Present Confirmed by Rene Rosen ([id number]) on 07/26/2024 2:00:23 PM [place]: Rene Rosen * Event Display: ECG 12-Lead Authored Date: [id number] Please click on pdf link to open report * Event Display: ECG 12-Lead Authored Date: [id number] Ventricular Rate: 70 BPM Atrial Rate: 70 BPM P-R Interval: 154 ms QRS Duration: 88 ms Q-T Interval: 430 ms QTC Calculation(Bazett): 464 ms P [place]: 25 degrees R [place]: -14 degrees T [place]: -4 degrees Sinus rhythm with occasional Premature ventricular complexes Inferior infarct (cited on or before 06-Feb-2013) Abnormal ECG When compared with ECG of 11-Feb-2018 07:18, Nonspecific T wave abnormality now evident in Inferior leads T wave inversion no longer evident in Anterolateral leads Confirmed by Rene Rosen ([id number]) on 07/26/2024 12:23:19 PM [place]: Rene Rosen Heart * Event Display: Echocardiogram - Complete Authored Date: [id number] Transthoracic Echocardiography Report (TTE) Patient Demographics Patient Name JOSE BONILLA Date of Study 07/28/2024 Corporate Gender Male Facility Race .[id number] Ethnicity Date of 1945 Height: 64.17 inches Age 78 year(s) Weight: 169.76 pounds Accession Number [id number] BSA: 1.83 m2 Room Number [id number] BMI: 28.98 kg/m2 Referring Joanne Ortiz MD Interpreting Tanya Hendrickson MD Physician Physician Direct Mail Marketer Carolyn Hampton Indications Hypotension. Clinical History HTN HLD PVD NSTEMI Study Data Type of Study TTE procedure:Echo Complete-Doppler, Colorflow, M-Mode. Procedure Information:Definity was administered by Metal Bonder . Study Date07/28/2024 Start Time: 09:42 AM Study Location[place] [facility] [place] Study Status: Bedside Patient Status: TY Technical Quality: Poor due to poor acoustical window. Blood Pressure:115/71 mmHg EKG: Normal sinus rhythm HR: 70 bpm Contrast Medium: Definity. Amount - 2 ml Allergies - No known allergies. 2D Measurements LV Diastolic Dimension: 5.5 cm LV Systolic Dimension: 4.3 cm LV Septum Diastolic: 0.8 cm LV PW Diastolic: 0.9 cm AO Root Dimension: 3.6 cm LA Dimension: 4.5 cm LA ESV (BP):61.2 ml LVOT Stroke Volume: 45.84 ml LA ESV Index: 33 ml/m2 Stroke Volume Index25.05 ml/m2 LVOT: 2 cm Cardiac Index:1.75 l/min/m2 Ascending Aorta:3.6 cm Doppler Measurements AV Peak Velocity: 113 cm/s MV Peak E-Wave: 90.2 cm/s AV Peak Gradient: 5.11 mmHg MV Peak A-Wave: 72.5 cm/s AV Mean Gradient: 3 mmHg MV E/A Ratio: 1.24 AV VTI:24.4 cm MV P1/2t: 49 msec LVOT Peak Velocity: 70.2 cm/s LVOT VTI14.6 cm MV Deceleration Time: 168 msec AV Area (Continuity):1.88 cm2 MV Area (PHT): 4.49 cm2 TR Velocity:277 cm/s PV Peak Velocity: 93 cm/s TR Gradient:30.69 mmHg PV Peak Gradient: 3.46 mmHg E' Septal Velocity: 9.25 cm/s E' Lateral Velocity: 10.8 cm/s E/Med E':[id number] E/Lat E':[id number] Cardiac Anatomy Left Ventricle/Interventricular Septum The left ventricle is poorly visualized. The left ventricular size and wall thickness appears normal. The LV systolic function is moderately to severely reduced. The mid/apical septum,inferior, inferolateral wall is akinetic. 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 EF visually 25-35%, cannot make quantitative assessment. Recommend echocontrast. Left Atrium/Interatrial Septum The left atrium is normal in size. Aortic Valve The aortic valve is poorly visualized. There is no aortic regurgitation. There is no significant aortic stenosis. Mitral Valve The mitral valve is grossly normal. There is mild mitral regurgitation. Aorta The aortic root is normal in size. The ascending aorta is poorly seen. Right Ventricle The right ventricular size and function appears grossly normal. A pacer/ICD wire is seen in the right ventricle. Right Atrium The right atrium is normal in size. Pulmonic Valve The pulmonic valve is poorly visualized. Tricuspid Valve The tricuspid valve is poorly visualized. There is mild to moderate tricuspid valve regurgitation. Pumonary Artery The pulmonary artery systolic pressure estimation is 30-35 mmHg. Venous Structures The inferior vena cava appears mildly dilated. Inferior vena cava inspiratory collapse is blunted . Pericardium/Extracardiac There is no significant pericardial effusion. Summary The left ventricle is poorly visualized. The left ventricular size and wall thickness appears normal. The LV systolic function is moderately to severely reduced. The mid/apical septum,inferior, inferolateral wall is akinetic. 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 EF visually 25-35%, cannot make quantitative assessment. Recommend echocontrast. The aortic valve is poorly visualized. There is no aortic regurgitation. There is no significant aortic stenosis. The right ventricular size and function appears grossly normal. A pacer/ICD wire is seen in the right ventricle. There is no significant pericardial effusion. Comparison Comparison is made to the study of September 24, 2015. Images not available. Signature * Event Display: Echocardiogram - Complete Authored Date: Cardiology * Event Display: Cardiac Rhythm Strips Authored Date: * Event Display: Cardiac Rhythm Strips Authored Date: * Event Display: Cardiac Rhythm Strips Authored Date: Hospital Progress note * Aishwarya Vidales RN: VERIFY, PERFORM, SIGN Event Display: Progress Note Hospital Authored Date: Patient: JOSE BONILLA Age: 78 years Sex: Male : 1945 Associated Diagnoses: None Author: Aishwarya Vidales RN Findings Problem Related to Alteration in Gastrointestinal : Alteration in Gastrointestinal Func/new 08/17/2024 19:00 EST Alteration in GI status Related to Abdominal Surgery, Colorectal Surgery, Ostomy, GI, Other: Colovesical fistula-s/pex lap,takedown of colovesical fistula,appendectomy,sigmoid colectomy,coloproctostomy,flexible sigmoidoscopy,omental pedicle flap,diverting loop ileostomy-08/03 Goals & Outcomes, Gastrointestinal Nutritional intake is adequate for metabolic needs, Pt will achieve normal/improved fluid balance, Pt will maintain adequate GI function appropriate for pt, Pt will maintain normal elimination patterns, Pt will resume/maintain adequate hemodynamic status, Pt will tolerate age appropriate diet prior to discharge, Ostomy will be functioning properly prior to D/C, Pt will correctly state/demonstrate applying ostomy pouch, Pt will correctly state/demonstrate emptying ostomy pouch, Pt will view ostomy, Pt will experience progressive wound healing, Pt will notexperience s/s of infection prior to discharge Interventions, Gastrointestinal Assess/monitor abdomen for distention, tenderness, Assess/monitor abdominal girth & bowel function, Assess/monitor bowel pattern, bowel sounds, flatus, Assess/monitor number of bowel movements, Assess/monitor color, quantity, quality, consistency of stoo, Assess/monitor pt for nausea, vomiting, Assess/monitor effects of re-hydration, Assess/monitor intake &output, Assess if pt tolerating diet, DVT prophylaxis as ordered, Elevate HOB to facilitate lung expansion, prevent aspiration, Taking PO: Encourage/monitor intake & swallowing ability, Teach/encourage deep breath & cough exercises, Teach/encourage use of incentive spirometer Goals/Interventions, Gastrointestinal Yes Gastrointestinal, Problem Start 07/26/2024 15:35 Reviewed plan with, Gastrointestinal Patient Patient Progression, Gastrointestinal Pt progressing according to plan . Evaluation Patient alert, abd round/soft ileostomie patent, lungs sounds WNL buttock w rash cream applied as order, ,tolerating diet, getting tylenol. I.V for pain , up to a chair w assistance, will be going torehab in chair van a t 4 pm. . * Hyun SMITH, Elsa: SIGN, PERFORM, MODIFY, VERIFY, SIGN, MODIFY Event Display: Progress Note Hospital Authored Date: Patient: JOSE BONILLA Age: 78 years Sex: Male : 1945 Associated Diagnoses: None Author: Elsa Purvis RN Findings Problem Related to Alteration in Comfort : Alteration in Comfort/new 08/17/2024 19:00 EST Alteration in Comfort Related to Disease process, Surgery, Other: Colovesical fistula-s/pex lap,takedown of colovesical fistula,appendectomy,sigmoid colectomy,coloproctostomy,flexible sigmoidoscopy,omental pedicle flap,diverting loop ileostomy-08/03 Goals & Outcomes: Comfort Pt will report acceptable level of comfort & pain control, Pt will state importance of adhering to pain strategy regime, Pt will demonstrate necessary skills to manage pain, Non-verbal indicators will indicate comfort/pain control Interventions Implemented: Comfort Assess pain using appropriate pain scale/tools, Assess aggravating factors & prevent them accordingly, Assess alleviating factors & promote them accordingly Goals/Interventions, Comfort Yes Comfort, Problem Start 08/03/2024 18:32 Reviewed plan with, Comfort Patient Patient Progression, Comfort Pt progressing according to plan Comfort, Problem Ongoing Yes . Alteration in Gastrointestinal : Alteration in Gastrointestinal Func/new 08/17/2024 19:00 EST Alteration in GI status Related to Abdominal Surgery, Colorectal Surgery, Ostomy, GI, Other: Colovesical fistula-s/pex lap,takedown of colovesical fistula,appendectomy,sigmoid colectomy,coloproctostomy,flexible sigmoidoscopy,omental pedicle flap,diverting loop ileostomy-08/03 Goals & Outcomes, Gastrointestinal Nutritional intake is adequate for metabolic needs, Pt will achieve normal/improved fluid balance, Pt will maintain adequate GI function appropriate for pt, Pt will maintain normal elimination patterns, Pt will resume/maintain adequate hemodynamic status, Pt will tolerate age appropriate diet prior to discharge, Ostomy will be functioning properly prior to D/C, Pt will correctly state/demonstrate applying ostomy pouch, Pt will correctly state/demonstrate emptying ostomy pouch, Pt will view ostomy, Pt will experience progressive wound healing, Pt will notexperience s/s of infection prior to discharge Interventions, Gastrointestinal Assess/monitor abdomen for distention, tenderness, Assess/monitor abdominal girth & bowel function, Assess/monitor bowel pattern, bowel sounds, flatus, Assess/monitor number of bowel movements, Assess/monitor color, quantity, quality, consistency of stoo, Assess/monitor pt for nausea, vomiting, Assess/monitor effects of re-hydration, Assess/monitor intake &output, Assess if pt tolerating diet, DVT prophylaxis as ordered, Elevate HOB to facilitate lung expansion, prevent aspiration, Taking PO: Encourage/monitor intake & swallowing ability, Teach/encourage deep breath & cough exercises, Teach/encourage use of incentive spirometer Goals/Interventions, Gastrointestinal Yes Gastrointestinal, Problem Start 07/26/2024 15:35 Reviewed plan with, Gastrointestinal Patient Patient Progression, Gastrointestinal Pt progressing according to plan . Narrative/Incidental P: Alteration to Comfort/Gastrointestinal Function I: See interventions listed above E: Pt is alert and oriented x4, VSS. Pain 7/10, see MAR for medications given. 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 Positive color and movement, good capillary refill and pedal pulses. No edema present, refusing SCDs despite education. Lungs were clear but diminished denies shortness of breath and chest pain. IS use encouraged, +demonstration. Hypoactive bowel sounds. Abdomen soft, round, and nontender. Ileostomy w/ mushy brown stool, stoma pink and moist. Passing gasthrough the bag, denies nausea and vomiting. Tolerating p.o intake per diet. Team already aware of bloody bm during the day, has not occurred since [facility] as a x1-2 assist w/ walker. Abdominal midline w/ partial dehiscence covered by DSD, clean dry and intact. Erythema/rash still present to sacrum/coccyx. On a therapeutic bed. See CIS for full assessment. Call borrego is within reach and bed set to the lowest position.. Discharge Information Case Management Discharge Plan : Case Management Discharge Plan Data 08/17/2024 15:43 EST Discharge Level of Care at Discharge long-term facility Discharge Nursing Homes/Rehab Facilities [facility] Discharge Transportation [facility] [address] [place] [address] Name of Agency [facility] Quality Control Inspector #1 Admissions Service Categories #1 Occupational Therapy, Physical Therapy, Care Home Name of Person Notified of Transfer Jose Bonilla Phone Number of Receiving Facility [facility] Discharge : Rehab Discharge Index 08/17/2024 9:38 EST Walker: distance < 10 08/15/2024 12:40 EST Walker: distance < 10 Radiology * Event Display: PICC Line IV Insertion Image Authored Date: Patient Care team information Care Team Personnel Name: Joycelyn Arriaga RN Position: [facility] RN Member Role: Primary Care Nurse Name: Brenda Aponte RN Position: [facility] RN Member Role: Primary Care Nurse Name: Olga Lidia Oates RN Position: [facility] AMB Nurse Member Role: Primary Care Nurse Name: Imani Hampton Position: [facility] Outreach Member Role: Primary Care Nurse Name: Pablo Strauss MD Position: [facility] Outreach Member Role: PCP Address: [address] [place] [address] Internal Medicine [address] Telecom: Name: Jana Dumont RN Position: [facility] SN RN Member Role: Primary Care Nurse Name: Linda Vera RN Position: [facility] AMB Nurse Member Role: Primary Care Nurse Name: Yady Cisneros RN Position: [facility] RN Member Role: Primary Care Nurse Name: Rene Ayon RN Position: [facility] RN Member Role: Primary Care Nurse Name: Imani Arndt RN Position: [facility] SN RN Member Role: Primary Care Nurse Name: Rosi Ortiz RN Position: [facility] RN Member Role: Primary Care Nurse Name: Yumiko Kothari NP Position: [facility] PCO Associate Professional Member Role: Primary Care Nurse Address: [address] [facility] [place] [address]- [place] Telecom: Name: Jennie Aleman NP Position: [facility] Associate Professional Member Role: Primary Care Nurse Address: [address] [place] [address]- [place] Telecom: Name: Sanam Whalen RN Position: [facility] RN Member Role: Primary Care Nurse Name: Melania Aguirre RN Position: [facility] Rad RN Member Role: Primary Care Nurse Name: Brayan Trujillo RN Position: [facility] ED RN W/OE and Tasks Member Role: Primary Care Nurse Name: Bee Siddiqui RN Position: [facility] RN Member Role: Primary Care Nurse Name: Silva Lewis RN Position: [facility] RN Member Role: Primary Care Nurse Name: Leanne Welsh RN Position: [facility] RN Member Role: Primary Care Nurse Name: Taylor Rueda RN Position: [facility] ED RN W/OE and Tasks Member Role: Primary Care Nurse Name: Mari Barrera RN Position: [facility] RN Member Role: Primary Care Nurse Name: Candice Hutchins RN Position: [facility] RN Member Role: Primary Care Nurse Name: Ashley Corbin RN Position: [facility] RN Member Role: Primary Care Nurse Name: Tonia Medina RN Position: [facility] RN Member Role: Primary Care Nurse Name: Rashida Rankin RN Position: [facility] RN Member Role: Primary Care Nurse Name: Laurie Chaudhry Position: [facility] RN Member Role: Primary Care Nurse Name: Ana Lilia Flannery RN Position: [facility] RN Member Role: Primary Care Nurse Name: Diana Salguero RN Position: [facility] ED RN W/OE and Tasks Member Role: Primary Care Nurse Name: Simona Helms RN Position: [facility] RN Member Role: Primary Care Nurse Name: Ceci Armenta RN Position: [facility] RN Member Role: Primary Care Nurse Name: Jacob Bowman RN Position: [facility] RN Member Role: Primary Care Nurse Name: Maryjane Alaniz RN Position: [facility] RN Member Role: Primary Care Nurse Name: Viola Vicente RN Position: S RN Member Role: Primary Care Nurse Name: Ava Ha RN Position: S RN Member Role: Primary Care Nurse Name: Jax Marcus RN Position: S RN Member Role: Primary Care Nurse Care Team Related Persons Name: RIGO BONILLA Insurance Providers Guarantor name: JOSE BONILLA [employer] Information #: 3 Payer: [employer] Member Number: [id number] Policy Number: NA Group Number: [id number] Health Plan Information #: 4 Payer: [employer] Member Number: [id number] Policy Number: NA Group Number: [id number] Health Plan Information #: 1 Payer: MEDICARE A INPT 25 Member Number: [id number] Policy Number: NA Group Number: NA Health Plan Information #: 2 Payer: MEDICARE PART B OUTPT Member Number: [id number] Policy Number: NA Group Number: [id number]
--- OUTSIDE RECORDS SUMMARY | 2024-08-22 06:11 | XMS_ITS ---
Author Organization [facility] [place] Address [address] [place] [address] Care Team Providers Care Marketing Developer Name Role Phone Pablo Strauss MD Primary Care Provider Unavaila Magdaleno Kulkarni Unavailable [phone] Allergies No Known Allergies REASON FOR VISIT [...] Ordered Date Performed Result Body Sit e 98791-JFQYSUM NAIL, 1-5 05/27/2024 N/A 67488-KKEG SKIN LESIONS, 2 TO 4 05/27/2024 N/A [id number] DYSTROPHIC NAILS ANY # 05/27/2024 N/A Encounters Encounter Location Date Provider Diagnosis [facility] [place] [address] [place] [address] 05/27/2024 Magdaleno Ji Atherosclerosis of [place] artery of both lower extremities, with unspecified presence of clinical manifestation I70.203 ; Tinea unguium B35.1 ; Pain in right toe(s) M79.674 and Pain in left toe(s) M79.675 Assessments Encounter Date Diagnosis (ICD Code) Assessment Notes Treatment Notes Treatment Clinical Notes Section Notes 05/27/2024 Atherosclerosis of [place] artery of both lower extremities, with unspecified presence of clinical manifestation (ICD-10 - I70.203) 05/27/2024 Tinea unguium (ICD-10 - B35.1) 05/27/2024 Pain in right toe(s) (ICD-10 - M79.674) 05/27/2024 Pain in left toe(s) (ICD-10 - M79.675) Plan Of Treatment Pending Test Test Name Order Date 95644-HRBPQDU NAIL, 1-5 05/27/2024 52068-ANFR SKIN LESIONS, 2 TO 4 05/27/20 24 Y7488-[id number] DYSTROPHIC NAILS ANY # Next Appt Details Follow Up: prn, Reason: Provider Name:Magdaleno Ji , 08/26/2024 09:15:00 AM, [address] [place] [address], [phone], Procedure Notes * Category Sub-Category Detail Notes Keratoma Treatment Parring or Cutting o f Benign Hyperkeratotic Lesion(s) (-56) 2-4 Lesions - The Benign hyperkeratotic lesions, as described in exam, were pared, and/or cut utilizing a sterile 15 blade, tissue nippers, and/or dremel - 54112, Q8 Debride Nails 1-5 Procedure: Performance of this nail treatment by a nonprofessional would put this patients foot and overall health at risk. Therefore, debridement to affected nail(s), as described in exam, was performed extensively to reduce/remove overall nail length, girth, thickness, subungual debris, and necrotic tissue, by manual and/or electrical means through the use of a nail nipper and/or dremel-type corn grinder, to a more viable healthy nail plate or bed tissue 1-5. Silver nitrate used for any petechial bleeding as necessary. Definitive antifungal treatment options have been reviewed and discussed with the patient. The patient chooses, no pharmaceutical tx - 19810 Nail Reduction Nail Reduction (-27) Trimming o f dystrophic nails, as described in exam, was performed to reduce/remove overall nail length and girth, by manual and electrical means with use of a nail nipper and/or dremel, to more viable healthy nail plate or bed tissue, any number - G0127, Q8 Progress Notes * Jose BONILLA PDOB:1945 (78 yo M)Acc No.[id number]:05/27/2024 Progress Note Patient:Jose TAN Provider:?Magdaleno Ji DPM :1945???Age:78 Y???Sex:Male Morgan e:05/27/2024 Address:[address] [place] [address] [facility] Pcp:Pablo Strauss MD Subjective: * Chief Complaints: [...] [facility] ?Marital status: . 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 * Medications:?TakingDoxycycli ne Atorvastatin Calcium 20 [...] Assessment: 1.?Tinea unguium - B35.1???2 .?Atherosclerosis of mash[place] artery of both lower extremities, with unspecified presence of clinical manifestation - I70.203 (Primary)???3.?Pain in right toe(s) - M79.674???4.?Pain in left toe(s) - M79.675??? Plan: * Treatment: 2.?Tinea unguium?Procedure: 27244-YOVTYQH NAIL, 1-5 * Procedures:?Debride Nails 1-5:?Procedure:?Performance of this nail treatment by a nonprofessional would put this patients foot and overall health at risk. Therefore, debridement to affected nail(s), as described in exam, was performed extensively to reduce/remove overall nail length, girth, thickness, subungual debris, and necrotic tissue, by manual and/or electrical means through the use of a nail nipper and/or dremel-type corn grinder, to a more viable healthy nail plate or bed tissue 1-5. Silver nitrate used for any petechial bleeding as necessary. Definitive antifungal treatment options have been reviewed and discussed with the patient. The patient chooses, no pharmaceutical tx - 45267.?Keratoma Treatment:?Parring or Cutting of Benign Hyperkeratotic Lesion(s)?(-56) 2-4 Lesions - The Benign hyperkeratotic lesions, as described in exam, were pared, and/or cut utilizing a sterile 15 blade, tissue nippers, and/or dremel - 13906, Q8.?Nail Reduction:?Nail Reduction?(-27) Trimming of dystrophic nails, as described in exam, was performed to reduce/remove overall nail length and girth, by manual and electrical means with use of a nail nipper and/or dremel, to more viable healthy nail plate or bed tissue, any number - G0127, Q8.? * Procedure Codes:?G0127 SHEELA ING DYSTROPHIC NAILS ANY #, Modifiers: XS , [id number] DEBRIDE NAIL, 1-5, Modifiers: XS 91007 TRIM SKIN LESIONS, 2 TO 4, Modifiers: XS , Q8 * Follow Up:?prn * Images: * Sign off status: Completed true * Provider:?Magdaleno Ji DPM Date:?2023 Generated for Spencer pardo/Alan/Bere on:?08/22/2024 06:11 AM EST History and Physical Notes * [...]
[2024-08-22 06:12] LABS: Basophils Absolute Auto 0.1 X10*3/uL (0.0-0.2); Basophils Percent Auto 0.6 % (0-2); Eosinophils Absolute Auto 0.6 X10*3/uL (0.0-0.4); Eosinophils Percent Auto 4.7 % (0-4); Hematocrit 34.9 % (42.0-52.0); Hemoglobin 11.5 g/dl (14.0-18.0); Imm Gran Abs Auto 0.05 X10*3/uL (0.00-0.03); Imm Gran Pct Auto 0.4 % (0.0-0.4); Lymphocytes Absolute Auto 1.7 X10*3/uL (1.2-4.9); Lymphocytes Percent Auto 13.6 % (20-40); Mean Corpuscular Hemoglobin 30.8 pg (27.0-33.0); Mean Corpuscular Volume 93.6 fL (80.0-98.0); Monocytes Absolute Auto 1.1 X10*3/uL (0.1-1.2); Monocytes Percent Auto 8.7 % (2-11); Neutrophils Absolute Auto 8.9 x10*3/uL (2.0-8.3); Platelet Count 326 X10*3/uL (160-400); Red Blood Count 3.73 X10*6/uL (4.60-5.80); Red Cell Distribution Width 16.1 % (11.0-16.0); White Blood Count 12.3 X10*3/uL (4.8-10.8)
--- OUTSIDE RECORDS SUMMARY | 2024-08-22 06:12 | XMS_ITS | Patient Health Record ---
Author Organization [facility] [place] Address [address] [address] Care Team Providers Care Staff Physician Name Role Phone Pablo Strauss MD Primary Care Provider UnavailMagdaleno Ricardo Unavailable [phone] Allergies No Known Allergies Reason For Referral [...] W/U Status Risk Notes Problem Atherosclerosis of [place] arteries of the extremities ([id number]) Atherosclerosis of [place] artery of both lower extremities, with unspecified presence of clinical manifestation (I70.203) Active confirmed Vital Signs Blood pressure diastolic 80 mm Hg 05/27/2024 Height 5ft 7in in 05/27/2024 Blood pressure systolic 120 mm Hg 05/27/2024 Weight 150 lbs 05/27/2024 BMI 23.49 kg/m2 05/27/2024 Procedures Procedure Date Ordered Date Performed Result Body Sit e 92567-GJNOWIX NAIL, 1-5 02/23/2024 N/A 60997-GGDH SKIN LESIONS, 2 TO 4 02/23/2024 N/A E8708-PXTXNLRF DYSTROPHIC NAILS ANY # 02/23/2024 N/A 69393-BTMYBAP NAIL, 1-5 05/27/2024 N/A 71369-FKVU SKIN LESIONS, 2 TO 4 05/27/2024 N/A J9266-VRLMHLRM DYSTROPHIC NAILS ANY # 05/27/2024 N/A Encounters Encounter Location Date Provider Diagnosis [facility] [address] [address] 02/23/2024 Magdaleno Margy Atherosclerosis of [place] artery of both lower extremities, with unspecified presence of clinical manifestation I70.203 ; Tinea unguium B35.1 ; Pain in right toe(s) M79.674 and Pain in left toe(s) M79.[address] [facility] [address] 05/27/2024 Magdaleno Margy Atherosclerosis of [place] artery of both lower extremities, with unspecified presence of clinical manifestation I70.203 ; Tinea unguium B35.1 ; Pain in right toe(s) M79.674 and Pain in left toe(s) M79.675 Assessments Encounter Date Diagnosis (ICD Code) Assessment Notes Treatment Notes Treatment Clinical Notes Section Notes 02/23/2024 Tinea unguium (ICD-10 - B35.1) 02/23/2024 Atherosclerosis of [place] artery of both lower extremities, with unspecified presence of clinical manifestation (ICD-10 - I70.203) 05/27/2024 Tinea unguium (ICD-10 - B35.1) 05/27/2024 Atherosclerosis of [place] artery of both lower extremities, with unspecified presence of clinical manifestation (ICD-10 - I70.203) 05/27/2024 Pain in right toe(s) (ICD-10 - M79.674) 02/23/2024 Pain in right toe(s) (ICD-10 - M79.674) 02/23/2024 Pain in left toe(s) (ICD-10 - M79.675) 05/27/2024 Pain in left toe(s) (ICD-10 - M79.675) Plan Of Treatment Pending Test Test Name Order Date 42773-QQDHWEE NAIL, 1-5 05/07/2021 97575-YVUHHZQ NAIL, 1-5 08/06/2021 24712-MVRRLBS NAIL, 1-5 11/15/2021 75947-GSSHLDT NAIL, 1-5 02/21/2022 39263-DINZCLX NAIL, 1-5 06/20/2022 26104-MSAWGEO NAIL, 1-5 11/07/2022 71790-PMJGJRN NAIL, 1-5 02/06/2023 13366-SLVUMQZ NAIL, 1-5 05/12/2023 55947-BBUUAAR NAIL, 1-5 08/18/2023 85456-MAJWOSU NAIL, 1-5 02/23/2024 36103-RIFIQJR NAIL, 1-5 05/27/2024 82144-BZCC SKIN LESIONS, 2 TO 4 05/27/20 24 72453-DFMH SKIN LESIONS, 2 TO 4 02/23/20 24 86676-ZEPK SKIN LESIONS, 2 TO 4 08/18/19 24 07633-KEMV SKIN LESIONS, 2 TO 4 05/12/20 23 92355-SAEU SKIN LESIONS, 2 TO 4 02/07/20 23 01991-USFM SKIN LESIONS, 2 TO 4 11/08/19 23 48308-GSUH SKIN LESIONS, 2 TO 4 06/20/20 32664-PICP SKIN LESIONS, 2 TO 4 02/22/20 34693-JTAP SKIN LESIONS, 2 TO 4 11/16/19 22 26644-UYJA SKIN LESIONS, 2 TO 4 05/07/20 21 24762-VDKX SKIN LESIONS, 2 TO 4 08/06/19 22 Z8265-OYHYCAYR DYSTROPHIC NAILS ANY # Z9897-EIXXUFTQ DYSTROPHIC NAILS ANY # W8353-GRNMZBOD DYSTROPHIC NAILS ANY # B6782-NPHYTLRE DYSTROPHIC NAILS ANY # D3300-BPMPBYLP DYSTROPHIC NAILS ANY # S2235-CYYUOGBT DYSTROPHIC NAILS ANY # U0761-MRFCMMGO DYSTROPHIC NAILS ANY # G4182-MCOPMLUC DYSTROPHIC NAILS ANY # Y1928-FSAWQMNL DYSTROPHIC NAILS ANY # H4841-WRODICTB DYSTROPHIC NAILS ANY # O4144-NIFLRZUX DYSTROPHIC NAILS ANY # Next Appt Details Provider Name:Magdaleno Ji , 08/26/2024 09:15:00 AM, [address] [place] [address], [phone], Insurance Providers Payer Name Payer Address Payer Phone Subscriber Number Group Number Insured Name Patient Relationship to Insured Coverage Start Date Coverage End Date Medicare National Govt [employer] [facility] [address] [place] [address] [id number] Jose Dwyer Self - patient is the insured [employer] [facility] [address] [place] [address] [id number] Jose Dwyer Self - patient is the insured Medical (General) History Medical History History ICD Code Back,Hip,and Knee pain Heart disease Measles Mumps Chicken pox Joint implants/screws Transfusions Arthritis CAD Reflux HTN Surgical History Surgery Date(Month/Year) hip surgery, B/L - replacement spinal fusion cervical fusion
--- OUTSIDE RECORDS SUMMARY | 2024-08-22 06:12 | XMS_ITS | Clinical Summary ---
Author Organization [facility] Address [address] [facility] [address] [place] [address] Care Team Providers Care Policy Issue Clerk Name Role Phone Unavailable Primary Care Provider [...]
--- OUTSIDE RECORDS SUMMARY | 2024-08-22 06:12 | XMS_ITS | Clinical Summary ---
Author Organization [address] [place] [address] [place] [address] Phone Care Team Providers Care Medical Lab Technician Name Role Phone Pablo Strauss MD Primary Care Provider [phone] Allergies No known active allergies Medications aspirin 81 mg EC tablet Take 81 mg by mouth daily. Active atorvastatin (LIPITOR) 20 mg tablet TAKE 1 TABLET BY MOUTH DAILY 4 Active cholecalciferol (VITAMIN D-3) 50 mcg (2,000 [...] 5 minutes as needed for Chest pain. 4 Active omeprazole (PriLOSEC) [address] capsule Take 1 Capsule by mouth daily. Active sacubitriL-valsa rtan (Entresto) 24-26 mg per tablet TAKE 1 TABLET BY MOUTH TWICE A DAY 4 Active spironolactone (ALDACTONE) 25 mg tablet TAKE 1 TABLET BY MOUTH EVERY DAY 4 Active traMADoL (ULTRAM) 50 mg tablet Take 1 Tablet by mouth 2 times daily. Active carvediloL (COREG) 12.5 mg tablet TAKE 1 TABLET BY MOUTH TWICE A DAY WITH FOOD 180 tablet 1 5 Active isosorbide mononitrate (IMDUR) 60 mg 24 hr tablet TAKE 1 TABLET BY MOUTH EVERY DAY IN THE MORNING 90 tablet 1 5 Active Active Problems Problem Noted Date Diagnosed [...] pounds in one week. Coronary arteriosclerosis in [place] artery 05/08 Overview (06/02/2024): Last Assessment & Plan: Patient has history of coronary artery disease as outlined in detailed above. He had an inferior KS in 2013. Last coronary angiogram in 2018 [...] Type Department Care Team Description 08/15/2024 Telephone [facility] [address] [place] [address] ParminderDc Moreno MD No Call No Show [...] on patient's age to complete this topic Insurance MEDICARE [facility] Care Teams Medical Lab Technician Relationship Specialty Start Date End Date Pablo Strauss MD [address] [place] [id number] PCP - General Internal Medicine 05/13/18
--- OUTSIDE RECORDS SUMMARY | 2024-08-22 06:12 | XMS_ITS ---
Author Organization [facility] [place] Address [address] [place] [address] Care Team Providers Care Wallpaperer Name Role Phone Pablo Strauss MD Primary Care Provider Unavaila Magdaleno Kulkarni Unavailable [phone] Allergies No Known Allergies REASON FOR VISIT [...] Ordered Date Performed Result Body Sit e 99615-WRTSYYJ NAIL, 1-5 02/23/2024 N/A 64468-MGCO SKIN LESIONS, 2 TO 4 02/23/2024 N/A I4450-TQHRFXJL DYSTROPHIC NAILS ANY # 02/23/2024 N/A Encounters Encounter Location Date Provider Diagnosis [facility] [place] [address] [place] [address] 02/23/2024 Magdaleno Ji Atherosclerosis of [place] artery of both lower extremities, with unspecified presence of clinical manifestation I70.203 ; Tinea unguium B35.1 ; Pain in right toe(s) M79.674 and Pain in left toe(s) M79.675 Assessments Encounter Date Diagnosis (ICD Code) Assessment Notes Treatment Notes Treatment Clinical Notes Section Notes 02/23/2024 Atherosclerosis of [place] artery of both lower extremities, with unspecified presence of clinical manifestation (ICD-10 - I70.203) 02/23/2024 Tinea unguium (ICD-10 - B35.1) 02/23/2024 Pain in right toe(s) (ICD-10 - M79.674) 02/23/2024 Pain in left toe(s) (ICD-10 - M79.675) Plan Of Treatment Pending Test Test Name Order Date 84440-YUWWPWA NAIL, 1-5 02/23/2024 85936-ETTK SKIN LESIONS, 2 TO 4 02/23/20 24 Y2602-TQAQWMLB DYSTROPHIC NAILS ANY # Next Appt Details Follow Up: prn, Reason: Provider Name:Magdaleno Ji , 08/26/2024 09:15:00 AM, [address] [place], [address], Procedure Notes * Category Sub-Category Detail Notes Keratoma Treatment Parring or Cutting o f Benign Hyperkeratotic Lesion(s) 32707 (2-4 Lesions) - The Benign hyperkeratotic lesions, [...] as necessary. Patient chooses, no pharmaceutical tx (51652) Nail Reduction Nail Reduction Trimming of dyst rophic nails performed to reduce/remove overall nail length and girth, by manual and electrical means with use of a nail nipper and/or dremel, to more viable healthy nail plate or bed tissue, any number (G0127), Q8 Progress Notes * Jose BONILLA PDOB:1945 (78 yo M)Acc No.[id number]:02/23/2024 Progress Note Patient:?Jose Bonilla P Provider:?Magdaleno Ji DPM :1945???Age:78 Y???Sex:Male Morgan e:02/23/2024 Address:[address] [place], [place] [id number] Pcp:Pablo Strauss MD Subjective: * Chief Complaints: [...] [facility]. ?Marital status: . 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 * Medications:?TakingAtorvasta tin Calcium 20 MG [...] Assessment: 1.?Tinea unguium - B35.1?2.? Atherosclerosis of [place] artery of both lower extremities, with unspecified presence of clinical manifestation - I70.203 (Primary)?3.?Pain in right toe(s) - M79.674?4.?Pain in left toe(s) - M79.675? Plan: * Treatment: 2.?Tinea unguium?Procedure: 81687-ZGQSIML NAIL, 1-5 * Procedures:?Debride Nails 1-5:?Procedure:?Nail debridement performed extensively to reduce/remove overall nail length, girth, thickness, subungual debris, and necrotic tissue, by manual and electrical means through the use of a nail nipper and/or dremel, to more viable healthy nail plate or bed tissue 1-5. Silver nitrate used for any petechial bleeding as necessary. Patient chooses, no pharmaceutical tx (39868).?Keratoma Treatment:?Parring or Cutting of Benign Hyperkeratotic Lesion(s)?40498 (2-4 Lesions) - The Benign hyperkeratotic lesions, [...] DYSTROPHIC NAILS ANY #, Modifiers: XS , M193916 DEBRIDE NAIL, 1-5, Modifiers: XS 60046 TRIM SKIN LESIONS, 2 TO 4, Modifiers: XS , Q8 * Follow Up:?prn * Images: * Sign off status: Completed true * Provider:?Magdaleno Ji DPM Date:?2023 Generated for Spencer pardo/Alan/Bere on:?08/22/2024 06:12 AM EST History and Physical Notes * [...]
[2024-08-22 06:36] LABS: Anion Gap 15 (12-20); Blood Urea Nitrogen 42 mg/dL (9-16); Calcium 9.5 mg/dL (8.4-10.2); Carbon Dioxide 17 mmol/L (22-29); Chloride 107 mmol/L (96-108); Estimated Glomerular Filt Rate > 60; Glucose Random 93 mg/dL (60-115); Potassium 4.1 mmol/L (3.3-5.1); Sodium 135 mmol/L (135-145)
== END 2024-08-22 06:02 | disposition home or self-care (01) ==
LOC: HO.MMNH1L 06:01
PROVIDERS: Visit Provider Nurse Practitioner
DX: I10 Essential (primary) hypertension (principal)
CPT/HCPCS: 36415; 80048; 85025